=== PATIENT | male | born 1965 | race Caucasian/White ===

== ENCOUNTER → 2018-03-12 14:06 | Outpatient (CLI) | payer OTHER, SELFPAY ==
--- NOTE | 2018-03-14 05:55 | DI.NM.S_ITS ---
DATE OF SERVICE: 03/12/2018 NUCLEAR CARDIAC STRESS STUDY REFERRING PHYSICIAN: Chris Trevino MD INDICATIONS: Mr. Huber is a 52-year-old male with a history of hypertension and chest discomfort, referred to exclude underlying ischemic heart disease. STRESS TEST: This gentleman was able to exercise for 9 minutes and 48 seconds on a Yaw protocol, achieving his expected exercise capacity without chest pain or EKG changes of ischemia. He had a normal heart rate and blood pressure response to exercise. PROCEDURE IN DETAIL: This gentleman received 27.8 mCi of technetium-99 Myoview for the stress portion of the examination. He returned 1 day later for the resting portion of the examination, receiving an additional 27.1 mCi. FINDINGS: RAW DATA: Raw data images demonstrate overall good image quality. There is a moderate amount of up-and-down motion artifact on the stress perfusion images, but that doesn't interfere significantly with the image quality. QUANTITATIVE GATED SPECT IMAGING: Gated images demonstrate normal-sized ventricle with normal left ventricular contractility. Estimated end diastolic volume was 76 cc with an ejection fraction estimated at 80%. QUANTITATIVE PERFUSION SPECT IMAGING: Myocardial perfusion imaging shows a normal distribution of radioisotope throughout the myocardium on stress and rest perfusion images. There are no perfusion abnormalities that would suggest ischemia or scar. IMPRESSION: Normal nuclear cardiac stress study suggesting a low likelihood for the presence of significant underlying obstructive coronary artery disease. Patrick Huber - KAMRAN/thierno/rustam doc#: [id number]/job#: [id number] dd: 03/13/2018 17:46:00 dt: 03/14/2018 05:48:00 DICTATING MD/COPIES TO: Tommy Silva MD COPIES MNE: FRANSICO
== END ==
PROVIDERS: PCP Family Medicine; Visit Provider Family Medicine
DX: R07.89 Other chest pain (principal); I10 Essential (primary) hypertension
CPT/HCPCS: 78452; 93016; 93017; 93018; A9502; J2785

== ENCOUNTER 2018-10-04 22:36 | Emergency (ER) | payer OTHER, SELFPAY ==
--- NOTE | 2018-10-04 22:47 | DI.CT.S_ITS ---
PROCEDURE: CT HEAD/BRAIN WO CON INDICATIONS: multiple falls, highly intoxicated, head injury TECHNIQUE: Noncontrast 4.5 mm thick angled axial sections acquired from the foramen magnum to the vertex, with coronal and sagittal reformats. For radiation dose reduction, the following was used: automated exposure control, adjustment of mA and/or kV according to patient size. COMPARISON: None. FINDINGS: Image quality: Excellent. CSF spaces: Basal cisterns are patent. No extra-axial fluid collections. Ventricles are normal in size and shape. Brain: No midline shift. No intracranial masses or hemorrhage. Lara-white matter interface is normal. Skull and face: Calvarium and visualized facial bones are intact, without suspicious lesions. Mild right posterolateral scalp contusion. Sinuses: Mild right frontal, bilateral ethmoid, and bilateral maxillary sinus mucosal thickening. IMPRESSION: 1. No acute intracranial abnormality. 2. Mild right posterolateral scalp contusion without underlying calvarial fracture. 3. Mild paranasal sinus mucosal thickening, which could be compatible with sinusitis in the appropriate clinical setting. This report is concordant with the overnight preliminary [facility] radiology report of Dr. Sanat Hastings. Dictated by: Ty Gongora M.D. on 10/05/2018 at 23:53 Approved by: Ty Gongora M.D. on 10/06/2018 at 0:01
--- NOTE | 2018-10-04 23:14 | ED_ITS ---
HPI - Head Injury General Chief complaint: Toxicology Problem Stated complaint: Syncope Time Seen by Provider: 10/04/18 22:47 Source: patient, family and EMS Mode of arrival: EMS Limitations: no limitations History of Present Illness HPI Narrative: 53-year-old male, smoker, known to myself and other staff presents obviously and admittedly intoxicated. He tripped and fell, striking the back of his head resulting in a brief loss of consciousness. He denies any other injuries including neck, back or extremity pain. He denies any vomiting. He does not take blood thinners. He denies any other substances Complaint: head injury Onset (ago): hour(s) Mechanism of Injury: fall Place: home Loss of Consciousness: yes Location of injury: occipital Severity: mild Quality: aching Radiation: none Other Injuries: none Context: recent alcohol use Associated symptoms: denies other symptoms Related Data Home Medications Medication Instructions Recorded Confirmed aspirin 81 mg PO QDAY #0 12/29/17 07/17/18 Previous Rx's Medication Instructions Recorded rabeprazole [Aciphex] 20 mg PO QDAY #90 tab 12/31/17 losartan 50 mg tablet 50 mg PO BID #60 tab 05/30/18 clonazepam 0.5 mg tablet 0.5 mg PO TIDP PRN #90 tab 08/08/18 Allergies Allergy/AdvReac Type Severity Reaction Status Date / Time azithromycin Allergy Unknown DIARRHEA Verified 07/17/18 15:16 cefazolin Allergy Unknown Verified 07/17/18 15:16 cephalexin Allergy Unknown RASH Verified 07/17/18 15:16 hydrocodone Allergy Unknown UNKNOWN Verified 07/17/18 15:16 metoprolol Allergy Unknown DIZZY/DYSPN Verified 07/17/18 15:16 EA Penicillins Allergy Unknown DYSPNEA Verified 07/17/18 15:16 Sulfa (Sulfonamide Allergy Unknown HOT-COLD Verified 07/17/18 15:16 Antibiotics) FLASHES narcotics Allergy Unknown states, Uncoded 01/15/18 12:53 all narcotic except for percocet Review of Systems Review of Systems All systems reviewed & are unremarkable except as noted in HPI and below Constitutional Denies chills, Denies fever(s), Reports headache(s), Denies lethargy and Denies weakness Eyes Denies change in vision, Denies eye discharge, Denies irritation and Denies loss of vision ENT Ears, Nose, Mouth, and Throat: Denies change in voice, Reports headache(s), Denies neck pain and Denies sore throat Cardiovascular Denies chest pain, Denies irregular heart rhythm, Denies lightheadedness, Denies palpitations, Denies dyspnea, Denies dyspnea on exertion and Denies orthopnea Respiratory Denies cough, Denies dyspnea, Denies dyspnea on exertion and Denies wheezing Gastrointestinal Gastrointestinal: Denies abdominal pain, Denies change in bowel habits, Denies diarrhea, Denies nausea and Denies vomiting Genitourinary Denies hematuria, Denies flank pain, Denies urinary incontinence and Denies urinary urgency Musculoskeletal Denies neck pain Integumentary/Breasts Denies pruritus, Denies erythema, Denies rash and Denies wounds Neurologic Denies confusion, Reports headache(s), Denies loss of vision and Denies weakness Psychiatric Denies anxiety, Denies confusion, Denies depression, Denies homicidal ideation and Denies suicidal ideation Endocrine Denies palpitations Hematologic/Lymphatic Denies easy bruising Allergic/Immunologic Denies wheezing PFSH Family History Father Cerebrovascular accident (CVA), unspecified mechanism Mother Autoimmune hepatitis Social History Smoking Status: Never smoker alcohol intake: current Exam Narrative Exam Narrative: GENERAL: 53-year-old male, in obvious distress, smells of alcohol. HEAD: Scalp tenderness, occipital. No laceration. No depressed skull fracture EYES: Pupils equal round and reactive. Extraocular motions intact. No scleral icterus. No injection or drainage. ENT: Nose without bleeding, purulent drainage or septal hematoma. Throat without erythema, tonsillar hypertrophy or exudate. Uvula midline. Airway patent. NECK: Trachea midline. No JVD or lymphadenopathy. Supple, nontender, no meningeal signs. CARDIOVASCULAR: Regular rate and rhythm without murmurs, gallops, or rubs. RESPIRATORY: Clear to auscultation. Breath sounds equal bilaterally. No wheezes , rales, or rhonchi. GASTROINTESTINAL: Abdomen soft, non-tender, nondistended. No hepato-splenomegaly , or palpable masses. No guarding. EXTREMITIES: No clubbing, cyanosis, or edema. No joint tenderness, effusion, or edema noted. BACK: Nontender without deformity or crepitance. No flank tenderness. NEURO: AOx3. Slurring of words, not completely cooperative SKIN: No rash or erythema. Initial Vital Signs Initial Vital Signs: Vital Signs Temperature 97.8 F 10/04/18 23:25 Pulse Rate 98 H 10/04/18 23:25 Respiratory Rate 18 10/04/18 23:25 Blood Pressure 158/84 H 10/04/18 23:25 Pulse Oximetry 99 10/04/18 23:25 Course Orders Ordered: ED Orders 10/04/18 22:47 CT head/brain wo con Stat 10/04/18 23:44 Complete Blood Count AUTO DIFF Stat Comprehensive Metabolic Panel Stat Ethanol (ETOH) Stat Hepatic (Liver) Panel Stat Lipase Stat Magnesium Stat Reevaluation(s) Reevaluation #1: patient quite uncooperative initially until friends arrived to help convince him to allow head CT and labs Reevaluation #2: on DC patient walking a straight line and speaking without slurring. He leaves with other responsible sober adult. Vital Signs - 8 hr 10/04/18 23:25 Temperature 97.8 F Pulse Rate 98 H Respiratory Rate 18 Blood Pressure 158/84 H Pulse Oximetry 99 MDM - Head Injury Lab Data Result diagrams: 10/04/18 23:44 10/04/18 23:44 Lab Results 10/04/18 10/04/18 Range/Units 23:44 23:44 WBC 7.8 (4.5-11.0) X10^3/uL RBC 5.04 (4.5-5.9) X10^6/uL Hgb 16.2 (13.5-17.5) g/dL Hct 46.4 (41-53) % MCV 91.9 (80-100) fL MCH 32.1 (26-34) PG MCHC 34.9 (30-36) % RDW 13.1 (11.6-14.8) % Plt Count 214 (150-400) X10^3/uL Neut % (Auto) 61.8 (50-75) % Lymph % (Auto) 29.6 (25-40) % [place] % (Auto) 7.7 (3-14) % Eos % (Auto) 0.5 L (2-4) % Baso % (Auto) 0.4 (0-2) % Neut # (Auto) 4800 (3043-2017) /uL Sodium 143 (137-145) mmol/L Potassium 4.0 (3.4-5.1) mmol/L Chloride 104 (98-107) mmol/L Carbon Dioxide 23 (22-32) mmol/L BUN 11 (9-20) mg/dL Creatinine 1.00 (0.66-1.25) mg/dL Estimated GFR > 60.0 (>60) mL/min BUN/Creatinine Ratio 11.0 (6-22) Glucose 138 H (70-100) mg/dL Calcium 9.0 (8.4-10.2) mg/dL Magnesium 2.3 (1.6-2.3) mg/dL Total Bilirubin 0.4 (0.2-1.3) mg/dL Conjugated Bilirubin 0.0 (0.0-0.3) md/dL Unconjugated Bilirubin 0.1 (0.0-1.1) mg/dL AST 102 H (17-59) IU/L ALT 155 H (21-72) IU/L Alkaline Phosphatase 89 (38-126) U/L Total Protein 8.7 H (6.3-8.2) g/dL Albumin 4.9 (3.5-5.0) g/dL Globulin 3.8 (1.7-4.1) g/dL Albumin/Globulin Ratio 1.3 (1.0-2.8) Lipase 247 (23-300) U/L Ethyl Alcohol 349 mg/dL Discharge Plan Departure Patient Disposition: Home Clinical Impression: Contusion of scalp, Alcohol abuse Discharge Date/Time: 10/05/18 00:15 Interventions: ED Discharge Assessment Last Done: 10/05/18 00:13 Instructions: Alcohol Use Disorder Activity Restrictions/Additional Instructions: *You have been diagnosed with [ alcohol abuse, scalp contusion *What to do: *continue to take medications *Follow up with your primary care provider in 2-3 days, call for an appointment. Let them know you were seen in the Emergency Department and that we ask that you be seen in follow up *Return to ER if you should have any new, worsening or concerning symptoms Prescriptions: No Action aspirin 81 MG tablet,chewable 81 mg PO QDAY Qty: 0 RF: 0 rabeprazole [Aciphex] 20 MG tablet,delayed release (DR/EC) 20 mg PO QDAY Qty: 90 RF: 3 losartan 50 mg tablet 50 mg PO BID Qty: 60 RF: 5 clonazepam 0.5 mg tablet 0.5 mg PO TIDP PRN (Reason: anxiety) Qty: 90 RF: 1 Referrals: Valente Stovall MD [Primary Care Provider] -
[2018-10-04 23:25] VITALS: BP 158/84; PULSE 98; RESP 18; TEMP 36.6; O2SAT 99
--- NOTE | 2018-10-04 23:29 | PC.NURSE ---
Pt appears to be intoxicated, he reports he hadway too much to drink tonight. He states he has a headache and Im fine, let me go home. Pt has difficulty following directions and argues every thing. Pt eventually agreed to go into the CT scanner once friends arrived and talked him into it. Pt denies any needs just want to go home. Friends are at bedside now redirecting pt to stay on the stretcher and wait for ct results.
[2018-10-04 23:59] LABS: Add Manual Diff / Slide Review NO; Basophils Percent Auto 0.4 % (0-2); Eosinophils Percent Auto 0.5 % (2-4); Hematocrit 46.4 % (41-53); Hemoglobin 16.2 g/dL (13.5-17.5); Lymphocytes Percent Auto 29.6 % (25-40); Mean Corpuscular HGB Conc 34.9 % (30-36); Mean Corpuscular Hemoglobin 32.1 PG (26-34); Mean Corpuscular Volume 91.9 fL (80-100); Monocytes Percent Auto 7.7 % (3-14); Neutrophils Absolute Auto 4800 /uL (1500-7000); Neutrophils Percent Auto 61.8 % (50-75); Platelet Count 214 X10^3/uL (150-400); Red Blood Cell Count 5.04 X10^6/uL (4.5-5.9); Red Cell Distribution Width 13.1 % (11.6-14.8); White Blood Cell Count 7.8 X10^3/uL (4.5-11.0)
[2018-10-05 00:17] LABS: Alanine Aminotransferase 155 IU/L (21-72); Albumin 4.9 g/dL (3.5-5.0); Albumin Globulin Ratio 1.3 (1.0-2.8); Alkaline Phosphatase 89 U/L (38-126); Aspartate Aminotransferase 102 IU/L (17-59); Bilirubin Total 0.4 mg/dL (0.2-1.3); Bilirubin Unconjugated 0.1 mg/dL (0.0-1.1); Blood Urea Nitrogen 11 mg/dL (9-20); Carbon Dioxide 23 mmol/L (22-32); Chloride 104 mmol/L (98-107); Estimated Glomerular Filt Rate > 60.0 mL/min (>60); Globulin 3.8 g/dL (1.7-4.1); Glucose 138 mg/dL (70-100); HEMOLYSIS < 15 (0-50); Lipase 247 U/L (23-300); Magnesium 2.3 mg/dL (1.6-2.3); Sodium 143 mmol/L (137-145); Total Protein 8.7 g/dL (6.3-8.2)
[2018-10-05 00:27] LABS: Ethanol (ETOH) 349 mg/dL
--- NOTE | 2018-10-05 00:27 | PC.NURSE ---
Unable to leave pt alone until friends arrived. Pt was not directable and not steady on his feet. Staff had to continually hold pt up when asking him to get back on stretcher. Pt would sit for a few seconds and get right back up telling staff he was leaving. Pt required 1:1 staff to prevent falling and keep pt safe.
== END 2018-10-05 00:15 | disposition home or self-care (01) ==
PROVIDERS: Emergency Provider Emergency Medicine; PCP Student in an Organized Health Care Education/Training Program
DX: S00.03XA Contusion of scalp, initial encounter (principal); F10.10 Alcohol abuse, uncomplicated; W01.0XXA Fall on same level from slipping, tripping and stumbling without subsequent striking against object, initial encounter
CPT/HCPCS: 36415; 70450; 80053; 80076; 80320; 83690; 83735; 85025; 99282; 99285; 99291

== ENCOUNTER → 2018-12-19 16:03 | Outpatient (CLI) | payer OTHER, SELFPAY ==
[2018-12-19 17:13] LABS: Alanine Aminotransferase 138 IU/L (21-72); Albumin 4.7 g/dL (3.5-5.0); Albumin Globulin Ratio 1.6 (1.0-2.8); Alkaline Phosphatase 67 U/L (38-126); Aspartate Aminotransferase 67 IU/L (17-59); Bilirubin Total 0.5 mg/dL (0.2-1.3); Bilirubin Unconjugated 0.3 mg/dL (0.0-1.1); HEMOLYSIS < 15 (0-50); Total Protein 7.7 g/dL (6.3-8.2)
[2018-12-19 17:45] LABS: Hepatitis B Surface Antigen NEGATIVE s/c (NEGATIVE)
[2018-12-23 11:51] LABS: Anti Mitochondrial ABY IGG < 20.1 Units (< 20.1)
[2018-12-23 15:58] LABS: Hepatitis B Core Antibody Nonreactive (Nonreactive)
[2018-12-23 16:26] LABS: Hepatitis A Antibody Total Nonreactive (Nonreactive)
[2018-12-25 15:16] LABS: Cholesterol 193 mg/dL (140-199); HDL Cholesterol 39 mg/dL (40-60); LDL Cholesterol Calculated 78 mg/dL (<100); Triglycerides 380 mg/dL (35-150)
[2018-12-25 16:13] LABS: Hepatitis B Surface Antigen NEGATIVE s/c (NEGATIVE)
[2018-12-26 14:40] LABS: Vitamin D 25 Hydroxy (D3) 24.4 ng/mL (30.0-100.0)
[2018-12-27 14:13] LABS: ANA Pattern Speckled; ANA Screen, IFA Positive (Negative); ANA Titer 1:40 titer (<1:40)
[2018-12-27 19:56] LABS: Hepatitis B Core Antibody Nonreactive (Nonreactive)
== END ==
PROVIDERS: PCP Student in an Organized Health Care Education/Training Program; Visit Provider Student in an Organized Health Care Education/Training Program
DX: R74.8 Abnormal levels of other serum enzymes (principal)
CPT/HCPCS: 36415; 80061; 80076; 82306; 82728; 83516; 86038; 86704; 86708; 87340

== ENCOUNTER → 2018-12-23 07:19 | Outpatient (CLI) | payer OTHER, SELFPAY ==
--- NOTE | 2018-12-23 | DI.US.S_ITS ---
PROCEDURE: US ABDOMEN COMPLETE INDICATIONS: ABNORMAL LFTS TECHNIQUE: Real-time scanning was performed of the abdominal and retroperitoneal organs, with image documentation. COMPARISON: [facility], [place], ABDOMEN LIMITED, 01/05/2015, 8:39. [facility], CT, ABDOMEN/PELVIS WITH CONTRAST, 04/26/2008, 8:20. FINDINGS: Liver: Liver is diffusely increased in echogenicity. No focal hepatic abnormalities identified. Normal hepatic size. Gallbladder: 1.7 cm mobile gallstone present and there is no gallbladder wall thickening. No pericholecystic fluid. Negative sonographic Solis sign. Biliary ducts: Intrahepatic bile ducts are non-dilated. Extrahepatic bile duct caliber measures 8.6 mm. Normal is 6-7 mm or less in diameter, or 10 mm or less post-cholecystectomy. Pancreas: Not well-seen. Spleen: Spleen is normal in size and homogeneous in echotexture. Kidneys: Kidneys are normal in size and echotexture. Right kidney measures 10.8 cm long; left kidney measures 10.4 cm long. No hydronephrosis or nephrolithiasis. No solid masses. Aorta: Visualized aorta is normal in caliber at less than 3 cm. Iliacs: Proximal common iliac arteries are normal in caliber at less than 2.5 cm. IVC: Intrahepatic inferior vena cava is patent. Miscellaneous: No free abdominal fluid. IMPRESSION: 1. Increased hepatic echogenicity likely representing steatosis. 2. Cholelithiasis without acute cholecystitis. 3. Mild extrahepatic biliary ductal dilatation without an obstructing stone visualized. Correlate with LFTs and if indicated further evaluation may be obtained with MRCP. Dictated by: Morgan Thakur [facility] Interpreted: Dilip Tipton MD on 12/23/2018 at 9:05 Approved by: Dilip Tipton M.D. on 12/23/2018 at 11:10
== END ==
PROVIDERS: PCP Student in an Organized Health Care Education/Training Program; Visit Provider Physician Assistant
DX: R79.89 Other specified abnormal findings of blood chemistry (principal); K80.80 Other cholelithiasis without obstruction; K83.8 Other specified diseases of biliary tract
CPT/HCPCS: 76700

== ENCOUNTER → 2019-01-28 08:13 | Outpatient (CLI) | payer OTHER, SELFPAY ==
[2019-01-28 08:41] LABS: Influenza A and B by PCR Rapid Negative (Negative)
== END ==
PROVIDERS: PCP Student in an Organized Health Care Education/Training Program; Visit Provider Physician Assistant
DX: R68.89 Other general symptoms and signs (principal)
CPT/HCPCS: 87400

== ENCOUNTER → 2019-01-28 08:17 | Outpatient (CLI) | payer OTHER, SELFPAY ==
--- NOTE | 2019-01-28 08:19 | DI.RAD.S_ITS ---
PROCEDURE: XR CHEST 2V INDICATIONS: cough TECHNIQUE: 2 views of the chest were acquired. COMPARISON: None. FINDINGS: Surgical changes and devices: None. Lungs and pleura: Lungs are clear. No pleural effusions or pneumothorax. Mediastinum: Mediastinal contours are normal. Heart size is normal. Bones and chest wall: No suspicious bony abnormalities. Soft tissues appear unremarkable. IMPRESSION: No acute cardiopulmonary disease process. Dictated by: Chica Fuentes MD, PhD on 01/28/2019 at 8:45 Approved by: Chica Fuentes MD, PhD on 01/28/2019 at 8:45
== END ==
PROVIDERS: PCP Student in an Organized Health Care Education/Training Program; Visit Provider Physician Assistant
DX: R05 Cough (principal); R68.89 Other general symptoms and signs
CPT/HCPCS: 71046; 87400

== ENCOUNTER → 2019-04-30 17:26 | Outpatient (CLI) | payer OTHER, SELFPAY ==
[2019-04-30 18:31] LABS: HEMOLYSIS 28 (0-50); Iron 87 ug/dL (49-181)
[2019-04-30 18:32] LABS: Alanine Aminotransferase 112 IU/L (21-72); Albumin 4.6 g/dL (3.5-5.0); Albumin Globulin Ratio 1.5 (1.0-2.8); Alkaline Phosphatase 68 U/L (38-126); Aspartate Aminotransferase 63 IU/L (17-59); Bilirubin Total 0.7 mg/dL (0.2-1.3); Bilirubin Unconjugated 0.3 mg/dL (0.0-1.1); HEMOLYSIS 20 (0-50); Total Protein 7.6 g/dL (6.3-8.2)
[2019-04-30 18:41] LABS: Percent Iron Saturation 22 % (20-50); Total Iron Binding Capacity 390 ug/dL (261-462); Transferrin 327 mg/dL (206-381)
[2019-04-30 19:20] LABS: Hep C Virus Ab w/Reflex Quant NEGATIVE s/c (NEGATIVE)
[2019-05-05 14:53] LABS: Hepatitis B Surf AB Imm QUANT < 5 mIU/mL (> 9)
== END ==
PROVIDERS: PCP Student in an Organized Health Care Education/Training Program; Visit Provider Physician Assistant
DX: R94.5 Abnormal results of liver function studies (principal)
CPT/HCPCS: 36415; 80076; 81256; 82728; 83540; 83550; 86317; 86803

== ENCOUNTER 2019-08-19 08:21 | Emergency (ER) | payer OTHER, SELFPAY ==
[2019-08-19 08:29] VITALS: BP 182/115; PULSE 122; RESP 17; TEMP 36.8; O2SAT 96
--- NOTE | 2019-08-19 08:29 | ED.GENADULT ---
HPI - General Adult General Chief complaint: Wound/Laceration Stated complaint: cat scratch Time Seen by Provider: 08/19/19 08:26 Source: patient Mode of arrival: Ambulatory Limitations: no limitations History of Present Illness HPI narrative: 54-year-old male here for evaluation of a cat scratch/swelling and pain to his left hand. Patient states that approximately 3 days ago he was scratched by a friend's domesticated cat. He has been cleaning it out at home with soap and water and peroxide. Over the past couple days he has noticed pain and swelling and redness to the area surrounding the thumb. Has multiple antibiotic allergies however he states he can take azithromycin. Patient states that his last tetanus shot was when he was in his 20s. He states that when he had it his arm became painful and was swollen for about 5 days and then completely resolved. Related Data Previous Rx's Medication Instructions Recorded triamcinolone acetonide 0.1 % 1 % TOP BID #15 gram 11/12/18 topical cream amlodipine 5 mg tablet 5 mg PO DAILY #90 tab 12/16/18 rabeprazole 20 mg tablet,delayed 20 mg PO QDAY #90 tab 01/23/19 release clonazepam 0.5 mg tablet 0.5 mg PO TID #90 tab 05/12/19 azithromycin 250 mg tablet See Rx Instructions PO .COMPLEX #6 07/29/19 tab azithromycin 500 mg PO DAILY 6 Days #6 tab 08/19/19 Allergies Allergy/AdvReac Type Severity Reaction Status Date / Time azithromycin Allergy Unknown DIARRHEA Verified 07/29/19 14:48 cefazolin Allergy Unknown Verified 07/29/19 14:48 cephalexin Allergy Unknown RASH Verified 07/29/19 14:48 hydrocodone Allergy Unknown UNKNOWN Verified 07/29/19 14:48 Penicillins Allergy Unknown DYSPNEA Verified 07/29/19 14:48 Sulfa (Sulfonamide Allergy Unknown HOT-COLD Verified 07/29/19 14:48 Antibiotics) FLASHES narcotics Allergy Unknown states, Uncoded 07/29/19 14:48 all narcotic except for percocet Review of Systems Constitutional Constitutional: Reports fatigue and Reports fever(s) (Subjective) Musculoskeletal Comments: Left thumb pain Integumentary/Breasts Comments: Redness around the left thumb with a cat scratch left thumb Neurologic Neurologic: Denies paresthesias Endocrine Endocrine: Reports fatigue Hematologic/Lymphatic Hematologic/Lymphatic: Denies easy bleeding and Denies easy bruising Patient History Medical History Abnormal transaminases (Chronic) Anxiety (Chronic) GERD (gastroesophageal reflux disease) (Chronic) Hyperlipidemia (Chronic) Hypertension (Chronic) Impotence (Chronic) Surgical History (Updated 11/11/18 @ 20:40 by Caryn Boyd) History of gastric surgery (Resolved ~2003) History of hernia repair (Resolved ~2003) Perianal cyst (Resolved ~1999) Social History Smoking Status: Never smoker alcohol intake: current Exam Initial Vital Signs Initial Vital Signs: Vital Signs Temperature 98.3 F 08/19/19 08:29 Pulse Rate 122 H 08/19/19 08:29 Respiratory Rate 17 08/19/19 08:29 Blood Pressure 182/115 H 08/19/19 08:29 Pulse Oximetry 96 08/19/19 08:29 Const General: cooperative and comfortable Orientation: alert, awake and oriented x3 Cardio Rate: tachycardic Pulses: radial pulses present on the left Skin Other: Patient with a 2 cm scratch on the dorsum of the left thumb between the MCP and IP joint. Has redness surrounding his left thumb up to the wrist both on the dorsum in the palm. No drainage. Extrem Other: Patient can flex and extend and pronate and supinate with only minimal discomfort Psych Appearance: grossly normal and well kempt Course Vital Signs Vital signs: Vital Signs - 8 hr 08/19/19 08:29 Temperature 98.3 F Pulse Rate 122 H Respiratory Rate 17 Blood Pressure 182/115 H Pulse Oximetry 96 Medical Decision Making [facility] Narrative Medical decision making narrative: Patient with a wound to the back of his left thumb. There is no drainage. He has been cleaning it extensively over the past couple days. He has surrounding erythema concerning for a cellulitis. I have low concern for septic joint. Was tachycardic but also was in some discomfort. Has multiple drug allergies however he states that he can take azithromycin. He states he is allergic to penicillins. States the doxycycline causes his kidneys to hurt. He states that he is unsure if he can take clindamycin. He does not think he can take Cipro. He knows that he cannot take sulfa drugs. I feel that since he has not taken any antibiotics at home and his clinical presentation today that a trial of oral outpatient antibiotics is warranted in this case. The redness was outlined with a skin marker. He was given his 1st dose of antibiotics here in the ER. Will send home with a prescription for the rest. He was given return precautions and follow-up instructions. He expressed understanding and agreement with plan. Patient states the last time he had tetanus his arm was painful and at swelled up for about 5 days and then resolved. He has not had a tetanus shot since he was in his 20s. I did discuss this with him. I feel that this is a low risk for tetanus however feel that the benefits outweigh the risks of swelling and pain in his arm. He was given a tetanus shot here in the ER. Discharge Plan Departure Patient Disposition: Home Clinical Impression: Cat scratch of hand Qualifiers: Encounter type: initial encounter Laterality: left Qualified Code(s): S60.512A - Abrasion of left hand, initial encounter Cellulitis Qualifiers: Site of cellulitis: extremity Site of cellulitis of extremity: upper extremity Laterality: left Qualified Code(s): L03.114 - Cellulitis of left upper limb Instructions: DI for Cellulitis -- Adult, Animal Bites Activity Restrictions/Additional Instructions: Keep the hand cleaning. You can use soap and water. You were given your 1st dose of antibiotics here in the emergency department. Your next dose will be tomorrow. Take it as directed. Contact your primary provider for follow-up. Return to the emergency department for new or worsening symptoms. You can take Tylenol and/or ibuprofen for any discomfort Prescriptions: New azithromycin 500 mg tablet 500 mg PO DAILY 6 Days Qty: 6 RF: 0 No Action amlodipine 5 mg tablet 5 mg PO DAILY Qty: 90 RF: 1 rabeprazole [AcipHex] 20 mg tablet,delayed release (DR/EC) 20 mg PO QDAY Qty: 90 RF: 3 clonazepam 0.5 mg tablet 0.5 mg PO TID Qty: 90 RF: 2 triamcinolone acetonide 0.1 % cream 1 % TOP BID Qty: 15 RF: 1 azithromycin 250 mg tablet See Rx Instructions PO .COMPLEX Qty: 6 RF: 0 Referrals: Valente Stovall MD [Primary Care Provider] -
[2019-08-19] MEDS: AZITHROMYCIN 250 MG TABLET 500 MG PO (09:04)
[2019-08-19] MEDS: TET,DIPH,PERTUSS(ACELL),VAC/PF 0.5 ML SYRINGE IM (09:04)
--- NOTE | 2019-08-19 09:13 | PC.NURSE ---
pt has redness and swelling originating with 1cm cat scratch to left thumb and extending to other fingers and up forearm to about 6 cm proximal to wrist, borders of redness marked with surgical pen for reference, no drainage, + pain with movement or palpation
== END 2019-08-19 09:16 | disposition home or self-care (01) ==
PROVIDERS: Emergency Provider Emergency Medicine; PCP Student in an Organized Health Care Education/Training Program
DX: S60.512A Abrasion of left hand, initial encounter (principal); L03.114 Cellulitis of left upper limb; W55.03XA Scratched by cat, initial encounter
CPT/HCPCS: 90471; 99283; 90715

== ENCOUNTER 2019-08-20 07:55 | Inpatient (IN) | payer OTHER, SELFPAY ==
[2019-08-20] VITALS (7 sets, daily range): BP systolic 129–149; BP diastolic 84–107; PULSE 95–115; RESP 16–18; TEMP 36.6–37.9; O2SAT 95–98; BMI 26.6
--- NOTE | 2019-08-20 08:02 | ED.GENADULT ---
HPI - General Adult General Chief complaint: Skin/Abscess/Foreign Body Stated complaint: cellulitis left hand, says it's worse Time Seen by Provider: 08/20/19 08:01 Source: patient Mode of arrival: Ambulatory Limitations: no limitations History of Present Illness HPI narrative: 54-year-old male here for evaluation of worsening cellulitis to his left hand. I did see the patient in the emergency department yesterday after he had been scratched by a domesticated cat in his left thumb. Patient has multiple drug allergies. He was given a dose of azithromycin yesterday. The cellulitis was outlined. He states he did take a dose of the azithromycin today however he reports that the redness has now moved outside of the line from yesterday. No fevers. Azithromycin was chosen yesterday given the patient's stated reactions to multiple medications. He had a small amount of cellulitis yesterday. I was treating more of a cat bite/scratch rather than cellulitis. Related Data Previous Rx's Medication Instructions Recorded triamcinolone acetonide 0.1 % 1 % TOP BID #15 gram 11/12/18 topical cream amlodipine 5 mg tablet 5 mg PO DAILY #90 tab 12/16/18 rabeprazole 20 mg tablet,delayed 20 mg PO QDAY #90 tab 01/23/19 release clonazepam 0.5 mg tablet 0.5 mg PO TID #90 tab 05/12/19 azithromycin 250 mg tablet See Rx Instructions PO .COMPLEX #6 07/29/19 tab azithromycin 500 mg PO DAILY 6 Days #6 tab 08/19/19 Allergies Allergy/AdvReac Type Severity Reaction Status Date / Time azithromycin Allergy Unknown DIARRHEA Verified 08/20/19 08:10 cefazolin Allergy Unknown Verified 08/20/19 08:10 cephalexin Allergy Unknown RASH Verified 08/20/19 08:10 hydrocodone Allergy Unknown UNKNOWN Verified 08/20/19 08:10 Penicillins Allergy Unknown DYSPNEA Verified 08/20/19 08:10 Sulfa (Sulfonamide Allergy Unknown HOT-COLD Verified 08/20/19 08:10 Antibiotics) FLASHES narcotics Allergy Unknown states, Uncoded 08/20/19 08:10 all narcotic except for percocet Review of Systems Constitutional Constitutional: Denies fever(s) ENT Ears, Nose, Mouth, and Throat: Denies disequilibrium Cardiovascular Cardiovascular: Denies chest pain and Denies dyspnea Respiratory Respiratory: Denies dyspnea Gastrointestinal Gastrointestinal: Denies abdominal pain Musculoskeletal Musculoskeletal: Denies myalgias and Denies arthralgias Integumentary/Breasts Comments: Redness and swelling of the left hand extending up his left arm Neurologic Neurologic: Denies disequilibrium Hematologic/Lymphatic Hematologic/Lymphatic: Denies easy bleeding and Denies easy bruising Patient History Medical History Abnormal transaminases (Chronic) Anxiety (Chronic) GERD (gastroesophageal reflux disease) (Chronic) Hyperlipidemia (Chronic) Hypertension (Chronic) Impotence (Chronic) Surgical History History of gastric surgery (Resolved ~2003) History of hernia repair (Resolved ~2003) Perianal cyst (Resolved ~1999) Family History Father Cerebrovascular accident (CVA), unspecified mechanism Mother Autoimmune hepatitis Grandmother No problems noted. Social History household members: none Smoking Status: Never smoker alcohol intake: current alcohol intake frequency: a few times a week Alcohol type: beer Substance Use Type: does not use Exam Initial Vital Signs Initial Vital Signs: Vital Signs Temperature 97.9 F 08/20/19 08:07 Pulse Rate 107 H 08/20/19 08:07 Respiratory Rate 18 08/20/19 08:07 Blood Pressure 149/95 H 08/20/19 08:07 Pulse Oximetry 98 08/20/19 08:07 Const General: cooperative and comfortable Resp Effort & Inspection: normal respiratory effort Cardio Rate: tachycardic Skin Other: 2 cm scratch on the radial aspect of the left thumb. There is no drainage from this area. The redness that surrounds the area is currently there today however he down has streaking up his left arm that does not extend past the elbow. Neuro General: alert, awake and oriented x3 Cognition: normal cognition Speech: speech normal Extrem General: normal to inspection and capillary refill normal Psych Appearance: grossly normal and well kempt Course Orders Ordered: ED Orders 08/20/19 08:00 Basic Metabolic Panel Stat Complete Blood Count AUTO DIFF Stat Lactate (Lactic Acid) Stat Procalcitonin Stat 08/20/19 08:07 XR hand LT min 3V Stat 08/20/19 08:36 Blood Culture Stat Sodium Chloride (Normal Saline 0.9%) 1,000 mls @ 125 mls/hr IV CONT OMARI Last Infusion: 08/20/19 10:37 Dose: 125 mls/hr Documented by: Admin: 08/20/19 08:35 Dose: 125 mls/hr Documented by: MONTY Discontinued Medications Vancomycin HCl (Vancomycin) 1,000 mg in 200 mls @ 200 mls/hr IV NOW ONE Stop: 08/20/19 09:06 Last Infusion: 08/20/19 09:50 Dose: 0 mls/hr Documented by: Admin: 08/20/19 08:35 Dose: 200 mls/hr Documented by: MONTY Clindamycin Phosphate (Cleocin) 600 mg in 50 mls @ 50 mls/hr IV NOW ONE Stop: 08/20/19 10:29 Last Infusion: 08/20/19 10:39 Dose: 50 mls/hr Documented by: Admin: 08/20/19 09:54 Dose: 50 mls/hr Documented by: KOTA Vital Signs Vital signs: Vital Signs - 8 hr 08/20/19 08:07 Temperature 97.9 F Pulse Rate 107 H Respiratory Rate 18 Blood Pressure 149/95 H Pulse Oximetry 98 Medical Decision Making Lab Data Lab results reviewed: Yes I reviewed the patient's lab results. Result diagrams: 08/20/19 08:00 08/20/19 08:00 Labs: Lab Results 08/20/19 08/20/19 08/20/19 Range/Units 08:00 08:00 08:00 WBC 11.6 H (4.5-11.0) X10^3/uL RBC 4.57 (4.5-5.9) X10^6/uL Hgb 14.6 (13.5-17.5) g/dL Hct 41.6 (41-53) % MCV 90.9 (80-100) fL MCH 31.9 (26-34) PG MCHC 35.1 (30-36) % RDW 13.6 (11.6-14.8) % Plt Count 162 (150-400) X10^3/uL Neut % (Auto) 80.1 H (50-75) % Lymph % (Auto) 10.2 L (25-40) % [place] % (Auto) 9.2 (3-14) % Eos % (Auto) 0.2 L (2-4) % Baso % (Auto) 0.3 (0-2) % Neut # (Auto) 9300 H (5131-5923) /uL Lymph # (Auto) 1200 (2824-8494) /uL [place] # (Auto) 1100 H (0-900) /uL Eos # (Auto) 0 (0-450) /uL Baso # (Auto) 0 (0-100) /uL Sodium 136 L (137-145) mmol/L Potassium 3.5 (3.4-5.1) mmol/L Chloride 102 (98-107) mmol/L Carbon Dioxide 24 (22-32) mmol/L BUN 11 (9-20) mg/dL Creatinine 0.90 (0.66-1.25) mg/dL Estimated GFR > 60.0 (>60) mL/min BUN/Creatinine Ratio 12.2 (6-22) Glucose 186 H (70-100) mg/dL Lactate (0.7-2.1) mmol/L Calcium 9.2 (8.4-10.2) mg/dL Procalcitonin 0.16 (<0.5) ng/mL 08/20/19 Range/Units 08:00 WBC (4.5-11.0) X10^3/uL RBC (4.5-5.9) X10^6/uL Hgb (13.5-17.5) g/dL Hct (41-53) % MCV (80-100) fL MCH (26-34) PG MCHC (30-36) % RDW (11.6-14.8) % Plt Count (150-400) X10^3/uL Neut % (Auto) (50-75) % Lymph % (Auto) (25-40) % [place] % (Auto) (3-14) % Eos % (Auto) (2-4) % Baso % (Auto) (0-2) % Neut # (Auto) (2101-7535) /uL Lymph # (Auto) (3116-3322) /uL [place] # (Auto) (0-900) /uL Eos # (Auto) (0-450) /uL Baso # (Auto) (0-100) /uL Sodium (137-145) mmol/L Potassium (3.4-5.1) mmol/L Chloride (98-107) mmol/L Carbon Dioxide (22-32) mmol/L BUN (9-20) mg/dL Creatinine (0.66-1.25) mg/dL Estimated GFR (>60) mL/min BUN/Creatinine Ratio (6-22) Glucose (70-100) mg/dL Lactate 1.3 (0.7-2.1) mmol/L Calcium (8.4-10.2) mg/dL Procalcitonin (<0.5) ng/mL Imaging Data hand x-ray: Radiologist's impression: [address] [address] XRay Report Signed Patient: Patrick Huber [facility]#: [id number] : 1965Acct:[id number] Age/Sex: 54 / MDate of Service: 08/20/19 Loc: ED Accession Number: [id number] Procedure: XR hand LT min 3V Ordering Provider: Edy Lance D.O. PROCEDURE: XR HAND LT MIN 3V INDICATIONS: cellulitis TECHNIQUE: 3 views of the hand(s) acquired. COMPARISON: None. FINDINGS: Bones: Diffuse soft tissue swelling of the left hand without underlying osseous erosion or cortical disruption. No associated soft tissue gas. Healed fracture deformity of the distal left radius. No acute fractures or dislocations. Carpal bones are normally aligned. No suspicious bony lesions. Soft tissues: No suspicious soft tissue calcifications. IMPRESSION: Diffuse soft tissue swelling of the left hand without underlying osseous erosion, fracture, or cortical disruption. No evidence for soft tissue gas. Findings are consistent with reported history of cellulitis. Dictated by: Ken Kim M.D. on 08/20/2019 at 9:00 Approved by: Ken Kim M.D. on 08/20/2019 at 9:02 [facility] Narrative Medical decision making narrative: Patient was started on azithromycin yesterday secondary to his allergies in the fact that this was a cat scratch. He did have a small amount of erythema around the area. He was given a dose antibiotics yesterday and sent home with a prescription for this. He stated that he did take another dose of the antibiotics this morning however has noticed that the redness is now streaking up his arm. It is outside the line that was drawn yesterday. Does have streaking up his arm. Is tachycardic and does have a elevation his white blood cell count. He is not hypotensive. He is not toxic appearing. His tetanus was updated yesterday. IV was started he was given dose of vancomycin. X-ray shows no signs of a foreign body. A do feel that he needs admitted to the hospital for IV antibiotics secondary to outpatient failure of oral antibiotics and his stated allergies. Discussed case with the hospitalist. Will admit for further evaluation treatment. Discussed the admission with the patient expressed understanding and agreement. Discharge Plan Departure Patient Disposition: Admitted as Observation Clinical Impression: Cellulitis Qualifiers: Site of cellulitis: extremity Site of cellulitis of extremity: upper extremity Laterality: left Qualified Code(s): L03.114 - Cellulitis of left upper limb Discharge Date/Time: 08/20/19 10:41 Referrals: Valente Stovall MD [Primary Care Provider] - Admit Date/Time: 08/20/19 09:29 Admit Provider: Reno Harris
--- NOTE | 2019-08-20 08:07 | DI.RAD.S_ITS ---
PROCEDURE: XR HAND LT MIN 3V INDICATIONS: cellulitis TECHNIQUE: 3 views of the hand(s) acquired. COMPARISON: None. FINDINGS: Bones: Diffuse soft tissue swelling of the left hand without underlying osseous erosion or cortical disruption. No associated soft tissue gas. Healed fracture deformity of the distal left radius. No acute fractures or dislocations. Carpal bones are normally aligned. No suspicious bony lesions. Soft tissues: No suspicious soft tissue calcifications. IMPRESSION: Diffuse soft tissue swelling of the left hand without underlying osseous erosion, fracture, or cortical disruption. No evidence for soft tissue gas. Findings are consistent with reported history of cellulitis. Dictated by: Ken Kim M.D. on 08/20/2019 at 9:00 Approved by: Ken Kim M.D. on 08/20/2019 at 9:02
[2019-08-20] MEDS: SODIUM CHLORIDE 0.9% 1,000 ML 125 ML IV (08:35)
[2019-08-20] MEDS: VANCOMYCIN 1,000 MG/200 ML PIGGYBACK 200 MG IV ×3 (08:35→23:52)
[2019-08-20 08:37] LABS: Add Manual Diff / Slide Review NO; Basophils Absolute Auto 0 /uL (0-100); Basophils Percent Auto 0.3 % (0-2); Eosinophils Absolute Auto 0 /uL (0-450); Eosinophils Percent Auto 0.2 % (2-4); Hematocrit 41.6 % (41-53); Hemoglobin 14.6 g/dL (13.5-17.5); Lymphocytes Absolute Auto 1200 /uL (1100-4500); Lymphocytes Percent Auto 10.2 % (25-40); Mean Corpuscular HGB Conc 35.1 % (30-36); Mean Corpuscular Hemoglobin 31.9 PG (26-34); Mean Corpuscular Volume 90.9 fL (80-100); Monocytes Absolute Auto 1100 /uL (0-900); Monocytes Percent Auto 9.2 % (3-14); Neutrophils Absolute Auto 9300 /uL (1500-7000); Neutrophils Percent Auto 80.1 % (50-75); Platelet Count 162 X10^3/uL (150-400); Red Blood Cell Count 4.57 X10^6/uL (4.5-5.9); Red Cell Distribution Width 13.6 % (11.6-14.8); White Blood Cell Count 11.6 X10^3/uL (4.5-11.0)
[2019-08-20 08:47] LABS: BUN Creatinine Ratio 12.2 (6-22); Blood Urea Nitrogen 11 mg/dL (9-20); Calcium 9.2 mg/dL (8.4-10.2); Carbon Dioxide 24 mmol/L (22-32); Chloride 102 mmol/L (98-107); Estimated Glomerular Filt Rate > 60.0 mL/min (>60); Glucose 186 mg/dL (70-100); HEMOLYSIS < 15 (0-50); Lactate (Lactic Acid) 1.3 mmol/L (0.7-2.1); Potassium 3.5 mmol/L (3.4-5.1); Sodium 136 mmol/L (137-145)
[2019-08-20 09:03] LABS: Procalcitonin 0.16 ng/mL (<0.5)
[2019-08-20] MEDS: CLINDAMYCIN 600 MG/50 ML PIGGYBACK 50 MG IV ×3 (09:54→21:35)
--- NOTE | 2019-08-20 11:38 | PC.ADMIT ---
[id number] Admission Note: The patient,Patrick Huber,54 y/o, was given written information regarding hospital policies, unit procedures and contact persons. Patient's smoking status: Never smoker. Vital Signs - 8 hr 08/20/19 08:07 08/20/19 09:56 08/20/19 10:49 Temperature 97.9 F 98.7 F Pulse Rate 107 H 95 H 115 H Respiratory Rate 18 18 18 Blood Pressure 149/95 H 133/92 H Blood Pressure [Right Arm] 148/93 H Pulse Oximetry 98 97 97 PATIENT ALERT AND ORIENTED. GOOD HISTORIAN. LEFT ARM ELEVATED ON PILLOWS. INSTRUCTED TO ELEVATE ABOVE HEART LEVEL. RIGHT HAND/WRIST MARKED IN INK BY ER YESTERDAY. PATIENT CAME BACK IN TODAY BECAUSE OF WORSENING SWELLING UP INTO HIS FOREARM WITH EXTENDING ERYTHEMA TO JUST BELOW HIS ELBOW. INSTRUCTED ON USE OF CALL LIGHT, AND TO CALL PRIOR TO GETTING OOB. PATIENT CONFIRMS UNDERSTANDING.
--- NOTE | 2019-08-20 15:33 | PM.HP.1 ---
History of Present Illness History of Present Illness Date Patient Seen: 08/20/19 Time Patient Seen: 12:30 Chief complaint: cellulitis left hand, says it's worse Narrative: Mr. Huber is a 54-year-old male with past medical history of hypertension, anxiety, and remote peptic ulcer disease on chronic PPI who presented to the ER with pain and swelling of his left upper extremity that started after a cat scratch approximately 4 days ago. He came into the emergency room initially and was given azithromycin given a number of different allergic reactions to antibiotics which the patient reports. He reports progression of the swelling and pain, and reported an inability to move move his hand due to worsening pain. He denied any numbness or tingling of his hand. He denies any recent fevers, chills, chest pain, shortness of breath, abdominal pain, nausea, vomiting, diarrhea, constipation, lower extremity edema. In addition to his already documented this below he also reports he cannot take ciprofloxacin. In the emergency room, patient was tachycardic but normotensive and afebrile. His white blood cell count was 11.6 from 7 from his 1st was in the emergency room. His glucose was elevated at 186, procalcitonin 0.16, and lactate normal at 1.3. He was admitted to Medicine for cellulitis of his left upper extremity following a cat scratch after failing outpatient antibiotic therapy. Patient History Medical History Abnormal transaminases (Chronic) Anxiety (Chronic) GERD (gastroesophageal reflux disease) (Chronic) Hyperlipidemia (Chronic) Hypertension (Chronic) Impotence (Chronic) Surgical History History of gastric surgery (Resolved ~2003) History of hernia repair (Resolved ~2003) Perianal cyst (Resolved ~1999) Family & Social History Family History Father Cerebrovascular accident (CVA), unspecified mechanism Mother Autoimmune hepatitis Grandmother No problems noted. Social History: household members none Prior Living Arrangements Apartment/Condo Safety & Behavioral: Feels Safe in Current Yes Environment Been Physically Hurt or No Threatened By a Person Suicidal Ideation Description None Suicide Plan Description No Plan Tobacco & Substance use: Smoking Status Never smoker alcohol intake current alcohol intake frequency a few times a week Substance Use Type does not use Meds Home Medications and Allergies Home Medications Medication Instructions Recorded Confirmed Type amlodipine 5 mg tablet 5 mg PO DAILY #90 tab 12/16/18 08/20/19 Rx rabeprazole 20 mg tablet,delayed 20 mg PO QDAY #90 tab 01/23/19 08/20/19 Rx release clonazepam 0.5 mg tablet 0.5 mg PO TID #90 tab 05/12/19 08/20/19 Rx azithromycin 250 mg tablet See Rx Instructions PO .COMPLEX #6 07/29/19 08/20/19 Rx tab azithromycin 500 mg PO DAILY 6 Days #6 tab 08/19/19 08/20/19 Rx fluorometholone 1 % OPHTHALMIC (EYE) BID PRN 08/20/19 08/20/19 History triamcinolone acetonide 1 % TOP BID PRN 08/20/19 08/20/19 History Allergies Allergy/AdvReac Type Severity Reaction Status Date / Time azithromycin Allergy Unknown DIARRHEA Verified 08/20/19 08:10 cefazolin Allergy Unknown Verified 08/20/19 08:10 cephalexin Allergy Unknown RASH Verified 08/20/19 08:10 hydrocodone Allergy Unknown UNKNOWN Verified 08/20/19 08:10 Penicillins Allergy Unknown DYSPNEA Verified 08/20/19 08:10 Sulfa (Sulfonamide Allergy Unknown HOT-COLD Verified 08/20/19 08:10 Antibiotics) FLASHES narcotics Allergy Unknown states, Uncoded 08/20/19 08:10 all narcotic except for percocet Review of Systems Review of Systems Narrative: All other systems reviewed with the patient and are negative unless otherwise stated. Exam Vital Signs (past 8 hours): - 08/20/19 08:07 08/20/19 09:56 08/20/19 10:49 Temperature 97.9 F 98.7 F Pulse Rate 107 H 95 H 115 H Respiratory Rate 18 18 18 Blood Pressure 149/95 H 133/92 H Blood Pressure [Right Arm] 148/93 H Pulse Oximetry 98 97 97 Oxygen Delivery Method Room Air Oxygen Flow Rate 0 Narrative Exam Narrative: GENERAL APPEARANCE: Well developed, well nourished, in no acute distress. SKIN: Inspection of the skin reveals erythema of his left hand and left upper extremity. Area was demarcated with marker. It extends from his left thenar eminence to just below his antecubital fossa. There is a small 1 cm laceration which has healed over on his thenar eminence. There does not appear to be any purulence or drainage from this laceration. HEENT: The sclerae were anicteric and conjunctivae were pink and moist. Extraocular movements were intact and pupils were equal, round with normal accommodation. External inspection of the ears and nose showed no scars, lesions, or masses. Lips, teeth, and gums showed normal mucosa. The oral mucosa, hard and soft palate, tongue and posterior pharynx were unremarkable. NECK: Supple and symmetric. There was no thyroid enlargement, and no tenderness, or masses were felt. CHEST: Normal AP diameter and normal contour without any kyphoscoliosis. LUNGS: Auscultation of the lungs revealed no wheezes, rhonchi, or rales. CARDIOVASCULAR: There was a regular rate and rhythm without any murmurs, gallops, rubs. Peripheral pulses were 2+ and symmetric, Including radial pulses. ABDOMEN: Soft and nontender with normal bowel sounds. No ascites was noted. MUSCULOSKELETAL: There was no effusions noted. There is tenderness and warmth in his left upper extremity over the erythematous area as noted above. Muscle strength and tone were normal. EXTREMITIES: No cyanosis, clubbing or edema. NEUROLOGIC: Alert and oriented x 3. Normal affect. Gait was normal. Strength is +5/5 in the Upper Extremities and Lower Extremities Bilaterally. Sensation to touch was normal. Objective Labs Result Diagrams: 08/20/19 08:00 08/20/19 08:00 Labs: Laboratory Results - last 24 hr 08/20/19 08/20/19 08/20/19 08:00 08:00 08:00 WBC 11.6 H RBC 4.57 Hgb 14.6 Hct 41.6 MCV 90.9 MCH 31.9 MCHC 35.1 RDW 13.6 Plt Count 162 Neut % (Auto) 80.1 H Lymph % (Auto) 10.2 L [place] % (Auto) 9.2 Eos % (Auto) 0.2 L Baso % (Auto) 0.3 Neut # (Auto) 9300 H Lymph # (Auto) 1200 [place] # (Auto) 1100 H Eos # (Auto) 0 Baso # (Auto) 0 Sodium 136 L Potassium 3.5 Chloride 102 Carbon Dioxide 24 BUN 11 Creatinine 0.90 Estimated GFR > 60.0 BUN/Creatinine Ratio 12.2 Glucose 186 H Lactate Calcium 9.2 Procalcitonin 0.16 08/20/19 08:00 WBC RBC Hgb Hct MCV MCH MCHC RDW Plt Count Neut % (Auto) Lymph % (Auto) [place] % (Auto) Eos % (Auto) Baso % (Auto) Neut # (Auto) Lymph # (Auto) [place] # (Auto) Eos # (Auto) Baso # (Auto) Sodium Potassium Chloride Carbon Dioxide BUN Creatinine Estimated GFR BUN/Creatinine Ratio Glucose Lactate 1.3 Calcium Procalcitonin Assessment & Plan Assessment & Plan narrative: Mr. Huber is a 54-year-old male with past medical history of hypertension, anxiety, and remote peptic ulcer disease on chronic PPI who presented to the a ER with pain and swelling of his left upper extremity that started after a cat scratch approximately 4 days ago who was admitted to Medicine for left upper extremity cellulitis. 1. Left upper extremity cellulitis, acute, present on admission -possibly secondary to sequela after cat scratch which produced a laceration which appears well healed and without induration or purulence currently. Will treat as a non purulence cellulitis at this time. There is a possibility that this is cat scratch disease as well and patient was given azithro but did not respond to this as an outpatient. Consider rifampin for additional treatments if necessary or consultation with infectious disease if no clinical improvement. His x-ray is reassuring as there are no joint effusions or evident gas, and further no evidence of osteomyelitis. -patient has multiple reported allergies, many of which appear to be minor reactions. -will attempt clindamycin and vancomycin at this time as patient reported an inability to take fluoroquinolones. His symptoms are currently improving and he reports the ability to move his hand which he was not able to on arrival to the ED. Further his erythema has not further worsened. -keep left upper extremity elevated -consider orthopedic consultation and infectious disease consultation if no further improvement, or progressive erythema and that is not responding to antibiotics 2. Hypertension, chronic -continue home amlodipine 5 mg 3. Anxiety, chronic, stable -continue home clonazepam 4. History of peptic ulcer disease, stable -continue PPI while inpatient, patient takes rabeprazole which is non formulary, will give Protonix while inpatient Code: Full Dispo: Patient is admitted to Medicine under inpatient status for left upper extremity cellulitis which was not responsive to initial outpatient therapy and given rapid progression of his erythema and tenderness. This needs to be monitor closely while receiving antibiotics as urgent intervention may be necessary if there is no response. Quality VTE Deep Vein Thrombosis/Pulmonary Embolism Present on Admission: No
[2019-08-20] MEDS: clonazePAM 0.5 MG TABLET PO (15:44)
[2019-08-20] MEDS: SODIUM CHLORIDE 0.9% 250 ML 21 ML IV (15:46)
[2019-08-20] MEDS: IBUPROFEN 400 MG TABLET 800 MG PO (16:13)
[2019-08-20] MEDS: FLUOROMETHOLONE EYE-BOTH (20:18)
[2019-08-20] MEDS: ACETAMINOPHEN 325 MG TABLET 650 MG PO (21:34)
--- NOTE | 2019-08-20 23:15 | PC.NURSE ---
a&OX4. refused his rabeprazole tonight. pt agreed to take tylenol and ibuprophen for pain. pt tolerated both meds. pt reports he has sensitivity to vicodin, pt refused med. pt independent in room. call light in reach. oriented pt to room. educated regarding his diagnosis.
[2019-08-21 00:15] VITALS: BP 151/95; PULSE 73; RESP 18; TEMP 36.4; O2SAT 97
--- NOTE | 2019-08-21 01:57 | PC.NURSE ---
Addendum entered by Aleta Roger R.N. 08/21/19 05:10: Patient upset stating [employer] has been in room twice in past hour to check BP and now arm is worse because of that. Fact: BP checked at 0015 and again at 0427 but patient denies that is true. Upset because BP is high and states he had trouble getting staff to give him his BP medication yesterday as well as his Clonazepam. Upset because his Aciphex is not available for him to take now (is in pharmacy and they are not available at this time) and doesn't know why he can't have the medication in his room. Upset that there are no pain meds other than Ibuprofen to take because he is allergic to the ordered Vicodin. States I've had a black cloud over my head my entire life but I'm not depressed. BP is elevated at 165/100 so rechecked now and is 170/107 so given Amlodopine at this time as well as his Clonazepam. UMA Tristan, informed of patient's concerns and is here to see patient. Addendum entered by Aleta Roger R.N. 08/21/19 01:59: Does have scabbed abrasion at base of left thumb; without drainage Original Note: 0105 Patient is alert and oriented. Breath sounds CTA with RA sat of 97%. HRR. Denies nausea. BT present and abdomen is soft. Voiding per urinal; denies dysuria, frequeny or urgency. Independent with mobility. Erythema left arm remains within markings previously drawn. Hand/forearm with edema; not quite able to make a fist but has good radial pulse and capillary refill. States pain is 5/10 but tolerable and declines offer of pain medication. Fall risk score is low.
[2019-08-21] MEDS: CLINDAMYCIN 600 MG/50 ML PIGGYBACK 50 MG IV ×2 (03:57→11:49)
[2019-08-21] MEDS: SODIUM CHLORIDE 0.9% FLUSH 10 ML IV ×3 (03:58→22:24)
[2019-08-21] MEDS: clonazePAM 0.5 MG TABLET PO ×2 (04:43→14:13)
[2019-08-21] MEDS: IBUPROFEN 400 MG TABLET 800 MG PO ×2 (04:43→17:42)
[2019-08-21] MEDS: AMLODIPINE 5 MG TABLET PO (04:51)
[2019-08-21 04:55] VITALS: BP 165/100; PULSE 73; RESP 18; TEMP 36.3; O2SAT 98
[2019-08-21 06:07] LABS: Add Manual Diff / Slide Review NO; Basophils Absolute Auto 0 /uL (0-100); Basophils Percent Auto 0.3 % (0-2); Eosinophils Absolute Auto 0 /uL (0-450); Eosinophils Percent Auto 0.7 % (2-4); Hemoglobin 13.9 g/dL (13.5-17.5); Lymphocytes Absolute Auto 1000 /uL (1100-4500); Lymphocytes Percent Auto 13.5 % (25-40); Mean Corpuscular HGB Conc 34.8 % (30-36); Mean Corpuscular Hemoglobin 32.2 PG (26-34); Mean Corpuscular Volume 92.7 fL (80-100); Monocytes Absolute Auto 600 /uL (0-900); Monocytes Percent Auto 7.6 % (3-14); Neutrophils Absolute Auto 5900 /uL (1500-7000); Neutrophils Percent Auto 77.9 % (50-75); Platelet Count 134 X10^3/uL (150-400); Red Blood Cell Count 4.32 X10^6/uL (4.5-5.9); Red Cell Distribution Width 13.6 % (11.6-14.8); White Blood Cell Count 7.5 X10^3/uL (4.5-11.0)
[2019-08-21 06:17] LABS: Hemoglobin A1C% w Est Avg Glu 5.4 % (4.0-6.0)
[2019-08-21 06:18] LABS: Blood Urea Nitrogen 12 mg/dL (9-20); Calcium 8.9 mg/dL (8.4-10.2); Carbon Dioxide 25 mmol/L (22-32); Chloride 107 mmol/L (98-107); Estimated Glomerular Filt Rate > 60.0 mL/min (>60); Glucose 162 mg/dL (70-100); HEMOLYSIS < 15 (0-50); Potassium 3.9 mmol/L (3.4-5.1); Sodium 140 mmol/L (137-145)
[2019-08-21 07:50] VITALS: BP 155/109; PULSE 77; RESP 16; TEMP 36.4; O2SAT 98
[2019-08-21] MEDS: RABEPRAZOLE 20 MG 20 EACH PO (08:37)
[2019-08-21] MEDS: OXYCODONE/ACETAMINOPHEN 5/325 TABLET 1 TAB PO ×2 (08:37→22:23)
[2019-08-21 09:29] LABS: Vancomycin Trough 9.5 ug/mL (10-20)
[2019-08-21] MEDS: SODIUM CHLORIDE 0.9% 250 ML 21 ML IV (09:58)
[2019-08-21] MEDS: VANCOMYCIN 1,000 MG/200 ML PIGGYBACK 200 MG IV (09:58)
--- NOTE | 2019-08-21 10:25 | DI.CT.S_ITS ---
PROCEDURE: CT UE LT WO CON INDICATIONS: r/o infection of left hand or wrist, following cat bite TECHNIQUE: Noncontrast 3 mm axial sections acquired of the left forearm, with coronal and sagittal reformats. COMPARISON: [facility], CR, XR HAND LT MIN 3V, 08/20/2019, 8:48. FINDINGS: Image quality: Excellent. Bones: No acute fracture or dislocation. Old right radial metaphyseal fracture is noted. No bony erosion or cortical destruction. Soft tissues: There is soft tissue stranding in the area of the left wrist and forearm consistent with cellulitis. There is no gas. No drainable fluid collections to suggest abscess. IMPRESSION: 1. Soft tissue edema in the left wrist and forearm consistent with cellulitis. No soft tissue gas. No drainable fluid collections. 2. Old left radial metaphyseal fracture. Dictated by: Alexsandra Baez M.D. on 08/21/2019 at 13:25 Approved by: Alexsandra Baez M.D. on 08/21/2019 at 13:33
[2019-08-21 12:35] VITALS: BP 141/95; PULSE 73; RESP 18; TEMP 36.6; O2SAT 98
--- NOTE | 2019-08-21 13:22 | PC.NURSE ---
Addendum entered by Francy Aguilar R.N. 08/21/19 14:25: Reported from Dr. Harvey to have a [employer] sling for pt as recommended by Ortho. Explained to pt, pt did not want an apparatus sling, wanted to keep his left arm elevated on pillows. Pt not has arm elevated on 3 pillows, was previously 2 and one was folded. Arm has been at heart level. Now at just above heart level. Original Note: Day Shift- Pt oriented X4, anxious, reporting he felt he had more pain this morning after during the night, the blood pressure cuff was used on his left arm. Pt let Dr. Harvey known around 1005, when Dr. Harvey in to see pt. Pain 5-6/10 throughout shift. 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 Left arm elevated on pillows while pt in bed and pt is very good with keeping elevated. Encouraged keeping elevated with ambulation as well. LUE edematous at wrist, hand and fingers. Light pink in color not exceeding previously marked lines. Pt has limited movement to wrist due to swelling and pain. Pt able to selling specialist a pen, able to touch fingertips to thumb, weak selling specialist., radial pulse moderate with palpation. Pt had financial/insurance questions this AM, message left with production control planner around 1300. However production control planner was already in pt's room and aware of these questions by pt. Pt to CT scan at 1125 and back at 1140. A[address] CT scan results.
--- NOTE | 2019-08-21 14:36 | CM.DANOTE ---
DCP assessment: EMR Reviewed: Patient is a 54 yr old male who was admitted for Lt arm/ hand Cellulitis. PCP is Dr. Bianchi. CM/RN met with patient at the bed side and explained CM/RN role. Patient was alert and oriented x3 and seemed anxious at the time of CM visit. Patient lives alone but has a brother and his who will be staying with him for a month following his D/C. 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 Patient stated his pain was well controlled and that his hand felt much better today following treatment. Patient was offered a sling for his Lt arm to help keep it elevated and patient denied sling stating he was fine keeping it elevated on pillows. Patient was concerned about what his insurance would cover or not cover, CM gave the patient [employer] phone number as well as offered to have someone form accounts come talk to him. Patient stated he was fine with [employer] information to answer his questions. Insurance: primary: [employer] 2nd: Self pay Plan: D/C plan home with family when medically stable. CM department will follow patient to determine if he has any new D/C planning needs prior to D/C Zeynep Sierra RN.
[2019-08-21 16:00] VITALS: BP 139/76; PULSE 71; RESP 19; TEMP 36.4; O2SAT 98
[2019-08-21] MEDS: AZITHROMYCIN 250 MG TABLET 500 MG PO (17:42)
--- NOTE | 2019-08-21 18:19 | PM.PN.1 ---
Subjective Subjective Date Patient Seen: 08/21/19 Interval history: Patient is a 54-year-old male who was admitted to the hospital for cat scratch disease. He has a history of hypertension anxiety peptic ulcer disease. The patient continues to have swelling Of the left arm, however the redness has improved. His white count has improved. Case was discussed with Orthopedic surgery who recommended CT scanning of the left forearm to rule out pocket of pus or fluid collection. Exam Vital Signs (past 8 hours): - 08/21/19 12:35 08/21/19 16:00 Temperature 98 F 97.5 F L Pulse Rate 73 71 Respiratory Rate 18 19 Blood Pressure 141/95 H 139/76 Pulse Oximetry 98 98 Oxygen Delivery Method Room Air Oxygen Flow Rate 0 Narrative Exam Narrative: Pleasant male in no obvious distress Lungs: Clear to auscultation Cardiac exam: Regular rate and rhythm normal S1-S2 Left forearm: Swelling and edema of the entire forearm up to the upper arm, there are palpable axillary lymph nodes, there is no erythema noted, patient does have some pain on full extension of the hand. Objective Labs Result Diagrams: 08/21/19 06:00 08/21/19 06:00 Labs: Laboratory Results - last 24 hr 08/21/19 08/21/19 08/21/19 06:00 06:00 06:00 WBC 7.5 RBC 4.32 L Hgb 13.9 Hct 40.0 L MCV 92.7 MCH 32.2 MCHC 34.8 RDW 13.6 Plt Count 134 L Neut % (Auto) 77.9 H Lymph % (Auto) 13.5 L [place] % (Auto) 7.6 Eos % (Auto) 0.7 L Baso % (Auto) 0.3 Neut # (Auto) 5900 Lymph # (Auto) 1000 L [place] # (Auto) 600 Eos # (Auto) 0 Baso # (Auto) 0 Sodium 140 Potassium 3.9 Chloride 107 Carbon Dioxide 25 BUN 12 Creatinine 1.00 Estimated GFR > 60.0 BUN/Creatinine Ratio 12.0 Glucose 162 H Hemoglobin A1c Calcium 8.9 Procalcitonin 0.10 Vancomycin Trough 08/21/19 08/21/19 06:00 08:35 WBC RBC Hgb Hct MCV MCH MCHC RDW Plt Count Neut % (Auto) Lymph % (Auto) [place] % (Auto) Eos % (Auto) Baso % (Auto) Neut # (Auto) Lymph # (Auto) [place] # (Auto) Eos # (Auto) Baso # (Auto) Sodium Potassium Chloride Carbon Dioxide BUN Creatinine Estimated GFR BUN/Creatinine Ratio Glucose Hemoglobin A1c 5.4 Calcium Procalcitonin Vancomycin Trough 9.5 L Assessment & Plan Assessment & Plan narrative: Impression 1. 54-year-old male admitted to the hospital following a cat scratch, and subsequent cellulitis. This likely represent Cat Scratch Disease. The patient initially was on azithromycin, he notes that is the only antibiotic he can tolerate. He is receiving clindamycin and vancomycin at this time. The erythema has improved. His white count has improved. He continues to have significant edema. As CSD typically causes significant swelling from lymphadenopathy suspect this is related to his underlying condition. The patient will be switched to azithromycin 500 mg now then 250 mg daily for the next [address] scan confirmed no evidence of deep tissue infection. Orthopedic surgery will consult. Anticipate discharging the patient home this evening. Hypertension, will continue amlodipine Anxiety, chronic continue clonazepam Peptic ulcer disease, chronic continue rebeprazole Quality VTE Deep Vein Thrombosis/Pulmonary Embolism Present on Admission: No
--- NOTE | 2019-08-21 19:09 | PM.CN ---
History of Present Illness Consult details Date Patient Seen: 08/21/19 Time Patient Seen: 19:10 Chief complaint: cellulitis left hand, says it's worse Reason for consult: Left hand, forearm cellulitis Narrative: Patient is a 54-year-old male who scratched by a cat several days ago. He has initially given azithromycin however had worsening of his cellulitis and return to the emergency department. He was admitted today and was started on clindamycin IV with improvement of his symptoms he has also been elevating his extremity. Patient states he has had significant improvement throughout the day. Minor discomfort in the hand wrist and forearm. No numbness or tingling [facility] Medical History Abnormal transaminases (Chronic) Anxiety (Chronic) GERD (gastroesophageal reflux disease) (Chronic) Hyperlipidemia (Chronic) Hypertension (Chronic) Impotence (Chronic) Surgical History History of gastric surgery (Resolved ~2003) History of hernia repair (Resolved ~2003) Perianal cyst (Resolved ~1999) Family History Father Cerebrovascular accident (CVA), unspecified mechanism Mother Autoimmune hepatitis Grandmother No problems noted. Social History household members: family and none Smoking Status: Never smoker alcohol intake: current Meds Home Medications and Allergies Home Medications Medication Instructions Recorded Confirmed Type amlodipine 5 mg tablet 5 mg PO DAILY #90 tab 12/16/18 08/20/19 Rx rabeprazole 20 mg tablet,delayed 20 mg PO QDAY #90 tab 01/23/19 08/20/19 Rx release clonazepam 0.5 mg tablet 0.5 mg PO TID #90 tab 05/12/19 08/20/19 Rx azithromycin 250 mg tablet See Rx Instructions PO .COMPLEX #6 07/29/19 08/20/19 Rx tab azithromycin 500 mg PO DAILY 6 Days #6 tab 08/19/19 08/20/19 Rx fluorometholone 1 % OPHTHALMIC (EYE) BID PRN 08/20/19 08/20/19 History triamcinolone acetonide 1 % TOP BID PRN 08/20/19 08/20/19 History Allergies Allergy/AdvReac Type Severity Reaction Status Date / Time azithromycin Allergy Unknown DIARRHEA Verified 08/20/19 08:10 cefazolin Allergy Unknown Verified 08/20/19 08:10 cephalexin Allergy Unknown RASH Verified 08/20/19 08:10 hydrocodone Allergy Unknown UNKNOWN Verified 08/20/19 08:10 Penicillins Allergy Unknown DYSPNEA Verified 08/20/19 08:10 Sulfa (Sulfonamide Allergy Unknown HOT-COLD Verified 08/20/19 08:10 Antibiotics) FLASHES narcotics Allergy Unknown states, Uncoded 08/20/19 08:10 all narcotic except for percocet Review of Systems Review of Systems ROS Unobtainable: All systems reviewed & are unremarkable except as noted in HPI and below Exam Vital Signs (past 8 hours): - 08/21/19 12:35 08/21/19 16:00 Temperature 98 F 97.5 F L Pulse Rate 73 71 Respiratory Rate 18 19 Blood Pressure 141/95 H 139/76 Pulse Oximetry 98 98 Oxygen Delivery Method Room Air Oxygen Flow Rate 0 Narrative Exam Narrative: AAO x3, pleasant Neurovascular intact in the left upper extremity. He does have cellulitis extending from his mid forearm down to his hand. He is having fluctuance. No draining wounds. No signs of any deep flexor space abscesses. He is able make a full fist. Cellulitis is marked out with a marker and appears to have regressed since being marked out. Objective Imaging CT of left forearm and hand: My impression: No significant fluid collections no deep space abscesses no drainable fluid collections. Swelling associated with cellulitis. Labs Result Diagrams: 08/21/19 06:00 08/21/19 06:00 Labs: Laboratory Results - last 24 hr 08/21/19 08/21/19 08/21/19 06:00 06:00 06:00 WBC 7.5 RBC 4.32 L Hgb 13.9 Hct 40.0 L MCV 92.7 MCH 32.2 MCHC 34.8 RDW 13.6 Plt Count 134 L Neut % (Auto) 77.9 H Lymph % (Auto) 13.5 L [place] % (Auto) 7.6 Eos % (Auto) 0.7 L Baso % (Auto) 0.3 Neut # (Auto) 5900 Lymph # (Auto) 1000 L [place] # (Auto) 600 Eos # (Auto) 0 Baso # (Auto) 0 Sodium 140 Potassium 3.9 Chloride 107 Carbon Dioxide 25 BUN 12 Creatinine 1.00 Estimated GFR > 60.0 BUN/Creatinine Ratio 12.0 Glucose 162 H Hemoglobin A1c Calcium 8.9 Procalcitonin 0.10 Vancomycin Trough 08/21/19 08/21/19 06:00 08:35 WBC RBC Hgb Hct MCV MCH MCHC RDW Plt Count Neut % (Auto) Lymph % (Auto) [place] % (Auto) Eos % (Auto) Baso % (Auto) Neut # (Auto) Lymph # (Auto) [place] # (Auto) Eos # (Auto) Baso # (Auto) Sodium Potassium Chloride Carbon Dioxide BUN Creatinine Estimated GFR BUN/Creatinine Ratio Glucose Hemoglobin A1c 5.4 Calcium Procalcitonin Vancomycin Trough 9.5 L Assessment & Plan Assessment & Plan narrative: Patient is a 54-year-old male with a cat scratch to his left thumb. He had worsening of the cellulitis return to the emergency department he has subsequently been placed on clindamycin IV and he will be transitioned to azithromycin p.o. tomorrow continue to observe patient if the cellulitis improved significantly be sent out on oral azithromycin 8 spoke with the patient at length about the importance of elevating the extremity and taking the antibiotics patient demonstrates understanding. Elevate left hand and forearm above the level of the heart as much as possible. Oral azithromycin Thank you for this consult please contact Orthopedics if any further issues arise.
[2019-08-21 20:21] VITALS: BP 141/95; PULSE 72; RESP 20; TEMP 36.6; O2SAT 97
[2019-08-22 02:00] VITALS: BP 121/78; PULSE 78; RESP 16; TEMP 36.2; O2SAT 98
[2019-08-22] MEDS: IBUPROFEN 400 MG TABLET 800 MG PO (05:17)
[2019-08-22] MEDS: AMLODIPINE 5 MG TABLET PO (05:18)
[2019-08-22 05:20] VITALS: BP 146/95; PULSE 78; RESP 18; TEMP 36.2; O2SAT 97
[2019-08-22 06:22] LABS: Add Manual Diff / Slide Review NO; Basophils Absolute Auto 0 /uL (0-100); Basophils Percent Auto 0.5 % (0-2); Eosinophils Absolute Auto 200 /uL (0-450); Eosinophils Percent Auto 2.6 % (2-4); Hematocrit 43.3 % (41-53); Hemoglobin 15.1 g/dL (13.5-17.5); Lymphocytes Absolute Auto 1500 /uL (1100-4500); Lymphocytes Percent Auto 26.6 % (25-40); Mean Corpuscular HGB Conc 34.9 % (30-36); Mean Corpuscular Hemoglobin 32.4 PG (26-34); Mean Corpuscular Volume 92.8 fL (80-100); Monocytes Absolute Auto 600 /uL (0-900); Monocytes Percent Auto 9.7 % (3-14); Neutrophils Absolute Auto 3500 /uL (1500-7000); Neutrophils Percent Auto 60.6 % (50-75); Platelet Count 182 X10^3/uL (150-400); Red Blood Cell Count 4.67 X10^6/uL (4.5-5.9); Red Cell Distribution Width 13.4 % (11.6-14.8); White Blood Cell Count 5.7 X10^3/uL (4.5-11.0)
[2019-08-22] MEDS: clonazePAM 0.5 MG TABLET PO (06:29)
[2019-08-22 06:34] LABS: Blood Urea Nitrogen 15 mg/dL (9-20); Calcium 9.7 mg/dL (8.4-10.2); Carbon Dioxide 27 mmol/L (22-32); Chloride 107 mmol/L (98-107); Estimated Glomerular Filt Rate > 60.0 mL/min (>60); Glucose 134 mg/dL (70-100); HEMOLYSIS < 15 (0-50); Potassium 4.4 mmol/L (3.4-5.1); Sodium 144 mmol/L (137-145)
[2019-08-22 06:47] LABS: Procalcitonin 0.07 ng/mL (<0.5)
[2019-08-22] MEDS: RABEPRAZOLE 20 MG 20 EACH PO (06:53)
[2019-08-22 07:36] VITALS: BP 143/91; PULSE 80; RESP 18; TEMP 36.2; O2SAT 96
--- NOTE | 2019-08-22 08:44 | P.DS_ITS ---
History of Present Illness History of Present Illness Date Patient Seen: 08/22/19 Chief complaint: cellulitis left hand, says it's worse Narrative: cellulitis left hand, says it's worse Narrative: Mr. Huber is a 54-year-old male with past medical history of hypertension, anxiety, and remote peptic ulcer disease on chronic PPI who presented to the ER with pain and swelling of his left upper extremity that started after a cat scratch approximately 4 days ago. He came into the emerge ncy room initially and was given azithromycin given a number of different allergic reactions to antibiotics which the patient reports. He reports progression of the swelling and pain, and reported an inability to move move his hand due to worsening pain. He denied any numbness or tingling of his hand. He denies any recent fevers, chills, chest pain, shortness of breath, abdominal pain, nausea, vomiting, diarrhea, constipation, lower extremity edema. In addition to his already documented this below he also reports he cannot take ciprofloxacin. In the emergency room, patient was tachycardic but normotensive and afebrile. His white blood cell count was 11.6 from 7 from his 1st was in the emergency room. His glucose was elevated at 186, procalcitonin 0.16, and lactate normal at 1.3. He was admitted to Medicine for cellulitis of his left upper extremity following a cat scratch after failing outpatient antibiotic therapy. Discharge Providers Provider Date of admission: 08/20/19 09:29 Discharge Date: 08/22/19 Primary care physician: Valente Stovall MD Discharge provider: Rosalinda Harvey MD Summary Hospital Course Discharge Diagnosis: 1. Cellulitis 2. Cat scratch disease 3. Hypertension 4. Anxiety 5. Peptic ulcer disease Hospital Course: The patient is a 54-year-old male who was admitted to the hospital following a cat bite to the left hand. The patient had been seen in the emergency department and started on azithromycin. He took 1 dose but noted progressive swelling redness and pain over the left upper extremity. The patient was admitted to the hospital for cellulitis. He was placed on IV clindamycin and vancomycin. He had complete resolution of the erythema over the left forearm. Patient continued to have significant swelling of the upper extremity. With arm elevation he had significant improvement of the swelling. He was switched over to azithromycin which was prescribed for him from the e mergency department. The patient has minimal pain with flexion at the wrist on the left. His erythema has improved. His swelling has improved. He is afebrile. White count is improved. Patient was deemed appropriate for discharge home. The patient will follow up with Dr. Bianchi in 1 week Status at Discharge Cognitive/behavioral status at discharge: oriented Functional status at discharge: independent ambulation Overall status at discharge: patient is back to baseline Time Spent with Patient Time spent: Less than 30 minutes Exam Vital Signs (past 8 hours): - 08/22/19 02:00 08/22/19 05:20 Temperature 97.2 F L 97.2 F L Pulse Rate 78 78 Respiratory Rate 16 18 Blood Pressure 121/78 146/95 H Pulse Oximetry 98 97 Oxygen Delivery Method Room Air Oxygen Flow Rate 0 Narrative Exam Narrative: Pleasant gentleman resting comfortably in no distress Lungs: Clear to auscultation Cardiac exam: Regular rate rhythm normal S1-S2 Abdomen: Soft nontender Extremities: Left upper extremity decreased erythema, decreased edema, minimal pain with full flexion at the wrist. Objective Labs Result Diagrams: 08/22/19 06:10 08/22/19 06:10 Labs: Laboratory Results - last 24 hr 08/21/19 08/22/19 08/22/19 08:35 06:10 06:10 WBC 5.7 RBC 4.67 Hgb 15.1 Hct 43.3 MCV 92.8 MCH 32.4 MCHC 34.9 RDW 13.4 Plt Count 182 Neut % (Auto) 60.6 Lymph % (Auto) 26.6 [place] % (Auto) 9.7 Eos % (Auto) 2.6 Baso % (Auto) 0.5 Neut # (Auto) 3500 Lymph # (Auto) 1500 [place] # (Auto) 600 Eos # (Auto) 200 Baso # (Auto) 0 Sodium Potassium Chloride Carbon Dioxide BUN Creatinine Estimated GFR BUN/Creatinine Ratio Glucose Calcium Procalcitonin 0.07 Vancomycin Trough 9.5 L 08/22/19 06:10 WBC RBC Hgb Hct MCV MCH MCHC RDW Plt Count Neut % (Auto) Lymph % (Auto) [place] % (Auto) Eos % (Auto) Baso % (Auto) Neut # (Auto) Lymph # (Auto) [place] # (Auto) Eos # (Auto) Baso # (Auto) Sodium 144 Potassium 4.4 Chloride 107 Carbon Dioxide 27 BUN 15 Creatinine 1.00 Estimated GFR > 60.0 BUN/Creatinine Ratio 15.0 Glucose 134 H Calcium 9.7 Procalcitonin Vancomycin Trough Discharge Plan Discharge Plan Patient Disposition: Home Discharge orders & Medications Prescriptions: Continued amlodipine 5 mg tablet 5 mg PO DAILY Qty: 90 RF: 1 rabeprazole [AcipHex] 20 mg tablet,delayed release (DR/EC) 20 mg PO QDAY Qty: 90 RF: 3 clonazepam 0.5 mg tablet 0.5 mg PO TID Qty: 90 RF: 2 azithromycin 250 mg tablet See Rx Instructions PO .COMPLEX Qty: 6 RF: 0 azithromycin 500 mg tablet 500 mg PO DAILY 6 Days Qty: 6 RF: 0 triamcinolone acetonide 0.1 % cream 1 % TOP BID PRN (Reason: Rash) RF: 0 fluorometholone 0.1 % Drops,Suspension 1 % OPHTHALMIC (EYE) BID PRN (Reason: Dry Eye(S)) RF: 0 Follow up/Referrals: Valente Stovall MD [Primary Care Provider] - Diet/Activity/Treatments Diet: Diet as Tolerated Activity: Resume usual activity Skin/Wound/Dressing Care Report to your healthcare provider any signs of infection, such as:: chills, fever Visit Report/Discharge Packet Instructions: DI for Cellulitis -- Adult Visit Report Forms: Patient Portal/API, Stroke Signs & Symptoms Discharge Data Primary Care Provider: Valente Stovall Quality VTE Deep Vein Thrombosis/Pulmonary Embolism Present on Admission: No
--- NOTE | 2019-08-22 09:58 | PC.NURSE ---
Day Shift- Discussed with pt using over the counter Ibuprofen and Acetaminophen staggered for pain management. OKAy with Dr. Harvey. Aware to take 250mg of Azithromycin ton with dinner and last dose Saturday with dinner. Aware to keep left arm elevated above heart level. Pt asked for a sling, encouraged pt that he will mostly be resting with arm elevated at home with intermittent ambulation for circulation. Discharge summary packet reviewed with pt, no prescriptions per Dr. Harvey. Questions answered. 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 Pt stated he will walk the 2 blocks home. Pt had been ambulating indep in halls frequently with steady gait, no ambulation issue.
== END 2019-08-22 09:57 | disposition home or self-care (01) | DRG 603 ==
LOC: ED 09:28 → AC 09:40
PROVIDERS: Admitting Provider Internal Medicine; Emergency Provider Emergency Medicine; PCP Student in an Organized Health Care Education/Training Program; Visit Provider Internal Medicine
DX: L03.114 Cellulitis of left upper limb (principal); A28.1 Cat-scratch disease; I10 Essential (primary) hypertension; F41.9 Anxiety disorder, unspecified; R00.0 Tachycardia, unspecified; K21.9 Gastro-esophageal reflux disease without esophagitis; W55.03XA Scratched by cat, initial encounter
CPT/HCPCS: 36415; 73130; 73200; 80048; 80202; 82962; 83036; 83605; 84145; 85025; 87040; 96365; 96367; 99283; 99284

== ENCOUNTER → 2019-09-23 15:59 | Outpatient (CLI) | payer OTHER, SELFPAY ==
[2019-08-20 10:45] VITALS: BMI 26.6
--- NOTE | 2019-09-23 16:05 | DI.US.S_ITS ---
PROCEDURE: US SCROTUM INDICATIONS: SCROTAL MALL TECHNIQUE: Real-time scanning was performed of the scrotum and testicles, with image documentation. Color and pulse Doppler interrogation was performed of both testicles. COMPARISON: None. FINDINGS: Right: Testicle is normal in size at 4.0 x 2.0 x 2.8 cm, and homogenous in echotexture. Epididymis is normal in overall size and morphology. 3 mm epididymal cyst. No hydrocele or varicoceles. Overlying scrotal skin is normal in thickness. No right inguinal hernia identified. Left: Testicle is normal in size at 4.2 x 1.7 x 2.5 cm, and homogeneous in echotexture. Epididymis is normal in overall size and morphology. No hydrocele or varicoceles. Overlying scrotal skin is normal in thickness. Doppler: Color and pulse Doppler demonstrate normal and symmetric arterial flow in both testicles. Abnormal appearing enlarged right groin lymph node which is heterogeneous measuring up to 1.1 cm in maximal AP diameter. IMPRESSION: 1. 3 mm epididymal cyst; otherwise normal appearance of the testicles. 2. Enlarged, heterogeneous appearing right groin lymph node. Although findings may be related to reactive node enlargement, neoplastic lymphadenopathy cannot be excluded and close clinical correlation and management is recommended. If indicated, sonographically directed core biopsy could be performed for pathologic diagnosis. Dictated by: Morgan CIFUENTES Interpreted: Ger Bahena MD on 09/24/2019 at 9:08 Approved by: Ger Bahena M.D. on 09/24/2019 at 10:34
== END ==
PROVIDERS: Family Provider Student in an Organized Health Care Education/Training Program; PCP Student in an Organized Health Care Education/Training Program; Referring Provider Urology; Visit Provider Student in an Organized Health Care Education/Training Program
DX: N50.89 Other specified disorders of the male genital organs (principal); N50.3 Cyst of epididymis; R59.0 Localized enlarged lymph nodes
CPT/HCPCS: 76870

== ENCOUNTER → 2019-10-06 13:05 | Outpatient (CLI) | payer OTHER, SELFPAY ==
[2019-08-20 10:45] VITALS: BMI 26.6
--- NOTE | 2019-10-06 13:07 | DI.US.S_ITS ---
PROCEDURE: US ABDOMEN LIMITED INDICATIONS: LYMPHADENOPATHY TECHNIQUE: Real-time focused scanning was performed of the abdomen, with image documentation. COMPARISON: [facility], US, US SCROTUM, 09/23/2019, 16:45. FINDINGS: Borderline sized right inguinal lymph nodes measure up to 17 x 9 x 11mm short axis, which is considered within normal limits by size criteria. Previously the lymph node measures 19 x 11 x 13 on the last exam. IMPRESSION: Borderline sized right inguinal lymph node may be followed by repeat ultrasound in 2-3 months. Biopsy is canceled. Dictated by: Alexsandra Baez M.D. on 10/06/2019 at 17:37 Approved by: Alexsandra Baez M.D. on 10/06/2019 at 17:42
== END ==
PROVIDERS: Family Provider Student in an Organized Health Care Education/Training Program; PCP Student in an Organized Health Care Education/Training Program; Visit Provider Student in an Organized Health Care Education/Training Program
DX: R59.0 Localized enlarged lymph nodes (principal)
CPT/HCPCS: 76705

== ENCOUNTER 2020-09-27 18:17 | Emergency (ER) | payer OTHER, SELFPAY ==
[2019-08-20 10:45] VITALS: BMI 26.6
[2020-09-27 18:27] VITALS: BP 201/111; PULSE 82; RESP 16; TEMP 36.5; O2SAT 96; BMI 26.6
--- NOTE | 2020-09-27 18:30 | ED.GENADULT ---
HPI - General Adult General Chief complaint: Recheck/Abnormal Lab/Rx Stated complaint: Needs COVID Test, Possible Exposure Time Seen by Provider: 09/27/20 18:20 Source: patient Mode of arrival: Ambulatory Limitations: no limitations History of Present Illness HPI narrative: 55-year-old male smoker with hypertension presents requesting a test for COVID. 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 He denies any symptoms whatsoever. He has no headache, runny nose, sneezing, cough, shortness of breath or fever. He denies any sore throat or change in his ability to smell. He denies any GI symptoms such as nausea, vomiting or diarrhea. He is otherwise well and free of complaint Relieving factors: none Exacerbating factors: none Treatments prior to arrival: none Related Data Home Medications Medication Instructions Recorded Confirmed fluorometholone 1 % OPHTHALMIC (EYE) BID PRN 08/20/19 04/26/20 Previous Rx's Medication Instructions Recorded rabeprazole 20 mg tablet,delayed 20 mg PO QDAY #90 tab 02/19/20 release amlodipine 5 mg tablet 5 mg PO DAILY #90 tab 03/25/20 clonazepam 0.5 mg tablet 0.5 mg PO TID PRN #90 tab 05/24/20 Allergies Allergy/AdvReac Type Severity Reaction Status Date / Time cefazolin Allergy Unknown Verified 09/27/20 18:29 cephalexin Allergy Unknown RASH Verified 09/27/20 18:29 hydrocodone Allergy Unknown UNKNOWN Verified 09/27/20 18:29 Penicillins Allergy Unknown DYSPNEA Verified 09/27/20 18:29 Sulfa (Sulfonamide Allergy Unknown HOT-COLD Verified 09/27/20 18:29 Antibiotics) FLASHES narcotics Allergy Unknown states, Uncoded 09/27/20 18:29 all narcotic except for percocet Review of Systems Constitutional Constitutional: Denies chills, Denies fatigue, Denies fever(s), Denies frequent falls, Denies lethargy and Denies weakness Eyes Eyes: Denies change in vision, Denies eye discharge, Denies irritation and Denies loss of vision ENT Ears, Nose, Mouth, and Throat: Denies change in voice, Denies dizziness, Denies neck pain, Denies sore throat and Denies throat swelling Cardiovascular Cardiovascular: Denies chest pain, Denies irregular heart rhythm, Denies lightheadedness, Denies palpitations, Denies dyspnea, Denies dyspnea on exertion and Denies orthopnea Respiratory Respiratory: Denies cough, Denies dyspnea, Denies dyspnea on exertion and Denies wheezing Gastrointestinal Gastrointestinal: Denies abdominal pain, Denies change in bowel habits, Denies diarrhea, Denies nausea and Denies vomiting Musculoskeletal Musculoskeletal: Denies neck pain and Denies numbness Integumentary/Breasts Skin/Breast: Denies pruritus, Denies erythema, Denies rash and Denies wounds Neurologic Neurologic: Denies behavioral changes, Denies confusion, Denies dizziness, Denies frequent falls, Denies loss of vision, Denies numbness and Denies weakness Psychiatric Psychiatric: Denies anxiety, Denies behavioral changes, Denies confusion, Denies depression, Denies homicidal ideation and Denies suicidal ideation Endocrine Endocrine: Denies fatigue, Denies flushing and Denies palpitations Hematologic/Lymphatic Hematologic/Lymphatic: Denies easy bruising Allergic/Immunologic Allergic/Immunologic: Denies urticaria, Denies throat swelling and Denies wheezing Patient History Medical History Abnormal transaminases Anxiety GERD (gastroesophageal reflux disease) Hyperlipidemia Hypertension Impotence Surgical History History of gastric surgery (~2003) History of hernia repair (~2003) Perianal cyst (~1999) Family History Father Cerebrovascular accident (CVA), unspecified mechanism Mother Autoimmune hepatitis Grandmother No problems noted. Social History household members: family and none Smoking Status: Never smoker alcohol intake: current Smoking Status: Never smoker alcohol intake frequency: 3 or more drinks per day Alcohol type: beer Substance Use Type: does not use Exam Narrative Exam Narrative: GEN: AOx3 and in mild distress EYES: Pupils are equal, round, and reactive to light and accommodation. Extraoccular muscles are intact bilaterally. There is no subconjunctival hemorrhage or exudate. CHEST: Lungs are clear to auscultation bilaterally and free of wheezes, rales, or rhonchi. Heart rate is regular rhythm, there are no murmurs, clicks, rubs, or gallops. There is no chest wall tenderness. ABD: Abdomen is soft and nontender. There is no guarding or rebound. Bowel sounds are normal in all 4 quadrants. There is no mass or organomegaly. EXT: Full painless ROM of all extremities with no loss of sensation or strength. SKIN: Warm, pink, and dry. No erythema or rash Initial Vital Signs Initial Vital Signs: Vital Signs Temperature 97.7 F 09/27/20 18:27 Pulse Rate 82 09/27/20 18:27 Respiratory Rate 16 09/27/20 18:27 Blood Pressure 201/111 H 09/27/20 18:27 Pulse Oximetry 96 09/27/20 18:27 Course Orders Ordered: ED Orders 09/27/20 18:35 COVID19 Stat Vital Signs Vital signs: Vital Signs - 8 hr 09/27/20 18:27 Temperature 97.7 F Pulse Rate 82 Respiratory Rate 16 Blood Pressure 201/111 H Pulse Oximetry 96 Medical Decision Making Lab Data Labs: Lab Results 09/27/20 Range/Units 18:35 COVID-19 PCR Negative (Negative) Discharge Plan Departure Patient Disposition: Home Clinical Impression: Feared complaint without diagnosis Instructions: COVID-19 Viral Test Activity Restrictions/Additional Instructions: You have been exposed to COVID, but have no symptoms. Your test is still pending and I will call with your results. If you are negative, you must quarantine for 14 days. If you are postitive please see below *You have been diagnosed with [ COVID-19] *What to do: * per recommendations from the CDC and the [facility] Department of Health * stay home except to get medical care. Restrict activities outside your home, except for getting medical care. Do not go to work, school, or public areas. Avoid using public transportation, ride sharing, or taxis. * separate yourself from other people in your home. * call ahead before visiting your doctor * Wear a facemask * Cover your coughs and sneezes * Clean your hands often * Avoid sharing household items * Clean all high-touch services every day * Monitor your symptoms and seek prompt medical attention if your illness is worsening, particularly with difficulty in breathing. You may discontinue your isolation when: 1. You have been fever-free for at least 24 hours without the use of fever reducing medication, AND 2. Your symptoms are getting better 3. At least 10 days have passed since symptoms first appeared Individuals with laboratory confirmed COVID-19 who have not had any symptoms may discontinue home isolation when at least 10 days have passed since the date of their first COVID-19 diagnostic test and have had no subsequent illness Prescriptions: No Action rabeprazole [AcipHex] 20 mg tablet,delayed release (DR/EC) 20 mg PO QDAY Qty: 90 RF: 3 amlodipine 5 mg tablet 5 mg PO DAILY Qty: 90 RF: 1 clonazepam 0.5 mg tablet 0.5 mg PO TID PRN (Reason: anxiety) Qty: 90 RF: 5 fluorometholone 0.1 % Drops,Suspension 1 % OPHTHALMIC (EYE) BID PRN (Reason: Dry Eye(S)) RF: 0 Referrals: Valente Stovall MD [Primary Care Provider] -
[2020-09-27 19:03] LABS: COVID19 -Nasal RAPID Negative (Negative)
== END 2020-09-27 18:40 | disposition home or self-care (01) ==
PROVIDERS: Emergency Provider Emergency Medicine; Family Provider Student in an Organized Health Care Education/Training Program; PCP Student in an Organized Health Care Education/Training Program
DX: Z20.828 Contact with and (suspected) exposure to other viral communicable diseases (principal); I10 Essential (primary) hypertension
CPT/HCPCS: 87635; 99281; 99282

== ENCOUNTER 2020-10-24 07:02 | Emergency (ER) | payer OTHER, SELFPAY ==
[2019-08-20 10:45] VITALS: BMI 26.6
[2020-10-24 07:17] VITALS: BP 133/87; PULSE 89; RESP 16; TEMP 36.7; O2SAT 95; BMI 27.4
[2020-10-24 07:35] LABS: COVID19 -Nasal RAPID Negative (Negative)
--- NOTE | 2020-10-24 07:37 | ED_ITS ---
HPI - Fever General Chief Complaint: Fever Stated Complaint: feels hot runny nose coughing dry heaves Time Seen by Provider: 10/24/20 07:13 Source: patient Mode of arrival: Ambulatory Limitations: no limitations History of Present Illness HPI Narrative: This is a 55-year-old male who states last evening he started having a runny nose he states he has had significant nasal congestion. He has felt hot and feverish. And feel achy all over. He has had a moderate headache he has been nauseated and had some dry heaves. He denies any emesis of contents. Patient denies any shortness of breath. He has not had any diarrhea he denies any abdominal pain. No urinary symptoms. No rashes or skin changes. Patient denies any known contacts. 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 He states he did go shopping yesterday and spent the entire day shopping. Patient does have history of hypertension, Hodge's esophagus and severe GERD. He has had what he describes as esophageal wrap, likely a Jennifer fundoplication. Related Data Home Medications Medication Instructions Recorded Confirmed fluorometholone 1 % OPHTHALMIC (EYE) BID PRN 08/20/19 04/26/20 Previous Rx's Medication Instructions Recorded rabeprazole 20 mg tablet,delayed 20 mg PO QDAY #90 tab 02/19/20 release amlodipine 5 mg tablet 5 mg PO DAILY #90 tab 03/25/20 clonazepam 0.5 mg tablet 0.5 mg PO TID PRN #90 tab 05/24/20 ondansetron HCl [Zofran] 4 mg PO Q6H PRN #7 tab 10/24/20 Allergies Allergy/AdvReac Type Severity Reaction Status Date / Time cefazolin Allergy Unknown Verified 10/24/20 07:17 cephalexin Allergy Unknown RASH Verified 10/24/20 07:17 hydrocodone Allergy Unknown UNKNOWN Verified 10/24/20 07:17 Penicillins Allergy Unknown DYSPNEA Verified 10/24/20 07:17 Sulfa (Sulfonamide Allergy Unknown HOT-COLD Verified 10/24/20 07:17 Antibiotics) FLASHES narcotics Allergy Unknown states, Uncoded 09/27/20 18:29 all narcotic except for percocet Review of Systems Review of Systems ROS Unobtainable: All systems reviewed & are unremarkable except as noted in HPI and below Patient History Medical History Abnormal transaminases Anxiety GERD (gastroesophageal reflux disease) Hyperlipidemia Hypertension Impotence Surgical History History of gastric surgery (~2003) History of hernia repair (~2003) Perianal cyst (~1999) Family History Father Cerebrovascular accident (CVA), unspecified mechanism Mother Autoimmune hepatitis Grandmother No problems noted. Social History household members: family and none Smoking Status: Never smoker alcohol intake: current Smoking Status: Never smoker alcohol intake frequency: 3 or more drinks per day Alcohol type: beer Substance Use Type: does not use Exam Narrative Exam Narrative: GEN: well nourished, well appearing male, alert and oriented x 3, patient appears to be in mild distress. Patient is afebrile. HEENT: Atraumatic, pupils are equal round reactive to light, extraocular movements are intact. HEART: Regular rate and rhythm without murmur, clicks, rubs. LUNGS:Lungs clear to auscultation, no wheezes, rales, crackles, chest moves symmetrically ABD:bowel sounds normal, soft, non-tender, no guarding, rebound, rigidity, no masses noted, no hepatosplenomegaly :No CVA tenderness MSCL: Non-tender, no muscle atrophy, muscles strength 5/5 upper and lower extremities, full range of motion, normal gait NEURO:CN 2-12 intact, sensation normal SKIN: No rash, erythema or other skin changes noted. Initial Vital Signs Initial Vital Signs: Vital Signs Temperature 98.1 F 10/24/20 07:17 Pulse Rate 89 10/24/20 07:17 Respiratory Rate 16 10/24/20 07:17 Blood Pressure 133/87 10/24/20 07:17 Pulse Oximetry 95 10/24/20 07:17 Course Orders Ordered: ED Orders 10/24/20 07:13 COVID19 Stat Vital Signs Vital signs: Vital Signs - 8 hr 10/24/20 07:17 Temperature 98.1 F Pulse Rate 89 Respiratory Rate 16 Blood Pressure 133/87 Pulse Oximetry 95 MDM - Fever Lab Data Attestation: I reviewed the patient's lab results. Labs: Lab Results 10/24/20 Range/Units 07:13 SARS-CoV-2 (PCR) Negative (Negative) MDM Narrative Medical decision making narrative: Patient comes in with complaint of symptoms consistent with COVID. He has normal vital signs here in the department. We did discuss that his most recent exposures have been in the very short term had a negative COVID swab does not completely rule out an COVID infection. We also discussed there are other potential causes of his symptoms. Patient plans to be off work at this time. Discharge Plan Departure Patient Disposition: Home Clinical Impression: Acute upper respiratory infection Instructions: DI for Viral Upper Respiratory Infection -- Adult Activity Restrictions/Additional Instructions: Your covid swab today is negative but does not completely rule out a covid infection. You may take tylenol up to a 1000 mg every 8 hours as needed for fever and body aches. You may take Zofran 1 tablet every 6 hours as needed for nausea. If you are interested in filling out a living will, discuss with your physician. You can fill out a POLST form and carry this with you/keep on your refrigerator at home. Also share any wishes about resuscitation with your family or whoever you have selected to make medical decisions for you if you are unable to make year own. *What to do: * per recommendations from the CDC and the [facility] Department of Health * stay home except to get medical care. Restrict activities outside your home, except for getting medical care. Do not go to work, school, or public areas. Avoid using public transportation, ride sharing, or taxis. * separate yourself from other people in your home. * call ahead before visiting your doctor * Wear a face mask * Cover your coughs and sneezes * Clean your hands often * Avoid sharing household items * Clean all high-touch services every day * Monitor your symptoms and seek prompt medical attention if your illness is worsening, particularly with difficulty in breathing. Discussed continuing home isolation * for individuals with symptoms who are confirmed or suspected cases of COVID-19 and are directed to care for themselves at home, discontinue home isolation under the following conditions: 1. At least 72 hours have passed since recovery, defined as resolution of fever without the use of fever reducing medications, and improvement in respiratory symptoms (cough, shortness of breath) AND, 2. At least 7 days have passed since symptoms 1st appeared Individuals with laboratory confirmed COVID-19 who have not had any symptoms may discontinue home isolation when at least 7 days have passed since the date of t heir 1st COVID-19 diagnostic test and have had no subsequent illness Prescriptions: New ondansetron HCl [Zofran] 4 mg tablet 4 mg PO Q6H PRN (Reason: nausea and vomiting) Qty: 7 RF: 0 No Action rabeprazole [AcipHex] 20 mg tablet,delayed release (DR/EC) 20 mg PO QDAY Qty: 90 RF: 3 amlodipine 5 mg tablet 5 mg PO DAILY Qty: 90 RF: 1 clonazepam 0.5 mg tablet 0.5 mg PO TID PRN (Reason: anxiety) Qty: 90 RF: 5 fluorometholone 0.1 % Drops,Suspension 1 % OPHTHALMIC (EYE) BID PRN (Reason: Dry Eye(S)) RF: 0 Referrals: Valente Stovall MD [Primary Care Provider] -
--- NOTE | 2020-10-24 07:38 | PC.NURSE ---
patient reports he went shopping all day yesterday and today woke with a runny nose. would like a covid test.
== END 2020-10-24 08:06 | disposition home or self-care (01) ==
PROVIDERS: Emergency Provider Emergency Medicine; Family Provider Student in an Organized Health Care Education/Training Program; PCP Student in an Organized Health Care Education/Training Program
DX: J06.9 Acute upper respiratory infection, unspecified (principal); R09.81 Nasal congestion; R51.9 Headache, unspecified; R11.0 Nausea; I10 Essential (primary) hypertension; K22.70 Barrett's esophagus without dysplasia; E78.5 Hyperlipidemia, unspecified; Z20.822 Contact with and (suspected) exposure to COVID-19
CPT/HCPCS: 87635; 99281; 99282; C9803

== ENCOUNTER 2022-04-16 07:01 | Emergency (ER) | payer OTHER, SELFPAY ==
[2019-08-20 10:45] VITALS: BMI 26.6
[2022-04-16] VITALS (26 sets, daily range): BP systolic 131–184; BP diastolic 78–141; PULSE 76–105; RESP 18–22; O2SAT 91–96; BMI 26.6
--- NOTE | 2022-04-16 07:08 | PC.NURSE ---
Pt refusing all interventions until seen by provider.
--- NOTE | 2022-04-16 07:33 | ED.CHESTPAIN ---
HPI - Chest Pain General Chief Complaint: Chest Pain Stated Complaint: Chest pain after allergic reaction Time Seen by Provider: 04/16/22 07:25 Source: patient Mode of arrival: Ambulatory History of Present Illness HPI narrative: Patient is a 56-year-old male with history of hiatal hernia, hypertension, anxiety presenting today with chest discomfort. He states he ate some bad food yesterday he feels like there is a knot in the middle of his epigastric region. Due to previous surgery he really is not able to vomit but has been vomiting some. He is not passing gas had a regular bowel movement yesterday. He thinks this is just his hiatal hernia have acting up. Pain does not radiate he is not short of breath. He is also noted to be covered in hives. He states that he is allergic to many oils he has had these hives for the last 2 weeks despite prednisone and Benadryl. He has no difficulty breathing no shortness of breath with exertion Related Data Home Medications Medication Instructions Recorded Confirmed cetirizine 10 mg tablet (All Day 10 mg PO DAILY PRN 09/07/21 09/07/21 Allergy (cetirizine)) Previous Rx's Medication Instructions Recorded amlodipine 10 mg tablet 10 mg PO DAILY #90 tabs 12/26/20 rabeprazole 20 mg tablet,delayed 20 mg PO QDAY #90 tabs 09/07/21 release (AcipHex) fluorometholone 0.1 % eye 1 drp EYE-BOTH BID PRN Dry Eye(S) 12/26/21 drops,suspension #5 mL clonazepam 0.5 mg tablet 0.5 mg PO TID PRN anxiety #90 tabs 02/27/22 doxycycline hyclate 100 mg capsule 100 mg PO BID #20 caps 04/16/22 methylprednisolone 4 mg tablets in 4 mg PO DAILY #21 ea 04/16/22 a dose pack (Medrol (Jenaro)) ondansetron 4 mg disintegrating 4 mg PO Q8H PRN nausea and 04/16/22 tablet vomiting #10 tabs oxycodone-acetaminophen 5 mg-325 1 tab PO Q6H PRN pain #10 tabs 04/16/22 mg tablet (Percocet) Allergies Allergy/AdvReac Type Severity Reaction Status Date / Time cefazolin Allergy Unknown Verified 09/07/21 14:55 cephalexin Allergy Unknown RASH Verified 09/07/21 14:55 hydrocodone Allergy Unknown UNKNOWN Verified 09/07/21 14:55 Penicillins Allergy Unknown DYSPNEA Verified 09/07/21 14:55 Sulfa (Sulfonamide Allergy Unknown HOT-COLD Verified 09/07/21 14:55 Antibiotics) FLASHES narcotics Allergy Unknown states, Uncoded 09/07/21 14:55 all narcotic except for percocet Review of Systems Review of Systems Narrative: GENERAL: Denies chills, fatigue, malaise, fever, sweats, travel HEENT: Denies sinus pain, ear pain, sore throat, difficulty swallowing, neck pain RESPIRATORY: Denies dyspnea, cough, wheezing, hemoptysis, sputum. CARDIOVASCULAR: See HPI GASTROINTESTINAL: Denies nausea, vomiting, abdominal pain, diarrhea, constipation, melena. : Denies dysuria, frequency, incontinence, hematuria, urinary retention, flank pain. MUSCULOSKELETAL: Denies weakness, joint pain, or bony pain SKIN: No rash, no erythema, no pruritus NEUROLOGIC: Denies weakness, dizziness, headache, numbness, change in speech, confusion PSYCHIATRIC: No concerning psychosocial issues. 12 point review of systems is negative except for those stated above and HPI Patient History Medical History Abnormal transaminases Anxiety Cellulitis GERD (gastroesophageal reflux disease) Hyperlipidemia Hypertension Impotence Surgical History History of gastric surgery (~2003) History of hernia repair (~2003) Perianal cyst (~1999) Family History Father Cerebrovascular accident (CVA), unspecified mechanism Mother Autoimmune hepatitis Grandmother No problems noted. Social History household members: family and none Smoking Status: Never smoker alcohol intake: current Smoking Status: Never smoker alcohol intake frequency: 3 or more drinks per day Alcohol type: beer Substance Use Type: does not use Exam Initial Vital Signs Initial Vital Signs: Vital Signs Pulse Rate 88 04/16/22 07:08 Respiratory Rate 20 04/16/22 07:08 Blood Pressure 175/104 H 04/16/22 07:08 Pulse Oximetry 96 04/16/22 07:08 Oxygen Delivery Method 04/16/22 07:08 GENERAL: Alert 56-year-old male and in [no acute] distress. HEENT: Head atraumatic,EOMI, pupils reactive, face symmetric, [moist] mucous membranes CARDIOVASCULAR: Regular rate and rhythm without murmurs, rubs or gallops. RESPIRATORY: Breath sounds equal bilaterally, no wheezes rales or rhonchi. ABDOMEN: Soft, minimally distended nontender. Normoactive bowel sounds all 4 quadrants. No guarding or rebound. EXTREMITIES: Normal range of motion, no clubbing or edema. Neurovascularly intact NEUROLOGICAL: Alert and oriented x4.Normal gait and speech. SKIN: Hives noted on arms no other hives no other rashes Course Orders Ordered: ED Orders 04/16/22 09:56 CT chest abd pel w con Stat 04/16/22 10:09 Trop I [Troponin I] Stat 04/16/22 12:40 Trop I [Troponin I] Stat 04/16/22 12:46 Blood Culture Stat Discontinued Medications Hydromorphone HCl (Hydromorphone 1 Mg Inj) 1 mg IV NOW ONE Stop: 04/16/22 10:01 Last Admin: 04/16/22 10:04 Dose: 1 mg Documented By: TESFAYE Hydromorphone HCl (Hydromorphone 0.5 Mg Inj) 0.5 mg IV NOW ONE Stop: 04/16/22 15:10 Last Admin: 04/16/22 15:13 Dose: 0.5 mg Documented By: LORI Sodium Chloride (Normal Saline 0.9%) 1,000 mls @ 1,000 mls/hr IV BOLUS ONE Stop: 04/16/22 08:39 Last Infusion: 04/16/22 09:17 Dose: 0 mls/hr Documented By: Admin: 04/16/22 08:07 Dose: 1,000 mls/hr Documented By: FELECIA Sodium Chloride (Normal Saline 0.9%) 1,000 mls @ 1,000 mls/hr IV BOLUS ONE Stop: 04/16/22 13:13 Last Infusion: 04/16/22 13:48 Dose: 0 mls/hr Documented By: Admin: 04/16/22 12:40 Dose: 1,000 mls/hr Documented By: FELECIA Ondansetron HCl (Ondansetron 4 Mg/2 Ml Inj) 4 mg IV NOW ONE Stop: 04/16/22 07:41 Last Admin: 04/16/22 08:06 Dose: 4 mg Documented By: FELECIA Pantoprazole Sodium (Pantoprazole 40 Mg Vial) 40 mg IV NOW ONE Stop: 04/16/22 07:41 Last Admin: 04/16/22 08:06 Dose: 40 mg Documented By: FELECIA Vital Signs Vital signs: Vital Signs - 8 hr 04/16/22 09:45 04/16/22 09:45 04/16/22 10:00 Pulse Rate 100 H Respiratory Rate 22 Blood Pressure 161/92 H 159/94 H Pulse Oximetry 95 04/16/22 10:00 04/16/22 10:23 04/16/22 10:23 Pulse Rate 104 H 100 H Respiratory Rate 21 20 Blood Pressure 161/91 H Pulse Oximetry 95 95 04/16/22 10:30 04/16/22 10:30 04/16/22 10:45 Pulse Rate 84 76 Respiratory Rate 20 18 Blood Pressure 146/78 H Pulse Oximetry 94 95 04/16/22 10:45 04/16/22 11:00 04/16/22 11:00 Pulse Rate 77 Respiratory Rate 19 Blood Pressure 144/79 H 144/85 H Pulse Oximetry 95 04/16/22 11:15 04/16/22 11:15 04/16/22 11:30 Pulse Rate 77 Respiratory Rate 19 Blood Pressure 143/85 H 143/88 H Pulse Oximetry 94 04/16/22 11:30 04/16/22 11:45 04/16/22 11:45 Pulse Rate 78 105 H Respiratory Rate 20 20 Blood Pressure 151/91 H Pulse Oximetry 94 94 04/16/22 12:00 04/16/22 12:00 04/16/22 12:15 Pulse Rate 83 Respiratory Rate 22 Blood Pressure 154/90 H 145/83 H Pulse Oximetry 94 04/16/22 12:15 04/16/22 12:30 04/16/22 12:30 Pulse Rate 81 85 Respiratory Rate 21 22 Blood Pressure 148/85 H Pulse Oximetry 94 94 04/16/22 12:45 04/16/22 12:45 04/16/22 13:00 Pulse Rate 97 H Respiratory Rate 22 Blood Pressure 157/108 H 146/80 H Pulse Oximetry 94 04/16/22 13:00 04/16/22 13:15 04/16/22 13:15 Pulse Rate 82 80 Respiratory Rate 22 21 Blood Pressure 150/84 H Pulse Oximetry 94 93 04/16/22 13:30 04/16/22 13:30 04/16/22 13:45 Pulse Rate 103 H 85 Respiratory Rate 22 20 Blood Pressure 150/85 H Pulse Oximetry 93 92 04/16/22 13:45 04/16/22 14:03 04/16/22 14:05 Pulse Rate 98 H Respiratory Rate 20 Blood Pressure 155/82 H 163/87 H Pulse Oximetry 92 04/16/22 14:05 04/16/22 14:30 04/16/22 14:30 Pulse Rate 98 H 101 H Respiratory Rate 20 Blood Pressure 131/94 H Pulse Oximetry 93 93 04/16/22 15:00 04/16/22 15:00 Pulse Rate 92 H Respiratory Rate Blood Pressure 152/83 H Pulse Oximetry 91 MDM - Chest Pain Lab Data Result diagrams: 04/16/22 08:10 04/16/22 08:10 Labs: Lab Results 04/16/22 04/16/22 04/16/22 Range/Units 07:40 08:10 08:10 WBC 18.2 H (4.5-11.0) X10^3/uL RBC 5.01 (4.5-5.9) X10^6/uL Hgb 16.1 (13.5-17.5) g/dL Hct 46.5 (41-53) % MCV 92.7 (80-100) fL MCH 32.2 (26-34) PG MCHC 34.7 (30-36) % RDW 13.9 (11.6-14.8) % Plt Count 191 (150-400) X10^3/uL Neut % (Auto) 90.7 H (50-75) % Lymph % (Auto) 2.9 L (25-40) % [place] % (Auto) 6.2 (3-14) % Eos % (Auto) 0.0 L (2-4) % Baso % (Auto) 0.2 (0-2) % Neut # (Auto) 31179 H (4042-7444) /uL Lymph # (Auto) 500 L (5342-4832) /uL [place] # (Auto) 1100 H (0-900) /uL Eos # (Auto) 0 (0-450) /uL Baso # (Auto) 0 (0-100) /uL Sodium 133 L (137-145) mmol/L Potassium 4.2 (3.4-5.1) mmol/L Chloride 92 L (98-107) mmol/L Carbon Dioxide 24 (22-32) mmol/L BUN 12 (9-20) mg/dL Creatinine 0.74 (0.66-1.25) mg/dL Estimated GFR > 60 (>60) mL/min BUN/Creatinine Ratio 16.2 (6-22) Glucose 254 H (70-100) mg/dL Lactate (0.7-2.1) mmol/L Calcium 9.9 (8.4-10.2) mg/dL Total Bilirubin 1.2 (0.2-1.3) mg/dL AST 103 H (17-59) IU/L ALT 157 H (<50) IU/L Alkaline Phosphatase 137 H (38-126) U/L Total Creatine Kinase 83 (55-170) U/L CK-MB (CK-2) TNP CK-MB (CK-2) Rel Index TNP Troponin I 0.018 (0.01-0.034) ng/mL Total Protein 9.8 H (6.3-8.2) g/dL Albumin 5.6 H (3.5-5.0) g/dL Globulin 4.2 H (1.7-4.1) g/dL Albumin/Globulin Ratio 1.3 (1.0-2.8) Lipase 191 (23-300) U/L Procalcitonin (<0.5) ng/mL SARS-CoV-2 (PCR) Negative (Negative) 04/16/22 04/16/22 04/16/22 Range/Units 08:10 08:10 10:09 WBC (4.5-11.0) X10^3/uL RBC (4.5-5.9) X10^6/uL Hgb (13.5-17.5) g/dL Hct (41-53) % MCV (80-100) fL MCH (26-34) PG MCHC (30-36) % RDW (11.6-14.8) % Plt Count (150-400) X10^3/uL Neut % (Auto) (50-75) % Lymph % (Auto) (25-40) % [place] % (Auto) (3-14) % Eos % (Auto) (2-4) % Baso % (Auto) (0-2) % Neut # (Auto) (1617-0924) /uL Lymph # (Auto) (3605-0596) /uL [place] # (Auto) (0-900) /uL Eos # (Auto) (0-450) /uL Baso # (Auto) (0-100) /uL Sodium (137-145) mmol/L Potassium (3.4-5.1) mmol/L Chloride (98-107) mmol/L Carbon Dioxide (22-32) mmol/L BUN (9-20) mg/dL Creatinine (0.66-1.25) mg/dL Estimated GFR (>60) mL/min BUN/Creatinine Ratio (6-22) Glucose (70-100) mg/dL Lactate 3.5 H (0.7-2.1) mmol/L Calcium (8.4-10.2) mg/dL Total Bilirubin (0.2-1.3) mg/dL AST (17-59) IU/L ALT (<50) IU/L Alkaline Phosphatase (38-126) U/L Total Creatine Kinase (55-170) U/L CK-MB (CK-2) CK-MB (CK-2) Rel Index Troponin I 0.031 (0.01-0.034) ng/mL Total Protein (6.3-8.2) g/dL Albumin (3.5-5.0) g/dL Globulin (1.7-4.1) g/dL Albumin/Globulin Ratio (1.0-2.8) Lipase (23-300) U/L Procalcitonin 0.17 (<0.5) ng/mL SARS-CoV-2 (PCR) (Negative) 04/16/22 04/16/22 Range/Units 12:40 14:28 WBC (4.5-11.0) X10^3/uL RBC (4.5-5.9) X10^6/uL Hgb (13.5-17.5) g/dL Hct (41-53) % MCV (80-100) fL MCH (26-34) PG MCHC (30-36) % RDW (11.6-14.8) % Plt Count (150-400) X10^3/uL Neut % (Auto) (50-75) % Lymph % (Auto) (25-40) % [place] % (Auto) (3-14) % Eos % (Auto) (2-4) % Baso % (Auto) (0-2) % Neut # (Auto) (5801-4111) /uL Lymph # (Auto) (8012-2863) /uL [place] # (Auto) (0-900) /uL Eos # (Auto) (0-450) /uL Baso # (Auto) (0-100) /uL Sodium (137-145) mmol/L Potassium (3.4-5.1) mmol/L Chloride (98-107) mmol/L Carbon Dioxide (22-32) mmol/L BUN (9-20) mg/dL Creatinine (0.66-1.25) mg/dL Estimated GFR (>60) mL/min BUN/Creatinine Ratio (6-22) Glucose (70-100) mg/dL Lactate 2.4 H (0.7-2.1) mmol/L Calcium (8.4-10.2) mg/dL Total Bilirubin (0.2-1.3) mg/dL AST (17-59) IU/L ALT (<50) IU/L Alkaline Phosphatase (38-126) U/L Total Creatine Kinase (55-170) U/L CK-MB (CK-2) CK-MB (CK-2) Rel Index Troponin I < 0.012 (0.01-0.034) ng/mL Total Protein (6.3-8.2) g/dL Albumin (3.5-5.0) g/dL Globulin (1.7-4.1) g/dL Albumin/Globulin Ratio (1.0-2.8) Lipase (23-300) U/L Procalcitonin (<0.5) ng/mL SARS-CoV-2 (PCR) (Negative) Imaging Data Abdominal x-ray: Radiologist's Impression: CRISTI Romero [id number] XRay Report Signed Patient: Partick Huber MR#: [id number] : 1965 Acct:[id number] Age/Sex: 56 / M Date of Service: 04/16/22 Loc: ED Accession Number: [id number] ?? Procedure: XR acute abdomen series Ordering Provider: Geeta Woods D.O. PROCEDURE:? XR ACUTE ABDOMEN SERIES ? INDICATIONS:? chest pain ab pain vomiting ? TECHNIQUE:? One view chest and two views of the abdomen were acquired.? ? COMPARISON:? None. ? FINDINGS:? ? Surgical changes and devices:? None.? ? Chest:? Lungs are clear.? Heart size is normal.? No pleural effusions.? No pneumoperitoneum.? ? Abdomen:? Scattered loops of air-filled small and large bowel are seen in a nonspecific pattern.? There is mild stool within the colon.? No suspicious calcifications.? Visualized solid organ contours appear normal.? ? Bones:? No suspicious bony lesions.? ? IMPRESSION:? Nonspecific nonobstructive bowel gas pattern.? No pneumoperitoneum.? If symptoms persist, consider further evaluation with CT of the abdomen and pelvis. ? ? Dictated by: Car Osborn M.D. on 04/16/2022 at 8:45 ? ? CT scan - abdomen/pelvis: Radiologist's Impression: Signed Patient: Patrick Huber MR#: [id number] : 1965 Acct:[id number] Age/Sex: 56 / M Date of Service: 04/16/22 Loc: ED Accession Number: [id number] ?? Procedure: CT chest abd pel w con Ordering Provider: Geeta Woods D.O. PROCEDURE:? CT CHEST ABD PEL W CON ? INDICATIONS:? epigastric pain, hiatal hernia ? TECHNIQUE:? After the administration of oral and intravenous contrast, axial sections acquired from the supraclavicular neck to the pubic symphysis.? Coronal and sagittal reformats were performed.? For radiation dose reduction, the following was used:? automated exposure control, adjustment of mA and/or kV according to patient size.? ? COMPARISON:[facility], CR, XR CHEST 2V, 01/28/2019, 8:34.? [facility], CT, ABDOMEN/PELVIS WITH CONTRAST, 08/20/2007, 10:10.? [facility], CT, ABDOMEN/PELVIS WITH CONTRAST, 04/26/2008, 8:20.? [facility], CR, XR ACUTE ABDOMEN SERIES, 04/16/2022, 8:09. ? FINDINGS:? Image quality:? Excellent.? ? CHEST: Lower Neck: No enlarged lymph nodes.? Thyroid:? Right thyroid lobe is normal.? Left thyroid lobe is absent. Axillae: No enlarged lymph nodes. Chest Wall:? Unremarkable.? ? Lungs and Airways:? Bilateral subpleural scars and atelectasis in right middle lobe, lingula, and both lower lobes.? Superimposed pneumonia may be present bilaterally. Pleura: No pneumothorax or pleural effusions.? ? Heart: Heart size is normal.? No pericardial effusion. Thoracic Vessels: The aorta and pulmonary arteries demonstrate normal size.? Mediastinum and Lu: No enlarged lymph nodes.? Esophagus: No wall thickening.? There is a small paraesophageal hiatal hernia. ? ? ABDOMEN: Liver:? Mild hepatomegaly and hepatic steatosis.? ? Gallbladder:? Unremarkable.? ? Biliary ducts:? Unremarkable.? ? Pancreas:? Unremarkable.? ? Spleen:? Unremarkable.? ? Adrenal Glands:? Unremarkable.? ? Kidneys and Ureters:? Unremarkable.? ? ? Stomach and Bowel:? Stomach, small bowel loops, and colon are unremarkable.? Peritoneum:? No abnormal intraperitoneal fluid.? No free air.? ? Ventral Wall: ? There is a tiny fat containing umbilical hernia.? Abdominal Nodes:? No retroperitoneal or mesenteric adenopathy by size criteria.? Vessels:? Aorta and inferior vena cava are normal in size.? ? PELVIS: Pelvic Organs:? Enlarged prostate.? ? Bladder:? Mildly distended.? Bladder wall thickness is normal.? ? Pelvic Nodes: No enlarged lymph nodes.? Miscellaneous:? A small fat containing inguinal hernia is seen. ? ? ? Bones:? Unremarkable.? ? ? IMPRESSION:? ? 1.? Bilateral subpleural scars and atelectasis in right middle lobe, lingula, and both lower lobes.? Superimposed pneumonia may be present.? Recommend clinical correlation. ? 2.? Small paraesophageal hiatal hernia. ? 3.? Mild hepatomegaly and hepatic steatosis. ? ? The result was discussed with Dr. Benjamin. ? Dictated by: Alexsandra Baez M.D. on 04/16/2022 at 10:57 ?? ECG Data Interpretation: EKG 1. Normal sinus rhythm rate 92 MI interval 138 QRS [address] changes no T-wave inversions EKG 2. Sinus rhythm rate 95 no changes from prior MDM Narrative Medical decision making narrative: Patient is here for epigastric pain is been ongoing consistently since with evening. He is given Dilaudid and Protonix he has a known hiatal hernia. CT confirms a very small paraesophageal, he CT shows questionable pneumonia. However patient does not have a fever or cough. He does have leukocytosis of 18, lactic acid is off elevated at 3.5 which does improve with fluid. Procalcitonin is negative He has been taking prednisone intermittently for a rash. His rash has been there for a couple of weeks prednisone does not seem to be helping. He certainly has no sign of anaphylaxis but it does look like urticaria on both arms. Patient initially reported no cough but states that his cough started may be today. He is afebrile. He overall appears well he continues to plane of epigastric pain. CT is essentially negative but does show small hiatal hernia. Pain is better with dilaudid. He has normal EKGs 3- troponins this is unlikely cardiac. Especially because it is consistent and reproducible. She for atypical pneumonia based on CT leukocytosis and elevated lactate. I encouraged patient to return to the ED if he should have any new or worsening symptoms. I do not think hernia is strangulated, there is no evidence of that on CT. Patient had a CT chest abdomen pelvis. Discharge Plan Departure Patient Disposition: Home Clinical Impression: Atypical pneumonia, Hernia, hiatal, Atypical chest pain, Urticaria Instructions: Hiatal Hernia Activity Restrictions/Additional Instructions: *You have been diagnosed with hiatal hernia *What to do: At this time her pain is likely from hiatal hernia. You do not need antibiotics at this time even though your x-ray suggest that you pneumonia. *Continue to take medications as directed Medrol Dosepak take as directed Ethel 1 tablet every 6 hours if needed for pain Zofran 4 mg every 8 hours if needed for nausea or vomiting Doxycycline 100 mg twice had day for 7 days *Follow up with your primary care provider in 2-3 days or call [phone] *Return to ER if you should have increasing pain persistent vomiting, worsening rash or any new, worsening or concerning symptoms Prescriptions: New ondansetron 4 mg tablet,disintegrating 4 mg PO Q8H PRN (Reason: nausea and vomiting) Qty: 10 0RF methylprednisolone [Medrol (Jenaro)] 4 mg tablets,dose pack 4 mg PO DAILY Qty: 21 0RF Rx Instructions: take as directed oxycodone-acetaminophen [Percocet] 5-325 mg tablet 1 tab PO Q6H PRN (Reason: pain) Qty: 10 0RF doxycycline hyclate 100 mg capsule 100 mg PO BID Qty: 20 0RF No Action fluorometholone 0.1 % drops,suspension 1 drp EYE-BOTH BID PRN (Reason: Dry Eye(S)) Qty: 5 11RF clonazepam 0.5 mg tablet 0.5 mg PO TID PRN (Reason: anxiety) Qty: 90 4RF cetirizine [All Day Allergy (cetirizine)] 10 mg tablet 10 mg PO DAILY PRN rabeprazole [AcipHex] 20 mg tablet,delayed release (DR/EC) 20 mg PO QDAY Qty: 90 3RF amlodipine 10 mg tablet 10 mg PO DAILY Qty: 90 3RF Referrals: Valente Stovall MD [Primary Care Provider] - Visit Report Forms: Patient Portal/API
--- NOTE | 2022-04-16 07:40 | DI.RAD.S_ITS ---
PROCEDURE: XR ACUTE ABDOMEN SERIES INDICATIONS: chest pain ab pain vomiting TECHNIQUE: One view chest and two views of the abdomen were acquired. COMPARISON: None. FINDINGS: Surgical changes and devices: None. Chest: Lungs are clear. Heart size is normal. No pleural effusions. No pneumoperitoneum. Abdomen: Scattered loops of air-filled small and large bowel are seen in a nonspecific pattern. There is mild stool within the colon. No suspicious calcifications. Visualized solid organ contours appear normal. Bones: No suspicious bony lesions. IMPRESSION: Nonspecific nonobstructive bowel gas pattern. No pneumoperitoneum. If symptoms persist, consider further evaluation with CT of the abdomen and pelvis. Dictated by: Car Osborn M.D. on 04/16/2022 at 8:45 Approved by: Car Osborn M.D. on 04/16/2022 at 8:48
[2022-04-16 07:56] LABS: COVID19 -Nasal RAPID Negative (Negative)
[2022-04-16] MEDS: ONDANSETRON 4 MG/2 ML INJ IV (08:06)
[2022-04-16] MEDS: PANTOPRAZOLE 40 MG VIAL IV (08:06)
[2022-04-16] MEDS: SODIUM CHLORIDE 0.9% 1,000 ML 1000 ML IV ×2 (08:07→12:40)
[2022-04-16 08:17] LABS: Add Manual Diff / Slide Review NO; Basophils Absolute Auto 0 /uL (0-100); Basophils Percent Auto 0.2 % (0-2); Eosinophils Absolute Auto 0 /uL (0-450); Hematocrit 46.5 % (41-53); Hemoglobin 16.1 g/dL (13.5-17.5); Lymphocytes Absolute Auto 500 /uL (1100-4500); Lymphocytes Percent Auto 2.9 % (25-40); Mean Corpuscular HGB Conc 34.7 % (30-36); Mean Corpuscular Hemoglobin 32.2 PG (26-34); Mean Corpuscular Volume 92.7 fL (80-100); Monocytes Absolute Auto 1100 /uL (0-900); Monocytes Percent Auto 6.2 % (3-14); Neutrophils Absolute Auto 16500 /uL (1500-7000); Neutrophils Percent Auto 90.7 % (50-75); Platelet Count 191 X10^3/uL (150-400); Red Blood Cell Count 5.01 X10^6/uL (4.5-5.9); Red Cell Distribution Width 13.9 % (11.6-14.8); White Blood Cell Count 18.2 X10^3/uL (4.5-11.0)
[2022-04-16 08:29] LABS: Albumin 5.6 g/dL (3.5-5.0); Albumin Globulin Ratio 1.3 (1.0-2.8); Alkaline Phosphatase 137 U/L (38-126); Aspartate Aminotransferase 103 IU/L (17-59); BUN Creatinine Ratio 16.2 (6-22); Bilirubin Total 1.2 mg/dL (0.2-1.3); Blood Urea Nitrogen 12 mg/dL (9-20); Calcium 9.9 mg/dL (8.4-10.2); Carbon Dioxide 24 mmol/L (22-32); Chloride 92 mmol/L (98-107); Creatine Kinase 83 U/L (55-170); Estimated Glomerular Filt Rate > 60 mL/min (>60); Globulin 4.2 g/dL (1.7-4.1); Glucose 254 mg/dL (70-100); HEMOLYSIS 32 (0-50); Lipase 191 U/L (23-300); Potassium 4.2 mmol/L (3.4-5.1); Sodium 133 mmol/L (137-145); Total Protein 9.8 g/dL (6.3-8.2)
[2022-04-16 08:34] LABS: Alanine Aminotransferase 157 IU/L (<50)
[2022-04-16 08:41] LABS: Troponin I 0.018 ng/mL (0.01-0.034)
--- NOTE | 2022-04-16 09:56 | DI.CT.S_ITS ---
PROCEDURE: CT CHEST ABD PEL W CON INDICATIONS: epigastric pain, hiatal hernia TECHNIQUE: After the administration of oral and intravenous contrast, axial sections acquired from the supraclavicular neck to the pubic symphysis. Coronal and sagittal reformats were performed. For radiation dose reduction, the following was used: automated exposure control, adjustment of mA and/or kV according to patient size. COMPARISON:[facility], CR, XR CHEST 2V, 01/28/2019, 8:34. [facility], CT, ABDOMEN/PELVIS WITH CONTRAST, 08/20/2007, 10:10. [facility], CT, ABDOMEN/PELVIS WITH CONTRAST, 04/26/2008, 8:20. [facility], CR, XR ACUTE ABDOMEN SERIES, 04/16/2022, 8:09. FINDINGS: Image quality: Excellent. CHEST: Lower Neck: No enlarged lymph nodes. Thyroid: Right thyroid lobe is normal. Left thyroid lobe is absent. Axillae: No enlarged lymph nodes. Chest Wall: Unremarkable. Lungs and Airways: Bilateral subpleural scars and atelectasis in right middle lobe, lingula, and both lower lobes. Superimposed pneumonia may be present bilaterally. Pleura: No pneumothorax or pleural effusions. Heart: Heart size is normal. No pericardial effusion. Thoracic Vessels: The aorta and pulmonary arteries demonstrate normal size. Mediastinum and Lu: No enlarged lymph nodes. Esophagus: No wall thickening. There is a small paraesophageal hiatal hernia. ABDOMEN: Liver: Mild hepatomegaly and hepatic steatosis. Gallbladder: Unremarkable. Biliary ducts: Unremarkable. Pancreas: Unremarkable. Spleen: Unremarkable. Adrenal Glands: Unremarkable. Kidneys and Ureters: Unremarkable. Stomach and Bowel: Stomach, small bowel loops, and colon are unremarkable. Peritoneum: No abnormal intraperitoneal fluid. No free air. Ventral Wall: There is a tiny fat containing umbilical hernia. Abdominal Nodes: No retroperitoneal or mesenteric adenopathy by size criteria. Vessels: Aorta and inferior vena cava are normal in size. PELVIS: Pelvic Organs: Enlarged prostate. Bladder: Mildly distended. Bladder wall thickness is normal. Pelvic Nodes: No enlarged lymph nodes. Miscellaneous: A small fat containing inguinal hernia is seen. Bones: Unremarkable. IMPRESSION: 1. Bilateral subpleural scars and atelectasis in right middle lobe, lingula, and both lower lobes. Superimposed pneumonia may be present. Recommend clinical correlation. 2. Small paraesophageal hiatal hernia. 3. Mild hepatomegaly and hepatic steatosis. The result was discussed with Dr. Benjamin. Dictated by: Alexsandra Baez M.D. on 04/16/2022 at 10:57 Approved by: Alexsandra Baez M.D. on 04/16/2022 at 11:07
[2022-04-16] MEDS: HYDROMORPHONE 1 MG INJ IV (10:04)
[2022-04-16 10:38] LABS: Troponin I 0.031 ng/mL (0.01-0.034)
[2022-04-16 11:57] LABS: Lactate (Lactic Acid) 3.5 mmol/L (0.7-2.1)
[2022-04-16 12:15] LABS: Procalcitonin 0.17 ng/mL (<0.5)
[2022-04-16 13:28] LABS: Troponin I < 0.012 ng/mL (0.01-0.034)
[2022-04-16 13:48] LABS: Reflexed Lactate in 2 Hours Y
[2022-04-16 14:44] LABS: Lactate 2HR (Lactic Acid Rflx) 2.4 mmol/L (0.7-2.1)
[2022-04-16] MEDS: HYDROMORPHONE 0.5 MG INJ IV (15:13)
== END 2022-04-16 15:26 | disposition home or self-care (01) ==
PROVIDERS: Emergency Provider Emergency Medicine; Family Provider Student in an Organized Health Care Education/Training Program; PCP Student in an Organized Health Care Education/Training Program
DX: J18.9 Pneumonia, unspecified organism (principal); R07.89 Other chest pain; K44.9 Diaphragmatic hernia without obstruction or gangrene; L50.9 Urticaria, unspecified; Z20.822 Contact with and (suspected) exposure to COVID-19
CPT/HCPCS: 36415; 71260; 74022; 74177; 80053; 82550; 83605; 83690; 84145; 84484; 85025; 87040; 87635; 93005; 93010; 96361; 96374; 96375; 96376; 99284; C9803; C9113; J1170; J2405

== ENCOUNTER → 2022-09-11 08:11 | Outpatient (CLI) | payer OTHER, SELFPAY ==
[2019-08-20 10:45] VITALS: BMI 26.6
[2022-09-11 09:24] LABS: Influenza A - CEPHEID Flu A NEGATIVE (NEGATIVE); Influenza B - CEPHEID Flu B NEGATIVE (NEGATIVE); Respiratory Syncytial Virus Negative (Negative)
[2022-09-11 09:25] LABS: COVID-19 CEPHEID 4-PLEX PCR Negative (Negative)
== END ==
PROVIDERS: Family Provider Student in an Organized Health Care Education/Training Program; PCP Student in an Organized Health Care Education/Training Program; Visit Provider Physician Assistant Medical
DX: R05.1 Acute cough (principal)
CPT/HCPCS: 0241U

== ENCOUNTER 2023-03-15 05:51 | Emergency (ER) | payer OTHER, SELFPAY ==
[2019-08-20 10:45] VITALS: BMI 26.6
[2023-03-15] VITALS (13 sets, daily range): BP systolic 121–198; BP diastolic 75–105; PULSE 70–99; RESP 12–20; TEMP 36.1; O2SAT 95–97; BMI 26.6
--- NOTE | 2023-03-15 06:24 | DI.CT.S_ITS ---
PROCEDURE: CT HEAD/BRAIN WO CON INDICATIONS: lightheadedness, etoh abuse TECHNIQUE: Noncontrast 4.5 mm thick angled axial sections acquired from the foramen magnum to the vertex, with coronal and sagittal reformats. For radiation dose reduction, the following was used: automated exposure control, adjustment of mA and/or kV according to patient size. COMPARISON: [facility], CT, CT HEAD/BRAIN WO CON, 10/04/2018, 22:44. FINDINGS: Image quality: Excellent. CSF spaces: Basal cisterns are patent. No extra-axial fluid collections. Ventricles are prominent but symmetric in size and shape. Brain: No midline shift. No intracranial masses or hemorrhage. Lara-white matter interface is normal. Skull and face: Calvarium and visualized facial bones are intact, without suspicious lesions. Sinuses: Visualized sinuses and mastoids are clear. IMPRESSION: 1. No acute intracranial abnormalities. No significant discrepancy with the security shift manager radiology preliminary report. Dictated by: Alexsandra Baez M.D. on 03/15/2023 at 7:43 Approved by: Alexsandra Baez M.D. on 03/15/2023 at 7:44
--- NOTE | 2023-03-15 06:25 | DI.RAD.S_ITS ---
PROCEDURE: XR CHEST 1V INDICATIONS: lightheadedness TECHNIQUE: One view of the chest was acquired. COMPARISON: [facility], CR, XR CHEST 2V, 01/28/2019, 8:34. FINDINGS: Surgical changes and devices: None. Lungs and pleura: Lungs are clear. No pleural effusions or pneumothorax. Mediastinum: Mediastinal contours appear normal. Heart size is normal. Bones and chest wall: No suspicious bony lesions. Overlying soft tissues appear unremarkable. IMPRESSION: No acute cardiopulmonary disease. No significant discrepancy with the slot shift manager radiology preliminary report. Dictated by: Alexsandra Baez M.D. on 03/15/2023 at 8:39 Approved by: Alexsandra Baez M.D. on 03/15/2023 at 8:39
--- NOTE | 2023-03-15 06:26 | ED.DIZZY ---
HPI - Dizziness <Tiffanie Zhou, - Last Filed: 03/21/23 07:35> General Chief Complaint: Dizziness Stated Complaint: dizzy Time Seen by Provider: 03/15/23 06:11 Source: patient, RN notes reviewed and old records reviewed Mode of arrival: Wheelchair Limitations: no limitations History of Present Illness HPI Narrative: This is a 57-year-old male with history of hypertension, anxiety, GERD, hiatal hernia and Jennifer fundoplication with history of alcohol use since age 11. Patient presents with complaint of feeling lightheaded when he standing up like he is going to pass out. He describes it as dizziness but states no spinning of the room. He states it is more lightheadedness. He has not had any syncopal episodes. He states he is felt hot and cold he has been shaking, he felt a little bit better after he drank a bunch of water he is had intermittent nausea and vomiting. He denies abdominal back or flank pain. He denies chest pain or pressure but it is felt like his heart is beating hard. Patient denies shortness of breath. No diarrhea. No dysuria urgency or frequency. Patient denies any trauma. No headaches. Denies any falls. Notes he had some pain in the back of his neck earlier but resolved. Patient states he takes medication for hypertension anxiety and has prescription bottles for amlodipine and clonazepam both have tablets present. He states he had a gastro wrap describes taking a muscle from his abdomen and wrapping around his stomach, by his description sounds like a Jennifer fundoplication. Denies other surgeries. States he has been allergies to pain medications and that they cause rashes make him turn red. Denies tobacco, states he has drank intermittently since the age of 11 for the past 2 weeks he has been drinking half of a 5th of a bottle nightly. He states last drink was this SaturdayMarch 13. He drank a beer on to try to settle symptoms down but threw it up. Patient denies any illicit, recreational or IV drugs. Primary care was Dr. Stovall who recently left the area. Related Data Previous Rx's Medication Instructions Recorded rabeprazole 20 mg tablet,delayed 20 mg PO QDAY #90 tabs 10/04/22 release (AcipHex) amlodipine 10 mg tablet 10 mg PO DAILY #90 tabs 11/15/22 prednisone 5 mg tablet 5 mg PO DAILY PRN Chemical 11/15/22 reaction #20 tabs tadalafil 20 mg tablet 20 mg PO DAILY PRN sexual activity 11/15/22 #30 tabs clonazepam 0.5 mg tablet 0.5 mg PO TID PRN anxiety #90 tabs 12/11/22 fluorometholone 0.1 % eye 1 drp EYE-BOTH BID PRN Dry Eye(S) 02/06/23 drops,suspension #5 mL chlordiazepoxide HCl 25 mg capsule See Rx Instructions .Route 03/15/23 .COMPLEX PRN alcohol withdrawal #32 caps ondansetron 4 mg disintegrating 4 mg PO TID-QID PRN nausea and 03/15/23 tablet vomiting #10 tabs Allergies Allergy/AdvReac Type Severity Reaction Status Date / Time cefazolin Allergy Unknown Verified 11/15/22 08:31 cephalexin Allergy Unknown RASH Verified 11/15/22 08:31 hydrocodone Allergy Unknown UNKNOWN Verified 11/15/22 08:31 Penicillins Allergy Unknown DYSPNEA Verified 11/15/22 08:31 Sulfa (Sulfonamide Allergy Unknown HOT-COLD Verified 11/15/22 08:31 Antibiotics) FLASHES narcotics Allergy Unknown states, Uncoded 11/15/22 08:31 all narcotic except for percocet Review of Systems <Tiffanie Zhou DO - Last Filed: 03/21/23 07:35> Review of Systems ROS Unobtainable: All systems reviewed & are unremarkable except as noted in HPI and below Patient History <Tiffanie Zhou DO - Last Filed: 03/21/23 07:35> Medical History Allergic angioedema Anxiety Asymptomatic bunion Chronic alcoholism Eczema Erectile dysfunction (10/06/15) Essential hypertension (10/06/15) Gastroesophageal reflux disease without esophagitis (10/06/15) Mixed hyperlipidemia (10/06/15) Surgical History History of gastric surgery (~2003) History of hernia repair (~2003) Perianal cyst (~1999) Family History Father Cerebrovascular accident (CVA), unspecified mechanism Mother Autoimmune hepatitis Grandmother No problems noted. Social History household members: family and none Smoking Status: Never smoker alcohol intake: current Smoking Status: Never smoker alcohol intake frequency: 3 or more drinks per day Alcohol type: beer and hard liquor Substance Use Type: does not use Exam <Tiffanie Zhou DO - Last Filed: 03/21/23 07:35> Narrative Exam Narrative: GEN: Male, alert and oriented x 3, patient appears to be in [id number] distress. HEENT: Atraumatic, pupils are equal round reactive to light, extraocular movements are intact, nares are clear, TMs are clear with no fluid, there is no conjunctival pallor. Throat is clear without any exudates, erythema, tonsillar enlargement or uvular deviation HEART: Regular rate and rhythm without murmur, clicks, rubs. pulses are equal in upper and lower extremities LUNGS:Lungs clear to auscultation, no wheezes, rales, crackles, chest moves symmetrically, no tachypnea accessory muscle uses. ABD:bowel sounds normal, soft, non-tender, no guarding, rebound, rigidity, no masses noted, no hepatosplenomegaly :No CVA tenderness, MSCL: Non-tender, no muscle atrophy, muscles strength 5/5 upper and lower extremities, full range of motion, NEURO:CN 2-12 intact, sensation normal, patient has generalized tremor. SKIN: No rash, erythema or other skin changes Initial Vital Signs Initial Vital Signs: Vital Signs Temperature 96.9 F L 03/15/23 05:58 Pulse Rate 98 H 03/15/23 05:58 Respiratory Rate 20 03/15/23 05:58 Blood Pressure 194/102 H 03/15/23 05:58 Pulse Oximetry 96 03/15/23 05:58 Oxygen Delivery Method Room Air 03/15/23 05:58 <Karan Bone DO - Last Filed: 03/16/23 07:44> Initial Vital Signs Initial Vital Signs: Vital Signs Temperature 96.9 F L 03/15/23 05:58 Pulse Rate 98 H 03/15/23 05:58 Respiratory Rate 20 03/15/23 05:58 Blood Pressure 194/102 H 03/15/23 05:58 Pulse Oximetry 96 03/15/23 05:58 Oxygen Delivery Method Room Air 03/15/23 05:58 Course <Tiffanie Zhou, - Last Filed: 03/21/23 07:35> Orders Ordered: Discontinued Medications Sodium Chloride (Normal Saline 0.9%) 1,000 mls @ 1,000 mls/hr IV BOLUS ONE Stop: 03/15/23 07:23 Last Infusion: 03/15/23 07:51 Dose: 0 mls/hr Documented By: Admin: 03/15/23 06:38 Dose: 1,000 mls/hr Documented By: GC Thiamine HCl 200 mg/ Sodium (Chloride) 102 mls @ 408 mls/hr IV NOW ONE Stop: 03/15/23 07:13 Last Infusion: 03/15/23 07:51 Dose: 0 mls/hr Documented By: Admin: 03/15/23 07:32 Dose: 408 mls/hr Documented By: TESFAYE Magnesium Sulfate (Magnesium Sulfate) 2 gm in 50 mls @ 25 mls/hr IV NOW ONE Stop: 03/15/23 09:11 Last Infusion: 03/15/23 09:58 Dose: 0 mls/hr Documented By: YULISSA Co-signed By: AMU Admin: 03/15/23 07:57 Dose: 25 mls/hr Documented By: AMAnnabel Co-signed By: NAIF Ondansetron HCl (Ondansetron 4 Mg/2 Ml Inj) 4 mg IV Q6HR PRN PRN Reason: Nausea And Vomiting Phenobarbital (Phenobarbital 65 Mg/Ml Vial) 260 mg IV NOW ONE Stop: 03/15/23 06:26 Last Admin: 03/15/23 06:38 Dose: 260 mg Documented By: JAREN Phenobarbital (Phenobarbital 65 Mg/Ml Vial) 130 mg IV NOW ONE Stop: 03/15/23 07:28 Last Admin: 03/15/23 07:31 Dose: 130 mg Documented By: TESFAYE Vital Signs Vital signs: Vital Signs - 8 hr 03/15/23 05:58 03/15/23 06:09 03/15/23 06:10 Temperature 96.9 F L Pulse Rate 98 H 77 Respiratory Rate 20 18 Blood Pressure 194/102 H 198/105 H Pulse Oximetry 96 97 Oxygen Delivery Method Room Air 03/15/23 06:10 Temperature Pulse Rate 74 Respiratory Rate 17 Blood Pressure Pulse Oximetry 97 Oxygen Delivery Method <Karan Bone, - Last Filed: 03/16/23 07:44> Orders Ordered: Discontinued Medications Sodium Chloride (Normal Saline 0.9%) 1,000 mls @ 1,000 mls/hr IV BOLUS ONE Stop: 03/15/23 07:23 Last Infusion: 03/15/23 07:51 Dose: 0 mls/hr Documented By: Admin: 03/15/23 06:38 Dose: 1,000 mls/hr Documented By: GC Thiamine HCl 200 mg/ Sodium (Chloride) 102 mls @ 408 mls/hr IV NOW ONE Stop: 03/15/23 07:13 Last Infusion: 03/15/23 07:51 Dose: 0 mls/hr Documented By: Admin: 03/15/23 07:32 Dose: 408 mls/hr Documented By: AMAnnabel Magnesium Sulfate (Magnesium Sulfate) 2 gm in 50 mls @ 25 mls/hr IV NOW ONE Stop: 03/15/23 09:11 Last Infusion: 03/15/23 09:58 Dose: 0 mls/hr Documented By: YULISSA Co-signed By: AMU Admin: 03/15/23 07:57 Dose: 25 mls/hr Documented By: AMU Co-signed By: NAIF Ondansetron HCl (Ondansetron 4 Mg/2 Ml Inj) 4 mg IV Q6HR PRN PRN Reason: Nausea And Vomiting Phenobarbital (Phenobarbital 65 Mg/Ml Vial) 260 mg IV NOW ONE Stop: 03/15/23 06:26 Last Admin: 03/15/23 06:38 Dose: 260 mg Documented By: JAREN Phenobarbital (Phenobarbital 65 Mg/Ml Vial) 130 mg IV NOW ONE Stop: 03/15/23 07:28 Last Admin: 03/15/23 07:31 Dose: 130 mg Documented By: AMU Vital Signs Vital signs: Vital Signs - 8 hr 03/15/23 05:58 03/15/23 06:09 03/15/23 06:10 Temperature 96.9 F L Pulse Rate 98 H 77 Respiratory Rate 20 18 Blood Pressure 194/102 H 198/105 H Pulse Oximetry 96 97 Oxygen Delivery Method Room Air 03/15/23 06:10 Temperature Pulse Rate 74 Respiratory Rate 17 Blood Pressure Pulse Oximetry 97 Oxygen Delivery Method MDM - Dizziness <Tiffanie C Mank, DO - Last Filed: 03/21/23 07:35> Lab Data 03/15/23 06:15 03/15/23 06:15 Labs: Lab Results 03/15/23 03/15/23 03/15/23 Range/Units 06:15 06:15 06:15 WBC 6.1 (4.5-11.0) X10^3/uL RBC 5.02 (4.5-5.9) X10^6/uL Hgb 15.9 (13.5-17.5) g/dL Hct 45.7 (41-53) % MCV 91.1 (80-100) fL MCH 31.8 (26-34) PG MCHC 34.9 (30-36) % RDW 14.7 (11.6-14.8) % Plt Count 208 (150-400) X10^3/uL Neut % (Auto) 78.3 H (50-75) % Lymph % (Auto) 9.5 L (25-40) % [place] % (Auto) 11.8 (3-14) % Eos % (Auto) 0.0 L (2-4) % Baso % (Auto) 0.4 (0-2) % Neut # (Auto) 4700 (4238-1686) /uL Lymph # (Auto) 600 L (5576-4520) /uL [place] # (Auto) 700 (0-900) /uL Eos # (Auto) 0 (0-450) /uL Baso # (Auto) 0 (0-100) /uL PT 12.6 (10.1-12.7) SECONDS INR 1.1 (0.9-1.3) APTT 25 L (26-36) SECONDS Sodium 132 L (137-145) mmol/L Potassium 3.7 (3.4-5.1) mmol/L Chloride 90 L (98-107) mmol/L Carbon Dioxide 27 (22-32) mmol/L BUN 6 L (9-20) mg/dL Creatinine 0.69 (0.66-1.25) mg/dL Estimated GFR > 60 (>60) mL/min BUN/Creatinine Ratio 8.7 (6-22) Glucose 191 H (70-100) mg/dL Calcium 10.1 (8.4-10.2) mg/dL Magnesium 1.4 L (1.6-2.3) mg/dL Total Bilirubin 1.2 (0.2-1.3) mg/dL AST 106 H (17-59) IU/L ALT 147 H (<50) IU/L Alkaline Phosphatase 142 H (38-126) U/L Total Creatine Kinase 146 (55-170) U/L CK-MB (CK-2) TNP CK-MB (CK-2) Rel Index TNP Troponin I 0.028 (0.01-0.034) ng/mL Total Protein 9.0 H (6.3-8.2) g/dL Albumin 5.2 H (3.5-5.0) g/dL Globulin 3.8 (1.7-4.1) g/dL Albumin/Globulin Ratio 1.4 (1.0-2.8) Lipase 135 (23-300) U/L U Opiates 300ng/mL cut (Negative) Ur Oxycodone Screen (Negative) Urine Methadone Screen (Negative) Ur Barbiturates Screen (Negative) U Tricyclic Antidepress (Negative) Ur Phencyclidine Scrn (Negative) Ur Amphetamines Screen (Negative) U Methamphetamines Scrn (Negative) Ur MDMA Scrn (Ecstasy) (Negative) U Benzodiazepines Scrn (Negative) Urine Cocaine Screen (Negative) U Marijuana (THC) Screen (Negative) Ethyl Alcohol < 10 ( - 10) mg/dL 03/15/23 Range/Units 09:49 WBC (4.5-11.0) X10^3/uL RBC (4.5-5.9) X10^6/uL Hgb (13.5-17.5) g/dL Hct (41-53) % MCV (80-100) fL MCH (26-34) PG MCHC (30-36) % RDW (11.6-14.8) % Plt Count (150-400) X10^3/uL Neut % (Auto) (50-75) % Lymph % (Auto) (25-40) % [place] % (Auto) (3-14) % Eos % (Auto) (2-4) % Baso % (Auto) (0-2) % Neut # (Auto) (1551-3221) /uL Lymph # (Auto) (1282-5823) /uL [place] # (Auto) (0-900) /uL Eos # (Auto) (0-450) /uL Baso # (Auto) (0-100) /uL PT (10.1-12.7) SECONDS INR (0.9-1.3) APTT (26-36) SECONDS Sodium (137-145) mmol/L Potassium (3.4-5.1) mmol/L Chloride (98-107) mmol/L Carbon Dioxide (22-32) mmol/L BUN (9-20) mg/dL Creatinine (0.66-1.25) mg/dL Estimated GFR (>60) mL/min BUN/Creatinine Ratio (6-22) Glucose (70-100) mg/dL Calcium (8.4-10.2) mg/dL Magnesium (1.6-2.3) mg/dL Total Bilirubin (0.2-1.3) mg/dL AST (17-59) IU/L ALT (<50) IU/L Alkaline Phosphatase (38-126) U/L Total Creatine Kinase (55-170) U/L CK-MB (CK-2) CK-MB (CK-2) Rel Index Troponin I (0.01-0.034) ng/mL Total Protein (6.3-8.2) g/dL Albumin (3.5-5.0) g/dL Globulin (1.7-4.1) g/dL Albumin/Globulin Ratio (1.0-2.8) Lipase (23-300) U/L U Opiates 300ng/mL cut Negative (Negative) Ur Oxycodone Screen Negative (Negative) Urine Methadone Screen Negative (Negative) Ur Barbiturates Screen Positive H (Negative) U Tricyclic Antidepress Negative (Negative) Ur Phencyclidine Scrn Negative (Negative) Ur Amphetamines Screen Negative (Negative) U Methamphetamines Scrn Negative (Negative) Ur MDMA Scrn (Ecstasy) Negative (Negative) U Benzodiazepines Scrn Negative (Negative) Urine Cocaine Screen Negative (Negative) U Marijuana (THC) Screen Positive H (Negative) Ethyl Alcohol ( - 10) mg/dL ECG Data Attestation: I personally reviewed and interpreted this ECG as follows: Interpretation: Sinus rhythm rate of 74 OH 136 QRS 84 and QTC of 472. No acute ST elevation. Nonspecific change. No priors for comparison. MDM Narrative Medical decision making narrative: This is a 57-year-old male who endorses quite a bit of alcohol use which he stopped 2 days ago, describes symptoms that sound consistent with withdrawal although notes that he is felt very lightheaded upon standing. He is quite hypertensive none particularly tachycardic but is tremulous. Suspect alcohol withdrawal is a component. Patient denies trauma falls or head injuries. No chest pain or pressure. Plan for head CT, chest x-ray, EKG shows sinus rhythm lab work and patient was given fluids as well as dose of phenobarbital. Patient signed out to Dr. Bone while awaiting workup and response to medications. <Karan Bone, DO - Last Filed: 03/16/23 07:44> Lab Data Labs: Lab Results 03/15/23 03/15/23 03/15/23 Range/Units 06:15 06:15 06:15 WBC 6.1 (4.5-11.0) X10^3/uL RBC 5.02 (4.5-5.9) X10^6/uL Hgb 15.9 (13.5-17.5) g/dL Hct 45.7 (41-53) % MCV 91.1 (80-100) fL MCH 31.8 (26-34) PG MCHC 34.9 (30-36) % RDW 14.7 (11.6-14.8) % Plt Count 208 (150-400) X10^3/uL Neut % (Auto) 78.3 H (50-75) % Lymph % (Auto) 9.5 L (25-40) % [place] % (Auto) 11.8 (3-14) % Eos % (Auto) 0.0 L (2-4) % Baso % (Auto) 0.4 (0-2) % Neut # (Auto) 4700 (7981-4855) /uL Lymph # (Auto) 600 L (5886-6232) /uL [place] # (Auto) 700 (0-900) /uL Eos # (Auto) 0 (0-450) /uL Baso # (Auto) 0 (0-100) /uL PT 12.6 (10.1-12.7) SECONDS INR 1.1 (0.9-1.3) APTT 25 L (26-36) SECONDS Sodium 132 L (137-145) mmol/L Potassium 3.7 (3.4-5.1) mmol/L Chloride 90 L (98-107) mmol/L Carbon Dioxide 27 (22-32) mmol/L BUN 6 L (9-20) mg/dL Creatinine 0.69 (0.66-1.25) mg/dL Estimated GFR > 60 (>60) mL/min BUN/Creatinine Ratio 8.7 (6-22) Glucose 191 H (70-100) mg/dL Calcium 10.1 (8.4-10.2) mg/dL Magnesium 1.4 L (1.6-2.3) mg/dL Total Bilirubin 1.2 (0.2-1.3) mg/dL AST 106 H (17-59) IU/L ALT 147 H (<50) IU/L Alkaline Phosphatase 142 H (38-126) U/L Total Creatine Kinase 146 (55-170) U/L CK-MB (CK-2) TNP CK-MB (CK-2) Rel Index TNP Troponin I 0.028 (0.01-0.034) ng/mL Total Protein 9.0 H (6.3-8.2) g/dL Albumin 5.2 H (3.5-5.0) g/dL Globulin 3.8 (1.7-4.1) g/dL Albumin/Globulin Ratio 1.4 (1.0-2.8) Lipase 135 (23-300) U/L U Opiates 300ng/mL cut (Negative) Ur Oxycodone Screen (Negative) Urine Methadone Screen (Negative) Ur Barbiturates Screen (Negative) U Tricyclic Antidepress (Negative) Ur Phencyclidine Scrn (Negative) Ur Amphetamines Screen (Negative) U Methamphetamines Scrn (Negative) Ur MDMA Scrn (Ecstasy) (Negative) U Benzodiazepines Scrn (Negative) Urine Cocaine Screen (Negative) U Marijuana (THC) Screen (Negative) Ethyl Alcohol < 10 ( - 10) mg/dL 03/15/23 Range/Units 09:49 WBC (4.5-11.0) X10^3/uL RBC (4.5-5.9) X10^6/uL Hgb (13.5-17.5) g/dL Hct (41-53) % MCV (80-100) fL MCH (26-34) PG MCHC (30-36) % RDW (11.6-14.8) % Plt Count (150-400) X10^3/uL Neut % (Auto) (50-75) % Lymph % (Auto) (25-40) % [place] % (Auto) (3-14) % Eos % (Auto) (2-4) % Baso % (Auto) (0-2) % Neut # (Auto) (3492-2289) /uL Lymph # (Auto) (9538-8290) /uL [place] # (Auto) (0-900) /uL Eos # (Auto) (0-450) /uL Baso # (Auto) (0-100) /uL PT (10.1-12.7) SECONDS INR (0.9-1.3) APTT (26-36) SECONDS Sodium (137-145) mmol/L Potassium (3.4-5.1) mmol/L Chloride (98-107) mmol/L Carbon Dioxide (22-32) mmol/L BUN (9-20) mg/dL Creatinine (0.66-1.25) mg/dL Estimated GFR (>60) mL/min BUN/Creatinine Ratio (6-22) Glucose (70-100) mg/dL Calcium (8.4-10.2) mg/dL Magnesium (1.6-2.3) mg/dL Total Bilirubin (0.2-1.3) mg/dL AST (17-59) IU/L ALT (<50) IU/L Alkaline Phosphatase (38-126) U/L Total Creatine Kinase (55-170) U/L CK-MB (CK-2) CK-MB (CK-2) Rel Index Troponin I (0.01-0.034) ng/mL Total Protein (6.3-8.2) g/dL Albumin (3.5-5.0) g/dL Globulin (1.7-4.1) g/dL Albumin/Globulin Ratio (1.0-2.8) Lipase (23-300) U/L U Opiates 300ng/mL cut Negative (Negative) Ur Oxycodone Screen Negative (Negative) Urine Methadone Screen Negative (Negative) Ur Barbiturates Screen Positive H (Negative) U Tricyclic Antidepress Negative (Negative) Ur Phencyclidine Scrn Negative (Negative) Ur Amphetamines Screen Negative (Negative) U Methamphetamines Scrn Negative (Negative) Ur MDMA Scrn (Ecstasy) Negative (Negative) U Benzodiazepines Scrn Negative (Negative) Urine Cocaine Screen Negative (Negative) U Marijuana (THC) Screen Positive H (Negative) Ethyl Alcohol ( - 10) mg/dL MDM Narrative Medical decision making narrative: This is a 57-year-old male who endorses quite a bit of alcohol use which he stopped 2 days ago, describes symptoms that sound consistent with withdrawal although notes that he is felt very lightheaded upon standing. He is quite hypertensive none particularly tachycardic but is tremulous. Suspect alcohol withdrawal is a component. Patient denies trauma falls or head injuries. No chest pain or pressure. Plan for head CT, chest x-ray, EKG shows sinus rhythm lab work and patient was given fluids as well as dose of phenobarbital. Patient signed out to Dr. Bone while awaiting workup and response to medications. [0700] (Lizandro) Patient received in sign out from [Abelardo]. I have reviewed the clinical course and performed an independent history and physical exam. [57] year old patient presents with minor alcohol withdrawal symptoms and dizziness Multiple etiologies for patient's symptoms considered including, but not limited to: [Alcohol withdrawal versus intracranial hemorrhage versus electrolyte abnormality versus dehydration versus other Prior Charts reviewed in our EMR Primary Historian: patient Labs reviewed and interpreted by myself: No leukocytosis, left shift or signs of anemia, primary electrolytes largely within normal limits, LFTs slightly elevated, expected given alcohol history, Imaging reviewed: Head CT without acute findings, chest x-ray demonstrates no acute cardiopulmonary disease SCORES: CIWA 5 Treatments: Patient with significant improvement in symptoms after saline, multiple rounds of phenobarb, thiamine and magnesium. Patient's symptoms improved over duration of stay with above-stated therapies. He has mild alcohol withdrawal symptoms and significant improvement with typical therapies. Upon completion his CIWA is very low, he is ambulatory, able to speak clearly without slurring words and walk a straight line. He is no longer dizzy upon standing. Imaging is reassuring. There is no indication for hospitalization, Librium taper sent to his pharmacy of choice Findings and discharge diagnosis discussed with patient/family followed by verbalization of understanding Return precautions discussed with patient/family whom verbalize understanding of diagnosis and plan Discharge Plan Departure Patient Disposition: Home Clinical Impression: Alcohol withdrawal Instructions: Alcohol Withdrawal Activity Restrictions/Additional Instructions: *You have been diagnosed with [minor alcohol withdrawal with low CIWA score] *What to do: *Please continue to take your regular medications as directed. [x ] New medication prescriptions sent to your pharmacy: [[facility] ] [ ] New medication written as a paper prescription [ ] No new medications given *Please follow up with your primary care provider in 2-3 days, call for an appointment. Let them know you were seen in the Emergency Department and that we ask that you be seen in follow up. We will electronically transmit a record of today's note if your PCP is in our system *Return to Emergency Department if you should have any new, worsening or concerning symptoms, such as [fever greater than 101 F, shaking chills, worsening pain, persistent vomiting or other bothersome symptoms] Prescriptions: New chlordiazepoxide HCl 25 mg capsule See Rx Instructions .ROUTE .COMPLEX PRN (Reason: alcohol withdrawal) Qty: 32 0RF Rx Instructions: Day 1: 50mg POq4 Day 2: 50mg POq6 Day 3: 50mg POq8 Day 4: 50mg POq12 Day 5: 50mg POqhs #32 ondansetron 4 mg tablet,disintegrating 4 mg PO TID-QID PRN (Reason: nausea and vomiting) Qty: 10 0RF No Action rabeprazole [AcipHex] 20 mg tablet,delayed release (DR/EC) 20 mg PO QDAY Qty: 90 3RF clonazepam 0.5 mg tablet 0.5 mg PO TID PRN (Reason: anxiety) Qty: 90 4RF fluorometholone 0.1 % drops,suspension 1 drp EYE-BOTH BID PRN (Reason: Dry Eye(S)) Qty: 5 11RF prednisone 5 mg tablet 5 mg PO DAILY PRN (Reason: Chemical reaction) Qty: 20 5RF amlodipine 10 mg tablet 10 mg PO DAILY Qty: 90 3RF tadalafil 20 mg tablet 20 mg PO DAILY PRN (Reason: sexual activity) Qty: 30 11RF Rx Instructions: administer approximately 30min before sexual activity; do not use more than 1 dose per 24hrs Referrals: Valente Stovall MD [Primary Care Provider] - Stand Alone Forms: Patient Portal/API
[2023-03-15 06:33] LABS: Add Manual Diff / Slide Review NO; Basophils Absolute Auto 0 /uL (0-100); Basophils Percent Auto 0.4 % (0-2); Eosinophils Absolute Auto 0 /uL (0-450); Hematocrit 45.7 % (41-53); Hemoglobin 15.9 g/dL (13.5-17.5); INR 1.1 (0.9-1.3); Lymphocytes Absolute Auto 600 /uL (1100-4500); Lymphocytes Percent Auto 9.5 % (25-40); Mean Corpuscular HGB Conc 34.9 % (30-36); Mean Corpuscular Hemoglobin 31.8 PG (26-34); Mean Corpuscular Volume 91.1 fL (80-100); Monocytes Absolute Auto 700 /uL (0-900); Monocytes Percent Auto 11.8 % (3-14); Neutrophils Absolute Auto 4700 /uL (1500-7000); Neutrophils Percent Auto 78.3 % (50-75); Platelet Count 208 X10^3/uL (150-400); Prothrombin Time 12.6 SECONDS (10.1-12.7); Red Blood Cell Count 5.02 X10^6/uL (4.5-5.9); Red Cell Distribution Width 14.7 % (11.6-14.8); White Blood Cell Count 6.1 X10^3/uL (4.5-11.0)
[2023-03-15 06:36] LABS: PTT Partial Thromboplastin Tim 25 SECONDS (26-36)
[2023-03-15 06:37] LABS: Alanine Aminotransferase 147 IU/L (<50); Albumin 5.2 g/dL (3.5-5.0); Albumin Globulin Ratio 1.4 (1.0-2.8); Alkaline Phosphatase 142 U/L (38-126); Aspartate Aminotransferase 106 IU/L (17-59); BUN Creatinine Ratio 8.7 (6-22); Bilirubin Total 1.2 mg/dL (0.2-1.3); Blood Urea Nitrogen 6 mg/dL (9-20); Calcium 10.1 mg/dL (8.4-10.2); Carbon Dioxide 27 mmol/L (22-32); Chloride 90 mmol/L (98-107); Creatine Kinase 146 U/L (55-170); Estimated Glomerular Filt Rate > 60 mL/min (>60); Ethanol (ETOH) < 10 mg/dL; Globulin 3.8 g/dL (1.7-4.1); Glucose 191 mg/dL (70-100); HEMOLYSIS < 15 (0-50); Lipase 135 U/L (23-300); Magnesium 1.4 mg/dL (1.6-2.3); Potassium 3.7 mmol/L (3.4-5.1); Sodium 132 mmol/L (137-145)
[2023-03-15] MEDS: PHENobarbital 65 MG/ML VIAL 260 MG IV (06:38)
[2023-03-15] MEDS: SODIUM CHLORIDE 0.9% 1,000 ML 1000 ML IV (06:38)
[2023-03-15 06:49] LABS: Troponin I 0.028 ng/mL (0.01-0.034)
[2023-03-15] MEDS: PHENobarbital 65 MG/ML VIAL 130 MG IV (07:31)
[2023-03-15] MEDS: THIAMINE 200 MG in SODIUM CHLORIDE 0.9% 100 ML 408 MG IV (07:32)
[2023-03-15] MEDS: MAGNESIUM SULFATE 2 GM/50 ML PIGGYBACK IV (07:57)
[2023-03-15 09:58] LABS: Ur Creatinine Normal (Normal); Ur Specific Gravity Normal (Normal); Urine pH Normal (Normal)
[2023-03-15 09:59] LABS: UR Morphine/Opiate cutoff 300 Negative (Negative); Urine Amphetamines Negative (Negative); Urine Barbiturates Positive (Negative); Urine Benzodiazepines Negative (Negative); Urine Cocaine Negative (Negative); Urine MDMA Negative (Negative); Urine Methadone Negative (Negative); Urine Methamphetamines Negative (Negative); Urine Oxycodone Negative (Negative); Urine Phencyclidine Negative (Negative); Urine Tetrahydrocannabinol Positive (Negative); Urine Tricyclic Antidepressant Negative (Negative)
== END 2023-03-15 10:23 | disposition home or self-care (01) ==
PROVIDERS: Emergency Medicine; Emergency Provider Emergency Medicine; Family Provider Student in an Organized Health Care Education/Training Program; PCP Student in an Organized Health Care Education/Training Program
DX: F10.239 Alcohol dependence with withdrawal, unspecified (principal); R11.2 Nausea with vomiting, unspecified; I10 Essential (primary) hypertension; R07.9 Chest pain, unspecified
CPT/HCPCS: 36415; 70450; 71045; 80053; 80305; 80320; 82550; 83690; 83735; 84484; 85025; 85610; 85730; 93005; 93010; 96361; 96374; 96376; 99284; J2560; J3475

== ENCOUNTER 2023-06-27 13:41 | Emergency (ER) | payer OTHER, SELFPAY ==
[2019-08-20 10:45] VITALS: BMI 26.6
[2023-06-27 13:48] VITALS: BP 156/74; PULSE 125; RESP 22; TEMP 37.3; O2SAT 97; BMI 26.6
[2023-06-27 14:13] LABS: Appearance Urine UA CLEAR; Bilirubin Urine UA NEGATIVE (NEGATIVE); Color Urine UA YELLOW; Glucose Urine UA NEGATIVE (Negative); Ketones Urine UA TRACE (NEGATIVE); Leukocyte Esterase Urine UA NEGATIVE (NEGATIVE); Nitrite Urine UA NEGATIVE (Negative); Occult Blood Urine UA NEGATIVE (Negative); Protein Urine UA 1+ (Negative); Specific Gravity Urine UA >=1.030 (1.000-1.035)
[2023-06-27 14:24] LABS: RBC Urine None Seen (0-5/HPF)
[2023-06-27] MEDS: ONDANSETRON 4 MG/2 ML INJ IV (14:24)
[2023-06-27 14:25] LABS: Bacteria Urine None Seen; Culture Indicated Urine Cult Not Indicated; Hyaline Casts Urine 1-5/LPF; Squamous Epithelial Cell Urine 0-1 /HPF (0-5/HPF); WBC Urine 0-1/HPF (0-5/HPF)
--- NOTE | 2023-06-27 15:26 | ED.ALCOHOL ---
HPI - Alcohol <Lucas Verdin MD - Last Filed: 07/12/23 09:02> General Chief Complaint: Toxicology Problem Stated Complaint: V/D/cant eat/dehydration T-0 Time Seen by Provider: 06/27/23 14:20 Source: patient Mode of arrival: Ambulatory History of Present Illness HPI narrative: Patient here with nausea and vomiting and tremors. Patient admits heavy vodka alcohol consumption regularly leak. Has had withdrawals in the past. Recently seen here for the same. He does not want detox or rehabilitation or inpatient. CIWA score of 15. Denies any drug use. No hallucination seizures falls or injuries. He was discharged home in March for withdrawals with Librium and he states it made it worse. 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 Patient states he gets very stress with his work, his worker's are not doing what he has instructed them to do and it makes him stress and causes him to drink. Related Data Previous Rx's Medication Instructions Recorded rabeprazole 20 mg tablet,delayed 20 mg PO QDAY #90 tabs 10/04/22 release (AcipHex) amlodipine 10 mg tablet 10 mg PO DAILY #90 tabs 11/15/22 tadalafil 20 mg tablet 20 mg PO DAILY PRN sexual activity 11/15/22 #30 tabs fluorometholone 0.1 % eye 1 drp EYE-BOTH BID PRN Dry Eye(S) 02/06/23 drops,suspension #5 mL clonazepam 0.5 mg tablet 0.5 mg PO TID PRN anxiety #90 tabs 07/03/23 prednisone 5 mg tablet 5 mg PO DAILY PRN Chemical 07/03/23 reaction #20 tabs Allergies Allergy/AdvReac Type Severity Reaction Status Date / Time cefazolin Allergy Unknown Verified 07/03/23 10:30 cephalexin Allergy Unknown RASH Verified 07/03/23 10:30 hydrocodone Allergy Unknown UNKNOWN Verified 07/03/23 10:30 Penicillins Allergy Unknown DYSPNEA Verified 07/03/23 10:30 Sulfa (Sulfonamide Allergy Unknown HOT-COLD Verified 07/03/23 10:30 Antibiotics) FLASHES narcotics Allergy Unknown states, Uncoded 07/03/23 10:30 all narcotic except for percocet Review of Systems <Lucas Verdin MD - Last Filed: 07/12/23 09:02> Review of Systems Narrative: GENERAL: negative chills, fatigue, malaise, fever, sweats. HEENT: negative sinus pain, ear pain, sore throat RESPIRATORY: negative dyspnea, cough CARDIOVASCULAR: negative chest pain, palpitations GASTROINTESTINAL: Positive nausea, vomiting, negative abdominal pain : negative dysuria, frequency, hematuria MUSCULOSKELETAL: negative muscle or bony pain SKIN: negative rash, skin lesions NEUROLOGIC: negative weakness, numbness, positive tremor ROS Unobtainable: All systems reviewed & are unremarkable except as noted in HPI and below Patient History <Lucas Verdin MD - Last Filed: 07/12/23 09:02> Medical History Allergic angioedema Anxiety Asymptomatic bunion Chronic alcoholism Eczema Erectile dysfunction (10/06/15) Essential hypertension (10/06/15) Gastroesophageal reflux disease without esophagitis (10/06/15) Mixed hyperlipidemia (10/06/15) Surgical History History of gastric surgery (~2003) History of hernia repair (~2003) Perianal cyst (~1999) Family History Father Cerebrovascular accident (CVA), unspecified mechanism Mother Autoimmune hepatitis Grandmother No problems noted. Social History household members: family and none Smoking Status: Never smoker alcohol intake: current Smoking Status: Never smoker alcohol intake frequency: 3 or more drinks per day Alcohol type: hard liquor Substance Use Type: does not use Exam <Lucas Verdin MD - Last Filed: 07/12/23 09:02> Narrative Exam Narrative: GENERAL: in no distress, not toxic not dyspneic HEAD: Normocephalic. EYES: Pupils equal round ENT: Mucous membranes moist. NECK: Trachea midline. CARDIOVASCULAR: Regular rate and rhythm RESPIRATORY: Clear to auscultation. Breath sounds equal bilaterally. No wheezes, rales, or rhonchi. GASTROINTESTINAL: Abdomen soft, non-tender EXTREMITIES: No gross deformities. BACK: No flank tenderness. NEURO: AOx4. Tremors noted with hands bilaterally. Clear speech no facial droop light touch intact bilateral face and hands. 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 SKIN: Warm and dry PSYCH: Not anxious, is cooperative, no pressured speech. Not combative. Initial Vital Signs Initial Vital Signs: Vital Signs Temperature 99.1 F 06/27/23 13:48 Pulse Rate 125 H 06/27/23 13:48 Respiratory Rate 22 06/27/23 13:48 Blood Pressure 156/74 H 06/27/23 13:48 Pulse Oximetry 97 06/27/23 13:48 Oxygen Delivery Method Room Air 06/27/23 13:48 <Geeta Woods DO - Last Filed: 06/28/23 03:11> Initial Vital Signs Initial Vital Signs: Vital Signs Temperature 99.1 F 06/27/23 13:48 Pulse Rate 125 H 06/27/23 13:48 Respiratory Rate 22 06/27/23 13:48 Blood Pressure 156/74 H 06/27/23 13:48 Pulse Oximetry 97 06/27/23 13:48 Oxygen Delivery Method Room Air 06/27/23 13:48 Course <Lucas Verdin MD - Last Filed: 07/12/23 09:02> Orders Ordered: Discontinued Medications Folic Acid (Folic Acid 1 Mg Tablet) 1 mg PO DAILY OMARI Folic Acid (Folic Acid 1 Mg Tablet) 1 mg PO NOW ONE Stop: 06/27/23 17:09 Last Admin: 06/27/23 17:13 Dose: 1 mg Documented By: CHARAN Sodium Chloride (Normal Saline 0.9%) 1,000 mls @ 1,000 mls/hr IV BOLUS ONE Stop: 06/27/23 16:06 Last Infusion: 06/27/23 16:51 Dose: Infused Documented By: Admin: 06/27/23 15:34 Dose: 1,000 mls/hr Documented By: CHARAN Lorazepam (Lorazepam 2 Mg/Ml Inj) 0 mg IV CIWAPRN PRN; Protocol PRN Reason: Alcohol Withdrawal Last Admin: 06/27/23 16:30 Dose: 2 mg Documented By: Admin: 06/27/23 15:33 Dose: 2 mg Documented By: CHARAN Multivitamins (Multivitamin 1 Tablet) 1 tab PO DAILY OMARI Multivitamins (Multivitamin 1 Tablet) 1 tab PO NOW ONE Stop: 06/27/23 17:09 Last Admin: 06/27/23 17:14 Dose: 1 tab Documented By: CHARAN Ondansetron HCl (Ondansetron 4 Mg Odt) 4 mg SL NOW PRN PRN Reason: Nausea And Vomiting Ondansetron HCl (Ondansetron 4 Mg/2 Ml Inj) 4 mg IV NOW PRN PRN Reason: Nausea And Vomiting Last Admin: 06/27/23 14:24 Dose: 4 mg Documented By: CHARAN Ondansetron HCl (Ondansetron 4 Mg/2 Ml Inj) 4 mg IV Q6HR PRN PRN Reason: Nausea And Vomiting Phenobarbital (Phenobarbital 65 Mg/Ml Vial) 260 mg IV NOW ONE Stop: 06/27/23 19:03 Last Admin: 06/27/23 19:13 Dose: 260 mg Documented By: HENRRY Thiamine HCl (Thiamine 100 Mg Tablet) 100 mg PO DAILY OMARI Stop: 07/01/23 09:01 Thiamine HCl (Thiamine 100 Mg Tablet) 100 mg PO NOW ONE Stop: 06/27/23 17:09 Last Admin: 06/27/23 17:14 Dose: 100 mg Documented By: CHARAN Vital Signs Vital signs: Vital Signs - 8 hr 06/27/23 19:19 Pulse Rate 100 H Respiratory Rate 15 Blood Pressure 151/84 H Pulse Oximetry 97 Oxygen Delivery Method Room Air <Geeta Woods DO - Last Filed: 06/28/23 03:11> Orders Ordered: Discontinued Medications Folic Acid (Folic Acid 1 Mg Tablet) 1 mg PO DAILY [facility] Folic Acid (Folic Acid 1 Mg Tablet) 1 mg PO NOW ONE Stop: 06/27/23 17:09 Last Admin: 06/27/23 17:13 Dose: 1 mg Documented By: CHARAN Sodium Chloride (Normal Saline 0.9%) 1,000 mls @ 1,000 mls/hr IV BOLUS ONE Stop: 06/27/23 16:06 Last Infusion: 06/27/23 16:51 Dose: Infused Documented By: Admin: 06/27/23 15:34 Dose: 1,000 mls/hr Documented By: CHARAN Lorazepam (Lorazepam 2 Mg/Ml Inj) 0 mg IV CIWAPRN PRN; Protocol PRN Reason: Alcohol Withdrawal Last Admin: 06/27/23 16:30 Dose: 2 mg Documented By: Admin: 06/27/23 15:33 Dose: 2 mg Documented By: CHARAN Multivitamins (Multivitamin 1 Tablet) 1 tab PO DAILY [facility] Multivitamins (Multivitamin 1 Tablet) 1 tab PO NOW ONE Stop: 06/27/23 17:09 Last Admin: 06/27/23 17:14 Dose: 1 tab Documented By: CHARAN Ondansetron HCl (Ondansetron 4 Mg Odt) 4 mg SL NOW PRN PRN Reason: Nausea And Vomiting Ondansetron HCl (Ondansetron 4 Mg/2 Ml Inj) 4 mg IV NOW PRN PRN Reason: Nausea And Vomiting Last Admin: 06/27/23 14:24 Dose: 4 mg Documented By: CHARAN Ondansetron HCl (Ondansetron 4 Mg/2 Ml Inj) 4 mg IV Q6HR PRN PRN Reason: Nausea And Vomiting Phenobarbital (Phenobarbital 65 Mg/Ml Vial) 260 mg IV NOW ONE Stop: 06/27/23 19:03 Last Admin: 06/27/23 19:13 Dose: 260 mg Documented By: HENRRY Thiamine HCl (Thiamine 100 Mg Tablet) 100 mg PO DAILY [facility] Stop: 07/01/23 09:01 Thiamine HCl (Thiamine 100 Mg Tablet) 100 mg PO NOW ONE Stop: 06/27/23 17:09 Last Admin: 06/27/23 17:14 Dose: 100 mg Documented By: CHARAN Vital Signs Vital signs: Vital Signs - 8 hr 06/27/23 19:19 Pulse Rate 100 H Respiratory Rate 15 Blood Pressure 151/84 H Pulse Oximetry 97 Oxygen Delivery Method Room Air MDM - Alcohol <Lucas Verdin MD - Last Filed: 07/12/23 09:02> Lab Data 06/27/23 14:38 06/27/23 14:38 Labs: Lab Results 06/27/23 06/27/23 06/27/23 Range/Units 14:02 14:38 15:30 WBC 6.3 (4.5-11.0) X10^3/uL RBC 4.60 (4.5-5.9) X10^6/uL Hgb 14.9 (13.5-17.5) g/dL Hct 42.7 (41-53) % MCV 92.9 (80-100) fL MCH 32.4 (26-34) PG MCHC 34.8 (30-36) % RDW 13.4 (11.6-14.8) % Plt Count 204 (150-400) X10^3/uL Neut % (Auto) 65.8 (50-75) % Lymph % (Auto) 17.1 L (25-40) % Lucas % (Auto) 16.6 H (3-14) % Eos % (Auto) 0.1 L (2-4) % Baso % (Auto) 0.4 (0-2) % Neut # (Auto) 4100 (2364-4298) /uL Lymph # (Auto) 1100 (0667-4638) /uL Lucas # (Auto) 1000 H (0-900) /uL Eos # (Auto) 0 (0-450) /uL Baso # (Auto) 0 (0-100) /uL Sodium 138 (137-145) mmol/L Potassium 4.1 (3.4-5.1) mmol/L Chloride 99 (98-107) mmol/L Carbon Dioxide 22 (22-32) mmol/L BUN 13 (9-20) mg/dL Creatinine 1.03 (0.66-1.25) mg/dL Estimated GFR > 60 (>60) mL/min BUN/Creatinine Ratio 12.6 (6-22) Glucose 174 H (70-100) mg/dL Calcium 9.6 (8.4-10.2) mg/dL Magnesium 1.9 (1.6-2.3) mg/dL Total Bilirubin 0.6 (0.2-1.3) mg/dL AST 130 H (17-59) IU/L ALT 72 H (<50) IU/L Alkaline Phosphatase 125 (38-126) U/L Total Protein 8.4 H (6.3-8.2) g/dL Albumin 4.8 (3.5-5.0) g/dL Globulin 3.6 (1.7-4.1) g/dL Albumin/Globulin Ratio 1.3 (1.0-2.8) Urine Color Yellow Urine Appearance Clear Urine pH 6.0 (4.5-8.0) Ur Specific [place] >=1.030 H (1.000-1.035) Urine Protein 1+ H (Negative) Urine Glucose (UA) Negative (Negative) g/dL Urine Ketones Trace H (NEGATIVE) Urine Occult Blood Negative (Negative) Urine Nitrate Negative (Negative) Urine Bilirubin Negative (NEGATIVE) Urine Urobilinogen 1.0 (0.2) E.U./dL Ur Leukocyte Esterase Negative (NEGATIVE) Urine RBC None seen (0-5/HPF) Urine WBC 0-1/hpf (0-5/HPF) Ur Squamous Epith Cells 0-1 /hpf (0-5/HPF) Urine Bacteria None seen (None) Hyaline Casts 1-5/lpf (None) Ur Culture Indicated? Cult not indicated Ethyl Alcohol < 10 ( - 10) mg/dL Urine Dip Bedside Urine Glucose Negative Bedside Urine Bilirubin + 1 Bedside Urine Ketone +/- 5 Urine Specific [place] 1.025 Bedside Urine Occult Blood - Negative Bedside Urine pH 6.0 Bedside Urine Protein + 30 Bedside Urine Urobilinogen - Negative Bedside Urine Nitrite - Negative Bedside Urine Leukocytes +/- 15 Esterase [facility] Narrative Medical decision making narrative: Patient here with nausea and vomiting and tremors. Patient admits heavy vodka alcohol consumption regularly leak. Has had withdrawals in the past. Recently seen here for the same. He does not want detox or rehabilitation or inpatient. CIWA score of 15. Denies any drug use. No hallucination seizures falls or injuries. He was discharged home in March for withdrawals with Librium and he states it made it worse. 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 Patient states he gets very stress with his work, his worker's are not doing what he has instructed them to do and it makes him stress and causes him to drink. After history and exam CBC CMP alcohol level CIWA score Zofran normal saline, CIWA protocol [facility] CC: Nausea vomiting alcohol withdrawal Complicating co-morbidities: Alcohol abuse Data collected from: Patient Medical records reviewed: Records here March 2023 Differential considered: Includes but not limited to alcohol withdrawal Exam documented above, pertinent findings include: Tremors Lab Test results independently reviewed as above. Pertinent findings: Hemoglobin 14.9 hematocrit 42.7 sodium 138 potassium 4.1 AST 130 ALT 72 alcohol less than 10 Consultations: Treatments: Re-evaluations: 5:00 p.m.. Reviewed with patient and encouraged him admission for withdrawals. At this time he does not want be admitted. He would like to wait until 8:00 p.m. to see how he feels. He does state that Librium made him feel worse last time Discussion: Diagnosis: Alcohol withdrawal 6:00 p.m.. Velvet: Sign out to Dr Woods, patient needs reassessment 8:00 p.m. and decision whether he wants to be admitted for alcohol withdrawal. CIWA score 6 right now. <Geeta Peggy, DO - Last Filed: 06/28/23 03:11> Lab Data Labs: Lab Results 06/27/23 06/27/23 06/27/23 Range/Units 14:02 14:38 15:30 WBC 6.3 (4.5-11.0) X10^3/uL RBC 4.60 (4.5-5.9) X10^6/uL Hgb 14.9 (13.5-17.5) g/dL Hct 42.7 (41-53) % MCV 92.9 (80-100) fL MCH 32.4 (26-34) PG MCHC 34.8 (30-36) % RDW 13.4 (11.6-14.8) % Plt Count 204 (150-400) X10^3/uL Neut % (Auto) 65.8 (50-75) % Lymph % (Auto) 17.1 L (25-40) % Lucas % (Auto) 16.6 H (3-14) % Eos % (Auto) 0.1 L (2-4) % Baso % (Auto) 0.4 (0-2) % Neut # (Auto) 4100 (9663-9718) /uL Lymph # (Auto) 1100 (1749-8380) /uL Lucas # (Auto) 1000 H (0-900) /uL Eos # (Auto) 0 (0-450) /uL Baso # (Auto) 0 (0-100) /uL Sodium 138 (137-145) mmol/L Potassium 4.1 (3.4-5.1) mmol/L Chloride 99 (98-107) mmol/L Carbon Dioxide 22 (22-32) mmol/L BUN 13 (9-20) mg/dL Creatinine 1.03 (0.66-1.25) mg/dL Estimated GFR > 60 (>60) mL/min BUN/Creatinine Ratio 12.6 (6-22) Glucose 174 H (70-100) mg/dL Calcium 9.6 (8.4-10.2) mg/dL Magnesium 1.9 (1.6-2.3) mg/dL Total Bilirubin 0.6 (0.2-1.3) mg/dL AST 130 H (17-59) IU/L ALT 72 H (<50) IU/L Alkaline Phosphatase 125 (38-126) U/L Total Protein 8.4 H (6.3-8.2) g/dL Albumin 4.8 (3.5-5.0) g/dL Globulin 3.6 (1.7-4.1) g/dL Albumin/Globulin Ratio 1.3 (1.0-2.8) Urine Color Yellow Urine Appearance Clear Urine pH 6.0 (4.5-8.0) Ur Specific [place] >=1.030 H (1.000-1.035) Urine Protein 1+ H (Negative) Urine Glucose (UA) Negative (Negative) g/dL Urine Ketones Trace H (NEGATIVE) Urine Occult Blood Negative (Negative) Urine Nitrate Negative (Negative) Urine Bilirubin Negative (NEGATIVE) Urine Urobilinogen 1.0 (0.2) E.U./dL Ur Leukocyte Esterase Negative (NEGATIVE) Urine RBC None seen (0-5/HPF) Urine WBC 0-1/hpf (0-5/HPF) Ur Squamous Epith Cells 0-1 /hpf (0-5/HPF) Urine Bacteria None seen (None) Hyaline Casts 1-5/lpf (None) Ur Culture Indicated? Cult not indicated Ethyl Alcohol < 10 ( - 10) mg/dL Urine Dip Bedside Urine Glucose Negative Bedside Urine Bilirubin + 1 Bedside Urine Ketone +/- 5 Urine Specific [place] 1.025 Bedside Urine Occult Blood - Negative Bedside Urine pH 6.0 Bedside Urine Protein + 30 Bedside Urine Urobilinogen - Negative Bedside Urine Nitrite - Negative Bedside Urine Leukocytes +/- 15 Esterase [facility] Narrative Medical decision making narrative: Patient here with nausea and vomiting and tremors. Patient admits heavy vodka alcohol consumption regularly leak. Has had withdrawals in the past. Recently seen here for the same. He does not want detox or rehabilitation or inpatient. CIWA score of 15. Denies any drug use. No hallucination seizures falls or injuries. He was discharged home in March for withdrawals with Librium and he states it made it worse. 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 Patient states he gets very stress with his work, his worker's are not doing what he has instructed them to do and it makes him stress and causes him to drink. After history and exam CBC CMP alcohol level CIWA score Zofran normal saline, CIWA protocol [facility] CC: Nausea vomiting alcohol withdrawal Complicating co-morbidities: Alcohol abuse Data collected from: Patient Medical records reviewed: Records here March 2023 Differential considered: Includes but not limited to alcohol withdrawal Exam documented above, pertinent findings include: Tremors Lab Test results independently reviewed as above. Pertinent findings: Hemoglobin 14.9 hematocrit 42.7 sodium 138 potassium 4.1 AST 130 ALT 72 alcohol less than 10 Consultations: Treatments: Re-evaluations: 5:00 p.m.. Reviewed with patient and encouraged him admission for withdrawals. At this time he does not want be admitted. He would like to wait until 8:00 p.m. to see how he feels. He does state that Librium made him feel worse last time Discussion: Diagnosis: Alcohol withdrawal 6:00 p.m.. Velvet: Sign out to Dr Woods, patient needs reassessment 8:00 p.m. and decision whether he wants to be admitted for alcohol withdrawal. CIWA score 6 right now. Patient signed out to me by Dr. Verdin. I have seen and evaluated patient myself. His heart rate has improved he is not shaking. He reports that he has stopped drinking for periods of time in his life including up to a month head time. He denies any history of alcohol withdrawal seizures. He was previously given Librium for alcohol withdrawal which he did not like. He was given Ativan here. Will give him a dose of phenobarbital. We will give him a couple doses of Ativan. I strongly encouraged him to go to detox he is adamant about not being admitted to the hospital going home. storage brine worker has met with. He is tolerating fluids. Discharge Plan Departure Patient Disposition: Home Clinical Impression: Alcohol withdrawal Instructions: Delirium Tremens, Alcohol Withdrawal Activity Restrictions/Additional Instructions: *You have been diagnosed with alcohol withdrawal *What to do: At this time I strongly encourage you to go to a detox center for your alcohol withdrawal. *Continue to take medications as directed Ativan 1 mg 3 times a day for 1 day, 1 mg twice a day for 1 day and 1 mg once daily (do not take clonazepam while taking this) *Follow up with your primary care provider in 2-3 days or call [phone] *Return to ER if you should have increasing shaking seizures, chest pain passing out [or] any new, worsening or concerning symptoms CONTROLLED SUBSTANCE DISCHARGE (Narcotoic/benzodiazepine/Flexeril/Phenergan) 1. You have been prescribed narcotic medications, it does have acetaminophen/Tylenol/paracetamol in it, DO NOT TAKE MORE THAN 4,00mg in 24 hours of Tylenol. TRAMADOL DOES NOT CONTAIN TYLENOL 2. Please understand that we cannot provide further refills of narcotics, benzodiazepines or controlled substances through the ED and her pain management will need to be through your provider. 3. While on these medications you cannot drive or operate heavy machinery. 4. You cannot sign legal documents or perform any duties such as this. 5. As long as you're taking opiate pain medications he should also be taking a stool softener such as Colace, Dulcolax, MiraLAX or prune juice, to help avoid constipation. Prescriptions: No Action rabeprazole [AcipHex] 20 mg tablet,delayed release (DR/EC) 20 mg PO QDAY Qty: 90 3RF fluorometholone 0.1 % drops,suspension 1 drp EYE-BOTH BID PRN (Reason: Dry Eye(S)) Qty: 5 11RF amlodipine 10 mg tablet 10 mg PO DAILY Qty: 90 3RF tadalafil 20 mg tablet 20 mg PO DAILY PRN (Reason: sexual activity) Qty: 30 11RF Rx Instructions: administer approximately 30min before sexual activity; do not use more than 1 dose per 24hrs clonazepam 0.5 mg tablet 0.5 mg PO TID PRN (Reason: anxiety) Qty: 90 0RF prednisone 5 mg tablet 5 mg PO DAILY PRN (Reason: Chemical reaction) Qty: 20 5RF Referrals: Valente Stovall MD [Primary Care Provider] - Stand Alone Forms: Patient Portal/API
[2023-06-27] MEDS: LORazepam 2 MG/ML INJ IV ×2 (15:33→16:30)
[2023-06-27] MEDS: SODIUM CHLORIDE 0.9% 1,000 ML 1000 ML IV (15:34)
[2023-06-27 15:56] LABS: Alanine Aminotransferase 72 IU/L (<50); Albumin 4.8 g/dL (3.5-5.0); Albumin Globulin Ratio 1.3 (1.0-2.8); Alkaline Phosphatase 125 U/L (38-126); Aspartate Aminotransferase 130 IU/L (17-59); BUN Creatinine Ratio 12.6 (6-22); Bilirubin Total 0.6 mg/dL (0.2-1.3); Blood Urea Nitrogen 13 mg/dL (9-20); Calcium 9.6 mg/dL (8.4-10.2); Carbon Dioxide 22 mmol/L (22-32); Chloride 99 mmol/L (98-107); Estimated Glomerular Filt Rate > 60 mL/min (>60); Globulin 3.6 g/dL (1.7-4.1); Glucose 174 mg/dL (70-100); HEMOLYSIS 23 (0-50); Magnesium 1.9 mg/dL (1.6-2.3); Potassium 4.1 mmol/L (3.4-5.1); Sodium 138 mmol/L (137-145); Total Protein 8.4 g/dL (6.3-8.2)
[2023-06-27 16:02] LABS: Add Manual Diff / Slide Review NO; Basophils Absolute Auto 0 /uL (0-100); Basophils Percent Auto 0.4 % (0-2); Eosinophils Absolute Auto 0 /uL (0-450); Eosinophils Percent Auto 0.1 % (2-4); Hematocrit 42.7 % (41-53); Hemoglobin 14.9 g/dL (13.5-17.5); Lymphocytes Absolute Auto 1100 /uL (1100-4500); Lymphocytes Percent Auto 17.1 % (25-40); Mean Corpuscular HGB Conc 34.8 % (30-36); Mean Corpuscular Hemoglobin 32.4 PG (26-34); Mean Corpuscular Volume 92.9 fL (80-100); Monocytes Absolute Auto 1000 /uL (0-900); Monocytes Percent Auto 16.6 % (3-14); Neutrophils Absolute Auto 4100 /uL (1500-7000); Neutrophils Percent Auto 65.8 % (50-75); Platelet Count 204 X10^3/uL (150-400); Red Cell Distribution Width 13.4 % (11.6-14.8); White Blood Cell Count 6.3 X10^3/uL (4.5-11.0)
[2023-06-27 16:39] LABS: Ethanol (ETOH) < 10 mg/dL
[2023-06-27] MEDS: FOLIC ACID 1 MG TABLET PO (17:13)
[2023-06-27] MEDS: THIAMINE 100 MG TABLET PO (17:14)
[2023-06-27] MEDS: MULTIVITAMIN 1 TABLET 1 TAB PO (17:14)
[2023-06-27] MEDS: PHENobarbital 65 MG/ML VIAL 260 MG IV (19:13)
[2023-06-27 19:19] VITALS: BP 151/84; PULSE 100; RESP 15; O2SAT 97
--- NOTE | 2023-06-27 19:36 | CM.SWNOTE ---
ED ATHLETIC COORDINATOR Assessment ATHLETIC COORDINATOR - Ad Clerk Assessment ATHLETIC COORDINATOR/Ad Clerk Assessment Substance Abuse Screening Include Onset, Duration, Intensity Presenting Problem Patient presents to ED due to concern for ETOH withdrawals. Patient endorses he drank too much vodka. Patient endorses interest in outpatient resources. Patient endorses he drank a 1/5 of vodka and five beers with a friend and his last drink was last night. Patient endorses hx of binge drinking and stopping for a week or so at a time. Precipitating Event(s) Patient endorses he has a stressful job and his employees have been unreliable . Patient endorses he has been having a lot of sickness and allergies since covid and is very sensitive to certain fragrances and soaps. Patient Strengths Patient has family supports. Current Behavioral Health Provider(s) None reported Include Facility, Provider, Ph. # Family Hx of Behavioral Abuse None reported Rehab Facilities? ((Date(s), Location(s) No hx reported ) History of Withdrawal? Seizures? Patient endorses hx of nausea, shaking, throwing up and dizziness. Patient denies hx of seizures. 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 Legal Concerns Legal Matters - Outstanding Issues None reported Mental Status Orientation (Person/Place/Time) A/Ox4 Stated Mood stressed Affect (Congruent with Mood?) euthymic, anxious, full range, congruent with mood. Thought Content - Specify/Describe None reported Obsessions, Delusions, Hallucinations Thought Processes (Cdxjsaa-Kacfvdni-Jjcj coherent, circumstantial Vdldbgay-Nellymqh-Dkshyumoqo- Rhxitvhmnlducl-Swaqrxk-Cudicvoxlrcc- Thought Blocking) Speech (Dlmtbu-Gmsg-Lnzugtd-Rapid-Soft- rapid, normal Loud-Pressured) Motor (Hnsxrh-Pjugnvegs-Mfvs-Other) normal Insight (Lgov-Ntox-Reim/Limited) fair Judgement (Jvei-Sgct-Kpfe/Limited) fair Impulse Control (Adequate-Impaired) adequate Memory (Oyrukjdzz-Ybxhzp-Mcotgt, intact, not formally assessed Impaired-Intact) Concentration (Intact-Impaired) intact Attention (Intact-Impaired) intact Behavior (Appropriate-Inappropriate) appropriate Intervention Intervention ATHLETIC COORDINATOR enters room to meet with patient. Patient endorses in great detail his history of drinking, stress from work and his health issues since Covid -19. Patient endorses he is going to see a web communications specialist doctor soon , patient endorses interest in outpatient [facility] resources. ATHLETIC COORDINATOR provides resources. Patient denies preference for admission or detox at this time. ED provider enters room and endorses the risk of withdrawals but plans to prescribe patient a few tablets of ativan upon d/c. Plan RA Plan Patient to d/c to home with family upon medical clearance, patient to f/u with resources provided. Analilia Mackay, EXTENSION WORKER
== END 2023-06-27 19:38 | disposition home or self-care (01) ==
PROVIDERS: Emergency Medicine; Emergency Provider Emergency Medicine; Family Provider Student in an Organized Health Care Education/Training Program; PCP Student in an Organized Health Care Education/Training Program
DX: F10.239 Alcohol dependence with withdrawal, unspecified (principal); Y90.0 Blood alcohol level of less than 20 mg/100 ml
CPT/HCPCS: 36415; 80053; 80320; 81001; 81003; 83735; 85025; 96374; 96375; 99284; J2060; J2405; J2560

== ENCOUNTER 2023-07-14 01:01 | Inpatient (IN) | payer OTHER, SELFPAY ==
[2019-08-20 10:45] VITALS: BMI 26.6
[2023-07-14] VITALS (31 sets, daily range): BP systolic 113–196; BP diastolic 62–121; PULSE 57–143; RESP 11–35; TEMP 35.9–36.4; O2SAT 92–99; BMI 25.8
--- NOTE | 2023-07-14 | PATH_ITS ---
[facility] Accession Number: [id number] No. of containers..01 Tissue . 01 Material submitted: . gallbladder - GALLBLADDER . 01 Diagnosis: Gallbladder, Cholecystectomy: Mild chronic calculous cholecystitis with focal mucosal erosions and associated reactive/regenerative changes. Negative for dysplasia and malignancy. MRV 07/17/2023 1532 Local . 01 Electronically signed: . Mary Quinonez MD, Pathologist NPI- [id number] . 01 Gross description: . The specimen is received in formalin labeled with the patient's name, , and gallbladder, consists of a disrupted gallbladder measuring 5.0 x 2.5 x 2.5 cm. The presumed cystic duct margin is inked blue; however, due to the disruption, margin identification is approximate. The lumen contains a single dark roughened calculous measuring 1.7 cm in greatest dimension presumably not obstructing the cystic duct. The mucosa is esteban to brown and velvety with no yellow discoloration, polyps, or lesions identified. The robison average 0.1 cm thick. Prepress Technician sections to include the cystic duct margin and full thickness sections are submitted in cassette A1. ([id number]) /MRV 07/16/2023 1308 Local . 01 Pathologist provided ICD-10: K80.10 . 01 CPT . 247750 Performed at: [facility] [address] [place] [address], [place], [place] [id number] MD Dilip Garvin MD Phone: [phone]
--- NOTE | 2023-07-14 02:24 | ED_ITS ---
HPI - Abdominal Pain <Geeta Woods DO - Last Filed: 07/15/23 03:15> General Chief Complaint: Abdominal Pain Stated Complaint: hernia flare up Time Seen by Provider: 07/14/23 02:24 Source: patient Mode of arrival: Ambulatory History of Present Illness HPI narrative: Patient 57-year-old male presenting with variety of symptoms. He is complaining allergic reaction or difficulty breathing. He is very sensitive to chemicals. He says that he went through a car wash 2 days ago in the wax has had some issues causing some difficulty breathing. He reports that he was exposed to chemical when his space heater started to heat up. He is complaining of some epigastric pain no significant quadrant nausea or vomiting. He says did not to get anything done he is afraid caused no reports that he is can not pain. He is unclear if he is having chest pain or palpitations. He is certain difficulty breathing. It has been quite fast. Related Data Previous Rx's Medication Instructions Recorded rabeprazole 20 mg tablet,delayed 20 mg PO QDAY #90 tabs 10/04/22 release (AcipHex) amlodipine 10 mg tablet 10 mg PO DAILY #90 tabs 11/15/22 tadalafil 20 mg tablet 20 mg PO DAILY PRN sexual activity 11/15/22 #30 tabs fluorometholone 0.1 % eye 1 drp EYE-BOTH BID PRN Dry Eye(S) 02/06/23 drops,suspension #5 mL clonazepam 0.5 mg tablet 0.5 mg PO TID PRN anxiety #90 tabs 07/03/23 prednisone 5 mg tablet 5 mg PO DAILY PRN Chemical 07/03/23 reaction #20 tabs Allergies Allergy/AdvReac Type Severity Reaction Status Date / Time cefazolin Allergy Unknown Verified 07/03/23 10:30 cephalexin Allergy Unknown RASH Verified 07/03/23 10:30 hydrocodone Allergy Unknown UNKNOWN Verified 07/03/23 10:30 Penicillins Allergy Unknown DYSPNEA Verified 07/03/23 10:30 Sulfa (Sulfonamide Allergy Unknown HOT-COLD Verified 07/03/23 10:30 Antibiotics) FLASHES narcotics Allergy Unknown states, Uncoded 07/03/23 10:30 all narcotic except for percocet Review of Systems <DO Bridger Weaver Last Filed: 07/15/23 03:15> Review of Systems ROS Unobtainable: All systems reviewed & are unremarkable except as noted in HPI and below Patient History <Geeta Woods DO - Last Filed: 07/15/23 03:15> Medical History Allergic angioedema Anxiety Asymptomatic bunion Chronic alcoholism Eczema Erectile dysfunction (10/06/15) Essential hypertension (10/06/15) Gastroesophageal reflux disease without esophagitis (10/06/15) Mixed hyperlipidemia (10/06/15) Surgical History History of gastric surgery (~2003) History of hernia repair (~2003) Perianal cyst (~1999) Family History Father Cerebrovascular accident (CVA), unspecified mechanism Mother Autoimmune hepatitis Grandmother No problems noted. Social History household members: family and none Smoking Status: Never smoker alcohol intake: current Smoking Status: Never smoker alcohol intake frequency: 3 or more drinks per day Alcohol type: hard liquor Substance Use Type: does not use Exam <Geeta Woods DO - Last Filed: 07/15/23 03:15> Initial Vital Signs Initial Vital Signs: Vital Signs Temperature 96.7 F L 07/14/23 01:12 Pulse Rate 71 07/14/23 01:12 Respiratory Rate 20 07/14/23 01:12 Blood Pressure 178/108 H 07/14/23 01:12 Pulse Oximetry 98 07/14/23 01:12 Oxygen Delivery Method Room Air 07/14/23 01:12 GENERAL: Alert 57-year-old male and in no acute distress. HEENT: Head atraumatic,EOMI, pupils reactive, face symmetric, moist mucous membranes CARDIOVASCULAR: Regular rate and rhythm without murmurs, rubs or gallops. RESPIRATORY: Breath sounds equal bilaterally, no wheezes rales or rhonchi. ABDOMEN: Soft mild epigastric pain no significant right upper quadrant pain without Solis's sign no guarding no rebound no distention no lower abdominal. N : No CVA tenderness EXTREMITIES: Normal range of motion, no clubbing or edema. Neurovascularly intact NEUROLOGICAL: Alert and oriented x4.Normal gait and speech. SKIN: Warm, dry, no laceration, no petechiae, no rashes or lesions. <Amanda Stark MD - Last Filed: 07/14/23 10:05> Initial Vital Signs Initial Vital Signs: Vital Signs Temperature 96.7 F L 07/14/23 01:12 Pulse Rate 71 07/14/23 01:12 Respiratory Rate 20 07/14/23 01:12 Blood Pressure 178/108 H 07/14/23 01:12 Pulse Oximetry 98 07/14/23 01:12 Oxygen Delivery Method Room Air 07/14/23 01:12 Course <Geeta Woods DO - Last Filed: 07/15/23 03:15> Orders Ordered: Discontinued Medications Acetaminophen (Acetaminophen 325 Mg Tablet) 650 mg PO Q6H PRN PRN Reason: Fever/Mild Pain (1-3) Albuterol (Albuterol 2.5 Mg/3 Ml Neb (Adult)) 2.5 mg INH NOW PRN PRN Reason: Coughing, Wheezing, Dyspnea Aspirin (Aspirin 81 Mg Chew Tab) 324 mg PO NOW ONE Stop: 07/14/23 02:31 Last Admin: 07/14/23 02:49 Dose: Not Given Documented By: ELISABETH Bupivacaine HCl 30 ml/ (Epinephrine HCl 0.15 mg) 0 ml INJ NOW ONE Stop: 07/14/23 10:39 Last Admin: 07/14/23 10:38 Dose: 0.15 ml Documented By: Folic Acid (Folic Acid 1 Mg Tablet) 1 mg PO DAILY [facility] Last Admin: 07/14/23 15:42 Dose: Not Given Documented By: JOSE Hydromorphone HCl (Hydromorphone 0.5 Mg Inj) 0.5 mg IV Q15MIN PRN PRN Reason: Pain, Stop: 07/14/23 09:37 Hydromorphone HCl (Hydromorphone 1 Mg Inj) 1 mg IV NOW ONE Stop: 07/14/23 08:00 Last Admin: 07/14/23 08:14 Dose: 1 mg Documented By: FELECIA Hydromorphone HCl (Hydromorphone 0.5 Mg Inj) 0.5 mg IV Q3H PRN PRN Reason: Pain, Severe (7-10) Last Admin: 07/14/23 18:33 Dose: 0.5 mg Documented By: Admin: 07/14/23 16:05 Dose: 0.5 mg Documented By: JOSE Hydromorphone HCl (Hydromorphone 1 Mg Inj) 0 mg IV Q5MIN PRN PRN Reason: Mod-severe pain Last Admin: 07/14/23 15:18 Dose: 0.5 mg Documented By: DAYRON Hydromorphone HCl (Hydromorphone 1 Mg Inj) 0 mg IV Q5MIN PRN PRN Reason: Pain, Mild (1-3) Hydroxyzine HCl (Hydroxyzine 50 Mg/Ml Inj) 25 mg IM NOW PRN PRN Reason: Pain, Mild (1-3) Lactated Ringer's (Lactated Ringers) 1,000 mls @ 42 mls/hr IV CONT [facility] Last Admin: 07/14/23 09:30 Dose: 42 mls/hr Documented By: DAYRON Clindamycin Phosphate (Cleocin) 900 mg in 50 mls @ 50 mls/hr IV NOW ONE Stop: 07/14/23 10:19 Last Infusion: 07/14/23 10:06 Dose: Infused Documented By: Admin: 07/14/23 09:56 Dose: 50 mls/hr Documented By: ALEJA Acetaminophen (Ofirmev) 1,000 mg in 100 mls @ 400 mls/hr IV NOW ONE Stop: 07/14/23 10:35 Last Admin: 07/14/23 09:56 Dose: 400 mls/hr Documented By: ALEJA Lactated Ringer's (Lactated Ringers) 1,000 mls @ 42 mls/hr IV CONT [facility] Last Infusion: 07/14/23 15:42 Dose: 42 mls/hr Documented By: Admin: 07/14/23 14:27 Dose: 42 mls/hr Documented By: Infusion: 07/14/23 14:27 Dose: Infused Documented By: Admin: 07/14/23 11:34 Dose: 42 mls/hr Documented By: ALEJA Albumin Human (Albuminar) 25 gm in 100 mls @ 60 mls/hr IV NOW ONE Stop: 07/14/23 15:02 Last Admin: 07/14/23 15:58 Dose: Not Given Documented By: JOSE Clindamycin Phosphate (Cleocin) 900 mg in 50 mls @ 50 mls/hr IV NOW ONE Stop: 07/14/23 15:29 Last Admin: 07/14/23 15:58 Dose: Not Given Documented By: JOSE Levofloxacin (Levaquin) 750 mg in 150 mls @ 100 mls/hr IV Q24H [facility] Last Admin: 07/14/23 15:59 Dose: Not Given Documented By: JOSE Levofloxacin (Levaquin) 750 mg in 150 mls @ 100 mls/hr IV Q24H [facility] Iopamidol (Iopamidol 30 Ml Vial) 30 ml INJ NOW ONE Stop: 07/14/23 11:30 Last Admin: 07/14/23 12:43 Dose: 30 ml Documented By: ANA MARÍA Admin: 07/14/23 11:29 Dose: 30 ml Documented By: Ketorolac Tromethamine (Ketorolac 30 Mg/Ml Vial) 15 mg IV NOW ONE Stop: 07/14/23 04:50 Last Admin: 07/14/23 05:30 Dose: 15 mg Documented By: ELISABETH Lorazepam (Lorazepam 2 Mg/Ml Inj) 1 mg IV NOW ONE Stop: 07/14/23 03:09 Last Admin: 07/14/23 03:31 Dose: 1 mg Documented By: ELISABETH Lorazepam (Lorazepam 2 Mg/Ml Inj) 0 mg IV CIWAPRN PRN; Protocol PRN Reason: Alcohol Withdrawal Lorazepam (Lorazepam 1 Mg Tablet) 0 mg PO CIWAPRN PRN; Protocol PRN Reason: Alcohol Withdrawal Lorazepam (Lorazepam 2 Mg/Ml Inj) 0.5 mg IV NOW PRN PRN Reason: Anxiety Metoclopramide HCl (Metoclopramide 10 Mg/2 Ml Inj) 10 mg IV Q6HR PRN PRN Reason: Nausea And Vomiting Metoclopramide HCl (Metoclopramide 10 Mg/2 Ml Inj) 10 mg IV NOW PRN PRN Reason: Nausea And Vomiting Multivitamins (Multivitamin 1 Tablet) 1 tab PO DAILY [facility] Last Admin: 07/14/23 15:42 Dose: Not Given Documented By: JOSE Naloxone HCl (Naloxone 0.4 Mg/Ml Vial) 0.2 mg IV Q2MIN PRN PRN Reason: Opiate Reversal Ondansetron HCl (Ondansetron 4 Mg/2 Ml Inj) 4 mg IV Q4HR PRN PRN Reason: Nausea And Vomiting Last Admin: 07/14/23 15:18 Dose: 4 mg Documented By: DAYRON Oxycodone HCl (Oxycodone Ir 5 Mg Tablet) 5 mg PO Q4HR PRN PRN Reason: Pain, Moderate (4-6) Last Admin: 07/14/23 17:45 Dose: 5 mg Documented By: JOSE Oxycodone HCl (Oxycodone Ir 5 Mg Tablet) 5 mg PO PACUNOW PRN PRN Reason: Mild or moderate pain Thiamine HCl (Thiamine 100 Mg Tablet) 100 mg PO DAILY [facility] Stop: 07/17/23 09:01 Last Admin: 07/14/23 15:43 Dose: Not Given Documented By: JOSE Vital Signs Vital signs: Vital Signs - 8 hr 07/14/23 02:30 07/14/23 02:30 07/14/23 02:34 Pulse Rate 74 81 Respiratory Rate Blood Pressure 196/99 H Pulse Oximetry 96 97 Oxygen Delivery Method Oxygen Flow Rate 07/14/23 02:34 07/14/23 04:44 07/14/23 05:48 Pulse Rate 95 H 89 Respiratory Rate 14 Blood Pressure 171/101 H Pulse Oximetry 97 Oxygen Delivery Method Nasal Cannula Oxygen Flow Rate 2 07/14/23 05:49 07/14/23 05:49 07/14/23 06:00 Pulse Rate 86 69 Respiratory Rate 19 13 Blood Pressure 187/97 H Pulse Oximetry 97 95 Oxygen Delivery Method Oxygen Flow Rate 07/14/23 06:00 07/14/23 06:30 07/14/23 06:30 Pulse Rate 93 H Respiratory Rate 22 Blood Pressure 164/83 H 147/79 H Pulse Oximetry 96 Oxygen Delivery Method Oxygen Flow Rate 07/14/23 07:00 07/14/23 07:00 07/14/23 07:30 Pulse Rate 68 65 Respiratory Rate 21 20 Blood Pressure 164/84 H Pulse Oximetry 96 95 Oxygen Delivery Method Oxygen Flow Rate 07/14/23 07:30 07/14/23 08:00 07/14/23 08:30 Pulse Rate 82 94 H Respiratory Rate 19 24 Blood Pressure 160/79 H Pulse Oximetry 96 Oxygen Delivery Method Oxygen Flow Rate 07/14/23 08:54 07/14/23 08:54 07/14/23 09:00 Pulse Rate 71 66 Respiratory Rate 30 H Blood Pressure 144/86 H Pulse Oximetry 96 97 Oxygen Delivery Method Room Air Room Air Oxygen Flow Rate <Amanda Stark MD - Last Filed: 07/14/23 10:05> Orders Ordered: Discontinued Medications Acetaminophen (Acetaminophen 325 Mg Tablet) 650 mg PO Q6H PRN PRN Reason: Fever/Mild Pain (1-3) Albuterol (Albuterol 2.5 Mg/3 Ml Neb (Adult)) 2.5 mg INH NOW PRN PRN Reason: Coughing, Wheezing, Dyspnea Aspirin (Aspirin 81 Mg Chew Tab) 324 mg PO NOW ONE Stop: 07/14/23 02:31 Last Admin: 07/14/23 02:49 Dose: Not Given Documented By: ELISABETH Bupivacaine HCl 30 ml/ (Epinephrine HCl 0.15 mg) 0 ml INJ NOW ONE Stop: 07/14/23 10:39 Last Admin: 07/14/23 10:38 Dose: 0.15 ml Documented By: Folic Acid (Folic Acid 1 Mg Tablet) 1 mg PO DAILY [facility] Last Admin: 07/14/23 15:42 Dose: Not Given Documented By: JOSE Hydromorphone HCl (Hydromorphone 0.5 Mg Inj) 0.5 mg IV Q15MIN PRN PRN Reason: Pain, Stop: 07/14/23 09:37 Hydromorphone HCl (Hydromorphone 1 Mg Inj) 1 mg IV NOW ONE Stop: 07/14/23 08:00 Last Admin: 07/14/23 08:14 Dose: 1 mg Documented By: FELECIA Hydromorphone HCl (Hydromorphone 0.5 Mg Inj) 0.5 mg IV Q3H PRN PRN Reason: Pain, Severe (7-10) Last Admin: 07/14/23 18:33 Dose: 0.5 mg Documented By: Admin: 07/14/23 16:05 Dose: 0.5 mg Documented By: JOSE Hydromorphone HCl (Hydromorphone 1 Mg Inj) 0 mg IV Q5MIN PRN PRN Reason: Mod-severe pain Last Admin: 07/14/23 15:18 Dose: 0.5 mg Documented By: DAYRON Hydromorphone HCl (Hydromorphone 1 Mg Inj) 0 mg IV Q5MIN PRN PRN Reason: Pain, Mild (1-3) Hydroxyzine HCl (Hydroxyzine 50 Mg/Ml Inj) 25 mg IM NOW PRN PRN Reason: Pain, Mild (1-3) Lactated Ringer's (Lactated Ringers) 1,000 mls @ 42 mls/hr IV CONT [facility] Last Admin: 07/14/23 09:30 Dose: 42 mls/hr Documented By: DAYRON Clindamycin Phosphate (Cleocin) 900 mg in 50 mls @ 50 mls/hr IV NOW ONE Stop: 07/14/23 10:19 Last Infusion: 07/14/23 10:06 Dose: Infused Documented By: Admin: 07/14/23 09:56 Dose: 50 mls/hr Documented By: ALEJA Acetaminophen (Ofirmev) 1,000 mg in 100 mls @ 400 mls/hr IV NOW ONE Stop: 07/14/23 10:35 Last Admin: 07/14/23 09:56 Dose: 400 mls/hr Documented By: ALEJA Lactated Ringer's (Lactated Ringers) 1,000 mls @ 42 mls/hr IV CONT [facility] Last Infusion: 07/14/23 15:42 Dose: 42 mls/hr Documented By: Admin: 07/14/23 14:27 Dose: 42 mls/hr Documented By: Infusion: 07/14/23 14:27 Dose: Infused Documented By: Admin: 07/14/23 11:34 Dose: 42 mls/hr Documented By: ALEJA Albumin Human (Albuminar) 25 gm in 100 mls @ 60 mls/hr IV NOW ONE Stop: 07/14/23 15:02 Last Admin: 07/14/23 15:58 Dose: Not Given Documented By: JOSE Clindamycin Phosphate (Cleocin) 900 mg in 50 mls @ 50 mls/hr IV NOW ONE Stop: 07/14/23 15:29 Last Admin: 07/14/23 15:58 Dose: Not Given Documented By: JOSE Levofloxacin (Levaquin) 750 mg in 150 mls @ 100 mls/hr IV Q24H [facility] Last Admin: 07/14/23 15:59 Dose: Not Given Documented By: JOSE Levofloxacin (Levaquin) 750 mg in 150 mls @ 100 mls/hr IV Q24H [facility] Iopamidol (Iopamidol 30 Ml Vial) 30 ml INJ NOW ONE Stop: 07/14/23 11:30 Last Admin: 07/14/23 12:43 Dose: 30 ml Documented By: ANA MARÍA Admin: 07/14/23 11:29 Dose: 30 ml Documented By: Ketorolac Tromethamine (Ketorolac 30 Mg/Ml Vial) 15 mg IV NOW ONE Stop: 07/14/23 04:50 Last Admin: 07/14/23 05:30 Dose: 15 mg Documented By: ELISABETH Lorazepam (Lorazepam 2 Mg/Ml Inj) 1 mg IV NOW ONE Stop: 07/14/23 03:09 Last Admin: 07/14/23 03:31 Dose: 1 mg Documented By: ELISABETH Lorazepam (Lorazepam 2 Mg/Ml Inj) 0 mg IV CIWAPRN PRN; Protocol PRN Reason: Alcohol Withdrawal Lorazepam (Lorazepam 1 Mg Tablet) 0 mg PO CIWAPRN PRN; Protocol PRN Reason: Alcohol Withdrawal Lorazepam (Lorazepam 2 Mg/Ml Inj) 0.5 mg IV NOW PRN PRN Reason: Anxiety Metoclopramide HCl (Metoclopramide 10 Mg/2 Ml Inj) 10 mg IV Q6HR PRN PRN Reason: Nausea And Vomiting Metoclopramide HCl (Metoclopramide 10 Mg/2 Ml Inj) 10 mg IV NOW PRN PRN Reason: Nausea And Vomiting Multivitamins (Multivitamin 1 Tablet) 1 tab PO DAILY [facility] Last Admin: 07/14/23 15:42 Dose: Not Given Documented By: JOSE Naloxone HCl (Naloxone 0.4 Mg/Ml Vial) 0.2 mg IV Q2MIN PRN PRN Reason: Opiate Reversal Ondansetron HCl (Ondansetron 4 Mg/2 Ml Inj) 4 mg IV Q4HR PRN PRN Reason: Nausea And Vomiting Last Admin: 07/14/23 15:18 Dose: 4 mg Documented By: DAYRON Oxycodone HCl (Oxycodone Ir 5 Mg Tablet) 5 mg PO Q4HR PRN PRN Reason: Pain, Moderate (4-6) Last Admin: 07/14/23 17:45 Dose: 5 mg Documented By: JOSE Oxycodone HCl (Oxycodone Ir 5 Mg Tablet) 5 mg PO PACUNOW PRN PRN Reason: Mild or moderate pain Thiamine HCl (Thiamine 100 Mg Tablet) 100 mg PO DAILY [facility] Stop: 07/17/23 09:01 Last Admin: 07/14/23 15:43 Dose: Not Given Documented By: JOSE Vital Signs Vital signs: Vital Signs - 8 hr 07/14/23 02:30 10/08/23 02:30 07/14/23 02:34 Pulse Rate 74 81 Respiratory Rate Blood Pressure 196/99 H Pulse Oximetry 96 97 Oxygen Delivery Method Oxygen Flow Rate 07/14/23 02:34 07/14/23 04:44 07/14/23 05:48 Pulse Rate 95 H 89 Respiratory Rate 14 Blood Pressure 171/101 H Pulse Oximetry 97 Oxygen Delivery Method Nasal Cannula Oxygen Flow Rate 2 07/14/23 05:49 07/14/23 05:49 07/14/23 06:00 Pulse Rate 86 69 Respiratory Rate 19 13 Blood Pressure 187/97 H Pulse Oximetry 97 95 Oxygen Delivery Method Oxygen Flow Rate 07/14/23 06:00 07/14/23 06:30 07/14/23 06:30 Pulse Rate 93 H Respiratory Rate 22 Blood Pressure 164/83 H 147/79 H Pulse Oximetry 96 Oxygen Delivery Method Oxygen Flow Rate 07/14/23 07:00 07/14/23 07:00 07/14/23 07:30 Pulse Rate 68 65 Respiratory Rate 21 20 Blood Pressure 164/84 H Pulse Oximetry 96 95 Oxygen Delivery Method Oxygen Flow Rate 07/14/23 07:30 07/14/23 08:00 07/14/23 08:30 Pulse Rate 82 94 H Respiratory Rate 19 24 Blood Pressure 160/79 H Pulse Oximetry 96 Oxygen Delivery Method Oxygen Flow Rate 07/14/23 08:54 07/14/23 08:54 07/14/23 09:00 Pulse Rate 71 66 Respiratory Rate 30 H Blood Pressure 144/86 H Pulse Oximetry 96 97 Oxygen Delivery Method Room Air Room Air Oxygen Flow Rate MDM - Abdominal Pain <Geeta Woods, DO - Last Filed: 07/15/23 03:15> Lab Data 07/14/23 14:10 07/14/23 14:20 Labs: Lab Results 07/14/23 Range/Units 03:00 WBC 8.4 (4.5-11.0) X10^3/uL RBC 4.49 L (4.5-5.9) X10^6/uL Hgb 14.6 (13.5-17.5) g/dL Hct 41.7 (41-53) % MCV 92.8 (80-100) fL MCH 32.4 (26-34) PG MCHC 34.9 (30-36) % RDW 13.8 (11.6-14.8) % Plt Count 204 (150-400) X10^3/uL Neut % (Auto) 87.6 H (50-75) % Lymph % (Auto) 7.3 L (25-40) % [place] % (Auto) 4.7 (3-14) % Eos % (Auto) 0.1 L (2-4) % Baso % (Auto) 0.3 (0-2) % Neut # (Auto) 7400 H (3578-4124) /uL Lymph # (Auto) 600 L (4995-8783) /uL [place] # (Auto) 400 (0-900) /uL Eos # (Auto) 0 (0-450) /uL Baso # (Auto) 0 (0-100) /uL PT 13.3 H (10.1-12.7) SECONDS INR 1.2 (0.9-1.3) APTT 31 (26-36) SECONDS Sodium 134 L (137-145) mmol/L Potassium 3.7 (3.4-5.1) mmol/L Chloride 96 L (98-107) mmol/L Carbon Dioxide 24 (22-32) mmol/L BUN 12 (9-20) mg/dL Creatinine 0.76 (0.66-1.25) mg/dL Estimated GFR > 60 (>60) mL/min BUN/Creatinine Ratio 15.8 (6-22) Glucose 173 H (70-100) mg/dL Calcium 10.0 (8.4-10.2) mg/dL Magnesium 1.9 (1.6-2.3) mg/dL Total Bilirubin 0.6 (0.2-1.3) mg/dL AST 53 (17-59) IU/L ALT 76 H (<50) IU/L Alkaline Phosphatase 109 (38-126) U/L Total Creatine Kinase 89 (55-170) U/L Troponin I 0.024 (0.01-0.034) ng/mL Total Protein 9.1 H (6.3-8.2) g/dL Albumin 5.0 (3.5-5.0) g/dL Globulin 4.1 (1.7-4.1) g/dL Albumin/Globulin Ratio 1.2 (1.0-2.8) Lipase 165 (23-300) U/L Ethyl Alcohol < 10 ( - 10) mg/dL Point of care testing: Urine Dip Bedside Urine Glucose 500 mg/dl Bedside Urine Bilirubin - Negative Bedside Urine Ketone ++ 40 Urine Specific [place] 1.010 Bedside Urine Occult Blood - Negative Bedside Urine pH 7.5 Bedside Urine Protein + 30 Bedside Urine Urobilinogen - Negative Bedside Urine Nitrite - Negative Bedside Urine Leukocytes - Negative Esterase Imaging Data CT scan - abdomen/pelvis: Radiologist's Impression: Preliminary report: Possible gallbladder neck stone and cholecystitis. Right upper quadrant ultrasound is recommended. MDM Narrative Medical decision making narrative: Patient 57-year-old male very difficult to get a proper history from he initially is resistant to evaluation but ultimately agrees because he is having some epigastric pain. He is given Toradol and Ativan which seems to help. Blood work does not show any leukocytosis. Bilirubin and liver enzymes are within normal limits and an normal lipase. CT shows possible gallbladder neck stone and cholecystitis. Ultrasound is ordered and pending Patient signed out to Dr. Carrillo <Amanda Stark MD - Last Filed: 07/14/23 10:05> Lab Data Labs: Lab Results 07/14/23 Range/Units 03:00 WBC 8.4 (4.5-11.0) X10^3/uL RBC 4.49 L (4.5-5.9) X10^6/uL Hgb 14.6 (13.5-17.5) g/dL Hct 41.7 (41-53) % MCV 92.8 (80-100) fL MCH 32.4 (26-34) PG MCHC 34.9 (30-36) % RDW 13.8 (11.6-14.8) % Plt Count 204 (150-400) X10^3/uL Neut % (Auto) 87.6 H (50-75) % Lymph % (Auto) 7.3 L (25-40) % [place] % (Auto) 4.7 (3-14) % Eos % (Auto) 0.1 L (2-4) % Baso % (Auto) 0.3 (0-2) % Neut # (Auto) 7400 H (1640-1934) /uL Lymph # (Auto) 600 L (2001-8277) /uL [place] # (Auto) 400 (0-900) /uL Eos # (Auto) 0 (0-450) /uL Baso # (Auto) 0 (0-100) /uL PT 13.3 H (10.1-12.7) SECONDS INR 1.2 (0.9-1.3) APTT 31 (26-36) SECONDS Sodium 134 L (137-145) mmol/L Potassium 3.7 (3.4-5.1) mmol/L Chloride 96 L (98-107) mmol/L Carbon Dioxide 24 (22-32) mmol/L BUN 12 (9-20) mg/dL Creatinine 0.76 (0.66-1.25) mg/dL Estimated GFR > 60 (>60) mL/min BUN/Creatinine Ratio 15.8 (6-22) Glucose 173 H (70-100) mg/dL Calcium 10.0 (8.4-10.2) mg/dL Magnesium 1.9 (1.6-2.3) mg/dL Total Bilirubin 0.6 (0.2-1.3) mg/dL AST 53 (17-59) IU/L ALT 76 H (<50) IU/L Alkaline Phosphatase 109 (38-126) U/L Total Creatine Kinase 89 (55-170) U/L Troponin I 0.024 (0.01-0.034) ng/mL Total Protein 9.1 H (6.3-8.2) g/dL Albumin 5.0 (3.5-5.0) g/dL Globulin 4.1 (1.7-4.1) g/dL Albumin/Globulin Ratio 1.2 (1.0-2.8) Lipase 165 (23-300) U/L Ethyl Alcohol < 10 ( - 10) mg/dL Point of care testing: Urine Dip Bedside Urine Glucose 500 mg/dl Bedside Urine Bilirubin - Negative Bedside Urine Ketone ++ 40 Urine Specific [place] 1.010 Bedside Urine Occult Blood - Negative Bedside Urine pH 7.5 Bedside Urine Protein + 30 Bedside Urine Urobilinogen - Negative Bedside Urine Nitrite - Negative Bedside Urine Leukocytes - Negative Esterase MDM Narrative Medical decision making narrative: Patient 57-year-old male very difficult to get a proper history from he initially is resistant to evaluation but ultimately agrees because he is having some epigastric pain. He is given Toradol and Ativan which seems to help. Blood work does not show any leukocytosis. Bilirubin and liver enzymes are within normal limits and an normal lipase. CT shows possible gallbladder neck stone and cholecystitis. Ultrasound is ordered and pending Patient signed out to Dr. Stark Patient is independently examined, chart is reviewed CC: Acute epigastric pain Complicating co-morbidities: Hypertension, reflux, alcohol use disorder Data collected from: patient, Medical records reviewed: Hospital admission and discharge from March of 2023 Differential considered: Alcoholic gastritis, alcohol withdrawal, pancreatitis, cholelithiasis, cholecystitis, acute coronary Exam documented above, pertinent findings include: Moderate epigastric tenderness, pain is somewhat better controlled after initial Toradol and lorazepam Lab Test results independently reviewed as above. Pertinent findings: CBC is unremarkable, no leukocytosis however he does have a slight left shift at 87.6 Chemistries show minor chronic stable elevation of AST ALT is unremarkable bili is normal remainder of chemistries note mildly elevated glucose Independently reviewed EKG sinus rhythm at a rate of 64. Normal intervals, normal axis, no acute ischemic changes Imaging studies independently reviewed: CT scan of the abdomen shows possible gallbladder neck stone and cholecystitis no other significant findings Ultrasound shows gallbladder neck stone, non mobile. No bile duct obstruction or wall thickening of the gallbladder Consultations:8am care is reviewed with Dr. Benedict, surgery. We will anticipate surgical intervention later today he does request hospital admit in light of concerns for alcohol withdrawal symptoms being an issue in his recovery. Treatments: Aspirin, Ativan, Toradol. Parenteral narcotics are initiated once diagnosis is confirmed Re-evaluations: On re-evaluation he is having increased abdominal pain the Toradol has been ineffective. He is not showing signs or symptoms of acute alcohol withdrawal at this time Discussion: 57-year-old gentleman with acute cholecystitis with lodged almost 2 cm gallbladder stone in the neck of the gallbladder. Does not appear to have upper GI bleeding, dilated ducts beyond or complicating pancreatitis. We will be admitted to the hospitalist service with surgical consultation and anticipation of cholecystectomy. We will need to remain NPO Discharge Plan Departure Patient Disposition: Admitted As Inpatient Clinical Impression: Acute cholecystitis due to biliary calculus, Alcohol use disorder Admit Date/Time: 07/14/23 09:28 Admit Provider: Phillip Benedict
--- NOTE | 2023-07-14 02:31 | DI.RAD.S_ITS ---
PROCEDURE: XR CHEST 1V INDICATIONS: Chest pain. TECHNIQUE: One view of the chest was acquired. COMPARISON: [facility], CR, XR CHEST 1V, 03/15/2023, 6:37. FINDINGS: Surgical changes and devices: None. Lungs and pleura: An incomplete inspiratory result is noted, causing a crowded appearance to the lung markings. No focal infiltrates are seen. No pneumothorax or significant pleural effusions are seen. Mediastinum: Mediastinal contours appear normal. Heart size is normal. Bones and chest wall: No suspicious bony lesions. Overlying soft tissues appear unremarkable. IMPRESSION: Limited portable chest examination, without a significant cardiopulmonary abnormality identified. Note: No significant discrepancy from the preliminary report. Dictated by: Roberto Thompson M.D. on 07/14/2023 at 8:49 Approved by: Roberto Thompson M.D. on 07/14/2023 at 8:50
[2023-07-14 03:14] LABS: Add Manual Diff / Slide Review NO; Basophils Absolute Auto 0 /uL (0-100); Basophils Percent Auto 0.3 % (0-2); Eosinophils Absolute Auto 0 /uL (0-450); Eosinophils Percent Auto 0.1 % (2-4); Hematocrit 41.7 % (41-53); Hemoglobin 14.6 g/dL (13.5-17.5); Lymphocytes Absolute Auto 600 /uL (1100-4500); Lymphocytes Percent Auto 7.3 % (25-40); Mean Corpuscular HGB Conc 34.9 % (30-36); Mean Corpuscular Hemoglobin 32.4 PG (26-34); Mean Corpuscular Volume 92.8 fL (80-100); Monocytes Absolute Auto 400 /uL (0-900); Monocytes Percent Auto 4.7 % (3-14); Neutrophils Absolute Auto 7400 /uL (1500-7000); Neutrophils Percent Auto 87.6 % (50-75); Platelet Count 204 X10^3/uL (150-400); Red Blood Cell Count 4.49 X10^6/uL (4.5-5.9); Red Cell Distribution Width 13.8 % (11.6-14.8); White Blood Cell Count 8.4 X10^3/uL (4.5-11.0)
[2023-07-14 03:18] LABS: INR 1.2 (0.9-1.3); Prothrombin Time 13.3 SECONDS (10.1-12.7)
[2023-07-14 03:21] LABS: PTT Partial Thromboplastin Tim 31 SECONDS (26-36)
[2023-07-14 03:22] LABS: Alanine Aminotransferase 76 IU/L (<50); Albumin Globulin Ratio 1.2 (1.0-2.8); Alkaline Phosphatase 109 U/L (38-126); Aspartate Aminotransferase 53 IU/L (17-59); BUN Creatinine Ratio 15.8 (6-22); Bilirubin Total 0.6 mg/dL (0.2-1.3); Blood Urea Nitrogen 12 mg/dL (9-20); Carbon Dioxide 24 mmol/L (22-32); Chloride 96 mmol/L (98-107); Creatine Kinase 89 U/L (55-170); Estimated Glomerular Filt Rate > 60 mL/min (>60); Globulin 4.1 g/dL (1.7-4.1); Glucose 173 mg/dL (70-100); HEMOLYSIS 48 (0-50); Lipase 165 U/L (23-300); Magnesium 1.9 mg/dL (1.6-2.3); Potassium 3.7 mmol/L (3.4-5.1); Sodium 134 mmol/L (137-145); Total Protein 9.1 g/dL (6.3-8.2)
[2023-07-14] MEDS: LORazepam 2 MG/ML INJ 1 MG IV (03:31)
[2023-07-14 03:33] LABS: Troponin I 0.024 ng/mL (0.01-0.034)
[2023-07-14 03:36] LABS: Ethanol (ETOH) < 10 mg/dL
--- NOTE | 2023-07-14 04:49 | DI.CT.S_ITS ---
PROCEDURE: CT ABDOMEN PELVIS W CON INDICATIONS: Epigastric pain x 12 hours. TECHNIQUE: After the administration of oral and IV contrast, axial sections were acquired from the lung bases to the pubic symphysis. Coronal and sagittal reformats were performed. For radiation dose reduction, the following was used: automated exposure control, adjustment of mA and/or kV according to patient size. COMPARISON: [facility], CT, CT CHEST ABD PEL W CON, 04/16/2022, 10:17. [facility], US, US ABDOMEN LIMITED, 07/14/2023, 6:29. [facility], CR, XR CHEST 1V, 07/14/2023, 2:34. FINDINGS: Image quality: Excellent. Lung bases: A small hiatal hernia is incidentally noted. Heart: No significant findings. ABDOMEN: Liver: Mild diffuse fatty infiltration of the liver can be seen. The liver is normal in size and demonstrates no suspicious lesions. Gallbladder: Mild gallbladder wall thickening is seen. There is a potential stone seen near the neck of the gallbladder. Biliary ducts: Unremarkable. Pancreas: Unremarkable. Spleen: Unremarkable. Adrenal Glands: Unremarkable. Kidneys and Ureters: Unremarkable. Stomach and Bowel: Stomach, small bowel loops, and colon are unremarkable. Peritoneum: No abnormal intraperitoneal fluid. No free air. Ventral Wall: No hernia. Abdominal Nodes: No retroperitoneal or mesenteric adenopathy by size criteria. Vessels: Aorta and inferior vena cava are normal in size. PELVIS: Pelvic Organs: Unremarkable. Bladder: Unremarkable. Pelvic Nodes: No enlarged lymph nodes. Miscellaneous: No inguinal hernias are seen. Bones: Focal L5-S1 degenerative change is seen. Milder degenerative changes are seen elsewhere. IMPRESSION: Mild gallbladder wall thickening, with a potential stone seen near the neck of the gallbladder. Additional findings: Small hiatal hernia Mild fatty liver infiltration Focal L5-S1 degenerative change Note: No significant discrepancy from the preliminary report. Dictated by: Roberto Thompson M.D. on 07/14/2023 at 8:51 Approved by: Roberto Thompson M.D. on 07/14/2023 at 8:54
[2023-07-14] MEDS: KETOROLAC 30 MG/ML VIAL 15 MG IV (05:30)
--- NOTE | 2023-07-14 06:03 | DI.US.S_ITS ---
PROCEDURE: US ABDOMEN LIMITED INDICATIONS: RUQ TECHNIQUE: Real-time focused scanning was performed of the abdomen, with image documentation. COMPARISON: [facility], CT, CT ABDOMEN PELVIS W CON, 07/14/2023, 4:57. [facility], CR, XR CHEST 1V, 07/14/2023, 2:34. [facility], US, US ABDOMEN LIMITED, 10/06/2019, 13:29. FINDINGS: The liver demonstrates normal size. The liver demonstrates generalized moderately increased echogenicity. This decreases ultrasound sensitivity for detection of hepatic masses. There is a 1.9 cm gallstone seen within the gallbladder neck. The gallbladder wall is not thickened, measuring 3 mm or less. No specific pericholecystic fluid is seen. The sonographic Solis sign is negative. There is no biliary dilatation, the common bile duct measures 3-4 mm. The pancreas is not seen, secondary to overlying bowel gas. IMPRESSION: Gallstone seen within the gallbladder neck, without additional sonographic signs of cholecystitis. No biliary dilatation. The liver demonstrates increased echogenicity. This finding is nonspecific, yet it is most commonly attributed to fatty infiltration. Note: No significant discrepancy from the preliminary report. Dictated by: Roberto Thompson M.D. on 07/14/2023 at 9:09 Approved by: Roberto Thompson M.D. on 07/14/2023 at 9:10
[2023-07-14] MEDS: HYDROMORPHONE 1 MG INJ IV ×2 (08:14→15:18)
--- NOTE | 2023-07-14 09:02 | PC.NURSE ---
Patient was given pain medications ( see MAR). Pt states he has feels like he has a hole being blown in my stomach. He complains of burning abdominal/chest pain and SOB. Pt currently denies nausea.
--- NOTE | 2023-07-14 09:16 | SUR.OPER ---
Supine on padded OR bed, head on pillow, arms secured on padded arm boards at <90 degrees abduction, legs uncrossed, safety belt at thigh, tape over blanket over lower legs.
--- NOTE | 2023-07-14 09:16 | PM.HP.1 ---
History of Present Illness History of Present Illness Chief complaint: hernia flare up Narrative: Patrick is a 57-year-old man who presented to the emergency department because of a variety of symptoms including epigastric pain worsening over past 2 days. He has been in the ER in the past for similar symptoms and it has always been attributed to his known hiatal hernia. Today a CT scan showed that he had a large gallstone and this was confirmed by ultrasound. He does consume alcohol regularly. His LFTs are normal today. Many years ago he had a laparoscopic anti-reflux procedure involving some sort of gastric wrap. [facility] Medical History Allergic angioedema Anxiety Asymptomatic bunion Chronic alcoholism Eczema Erectile dysfunction (10/06/15) Essential hypertension (10/06/15) Gastroesophageal reflux disease without esophagitis (10/06/15) Mixed hyperlipidemia (10/06/15) Surgical History History of gastric surgery (~2003) History of hernia repair (~2003) Perianal cyst (~1999) Family History Father Cerebrovascular accident (CVA), unspecified mechanism Mother Autoimmune hepatitis Grandmother No problems noted. Social History household members: family and none Smoking Status: Never smoker alcohol intake: current Meds Home Medications and Allergies Home Medications Medication Instructions Recorded Confirmed Type rabeprazole 20 mg tablet,delayed 20 mg PO QDAY #90 tabs 10/04/22 07/03/23 Rx release (AcipHex) amlodipine 10 mg tablet 10 mg PO DAILY #90 tabs 11/15/22 07/03/23 Rx tadalafil 20 mg tablet 20 mg PO DAILY PRN sexual activity 11/15/22 07/03/23 Rx #30 tabs fluorometholone 0.1 % eye 1 drp EYE-BOTH BID PRN Dry Eye(S) 02/06/23 07/03/23 Rx drops,suspension #5 mL clonazepam 0.5 mg tablet 0.5 mg PO TID PRN anxiety #90 tabs 07/03/23 07/03/23 Rx prednisone 5 mg tablet 5 mg PO DAILY PRN Chemical 07/03/23 07/03/23 Rx reaction #20 tabs Allergies Allergy/AdvReac Type Severity Reaction Status Date / Time cefazolin Allergy Unknown Verified 07/03/23 10:30 cephalexin Allergy Unknown RASH Verified 07/03/23 10:30 hydrocodone Allergy Unknown UNKNOWN Verified 07/03/23 10:30 Penicillins Allergy Unknown DYSPNEA Verified 07/03/23 10:30 Sulfa (Sulfonamide Allergy Unknown HOT-COLD Verified 07/03/23 10:30 Antibiotics) FLASHES narcotics Allergy Unknown states, Uncoded 07/03/23 10:30 all narcotic except for percocet Exam Vital Signs (past 8 hours): - 07/14/23 01:30 07/14/23 01:30 07/14/23 01:37 Pulse Rate 100 H 84 Respiratory Rate Blood Pressure 171/121 H Pulse Oximetry 98 97 Oxygen Delivery Method Oxygen Flow Rate 07/14/23 01:37 07/14/23 02:00 07/14/23 02:00 Pulse Rate 57 L Respiratory Rate Blood Pressure 183/92 H 186/85 H Pulse Oximetry 97 Oxygen Delivery Method Oxygen Flow Rate 07/14/23 02:30 07/14/23 02:30 07/14/23 02:34 Pulse Rate 74 81 Respiratory Rate Blood Pressure 196/99 H Pulse Oximetry 96 97 Oxygen Delivery Method Oxygen Flow Rate 07/14/23 02:34 07/14/23 04:44 07/14/23 05:48 Pulse Rate 95 H 89 Respiratory Rate 14 Blood Pressure 171/101 H Pulse Oximetry 97 Oxygen Delivery Method Nasal Cannula Oxygen Flow Rate 2 07/14/23 05:49 07/14/23 05:49 07/14/23 06:00 Pulse Rate 86 69 Respiratory Rate 19 13 Blood Pressure 187/97 H Pulse Oximetry 97 95 Oxygen Delivery Method Oxygen Flow Rate 07/14/23 06:00 07/14/23 06:30 07/14/23 06:30 Pulse Rate 93 H Respiratory Rate 22 Blood Pressure 164/83 H 147/79 H Pulse Oximetry 96 Oxygen Delivery Method Oxygen Flow Rate 07/14/23 07:00 07/14/23 07:00 07/14/23 07:30 Pulse Rate 68 65 Respiratory Rate 21 20 Blood Pressure 164/84 H Pulse Oximetry 96 95 Oxygen Delivery Method Oxygen Flow Rate 07/14/23 07:30 07/14/23 08:00 07/14/23 08:30 Pulse Rate 82 94 H Respiratory Rate 19 24 Blood Pressure 160/79 H Pulse Oximetry 96 Oxygen Delivery Method Oxygen Flow Rate 07/14/23 08:54 07/14/23 08:54 07/14/23 09:00 Pulse Rate 71 66 Respiratory Rate 30 H Blood Pressure 144/86 H Pulse Oximetry 96 97 Oxygen Delivery Method Room Air Room Air Oxygen Flow Rate Oxygen Delivery Method Room Air Oxygen Flow Rate 2 Narrative Exam Narrative: Abdomen soft, tender to palpation No Solis's sign Objective Labs 07/14/23 03:00 07/14/23 03:00 Labs: Laboratory Results - last 24 hr 07/14/23 03:00 WBC 8.4 RBC 4.49 L Hgb 14.6 Hct 41.7 MCV 92.8 MCH 32.4 MCHC 34.9 RDW 13.8 Plt Count 204 Neut % (Auto) 87.6 H Lymph % (Auto) 7.3 L [place] % (Auto) 4.7 Eos % (Auto) 0.1 L Baso % (Auto) 0.3 Neut # (Auto) 7400 H Lymph # (Auto) 600 L [place] # (Auto) 400 Eos # (Auto) 0 Baso # (Auto) 0 PT 13.3 H INR 1.2 APTT 31 Sodium 134 L Potassium 3.7 Chloride 96 L Carbon Dioxide 24 BUN 12 Creatinine 0.76 Estimated GFR > 60 BUN/Creatinine Ratio 15.8 Glucose 173 H Calcium 10.0 Magnesium 1.9 Total Bilirubin 0.6 AST 53 ALT 76 H Alkaline Phosphatase 109 Total Creatine Kinase 89 Troponin I 0.024 Total Protein 9.1 H Albumin 5.0 Globulin 4.1 Albumin/Globulin Ratio 1.2 Lipase 165 Ethyl Alcohol < 10 Assessment & Plan Assessment and plan (1) Acute cholecystitis due to biliary calculus: Status: Acute Plan Patrick is a 57-year-old man with acute cholecystitis versus biliary colic. We reviewed the risks laparoscopic cholecystectomy and he would like to proceed. Will involve Internal Medicine during his hospitalization since he has a history of alcohol abuse and he could potentially go into withdrawals if he ends up staying in the hospital for more than 24 hours. If his surgery is routine and his gallbladder is minimally inflamed he could potentially be discharged later today however.
[2023-07-14] MEDS: LACTATED RINGERS 1,000 ML 42 ML IV ×3 (09:30→14:27)
--- NOTE | 2023-07-14 09:42 | PM.HP.1 ---
History of Present Illness History of Present Illness Date Patient Seen: 07/14/23 Time Patient Seen: 18:06 Chief complaint: hernia flare up Narrative: Patrick Huber is a 57-year-old male with past medical history of alcohol abuse with withdrawals, anxiety, hyperlipidemia, and ED who presents with acute impacted gallstone. Patient taken to the OR for gallbladder removal where unfortunately the gallbladder was found to be severely adhered to the liver. During attempts to remove the gallbladder the intrahepatic bile duct was cut and began leaking bile. A bile drain was placed and patient was moved to the ICU in stable condition. Komal frank accepted for transfer inpatient will be transferred tonight. Patient currently admits to mild abdominal pain but no chest pain, shortness of breath, dizziness, or nausea vomiting. [facility] Medical History Allergic angioedema Anxiety Asymptomatic bunion Chronic alcoholism Eczema Erectile dysfunction (10/06/15) Essential hypertension (10/06/15) Gastroesophageal reflux disease without esophagitis (10/06/15) Mixed hyperlipidemia (10/06/15) Surgical History History of gastric surgery (~2003) History of hernia repair (~2003) Perianal cyst (~1999) Family History Father Cerebrovascular accident (CVA), unspecified mechanism Mother Autoimmune hepatitis Grandmother No problems noted. Social History household members: family and none Smoking Status: Never smoker alcohol intake: current Meds Home Medications and Allergies Home Medications Medication Instructions Recorded Confirmed Type rabeprazole 20 mg tablet,delayed 20 mg PO QDAY #90 tabs 10/04/22 07/03/23 Rx release (AcipHex) amlodipine 10 mg tablet 10 mg PO DAILY #90 tabs 11/15/22 07/03/23 Rx tadalafil 20 mg tablet 20 mg PO DAILY PRN sexual activity 11/15/22 07/03/23 Rx #30 tabs fluorometholone 0.1 % eye 1 drp EYE-BOTH BID PRN Dry Eye(S) 02/06/23 07/03/23 Rx drops,suspension #5 mL clonazepam 0.5 mg tablet 0.5 mg PO TID PRN anxiety #90 tabs 07/03/23 07/03/23 Rx prednisone 5 mg tablet 5 mg PO DAILY PRN Chemical 07/03/23 07/03/23 Rx reaction #20 tabs Allergies Allergy/AdvReac Type Severity Reaction Status Date / Time cefazolin Allergy Unknown Verified 07/03/23 10:30 cephalexin Allergy Unknown RASH Verified 07/03/23 10:30 hydrocodone Allergy Unknown UNKNOWN Verified 07/03/23 10:30 Penicillins Allergy Unknown DYSPNEA Verified 07/03/23 10:30 Sulfa (Sulfonamide Allergy Unknown HOT-COLD Verified 07/03/23 10:30 Antibiotics) FLASHES narcotics Allergy Unknown states, Uncoded 07/03/23 10:30 all narcotic except for percocet Review of Systems Review of Systems Narrative: All other systems reviewed with the patient and are negative unless otherwise stated. Exam Vital Signs (past 8 hours): - 07/14/23 02:00 07/14/23 02:00 07/14/23 02:30 Temperature Pulse Rate 57 L 74 Respiratory Rate Blood Pressure 186/85 H Pulse Oximetry 97 96 Oxygen Delivery Method Oxygen Flow Rate 07/14/23 02:30 07/14/23 02:34 07/14/23 02:34 Temperature Pulse Rate 81 Respiratory Rate Blood Pressure 196/99 H 171/101 H Pulse Oximetry 97 Oxygen Delivery Method Oxygen Flow Rate 07/14/23 04:44 07/14/23 05:48 07/14/23 05:49 Temperature Pulse Rate 95 H 89 86 Respiratory Rate 14 19 Blood Pressure Pulse Oximetry 97 97 Oxygen Delivery Method Nasal Cannula Oxygen Flow Rate 2 07/14/23 05:49 07/14/23 06:00 07/14/23 06:00 Temperature Pulse Rate 69 Respiratory Rate 13 Blood Pressure 187/97 H 164/83 H Pulse Oximetry 95 Oxygen Delivery Method Oxygen Flow Rate 07/14/23 06:30 07/14/23 06:30 07/14/23 07:00 Temperature Pulse Rate 93 H 68 Respiratory Rate 22 21 Blood Pressure 147/79 H Pulse Oximetry 96 96 Oxygen Delivery Method Oxygen Flow Rate 07/14/23 07:00 07/14/23 07:30 07/14/23 07:30 Temperature Pulse Rate 65 Respiratory Rate 20 Blood Pressure 164/84 H 160/79 H Pulse Oximetry 95 Oxygen Delivery Method Oxygen Flow Rate 07/14/23 08:00 07/14/23 08:30 07/14/23 08:54 Temperature Pulse Rate 82 94 H 71 Respiratory Rate 19 24 Blood Pressure Pulse Oximetry 96 96 Oxygen Delivery Method Room Air Oxygen Flow Rate 07/14/23 08:54 07/14/23 09:00 07/14/23 09:31 Temperature 97.6 F Pulse Rate 66 62 Respiratory Rate 30 H 16 Blood Pressure 144/86 H 130/76 Pulse Oximetry 97 96 Oxygen Delivery Method Room Air Room Air Oxygen Flow Rate Oxygen Delivery Method Room Air Oxygen Flow Rate 2 Narrative Exam Narrative: GEN: Anxious HEENT: moist mucous membranes, PERRL NECK: trachea midline, no JVD CV: regular rate and rhythm, no murmurs PULM: clear bilaterally ABD: soft, mildly tender with drain present, nondistended, no organomegaly EXT: warm and well perfused with no edema NEURO: awake, alert, oriented, no focal deficits Objective Labs 07/14/23 14:10 07/14/23 14:20 Labs: Laboratory Results - last 24 hr 07/14/23 03:00 WBC 8.4 RBC 4.49 L Hgb 14.6 Hct 41.7 MCV 92.8 MCH 32.4 MCHC 34.9 RDW 13.8 Plt Count 204 Neut % (Auto) 87.6 H Lymph % (Auto) 7.3 L [place] % (Auto) 4.7 Eos % (Auto) 0.1 L Baso % (Auto) 0.3 Neut # (Auto) 7400 H Lymph # (Auto) 600 L [place] # (Auto) 400 Eos # (Auto) 0 Baso # (Auto) 0 PT 13.3 H INR 1.2 APTT 31 Sodium 134 L Potassium 3.7 Chloride 96 L Carbon Dioxide 24 BUN 12 Creatinine 0.76 Estimated GFR > 60 BUN/Creatinine Ratio 15.8 Glucose 173 H Calcium 10.0 Magnesium 1.9 Total Bilirubin 0.6 AST 53 ALT 76 H Alkaline Phosphatase 109 Total Creatine Kinase 89 Troponin I 0.024 Total Protein 9.1 H Albumin 5.0 Globulin 4.1 Albumin/Globulin Ratio 1.2 Lipase 165 Ethyl Alcohol < 10 Assessment & Plan Assessment & Plan narrative: # acute impacted gallstone, without evidence of cholecystitis -abdominal ultrasound shows impacted gallstone -general surgery consulted to perform cholecystectomy -no signs of infection so will not treat with antibiotics -underwent gallbladder removal, complicated by intrahepatic bile duct puncture and bile leak s/p bile drain in place -accepted to for transfer # alcohol abuse with history of withdrawals -CIWA -multivitamin, thiamine and folate Code status is full code. DVT prophylaxis with SCDs. Proxy is brother Jaret. I have reviewed home meds and used all available resources to reconcile the home meds. Case discussed with ED physician/APC and patient will be admitted to the hospitalist service for further workup and management. Patient admitted to ICU and will be transferred to [facility].
[2023-07-14] MEDS: CLINDAMYCIN 900 MG/50 ML PIGGYBACK 50 MG IV (09:56)
[2023-07-14] MEDS: ACETAMINOPHEN IV 1,000 MG/100 ML VIAL 400 MG IV (09:56)
[2023-07-14] MEDS: BUPIVACAINE 0.5% (PF) 30 ML, EPINEPHrine 0.15 MG INJ (10:38)
[2023-07-14] MEDS: iopamidoL 30 ML VIAL INJ ×2 (11:29→12:43)
--- NOTE | 2023-07-14 12:57 | DI.RAD.S_ITS ---
PROCEDURE: XR CHOLANGIOGRAM OPERATIVE INDICATIONS: SURGERY COMPARISON: [facility], US, US ABDOMEN LIMITED, 07/14/2023, 6:29. [facility], CT, CT ABDOMEN PELVIS W CON, 07/14/2023, 4:57. FINDINGS: Biliary ducts: The surgeon injected contrast into the biliary ducts after cannulation of the cystic duct stump. Visualized intra- and extrahepatic bile ducts are normal in caliber, without strictures. No intraluminal filling defects to suggest retained ductal stones or sludge. No evidence for iatrogenic ductal injury. However, the distal most common bile duct is not seen on this study. Duodenum: Contrast flows promptly through the sphincter of Oddi into the duodenum, which appears normal in caliber. IMPRESSION: Limited intraoperative study, without a significant abnormality identified. Dictated by: Roberto Thompson M.D. on 07/14/2023 at 12:12 Approved by: Robreto Thompson M.D. on 07/14/2023 at 12:13
[2023-07-14 14:30] LABS: Hemoglobin 13.1 g/dL (13.5-17.5); Mean Corpuscular HGB Conc 33.5 % (30-36); Mean Corpuscular Hemoglobin 31.9 PG (26-34); Mean Corpuscular Volume 95.1 fL (80-100); Platelet Count 246 X10^3/uL (150-400); White Blood Cell Count 16.3 X10^3/uL (4.5-11.0)
[2023-07-14] MEDS: ONDANSETRON 4 MG/2 ML INJ IV (15:18)
--- NOTE | 2023-07-14 15:28 | SUR.PHASEI ---
CIWA scale zero; resting quietly with eyes closed. VSS.
--- NOTE | 2023-07-14 16:01 | PC.NURSE ---
Patient arrived from PACU at 1555. Admission worklist items not completed due to patient going straight to the OR from the ED. Admission questions completed as best as possible given patient's condition
[2023-07-14] MEDS: HYDROMORPHONE 0.5 MG INJ IV ×2 (16:05→18:33)
[2023-07-14 16:12] LABS: Alanine Aminotransferase 94 IU/L (<50); Albumin 4.9 g/dL (3.5-5.0); Albumin Globulin Ratio 1.5 (1.0-2.8); Alkaline Phosphatase 82 U/L (38-126); Aspartate Aminotransferase 99 IU/L (17-59); BUN Creatinine Ratio 10.8 (6-22); Bilirubin Total 0.8 mg/dL (0.2-1.3); Blood Urea Nitrogen 13 mg/dL (9-20); Calcium 9.3 mg/dL (8.4-10.2); Carbon Dioxide 21 mmol/L (22-32); Chloride 99 mmol/L (98-107); Estimated Glomerular Filt Rate > 60 mL/min (>60); Globulin 3.2 g/dL (1.7-4.1); Glucose 193 mg/dL (70-100); HEMOLYSIS 38 (0-50); Potassium 3.9 mmol/L (3.4-5.1); Sodium 135 mmol/L (137-145); Total Protein 8.1 g/dL (6.3-8.2)
--- NOTE | 2023-07-14 16:20 | P.OP_ITS ---
Operative Date/Time/Diagnoses Date of procedure: 07/14/23 Time of procedure: 13:20 Pre-op diagnosis: Cholelithiasis Post-op diagnosis: same Procedure & Clinicians Procedure: Laparoscopic cholecystectomy with intraoperative cholangiogram Same procedure as scheduled: Yes Surgeon: Phillip Benedict Supervisor [employer]: Luanne Castañeda Anesthesia Type: General Operative Notes Procedure in detail: The patient was given preoperative antibiotic. The patient was brought to the operating room, placed on the table in the supine position. General endotracheal anesthesia was induced. The abdomen was prepped and draped. A time-out was performed. We made a 1 cm infraumbilical incision. We dissected down to the base of the umbilical stalk using cautery. We grasped the umbilical stalk with a Destinee clamp to elevate the abdominal wall. We scored the fascia in the midline with cautery. We pierced the peritoneum with a Peon clamp. The Freedom port was placed and the abdomen was insufflated to 15 mmHg. A 5 mm 30 degree laparoscopic was inserted. There was no evidence of any injury from the entry. Next, we placed 5 mm ports in the subxiphoid position and right upper quadrant at the midclavicular line and anterior axillary line. The patient was then positioned in reverse Trendelenburg and the table was tilted to the left. The omentum was adherent over the dome of the gallbladder and was bluntly dissected free. It became immediately evident that gallbladder was quite fibrotic and contracted and very intrahepatic. The liver itself appeared to have some nodularity consistent with early cirrhosis. The tissue planes around the gallbladder were essentially obliterated from the chronic fibrosis. A small rent was made in the anterior wall of the midportion of the gallbladder and this was used as a portal for a cholangiocatheter using a 6 Danish ureteral catheter through an Walker clamp. This cholangiogram appeared show a rather long cystic duct. It was felt that the cystic duct could not be safely dissected out given the degree of fibrosis and obliteration of tissue planes. A Kittner was used to aid with blunt dissection to pull the gallbladder away from the hepatic plate. There was a structure visible within the hepatic plate that was suspected to be the hepatic duct. Scissors were used to cut across the infundibulum. Another cholangiogram was performed by placing the catheter into the stump of the infundibulum and that appeared to show no changes in the remainder of the biliary tree. We then proceeded to dissect the gallbladder off the hepatic plate. At one point a rather large artery was injured resulting in arterial bleeding. This was felt to be the right hepatic artery and a decision was made to place a hemoclip across proximal end of the artery which stopped the bleeding. The liver did not seem to become ischemic after the hemoclip was placed. We then continued to dissect the gallbladder off liver but it remained very adherent to the liver and the tissue planes remained obscured. Then at some point near the completion of the dissection off the liver bed a small amount of yellowish green bile was noted draining from what appeared to be a side hole in a ductal structure. This prompted call to Dr. Castañeda to come in to assist as well as to [facility] frank for guidance. The cholangiocatheter was able to be inserted into this defect and another cholangiogram was performed which showed that the hepatic duct and common duct appeared intact and uninjured. It was felt that this cholangiogram represented a side hole in the right hepatic duct. At this point I was able to discuss the case and review the cholangiograms with Dr. Cunningham at [facility] who agreed that the patient would benefit from an ERCP and accepted the patient in transfer. Dr. Castañeda drain me at this point and we proceeded to take the remainder of the gallbladder off the liver bed. A small amount of oozing from the edge of the liver bed was cauterized with good effect. Two 15 Danish round Eliel drains were placed placed through the right port sites. The lateral drain was placed alongside the right lobe of the liver and the more medial drain was placed in the gallbladder fossa. We irrigated the right upper quadrant and all the aspirate returned clear. We then removed the subxiphoid ports under direct vision we removed the Freeodm port. We then injected some local into the fascia and closed the fascia with 2 interrupted 0 Vicryl sutures. The skin incisions were closed with 4 Monocryl and Steri-Strips were applied. Band-Aids were applied over the Steri-Strips. Drain sponges were applied around both drain sites. EBL: 100 mL Specimen: Gallbladder and contents Post-operative Condition: stable Disposition: PACU
[2023-07-14] MEDS: OXYCODONE IR 5 MG TABLET PO (17:45)
--- NOTE | 2023-07-14 18:11 | P.DS_ITS ---
History of Present Illness History of Present Illness Chief complaint: hernia flare up Narrative: Patrick Huber is a 57-year-old male with past medical history of alcohol abuse with withdrawals, anxiety, hyperlipidemia, and ED who presents with acute impacted gallstone. Patient taken to the OR for gallbladder removal where unfortunately the gallbladder was found to be severely adhered to the liver. During attempts to remove the gallbladder the intrahepatic bile duct was cut and began leaking bile. A bile drain was placed and patient was moved to the ICU in stable condition. [facility] accepted for transfer [facility] Patient currently admits to mild abdominal pain but no chest pain, shortness of breath, dizziness, or nausea vomiting. Discharge Providers Provider Date of admission: 07/14/23 09:28 Discharge Date: 07/14/23 Primary care physician: Valente Stovall MD Consults: 07/14/23 09:39 Consult to General Surgery Routine Comment: Consulting Provider: Phillip Benedict Reason for consultation: impacted gallstone 07/14/23 16:06 Consult to Big Data Lead Routine Comment: Discharge provider: Dhiraj Orr DO Summary Hospital Course Discharge Diagnosis: # acute impacted gallstone, without evidence of cholecystitis -abdominal ultrasound shows impacted gallstone -general surgery consulted to perform cholecystectomy -no signs of infection so will not treat with antibiotics -underwent gallbladder removal, complicated by intrahepatic bile duct puncture and bile leak s/p bile drain in place -accepted to for transfer -given dose of IV levaquin due to leukocytosis of 16 up from 8 after surgery, patient had multiple allergies to PCN, cephalosporins, and sulfa drugs -given percocet and dilaudid, allergic to all other narcotics # alcohol abuse with history of withdrawals -[facility] -multivitamin, thiamine and folate Hospital Course: Admitted for gallbladder removal. Had complication during cholecystectomy with intrahepatic bile duct puncture and leak. Drain placed and given IV levaquin. Accepted for transfer to . Exam Vital Signs (past 8 hours): - 07/14/23 14:57 07/14/23 15:02 07/14/23 15:06 Temperature 97.4 F L Pulse Rate 90 64 60 Respiratory Rate 15 12 11 L Blood Pressure 113/65 119/73 114/63 Pulse Oximetry 94 94 95 Oxygen Delivery Method Room Air Room Air Room Air 07/14/23 15:21 07/14/23 15:26 07/14/23 15:56 Temperature Pulse Rate 75 59 L 89 Respiratory Rate 15 16 21 Blood Pressure 141/85 H 123/62 Pulse Oximetry 96 95 Oxygen Delivery Method Room Air Room Air 07/14/23 15:59 07/14/23 15:59 07/14/23 16:00 Temperature Pulse Rate 83 Respiratory Rate 17 Blood Pressure 136/76 128/72 Pulse Oximetry 92 Oxygen Delivery Method 07/14/23 16:00 07/14/23 16:30 07/14/23 17:00 Temperature Pulse Rate 69 77 75 Respiratory Rate 17 13 15 Blood Pressure Pulse Oximetry 92 94 95 Oxygen Delivery Method 07/14/23 17:30 Temperature Pulse Rate 143 H Respiratory Rate 35 H Blood Pressure Pulse Oximetry 95 Oxygen Delivery Method Oxygen Delivery Method Room Air Oxygen Flow Rate 2 Narrative Exam Narrative: GEN: Anxious HEENT: moist mucous membranes, PERRL NECK: trachea midline, no JVD CV: regular rate and rhythm, no murmurs PULM: clear bilaterally ABD: soft, mildly tender with drain present, nondistended, no organomegaly EXT: warm and well perfused with no edema NEURO: awake, alert, oriented, no focal deficits Objective Labs 07/14/23 14:10 07/14/23 14:20 Labs: Laboratory Results - last 24 hr 07/14/23 07/14/23 07/14/23 03:00 14:10 14:20 WBC 8.4 16.3 H D RBC 4.49 L 4.10 L Hgb 14.6 13.1 L Hct 41.7 39.0 L MCV 92.8 95.1 MCH 32.4 31.9 MCHC 34.9 33.5 RDW 13.8 14.0 Plt Count 204 246 Neut % (Auto) 87.6 H Lymph % (Auto) 7.3 L [place] % (Auto) 4.7 Eos % (Auto) 0.1 L Baso % (Auto) 0.3 Neut # (Auto) 7400 H Lymph # (Auto) 600 L [place] # (Auto) 400 Eos # (Auto) 0 Baso # (Auto) 0 PT 13.3 H INR 1.2 APTT 31 Sodium 134 L 135 L Potassium 3.7 3.9 Chloride 96 L 99 Carbon Dioxide 24 21 L BUN 12 13 Creatinine 0.76 1.20 Estimated GFR > 60 > 60 BUN/Creatinine Ratio 15.8 10.8 Glucose 173 H 193 H Calcium 10.0 9.3 Magnesium 1.9 Total Bilirubin 0.6 0.8 AST 53 99 H ALT 76 H 94 H Alkaline Phosphatase 109 82 Total Creatine Kinase 89 Troponin I 0.024 Total Protein 9.1 H 8.1 Albumin 5.0 4.9 Globulin 4.1 3.2 Albumin/Globulin Ratio 1.2 1.5 Lipase 165 Ethyl Alcohol < 10 Blood Type O Positive Antibody Screen Negative PFSH Medical History Allergic angioedema Anxiety Asymptomatic bunion Chronic alcoholism Eczema Erectile dysfunction (10/06/15) Essential hypertension (10/06/15) Gastroesophageal reflux disease without esophagitis (10/06/15) Mixed hyperlipidemia (10/06/15) Surgical History History of gastric surgery (~2003) History of hernia repair (~2003) Perianal cyst (~1999) Family History Father Cerebrovascular accident (CVA), unspecified mechanism Mother Autoimmune hepatitis Grandmother No problems noted. Social History household members: family and none Smoking Status: Never smoker alcohol intake: current Discharge Plan Discharge Plan Patient Disposition: [facility] Discharge Data Primary Care Provider: Valente Stovall
== END 2023-07-14 18:54 | disposition short-term general hospital (02) | DRG 418 ==
LOC: ED 08:37 → AC 10:36 → ICU 15:21 → AC 07-15 07:59
PROVIDERS: Emergency Medicine; Student in an Organized Health Care Education/Training Program; Admitting Provider Surgery; Emergency Provider Emergency Medicine; Family Provider Student in an Organized Health Care Education/Training Program; PCP Student in an Organized Health Care Education/Training Program; Referring Provider Emergency Medicine; Visit Provider Surgery
PROC: 0FT44ZZ Resection of Gallbladder, Percutaneous Endoscopic Approach (ICD-10-PCS; CPT 47562; principal; 2023-07-14 10:00)
DX: K80.20 Calculus of gallbladder without cholecystitis without obstruction (principal); K91.71 Accidental puncture and laceration of a digestive system organ or structure during a digestive system procedure; K82.8 Other specified diseases of gallbladder; F10.10 Alcohol abuse, uncomplicated; Y90.0 Blood alcohol level of less than 20 mg/100 ml
CPT/HCPCS: 36415; 47563; 71045; 74177; 74300; 76705; 80053; 80320; 81003; 82550; 83690; 83735; 84484; 85025; 85027; 85610; 85730; 86850; 86900; 86901; 93005; 96374; 96375; 99222; 99284; 99285; G0378; J0131; J0171; J0330; J1100; J1170; J1885; J2060; J2405; J2704; J3490; Q9967

== ENCOUNTER → 2023-08-27 14:36 | Outpatient (CLI) | payer OTHER, SELFPAY ==
[2023-07-14 16:01] VITALS: BMI 25.8
[2023-08-27 15:29] LABS: Add Manual Diff / Slide Review NO; Basophils Absolute Auto 0 /uL (0-100); Basophils Percent Auto 0.9 % (0-2); Eosinophils Absolute Auto 100 /uL (0-450); Eosinophils Percent Auto 2.2 % (2-4); Hematocrit 36.8 % (41-53); Hemoglobin 12.5 g/dL (13.5-17.5); Lymphocytes Absolute Auto 1700 /uL (1100-4500); Lymphocytes Percent Auto 32.4 % (25-40); Mean Corpuscular HGB Conc 34.1 % (30-36); Mean Corpuscular Hemoglobin 29.9 PG (26-34); Mean Corpuscular Volume 87.8 fL (80-100); Monocytes Absolute Auto 700 /uL (0-900); Neutrophils Absolute Auto 2600 /uL (1500-7000); Neutrophils Percent Auto 51.5 % (50-75); Platelet Count 177 X10^3/uL (150-400); Red Cell Distribution Width 13.9 % (11.6-14.8); White Blood Cell Count 5.1 X10^3/uL (4.5-11.0)
[2023-08-27 15:48] LABS: INR 1.1 (0.9-1.3); Prothrombin Time 13.1 SECONDS (9.4-12.5)
[2023-08-27 16:05] LABS: Alanine Aminotransferase 42 IU/L (<50); Albumin 4.4 g/dL (3.5-5.0); Albumin Globulin Ratio 1.4 (1.0-2.8); Alkaline Phosphatase 94 U/L (38-126); Aspartate Aminotransferase 42 IU/L (17-59); BUN Creatinine Ratio 19.1 (6-22); Bilirubin Total 0.5 mg/dL (0.2-1.3); Blood Urea Nitrogen 18 mg/dL (9-20); Calcium 9.6 mg/dL (8.4-10.2); Carbon Dioxide 23 mmol/L (22-32); Chloride 104 mmol/L (98-107); Estimated Glomerular Filt Rate > 60 mL/min (>60); Globulin 3.2 g/dL (1.7-4.1); Glucose 128 mg/dL (70-100); HEMOLYSIS 18 (0-50); Sodium 138 mmol/L (137-145); Total Protein 7.6 g/dL (6.3-8.2)
== END ==
PROVIDERS: Family Provider Student in an Organized Health Care Education/Training Program; PCP Family Medicine; Referring Provider Internal Medicine Gastroenterology; Visit Provider Internal Medicine Gastroenterology
DX: K44.9 Diaphragmatic hernia without obstruction or gangrene (principal); R94.5 Abnormal results of liver function studies; K21.9 Gastro-esophageal reflux disease without esophagitis
CPT/HCPCS: 36415; 80053; 85025; 85610

== ENCOUNTER → 2023-09-09 06:56 | Outpatient (CLI) | payer OTHER, SELFPAY ==
[2023-07-14 16:01] VITALS: BMI 25.8
[2023-09-09 08:42] LABS: Alanine Aminotransferase 41 IU/L (<50); Albumin 4.4 g/dL (3.5-5.0); Albumin Globulin Ratio 1.3 (1.0-2.8); Alkaline Phosphatase 103 U/L (38-126); Aspartate Aminotransferase 44 IU/L (17-59); Bilirubin Total 0.5 mg/dL (0.2-1.3); Bilirubin Unconjugated 0.3 mg/dL (0.0-1.1); Globulin 3.3 g/dL (1.7-4.1); HEMOLYSIS < 15 (0-50); Total Protein 7.7 g/dL (6.3-8.2)
== END ==
PROVIDERS: Family Provider Student in an Organized Health Care Education/Training Program; PCP Family Medicine; Referring Provider Internal Medicine; Visit Provider Internal Medicine
DX: R94.5 Abnormal results of liver function studies (principal)
CPT/HCPCS: 36415; 80076

== ENCOUNTER → 2023-09-26 07:56 | Outpatient (CLI) | payer OTHER, SELFPAY ==
[2023-07-14 16:01] VITALS: BMI 25.8
--- NOTE | 2023-09-26 08:00 | DI.US.S_ITS ---
PROCEDURE: US ABDOMEN LIMITED INDICATIONS: bilat inguinal pain, L inguinal mass eval for hernias TECHNIQUE: Real-time focused scanning was performed of the inguinal region, with image documentation. COMPARISON: [facility], CT, CT ABDOMEN PELVIS W CON, 07/14/2023, 4:57. [facility], US, US ABDOMEN LIMITED, 07/14/2023, 6:29. FINDINGS: The bilateral inguinal regions were interrogated with a high megahertz linear transducer with without Valsalva. No right inguinal hernia identified. On the left, there is a 7.2 mm abdominal wall defect through which a nonobstructed bowel loop herniates. IMPRESSION: Small left inguinal hernia containing nonobstructed bowel. Dictated by: Harlan Rojas M.D. on 10/01/2023 at 13:58 Approved by: Harlan Rojas M.D. on 10/01/2023 at 14:01
== END ==
PROVIDERS: Family Provider Student in an Organized Health Care Education/Training Program; PCP Family Medicine; Referring Provider Student in an Organized Health Care Education/Training Program; Visit Provider Student in an Organized Health Care Education/Training Program
DX: K40.90 Unilateral inguinal hernia, without obstruction or gangrene, not specified as recurrent (principal); R10.31 Right lower quadrant pain; R10.32 Left lower quadrant pain
CPT/HCPCS: 76705

== ENCOUNTER → 2024-01-06 19:09 | Outpatient (ROUT) | payer OTHER, SELFPAY ==
[2023-07-14 16:01] VITALS: BMI 25.8
[2024-01-06 20:07] LABS: Creatinine Urine Random 125.7 mg/dL
[2024-01-06 20:12] LABS: Microalbumin Urine Random 3.4 mg/dL (0-1.6)
== END ==
PROVIDERS: Family Provider Student in an Organized Health Care Education/Training Program; PCP Family Medicine; Visit Provider Family Medicine
DX: E11.9 Type 2 diabetes mellitus without complications (principal); E78.2 Mixed hyperlipidemia
CPT/HCPCS: 82043; 82570

== ENCOUNTER 2024-01-17 18:55 | Emergency (ER) | payer OTHER, SELFPAY ==
[2023-07-14 16:01] VITALS: BMI 25.8
[2024-01-17] VITALS (15 sets, daily range): BP systolic 167–199; BP diastolic 89–107; PULSE 99–122; RESP 16–23; TEMP 36.8; O2SAT 95–97; BMI 25.7
--- NOTE | 2024-01-17 19:31 | ED_ITS ---
HPI - General Adult General Chief complaint: Hypertension Stated complaint: HBP, dizziness Time Seen by Provider: 01/17/24 19:11 Source: patient Mode of arrival: Ambulatory History of Present Illness HPI narrative: 58-year-old male with history of hypertension, diabetes, alcohol use disorder presents stating ?I drank too much last night and I am dehydrated today. He states that he has felt lightheaded and dizzy all day long. This evening he took his blood pressure and it was ?heart attack levels?. Denies chest pain, shortness of breath, other complaints. Reports that he has been drinking ?a lot? of vodka for the last 4 days. Previously 72 days sober. Patient states that when he is not drinking alcohol his blood pressure is very well controlled with daily amlodipine. Related Data Previous Rx's Medication Instructions Recorded tadalafil 20 mg tablet 20 mg PO DAILY PRN sexual activity 11/15/22 #30 tabs prednisone 5 mg tablet 5 mg PO DAILY PRN Chemical 07/03/23 reaction #20 tabs rabeprazole 20 mg tablet,delayed 20 mg PO QDAY #90 tabs 08/02/23 release (AcipHex) azelastine 137 mcg (0.1 %) nasal 137 mcg (0.137 mL) intranasal Q12H 10/28/23 spray aerosol PRN allergy symptoms #30 mL fluorometholone 0.1 % eye 1 drp EYE-BOTH BID PRN Dry Eye(S) 10/28/23 drops,suspension #5 mL amlodipine 10 mg tablet 10 mg PO DAILY #90 tabs 12/17/23 clonazepam 0.5 mg tablet 0.5 mg PO BID PRN anxiety #60 tabs 01/07/24 Allergies Allergy/AdvReac Type Severity Reaction Status Date / Time cefazolin Allergy Unknown Verified 01/06/24 13:03 cephalexin Allergy Unknown RASH Verified 01/06/24 13:03 hydrocodone Allergy Unknown UNKNOWN Verified 01/06/24 13:03 Penicillins Allergy Unknown DYSPNEA Verified 01/06/24 13:03 Sulfa (Sulfonamide Allergy Unknown HOT-COLD Verified 01/06/24 13:03 Antibiotics) FLASHES hydromorphone AdvReac Severe Palpitation Verified 01/06/24 13:03 s narcotics Allergy Unknown states, Uncoded 01/06/24 13:03 all narcotic except for percocet Review of Systems Review of Systems Narrative: Negative except as noted above Patient History Medical History Type 2 diabetes mellitus without complication, with no history of insulin use IFG (impaired fasting glucose) Allergic angioedema Asymptomatic bunion Eczema Chronic alcoholism Anxiety Mixed hyperlipidemia (10/06/15) Gastroesophageal reflux disease without esophagitis (10/06/15) Essential hypertension (10/06/15) Erectile dysfunction (10/06/15) Surgical History History of hernia repair (~2003) Perianal cyst (~1999) History of gastric surgery (~2003) Family History Father Cerebrovascular accident (CVA), unspecified mechanism Mother Autoimmune hepatitis Grandmother No problems noted. Social History household members: family and none Smoking Status: Never smoker alcohol intake: current Smoking Status: Never smoker alcohol intake frequency: 3 or more drinks per day Alcohol type: hard liquor Substance Use Type: does not use Exam Initial Vital Signs Initial Vital Signs: Vital Signs Temperature 98.3 F 01/17/24 19:06 Pulse Rate 119 H 01/17/24 19:06 Respiratory Rate 20 01/17/24 19:06 Blood Pressure 167/97 H 01/17/24 19:06 Pulse Oximetry 95 01/17/24 19:06 Oxygen Delivery Method Room Air 01/17/24 19:06 Const: Awake, alert, appears older than stated age, chronically unwell Cardiac: Tachycardia, regular rhythm RESP: unlabored, clear bilaterally, no wheezing GI: Soft, nontender, nondistended, no rebound, no guarding MSK: Atraumatic, full range of motion, pulses equal Skin: Warm, Dry, intact, no rashes Neuro: AO x3, CN II-XII grossly intact, moves all extremities Course Orders Ordered: Discontinued Medications Hydralazine HCl (Hydralazine 20 Mg/Ml Vial) 10 mg IV NOW ONE Stop: 01/17/24 21:28 Last Admin: 01/17/24 21:38 Dose: 10 mg Documented By: CHARAN Sodium Chloride (Normal Saline 0.9%) 1,000 mls @ 1,000 mls/hr IV BOLUS ONE Stop: 01/17/24 20:29 Last Infusion: 01/17/24 21:14 Dose: Infused Documented By: Admin: 01/17/24 19:54 Dose: 1,000 mls/hr Documented By: Lorazepam (Lorazepam 2 Mg/Ml Inj) 2 mg IV NOW ONE Stop: 01/17/24 22:34 Last Admin: 01/17/24 22:42 Dose: 2 mg Documented By: CHARAN Metoprolol Succinate (Metoprolol Er 50 Mg Tablet) 50 mg PO NOW ONE Stop: 01/17/24 22:50 Last Admin: 01/17/24 23:03 Dose: 50 mg Documented By: CHARAN Ondansetron HCl (Ondansetron 4 Mg/2 Ml Inj) 4 mg IV NOW ONE Stop: 01/17/24 19:31 Last Admin: 01/17/24 19:54 Dose: 4 mg Documented By: Vital Signs Vital signs: Vital Signs - 8 hr 01/17/24 22:30 01/17/24 23:00 01/17/24 23:03 Pulse Rate 122 H 99 H 100 H Respiratory Rate 18 Pulse Oximetry 96 Medical Decision Making Differential Diagnosis Differential Diagnosis: Dehydration, anxiety, alcohol withdrawal Lab Data 01/17/24 19:48 01/17/24 19:48 Labs: Lab Results 01/17/24 01/17/24 Range/Units 19:48 21:47 WBC 7.2 (4.5-11.0) X10^3/uL RBC 4.43 L (4.5-5.9) X10^6/uL Hgb 13.2 L (13.5-17.5) g/dL Hct 39.1 L (41-53) % MCV 88.3 (80-100) fL MCH 29.9 (26-34) PG MCHC 33.8 (30-36) % RDW 15.2 H (11.6-14.8) % Plt Count 115 L (150-400) X10^3/uL Neut % (Auto) 71.4 (50-75) % Lymph % (Auto) 18.0 L (25-40) % [place] % (Auto) 10.0 (3-14) % Eos % (Auto) 0.2 L (2-4) % Baso % (Auto) 0.4 (0-2) % Neut # (Auto) 5100 (3590-2350) /uL Lymph # (Auto) 1300 (1582-1838) /uL [place] # (Auto) 700 (0-900) /uL Eos # (Auto) 0 (0-450) /uL Baso # (Auto) 0 (0-100) /uL Sodium 133 L (137-145) mmol/L Potassium 3.5 (3.4-5.1) mmol/L Chloride 98 (98-107) mmol/L Carbon Dioxide 22 (22-32) mmol/L BUN 8 L (9-20) mg/dL Creatinine 0.68 (0.66-1.25) mg/dL Estimated GFR > 60 (>60) mL/min BUN/Creatinine Ratio 11.8 (6-22) Glucose 189 H (70-100) mg/dL Calcium 9.4 (8.4-10.2) mg/dL Magnesium 1.5 L (1.6-2.3) mg/dL Total Bilirubin 0.6 (0.2-1.3) mg/dL AST 86 H (17-59) IU/L ALT 47 (<50) IU/L Alkaline Phosphatase 116 (38-126) U/L Total Creatine Kinase 248 H (55-170) U/L Troponin I 0.050 H 0.056 H (0.01-0.034) ng/mL Total Protein 8.3 H (6.3-8.2) g/dL Albumin 4.7 (3.5-5.0) g/dL Globulin 3.6 (1.7-4.1) g/dL Albumin/Globulin Ratio 1.3 (1.0-2.8) ECG Data Interpretation: Sinus tachycardia at rate of 106 beats per minute. Normal axis, normal intervals, no ST T wave changes, no STEMI MDM Narrative Medical decision making narrative: Patient presenting for dehydration and elevated blood pressure readings after several day binge on alcohol. Patient is tachycardic and hypertensive, he denies history of withdrawals, also states that he was very anxious in the hospital setting because he is allergic to ?everything? and tends to break out in healthcare environment. Laboratory work reviewed, WBC count 7.2, hemoglobin 13.2, platelets 115, sodium 133, potassium 3.5, creatinine 0.68, glucose 189, magnesium 1.5, AST ALT ratio 2:1. Patient's initial troponin 0.050. EKG is sinus tachycardia without any concerning ischemic findings, in addition patient was denying any chest pain or cardiac symptoms. We will repeat troponin. IV fluids running. Patient's heart rate climbed to 120 beats per minute despite IV fluids, but he does state that he was very anxious. CIWA score low, patient has prescribed clonazepam with longstanding history of anxiety. Patient was given IV Ativan with improvement in heart rate to 95-105bpm Second troponin very slightly higher than 1st troponin. Again patient denying chest pain or shortness of breath. Discussed case with on-call Cardiology Dr. Casarez, who stated that with normal EKG and no chest pain patient would not need to be admitted, however he would need to stop drinking alcohol and get better control of his blood pressure. Patient reassessed, he was encouraged to continue cessation of all alcohol products. Offered to change patient's blood pressure medications, he states that his blood pressure is normally very well controlled on amlodipine when he was not drinking and this will encourage him to stop drinking. He states that his brother comes into town to help keep him sober, as he does not like going to AA or other meetings. Discharge Plan Departure Patient Disposition: Home Clinical Impression: Hypertensive urgency, Dehydration, Alcohol use disorder Instructions: DI for High Blood Pressure Activity Restrictions/Additional Instructions: It was extremely important that you stop drinking alcohol and follow up with your primary care physician. Take your blood pressure daily. If you have chest pain or shortness of breath then returned to the emergency department for repeat evaluation. Prescriptions: No Action amlodipine 10 mg tablet 10 mg PO DAILY Qty: 90 3RF clonazepam 0.5 mg tablet 0.5 mg PO BID PRN (Reason: anxiety) Qty: 60 2RF Rx Instructions: Fill on11/17/23 tadalafil 20 mg tablet 20 mg PO DAILY PRN (Reason: sexual activity) Qty: 30 11RF Rx Instructions: administer approximately 30min before sexual activity; do not use more than 1 dose per 24hrs azelastine 137 mcg (0.1 %) aerosol,spray 137 mcg intranasal Q12H PRN (Reason: allergy symptoms) Qty: 30 11RF Rx Instructions: administer into each nostril fluorometholone 0.1 % drops,suspension 1 drp EYE-BOTH BID PRN (Reason: Dry Eye(S)) Qty: 5 0RF Rx Instructions: refills thru [facility] prednisone 5 mg tablet 5 mg PO DAILY PRN (Reason: Chemical reaction) Qty: 20 5RF rabeprazole [AcipHex] 20 mg tablet,delayed release (DR/EC) 20 mg PO QDAY Qty: 90 3RF Referrals: Brock Joseph DO [Primary Care Provider] - Stand Alone Forms: Patient Portal/API
[2024-01-17] MEDS: SODIUM CHLORIDE 0.9% 1,000 ML 1000 ML IV (19:54)
[2024-01-17] MEDS: ONDANSETRON 4 MG/2 ML INJ IV (19:54)
[2024-01-17 20:02] LABS: Add Manual Diff / Slide Review NO; Basophils Absolute Auto 0 /uL (0-100); Basophils Percent Auto 0.4 % (0-2); Eosinophils Absolute Auto 0 /uL (0-450); Eosinophils Percent Auto 0.2 % (2-4); Hematocrit 39.1 % (41-53); Hemoglobin 13.2 g/dL (13.5-17.5); Lymphocytes Absolute Auto 1300 /uL (1100-4500); Mean Corpuscular HGB Conc 33.8 % (30-36); Mean Corpuscular Hemoglobin 29.9 PG (26-34); Mean Corpuscular Volume 88.3 fL (80-100); Monocytes Absolute Auto 700 /uL (0-900); Neutrophils Absolute Auto 5100 /uL (1500-7000); Neutrophils Percent Auto 71.4 % (50-75); Platelet Count 115 X10^3/uL (150-400); Red Blood Cell Count 4.43 X10^6/uL (4.5-5.9); Red Cell Distribution Width 15.2 % (11.6-14.8); White Blood Cell Count 7.2 X10^3/uL (4.5-11.0)
[2024-01-17 20:16] LABS: Alanine Aminotransferase 47 IU/L (<50); Albumin 4.7 g/dL (3.5-5.0); Albumin Globulin Ratio 1.3 (1.0-2.8); Alkaline Phosphatase 116 U/L (38-126); Aspartate Aminotransferase 86 IU/L (17-59); BUN Creatinine Ratio 11.8 (6-22); Bilirubin Total 0.6 mg/dL (0.2-1.3); Blood Urea Nitrogen 8 mg/dL (9-20); Calcium 9.4 mg/dL (8.4-10.2); Carbon Dioxide 22 mmol/L (22-32); Chloride 98 mmol/L (98-107); Creatine Kinase 248 U/L (55-170); Estimated Glomerular Filt Rate > 60 mL/min (>60); Globulin 3.6 g/dL (1.7-4.1); Glucose 189 mg/dL (70-100); HEMOLYSIS < 15 (0-50); Magnesium 1.5 mg/dL (1.6-2.3); Potassium 3.5 mmol/L (3.4-5.1); Sodium 133 mmol/L (137-145); Total Protein 8.3 g/dL (6.3-8.2)
[2024-01-17] MEDS: HYDRALAZINE 20 MG/ML VIAL 10 MG IV (21:38)
[2024-01-17 22:30] LABS: Troponin I 0.056 ng/mL (0.01-0.034)
[2024-01-17] MEDS: LORazepam 2 MG/ML INJ IV (22:42)
[2024-01-17] MEDS: METOPROLOL ER 50 MG TABLET PO (23:03)
== END 2024-01-17 23:10 | disposition home or self-care (01) ==
PROVIDERS: Emergency Provider Emergency Medicine; Family Provider Student in an Organized Health Care Education/Training Program; PCP Family Medicine
DX: I16.0 Hypertensive urgency (principal); E86.0 Dehydration; F10.90 Alcohol use, unspecified, uncomplicated; R42 Dizziness and giddiness; R00.0 Tachycardia, unspecified
CPT/HCPCS: 36415; 80053; 82550; 83735; 84484; 85025; 93005; 93010; 96361; 96374; 96375; 99284; J0360; J2060; J2405

== ENCOUNTER 2024-02-04 16:52 | Emergency (ER) | payer OTHER, SELFPAY ==
[2023-07-14 16:01] VITALS: BMI 25.8
[2024-02-04] VITALS (17 sets, daily range): BP systolic 155–195; BP diastolic 89–150; PULSE 96–123; RESP 16–24; TEMP 36.9; O2SAT 94–97; BMI 25.0
--- NOTE | 2024-02-04 18:07 | DI.RAD.S_ITS ---
PROCEDURE: XR CHEST 1V INDICATIONS: SOB TECHNIQUE: One view of the chest was acquired. COMPARISON: [facility], CR, XR CHEST 1V, 07/14/2023, 2:34. FINDINGS: Surgical changes and devices: None. Lungs and pleura: Lungs are clear. No pleural effusions or pneumothorax. Mediastinum: Mediastinal contours appear normal. Heart size is normal. Bones and chest wall: No suspicious bony lesions. Overlying soft tissues appear unremarkable. IMPRESSION: No acute cardiopulmonary abnormality is seen. Dictated by: Nicole Mcconnell M.D. on 02/04/2024 at 20:08 Approved by: Nicole Mcconnell M.D. on 02/04/2024 at 20:09
--- NOTE | 2024-02-04 19:31 | PC.NURSE ---
Pt report given to Estefani DIAMOND
[2024-02-04 20:07] LABS: Add Manual Diff / Slide Review NO; Basophils Absolute Auto 0 /uL (0-100); Basophils Percent Auto 0.5 % (0-2); Eosinophils Absolute Auto 0 /uL (0-450); Eosinophils Percent Auto 0.4 % (2-4); Hematocrit 36.2 % (41-53); Hemoglobin 12.6 g/dL (13.5-17.5); Lymphocytes Absolute Auto 1200 /uL (1100-4500); Lymphocytes Percent Auto 18.9 % (25-40); Mean Corpuscular HGB Conc 34.9 % (30-36); Mean Corpuscular Hemoglobin 30.2 PG (26-34); Mean Corpuscular Volume 86.7 fL (80-100); Monocytes Absolute Auto 1000 /uL (0-900); Neutrophils Absolute Auto 4200 /uL (1500-7000); Neutrophils Percent Auto 64.2 % (50-75); Platelet Count 196 X10^3/uL (150-400); Red Blood Cell Count 4.17 X10^6/uL (4.5-5.9); Red Cell Distribution Width 14.6 % (11.6-14.8); White Blood Cell Count 6.5 X10^3/uL (4.5-11.0)
[2024-02-04 20:24] LABS: Alanine Aminotransferase 57 IU/L (<50); Albumin 4.9 g/dL (3.5-5.0); Albumin Globulin Ratio 1.5 (1.0-2.8); Alkaline Phosphatase 110 U/L (38-126); Aspartate Aminotransferase 73 IU/L (17-59); BUN Creatinine Ratio 14.7 (6-22); Bilirubin Total 0.7 mg/dL (0.2-1.3); Blood Urea Nitrogen 10 mg/dL (9-20); Calcium 8.9 mg/dL (8.4-10.2); Carbon Dioxide 24 mmol/L (22-32); Chloride 94 mmol/L (98-107); Creatine Kinase 200 U/L (55-170); Estimated Glomerular Filt Rate > 60 mL/min (>60); Ethanol (ETOH) < 10 mg/dL; Globulin 3.3 g/dL (1.7-4.1); Glucose 130 mg/dL (70-100); HEMOLYSIS 21 (0-50); Lipase 140 U/L (23-300); Potassium 3.5 mmol/L (3.4-5.1); Sodium 128 mmol/L (137-145); Total Protein 8.2 g/dL (6.3-8.2)
[2024-02-04 20:35] LABS: Troponin I 0.051 ng/mL (0.01-0.034)
--- NOTE | 2024-02-04 20:47 | ED_ITS ---
HPI - General Adult General Chief complaint: Toxicology Problem Stated complaint: HBP, racing heart, chest pain Time Seen by Provider: 02/04/24 18:06 Source: patient Mode of arrival: Ambulatory History of Present Illness HPI narrative: Patient is a 58-year-old male. Is here for evaluation of high blood pressure and heart beating fast and lightheadedness. He has a significant alcohol use history. He states that for the past several days he has been drinking quite a bit of vodka. He states he did go almost 1 day without drinking and then today started to have the symptoms. He did drink earlier today. He denies headache or vision changes. He states he gets lightheaded when he stands up. Is somewhat shaky. He thinks that he potentially has ?alcohol poisoning?. He denies any vomiting. No recent travel. Related Data Previous Rx's Medication Instructions Recorded tadalafil 20 mg tablet 20 mg PO DAILY PRN sexual activity 11/15/22 #30 tabs prednisone 5 mg tablet 5 mg PO DAILY PRN Chemical 07/03/23 reaction #20 tabs rabeprazole 20 mg tablet,delayed 20 mg PO QDAY #90 tabs 08/02/23 release (AcipHex) azelastine 137 mcg (0.1 %) nasal 137 mcg (0.137 mL) intranasal Q12H 10/28/23 spray aerosol PRN allergy symptoms #30 mL fluorometholone 0.1 % eye 1 drp EYE-BOTH BID PRN Dry Eye(S) 10/28/23 drops,suspension #5 mL amlodipine 10 mg tablet 10 mg PO DAILY #90 tabs 12/17/23 clonazepam 0.5 mg tablet 0.5 mg PO BID PRN anxiety #60 tabs 01/07/24 meclizine 25 mg tablet 25 mg PO BID PRN dizziness #20 tabs 02/04/24 Allergies Allergy/AdvReac Type Severity Reaction Status Date / Time cefazolin Allergy Unknown Verified 01/06/24 13:03 cephalexin Allergy Unknown RASH Verified 01/06/24 13:03 hydrocodone Allergy Unknown UNKNOWN Verified 01/06/24 13:03 Penicillins Allergy Unknown DYSPNEA Verified 01/06/24 13:03 Sulfa (Sulfonamide Allergy Unknown HOT-COLD Verified 01/06/24 13:03 Antibiotics) FLASHES hydromorphone AdvReac Severe Palpitation Verified 01/06/24 13:03 s narcotics Allergy Unknown states, Uncoded 01/06/24 13:03 all narcotic except for percocet Review of Systems Review of Systems ROS Unobtainable: All systems reviewed & are unremarkable except as noted in HPI and below Patient History Medical History Type 2 diabetes mellitus without complication, with no history of insulin use IFG (impaired fasting glucose) Allergic angioedema Asymptomatic bunion Eczema Chronic alcoholism Anxiety Mixed hyperlipidemia (10/06/15) Gastroesophageal reflux disease without esophagitis (10/06/15) Essential hypertension (10/06/15) Erectile dysfunction (10/06/15) Surgical History History of hernia repair (~2003) Perianal cyst (~1999) History of gastric surgery (~2003) Family History Father Cerebrovascular accident (CVA), unspecified mechanism Mother Autoimmune hepatitis Grandmother No problems noted. Social History household members: family and none Smoking Status: Never smoker alcohol intake: current Smoking Status: Never smoker alcohol intake frequency: 3 or more drinks per day Alcohol type: hard liquor Substance Use Type: does not use Exam Initial Vital Signs Initial Vital Signs: Vital Signs Temperature 98.5 F 02/04/24 17:07 Pulse Rate 116 H 02/04/24 17:07 Respiratory Rate 16 02/04/24 17:07 Blood Pressure 163/94 H 02/04/24 17:07 Pulse Oximetry 97 02/04/24 17:07 Oxygen Delivery Method Room Air 02/04/24 17:07 Const General: cooperative and No ill appearing HENMT Head: normal to inspection and normocephalic Resp Effort & Inspection: normal respiratory effort Auscultation: clear to auscultation bilaterally Cardio Rate: tachycardic Rhythm: regular rhythm GI Inspection: normal to inspection and non-distended Skin General: no rashes or lesions noted Neuro General: patient alert and moves all extremities Psych Affect: anxious affect Course Orders Ordered: ED Orders 02/04/24 18:07 XR chest 1V Stat EKG-12 Lead Stat 02/04/24 19:50 Complete Blood Count AUTO DIFF Stat Comprehensive Metabolic Panel Stat Ethanol (ETOH) Stat Lipase Stat Troponin & CK Cardiac Panel Stat Discontinued Medications Sodium Chloride (Normal Saline 0.9%) 1,000 mls @ 1,000 mls/hr IV BOLUS ONE Stop: 02/04/24 21:47 Last Infusion: 02/04/24 22:03 Dose: Infused Documented By: Admin: 02/04/24 21:22 Dose: 1,000 mls/hr Documented By: CHARAN Thiamine HCl 100 mg/ Sodium (Chloride) 101 mls @ 404 mls/hr IV NOW ONE Stop: 02/04/24 20:49 Last Infusion: 02/04/24 21:43 Dose: Infused Documented By: Admin: 02/04/24 21:18 Dose: 404 mls/hr Documented By: CHARAN Lorazepam (Lorazepam 2 Mg/Ml Inj) 1 mg IV NOW ONE Stop: 02/04/24 20:49 Last Admin: 02/04/24 21:19 Dose: 1 mg Documented By: CHARAN Meclizine HCl (Meclizine Hcl 12.5 Mg Tablet) 25 mg PO NOW ONE Stop: 02/04/24 23:38 Last Admin: 02/04/24 23:52 Dose: 25 mg Documented By: HENRRY Ondansetron HCl (Ondansetron 4 Mg/2 Ml Inj) 4 mg IV NOW ONE Stop: 02/04/24 20:49 Last Admin: 02/04/24 21:18 Dose: 4 mg Documented By: CHARAN Vital Signs Vital signs: Vital Signs - 8 hr 02/04/24 19:09 02/04/24 19:10 02/04/24 19:10 Pulse Rate 116 H 112 H Respiratory Rate Blood Pressure 172/101 H Pulse Oximetry 97 97 Oxygen Delivery Method Room Air Room Air 02/04/24 19:19 02/04/24 19:19 02/04/24 19:30 Pulse Rate 117 H 110 H Respiratory Rate 20 Blood Pressure 177/95 H Pulse Oximetry 97 97 Oxygen Delivery Method Room Air 02/04/24 19:30 02/04/24 20:00 02/04/24 20:00 Pulse Rate 109 H Respiratory Rate 19 Blood Pressure 176/92 H 177/92 H Pulse Oximetry 96 Oxygen Delivery Method Room Air 02/04/24 20:30 02/04/24 21:00 02/04/24 21:24 Pulse Rate 112 H 109 H Respiratory Rate 21 23 Blood Pressure 190/89 H Pulse Oximetry 96 95 Oxygen Delivery Method Room Air Room Air 02/04/24 21:24 02/04/24 21:30 02/04/24 21:30 Pulse Rate 98 H 102 H Respiratory Rate 21 20 Blood Pressure 190/95 H Pulse Oximetry 94 95 Oxygen Delivery Method Room Air 02/04/24 21:37 02/04/24 21:37 02/04/24 22:00 Pulse Rate 112 H 106 H Respiratory Rate 24 20 Blood Pressure 195/96 H Pulse Oximetry 96 97 Oxygen Delivery Method Room Air Room Air 02/04/24 22:01 02/04/24 22:01 02/04/24 22:30 Pulse Rate 123 H Respiratory Rate 19 Blood Pressure 174/150 H 181/121 H Pulse Oximetry Oxygen Delivery Method 02/04/24 22:30 02/04/24 23:00 02/04/24 23:00 Pulse Rate 115 H 96 H Respiratory Rate 22 17 Blood Pressure 164/91 H Pulse Oximetry 96 Oxygen Delivery Method Room Air 02/04/24 23:19 02/04/24 23:19 02/04/24 23:30 Pulse Rate 112 H Respiratory Rate 20 Blood Pressure 180/95 H 155/96 H Pulse Oximetry 96 Oxygen Delivery Method Room Air 02/04/24 23:30 02/05/24 00:00 Pulse Rate 117 H 103 H Respiratory Rate 22 21 Blood Pressure Pulse Oximetry 97 97 Oxygen Delivery Method Room Air Room Air Medical Decision Making Lab Data Lab results reviewed: Yes I reviewed the patient's lab results. 02/04/24 19:50 02/04/24 19:50 Labs: Lab Results 02/04/24 Range/Units 19:50 WBC 6.5 (4.5-11.0) X10^3/uL RBC 4.17 L (4.5-5.9) X10^6/uL Hgb 12.6 L (13.5-17.5) g/dL Hct 36.2 L (41-53) % MCV 86.7 (80-100) fL MCH 30.2 (26-34) PG MCHC 34.9 (30-36) % RDW 14.6 (11.6-14.8) % Plt Count 196 (150-400) X10^3/uL Neut % (Auto) 64.2 (50-75) % Lymph % (Auto) 18.9 L (25-40) % [place] % (Auto) 16.0 H (3-14) % Eos % (Auto) 0.4 L (2-4) % Baso % (Auto) 0.5 (0-2) % Neut # (Auto) 4200 (0629-1169) /uL Lymph # (Auto) 1200 (5499-0260) /uL [place] # (Auto) 1000 H (0-900) /uL Eos # (Auto) 0 (0-450) /uL Baso # (Auto) 0 (0-100) /uL Sodium 128 L (137-145) mmol/L Potassium 3.5 (3.4-5.1) mmol/L Chloride 94 L (98-107) mmol/L Carbon Dioxide 24 (22-32) mmol/L BUN 10 (9-20) mg/dL Creatinine 0.68 (0.66-1.25) mg/dL Estimated GFR > 60 (>60) mL/min BUN/Creatinine Ratio 14.7 (6-22) Glucose 130 H (70-100) mg/dL Calcium 8.9 (8.4-10.2) mg/dL Total Bilirubin 0.7 (0.2-1.3) mg/dL AST 73 H (17-59) IU/L ALT 57 H (<50) IU/L Alkaline Phosphatase 110 (38-126) U/L Total Creatine Kinase 200 H (55-170) U/L Troponin I 0.051 H (0.01-0.034) ng/mL Total Protein 8.2 (6.3-8.2) g/dL Albumin 4.9 (3.5-5.0) g/dL Globulin 3.3 (1.7-4.1) g/dL Albumin/Globulin Ratio 1.5 (1.0-2.8) Lipase 140 (23-300) U/L Ethyl Alcohol < 10 ( - 10) mg/dL Imaging Data Chest x-ray: Radiologist's Impression: PROCEDURE: XR CHEST 1V INDICATIONS: SOB TECHNIQUE: One view of the chest was acquired. COMPARISON: [facility], CR, XR CHEST 1V, 07/14/2023, 2:34. FINDINGS: Surgical changes and devices: None. Lungs and pleura: Lungs are clear. No pleural effusions or pneumothorax. Mediastinum: Mediastinal contours appear normal. Heart size is normal. Bones and chest wall: No suspicious bony lesions. Overlying soft tissues appear unremarkable. IMPRESSION: No acute cardiopulmonary abnormality is seen. ECG Data Attestation: I personally reviewed and interpreted this ECG as follows: Interpretation: Sinus tachycardia Ventricular rate of 111 Normal axis LVH Normal QRS No ST T wave changes in MDM Narrative Medical decision making narrative: His presenting symptoms today are most consistent with alcohol withdrawal. Low suspicion for ACS. There was no indication of any infectious process. He reports some improvement after Ativan. Was tolerating oral intake. Was able to stand and walk in the emergency department with a steady gait. Patient declined the offer for rehab/treatment. There was no indication for admission to the hospital today. He states he does have a sponsor that he can call. Will discharge home with meclizine to try to help with some of the dizziness but I suspect that this is related to his alcohol use. He was given return precautions. Discharge Plan Departure Patient Disposition: Home Clinical Impression: Dizziness, Alcohol withdrawal Instructions: DI for Dizziness-Nonvertigo Activity Restrictions/Additional Instructions: Continue to take all of your medications as directed. I do recommend that you consider cutting back on the amount of alcohol that you are drinking as I have a very high suspicion that your presenting symptoms today are related to alcohol withdrawal. Return to the emergency department for new or worsening symptoms Prescriptions: New meclizine 25 mg tablet 25 mg PO BID PRN (Reason: dizziness) Qty: 20 0RF No Action amlodipine 10 mg tablet 10 mg PO DAILY Qty: 90 3RF clonazepam 0.5 mg tablet 0.5 mg PO BID PRN (Reason: anxiety) Qty: 60 2RF Rx Instructions: Fill on11/17/23 tadalafil 20 mg tablet 20 mg PO DAILY PRN (Reason: sexual activity) Qty: 30 11RF Rx Instructions: administer approximately 30min before sexual activity; do not use more than 1 dose per 24hrs azelastine 137 mcg (0.1 %) aerosol,spray 137 mcg intranasal Q12H PRN (Reason: allergy symptoms) Qty: 30 11RF Rx Instructions: administer into each nostril fluorometholone 0.1 % drops,suspension 1 drp EYE-BOTH BID PRN (Reason: Dry Eye(S)) Qty: 5 0RF Rx Instructions: refills thru [facility] prednisone 5 mg tablet 5 mg PO DAILY PRN (Reason: Chemical reaction) Qty: 20 5RF rabeprazole [AcipHex] 20 mg tablet,delayed release (DR/EC) 20 mg PO QDAY Qty: 90 3RF Referrals: Brock Joseph DO [Primary Care Provider] - Stand Alone Forms: Patient Portal/API
[2024-02-04] MEDS: ONDANSETRON 4 MG/2 ML INJ IV (21:18)
[2024-02-04] MEDS: THIAMINE 100 MG in SODIUM CHLORIDE 0.9% 100 ML 404 MG IV (21:18)
[2024-02-04] MEDS: LORazepam 2 MG/ML INJ 1 MG IV (21:19)
[2024-02-04] MEDS: SODIUM CHLORIDE 0.9% 1,000 ML 1000 ML IV (21:22)
--- NOTE | 2024-02-04 23:20 | PC.NURSE ---
Per Dr. Lance- do an ambulation trial. Patient ambulated with a steady gait. Asymptomatic.
[2024-02-04] MEDS: MECLIZINE HCL 12.5 MG TABLET 25 MG PO (23:52)
[2024-02-05] VITALS: PULSE 103; RESP 21; O2SAT 97
== END 2024-02-05 00:19 | disposition home or self-care (01) ==
PROVIDERS: Emergency Provider Emergency Medicine; Family Provider Student in an Organized Health Care Education/Training Program; PCP Family Medicine
DX: R42 Dizziness and giddiness (principal); F10.239 Alcohol dependence with withdrawal, unspecified; R00.0 Tachycardia, unspecified
CPT/HCPCS: 36415; 71045; 80053; 80320; 82550; 83690; 84484; 85025; 93005; 96361; 96374; 96375; 99284; J2060; J2405

== ENCOUNTER 2024-02-05 14:07 | Emergency (ER) | payer OTHER, SELFPAY ==
[2023-07-14 16:01] VITALS: BMI 25.8
[2024-02-05 14:10] VITALS: BP 134/84; PULSE 95; RESP 18; TEMP 37; O2SAT 97; BMI 25.7
[2024-02-05] MEDS: ONDANSETRON 4 MG/2 ML INJ IV (14:35)
[2024-02-05] MEDS: SODIUM CHLORIDE 0.9% 1,000 ML 1000 ML IV ×2 (14:36→19:10)
[2024-02-05 15:50] LABS: Add Manual Diff / Slide Review NO; Basophils Absolute Auto 0 /uL (0-100); Basophils Percent Auto 0.3 % (0-2); Eosinophils Absolute Auto 0 /uL (0-450); Eosinophils Percent Auto 0.1 % (2-4); Hematocrit 40.8 % (41-53); Lymphocytes Absolute Auto 1900 /uL (1100-4500); Lymphocytes Percent Auto 19.4 % (25-40); Mean Corpuscular HGB Conc 34.2 % (30-36); Mean Corpuscular Hemoglobin 29.7 PG (26-34); Mean Corpuscular Volume 86.6 fL (80-100); Monocytes Absolute Auto 800 /uL (0-900); Monocytes Percent Auto 8.4 % (3-14); Neutrophils Absolute Auto 6900 /uL (1500-7000); Neutrophils Percent Auto 71.8 % (50-75); Platelet Count 309 X10^3/uL (150-400); Red Blood Cell Count 4.71 X10^6/uL (4.5-5.9); Red Cell Distribution Width 14.5 % (11.6-14.8); White Blood Cell Count 9.6 X10^3/uL (4.5-11.0)
[2024-02-05 15:53] VITALS: BP 182/88; PULSE 92; RESP 14; O2SAT 99
[2024-02-05 15:53] LABS: Appearance Urine UA CLEAR; Bilirubin Urine UA NEGATIVE (NEGATIVE); Color Urine UA YELLOW; Glucose Urine UA 2+ g/dL (Negative); Ketones Urine UA TRACE (NEGATIVE); Leukocyte Esterase Urine UA NEGATIVE (NEGATIVE); Nitrite Urine UA NEGATIVE (Negative); Occult Blood Urine UA NEGATIVE (Negative); Protein Urine UA 2+ (Negative); Urobilinogen Urine UA 0.2 E.U./dL (0.2)
[2024-02-05 15:56] LABS: UR Morphine/Opiate cutoff 300 Negative (Negative); Ur Creatinine Normal (Normal); Ur Specific Gravity Normal (Normal); Urine Amphetamines Negative (Negative); Urine Barbiturates Negative (Negative); Urine Benzodiazepines Positive (Negative); Urine Cocaine Negative (Negative); Urine MDMA Negative (Negative); Urine Methadone Negative (Negative); Urine Methamphetamines Negative (Negative); Urine Oxycodone Negative (Negative); Urine Phencyclidine Negative (Negative); Urine Tetrahydrocannabinol Negative (Negative); Urine Tricyclic Antidepressant Negative (Negative); Urine pH Normal (Normal)
[2024-02-05] MEDS: LORazepam 2 MG/ML INJ 0.5 MG IV (15:56)
[2024-02-05 15:57] LABS: Ethanol (ETOH) < 10 mg/dL
[2024-02-05 15:58] LABS: Alanine Aminotransferase 53 IU/L (<50); Albumin 5.2 g/dL (3.5-5.0); Albumin Globulin Ratio 1.5 (1.0-2.8); Alkaline Phosphatase 158 U/L (38-126); Aspartate Aminotransferase 65 IU/L (17-59); Blood Urea Nitrogen 4 mg/dL (9-20); Calcium 9.4 mg/dL (8.4-10.2); Carbon Dioxide 21 mmol/L (22-32); Chloride 87 mmol/L (98-107); Estimated Glomerular Filt Rate > 60 mL/min (>60); Globulin 3.5 g/dL (1.7-4.1); Glucose 200 mg/dL (70-100); HEMOLYSIS < 15 (0-50); Lipase 115 U/L (23-300); Potassium 3.5 mmol/L (3.4-5.1); Sodium 123 mmol/L (137-145); Total Protein 8.7 g/dL (6.3-8.2)
[2024-02-05 16:00] VITALS: PULSE 81; O2SAT 98
[2024-02-05 16:00] LABS: Bacteria Urine Occasional (0-1); Culture Indicated Urine Cult Not Indicated; Hyaline Casts Urine 0-1/LPF; Mucus Urine 1+ (Negative); RBC Urine 0-1/HPF (0-5/HPF); Squamous Epithelial Cell Urine 0-1 /HPF (0-5/HPF); Urine Volume 10mL (spun); WBC Urine 0-1/HPF (0-5/HPF)
[2024-02-05 16:15] VITALS: PULSE 91; O2SAT 97
[2024-02-05 16:28] LABS: Creatine Kinase 302 U/L (55-170)
[2024-02-05 16:30] VITALS: BP 154/91; PULSE 91; O2SAT 97
--- NOTE | 2024-02-05 18:02 | ED.DIZZY ---
HPI - Dizziness General Chief Complaint: Dizziness Stated Complaint: dizzy, feels like passing out Time Seen by Provider: 02/05/24 17:46 Source: patient Mode of arrival: Wheelchair History of Present Illness HPI Narrative: 58-year-old male with history of hypertension, alcohol use disorder presents for lightheadedness and near-syncope. Also reports nausea and vomiting. Patient is seen in the ER last night for similar symptoms. At that time workup was significant for mild hyponatremia with sodium 128 (baseline for patient 130-135). He was discharged home with prescription for meclizine. Patient returned this afternoon feeling worse. Last drink of alcohol yesterday. Related Data Previous Rx's Medication Instructions Recorded tadalafil 20 mg tablet 20 mg PO DAILY PRN sexual activity 11/15/22 #30 tabs prednisone 5 mg tablet 5 mg PO DAILY PRN Chemical 07/03/23 reaction #20 tabs rabeprazole 20 mg tablet,delayed 20 mg PO QDAY #90 tabs 08/02/23 release (AcipHex) azelastine 137 mcg (0.1 %) nasal 137 mcg (0.137 mL) intranasal Q12H 10/28/23 spray aerosol PRN allergy symptoms #30 mL fluorometholone 0.1 % eye 1 drp EYE-BOTH BID PRN Dry Eye(S) 10/28/23 drops,suspension #5 mL amlodipine 10 mg tablet 10 mg PO DAILY #90 tabs 12/17/23 clonazepam 0.5 mg tablet 0.5 mg PO BID PRN anxiety #60 tabs 01/07/24 meclizine 25 mg tablet 25 mg PO BID PRN dizziness #20 tabs 02/04/24 Allergies Allergy/AdvReac Type Severity Reaction Status Date / Time cefazolin Allergy Unknown Verified 01/06/24 13:03 cephalexin Allergy Unknown RASH Verified 01/06/24 13:03 hydrocodone Allergy Unknown UNKNOWN Verified 01/06/24 13:03 Penicillins Allergy Unknown DYSPNEA Verified 01/06/24 13:03 Sulfa (Sulfonamide Allergy Unknown HOT-COLD Verified 01/06/24 13:03 Antibiotics) FLASHES hydromorphone AdvReac Severe Palpitation Verified 01/06/24 13:03 s narcotics Allergy Unknown states, Uncoded 01/06/24 13:03 all narcotic except for percocet Review of Systems Review of Systems Narrative: See HPI Patient History Medical History Type 2 diabetes mellitus without complication, with no history of insulin use IFG (impaired fasting glucose) Allergic angioedema Asymptomatic bunion Eczema Chronic alcoholism Anxiety Mixed hyperlipidemia (10/06/15) Gastroesophageal reflux disease without esophagitis (10/06/15) Essential hypertension (10/06/15) Erectile dysfunction (10/06/15) Surgical History History of hernia repair (~2003) Perianal cyst (~1999) History of gastric surgery (~2003) Family History Father Cerebrovascular accident (CVA), unspecified mechanism Mother Autoimmune hepatitis Grandmother No problems noted. Social History household members: family and none Smoking Status: Never smoker alcohol intake: current Smoking Status: Never smoker alcohol intake frequency: 3 or more drinks per day Alcohol type: hard liquor Substance Use Type: does not use Exam Initial Vital Signs Initial Vital Signs: Vital Signs Temperature 98.6 F 02/05/24 14:10 Pulse Rate 95 H 02/05/24 14:10 Respiratory Rate 18 02/05/24 14:10 Blood Pressure 134/84 02/05/24 14:10 Pulse Oximetry 97 02/05/24 14:10 Oxygen Delivery Method Room Air 02/05/24 14:10 Const: Awake, alert, appears chronically unwell Cardiac: regular rate, regular rhythm RESP: unlabored, clear bilaterally, no wheezing Skin: Warm, Dry, intact, no rashes Neuro: AO x3, CN II-XII grossly intact, moves all extremities Course Orders Ordered: ED Orders 02/05/24 20:15 BMP [Basic Metabolic Panel] Stat Discontinued Medications Sodium Chloride (Normal Saline 0.9%) 1,000 mls @ 1,000 mls/hr IV BOLUS ONE Stop: 02/05/24 15:30 Last Infusion: 02/05/24 15:58 Dose: Infused Documented By: Admin: 02/05/24 14:36 Dose: 1,000 mls/hr Documented By: DESTINI Sodium Chloride (Normal Saline 0.9%) 1,000 mls @ 1,000 mls/hr IV BOLUS ONE Stop: 02/05/24 19:32 Last Infusion: 02/05/24 20:21 Dose: Infused Documented By: Admin: 02/05/24 19:10 Dose: 1,000 mls/hr Documented By: FELECIA Lorazepam (Lorazepam 2 Mg/Ml Inj) 0.5 mg IV NOW ONE Stop: 02/05/24 15:42 Last Admin: 02/05/24 15:56 Dose: 0.5 mg Documented By: LALO Meclizine HCl (Meclizine Hcl 12.5 Mg Tablet) 25 mg PO NOW ONE Stop: 02/05/24 15:07 Last Admin: 02/05/24 16:19 Dose: Not Given Documented By: JESÚS Ondansetron HCl (Ondansetron 4 Mg/2 Ml Inj) 4 mg IV NOW ONE Stop: 02/05/24 14:32 Last Admin: 02/05/24 14:35 Dose: 4 mg Documented By: DESTINI Phenobarbital (Phenobarbital 65 Mg/Ml Vial) 260 mg IV NOW ONE Stop: 02/05/24 18:34 Last Admin: 02/05/24 19:10 Dose: 260 mg Documented By: FELECIA Vital Signs Vital signs: Vital Signs - 8 hr 02/05/24 21:03 Pulse Rate 91 H Respiratory Rate 17 Blood Pressure 150/88 H Pulse Oximetry 97 Oxygen Delivery Method Room Air MDM - Dizziness Differential Diagnosis Differential diagnosis: Likely adverse reaction to drug, benign paroxysmal positional vertigo and orthostatic hypotension Lab Data 02/05/24 14:25 02/05/24 20:15 Labs: Lab Results 02/05/24 02/05/24 02/05/24 Range/Units 14:25 15:06 15:06 WBC 9.6 (4.5-11.0) X10^3/uL RBC 4.71 (4.5-5.9) X10^6/uL Hgb 14.0 (13.5-17.5) g/dL Hct 40.8 L (41-53) % MCV 86.6 (80-100) fL MCH 29.7 (26-34) PG MCHC 34.2 (30-36) % RDW 14.5 (11.6-14.8) % Plt Count 309 (150-400) X10^3/uL Neut % (Auto) 71.8 (50-75) % Lymph % (Auto) 19.4 L (25-40) % [place] % (Auto) 8.4 (3-14) % Eos % (Auto) 0.1 L (2-4) % Baso % (Auto) 0.3 (0-2) % Neut # (Auto) 6900 (2193-0767) /uL Lymph # (Auto) 1900 (2121-3869) /uL [place] # (Auto) 800 (0-900) /uL Eos # (Auto) 0 (0-450) /uL Baso # (Auto) 0 (0-100) /uL Sodium 123 L (137-145) mmol/L Potassium 3.5 (3.4-5.1) mmol/L Chloride 87 L (98-107) mmol/L Carbon Dioxide 21 L (22-32) mmol/L BUN 4 L (9-20) mg/dL Creatinine 0.67 (0.66-1.25) mg/dL Estimated GFR > 60 (>60) mL/min BUN/Creatinine Ratio 6.0 (6-22) Glucose 200 H (70-100) mg/dL Calcium 9.4 (8.4-10.2) mg/dL Total Bilirubin 1.0 (0.2-1.3) mg/dL AST 65 H (17-59) IU/L ALT 53 H (<50) IU/L Alkaline Phosphatase 158 H (38-126) U/L Total Creatine Kinase 302 H (55-170) U/L Troponin I 0.040 H (0.01-0.034) ng/mL Total Protein 8.7 H (6.3-8.2) g/dL Albumin 5.2 H (3.5-5.0) g/dL Globulin 3.5 (1.7-4.1) g/dL Albumin/Globulin Ratio 1.5 (1.0-2.8) Lipase 115 (23-300) U/L Urine Color Yellow Urine Appearance Clear Urine pH 7.0 Normal (4.5-8.0) Ur Specific [place] 1.020 (1.000-1.035) Urine Protein 2+ H (Negative) Urine Glucose (UA) 2+ H (Negative) g/dL Urine Ketones Trace H (NEGATIVE) Urine Occult Blood Negative (Negative) Urine Nitrate Negative (Negative) Urine Bilirubin Negative (NEGATIVE) Urine Urobilinogen 0.2 (0.2) E.U./dL Ur Leukocyte Esterase Negative (NEGATIVE) Urine RBC 0-1/hpf (0-5/HPF) Urine WBC 0-1/hpf (0-5/HPF) Ur Squamous Epith Cells 0-1 /hpf (0-5/HPF) Urine Bacteria Occasional (0-1) (None) Hyaline Casts 0-1/lpf (None) Urine Mucus 1+ H (Negative) Ur Culture Indicated? Cult not indicated Vol Urine Centrifuged 10ml (spun) U Opiates 300ng/mL cut Negative (Negative) Ur Oxycodone Screen Negative (Negative) Urine Methadone Screen Negative (Negative) Ur Barbiturates Screen Negative (Negative) U Tricyclic Antidepress Negative (Negative) Ur Phencyclidine Scrn Negative (Negative) Ur Amphetamines Screen Negative (Negative) U Methamphetamines Scrn Negative (Negative) Ur MDMA Scrn (Ecstasy) Negative (Negative) U Benzodiazepines Scrn Positive H (Negative) Urine Cocaine Screen Negative (Negative) U Marijuana (THC) Screen Negative (Negative) Urine Specific [place] Normal (Normal) Ethyl Alcohol < 10 ( - 10) mg/dL Ur Creatinine Normal (Normal) 02/05/24 Range/Units 20:15 WBC (4.5-11.0) X10^3/uL RBC (4.5-5.9) X10^6/uL Hgb (13.5-17.5) g/dL Hct (41-53) % MCV (80-100) fL MCH (26-34) PG MCHC (30-36) % RDW (11.6-14.8) % Plt Count (150-400) X10^3/uL Neut % (Auto) (50-75) % Lymph % (Auto) (25-40) % [place] % (Auto) (3-14) % Eos % (Auto) (2-4) % Baso % (Auto) (0-2) % Neut # (Auto) (8224-5599) /uL Lymph # (Auto) (4271-0973) /uL [place] # (Auto) (0-900) /uL Eos # (Auto) (0-450) /uL Baso # (Auto) (0-100) /uL Sodium 126 L (137-145) mmol/L Potassium 3.8 (3.4-5.1) mmol/L Chloride 94 L (98-107) mmol/L Carbon Dioxide 21 L (22-32) mmol/L BUN 4 L (9-20) mg/dL Creatinine 0.59 L (0.66-1.25) mg/dL Estimated GFR > 60 (>60) mL/min BUN/Creatinine Ratio 6.8 (6-22) Glucose 202 H (70-100) mg/dL Calcium 8.8 (8.4-10.2) mg/dL Total Bilirubin (0.2-1.3) mg/dL AST (17-59) IU/L ALT (<50) IU/L Alkaline Phosphatase (38-126) U/L Total Creatine Kinase (55-170) U/L Troponin I (0.01-0.034) ng/mL Total Protein (6.3-8.2) g/dL Albumin (3.5-5.0) g/dL Globulin (1.7-4.1) g/dL Albumin/Globulin Ratio (1.0-2.8) Lipase (23-300) U/L Urine Color Urine Appearance Urine pH (4.5-8.0) Ur Specific [place] (1.000-1.035) Urine Protein (Negative) Urine Glucose (UA) (Negative) g/dL Urine Ketones (NEGATIVE) Urine Occult Blood (Negative) Urine Nitrate (Negative) Urine Bilirubin (NEGATIVE) Urine Urobilinogen (0.2) E.U./dL Ur Leukocyte Esterase (NEGATIVE) Urine RBC (0-5/HPF) Urine WBC (0-5/HPF) Ur Squamous Epith Cells (0-5/HPF) Urine Bacteria (None) Hyaline Casts (None) Urine Mucus (Negative) Ur Culture Indicated? Vol Urine Centrifuged U Opiates 300ng/mL cut (Negative) Ur Oxycodone Screen (Negative) Urine Methadone Screen (Negative) Ur Barbiturates Screen (Negative) U Tricyclic Antidepress (Negative) Ur Phencyclidine Scrn (Negative) Ur Amphetamines Screen (Negative) U Methamphetamines Scrn (Negative) Ur MDMA Scrn (Ecstasy) (Negative) U Benzodiazepines Scrn (Negative) Urine Cocaine Screen (Negative) U Marijuana (THC) Screen (Negative) Urine Specific [place] (Normal) Ethyl Alcohol ( - 10) mg/dL Ur Creatinine (Normal) MDM Narrative Medical decision making narrative: Patient presenting for lightheadedness, nausea, and passing out sensation. No actual loss of consciousness. Last drink last night. Laboratory work ordered in triage is significant for decrease in sodium even compared to yesterday with sodium 123 compared to 128 last night. Patient has been given an Ativan from triage upon my evaluation. Hyponatremia likely secondary to alcohol use. Laboratory work discussed with the patient, offered possible admission for hyponatremia that is now symptomatic. Patient reports extreme reluctance to be admitted to the hospital because he states he is highly allergic to the cleaning products used in the hospital and they cause him respiratory difficulties and significant itching. We will give IV fluids and p.o. challenge as well as phenobarbital for anxiety. After 1 L of IV fluids patient's sodium corrected to 126. He tolerated p.o. fluids and solids and reported feeling significantly improved. Patient stated that he would like to go home and does not want to stay in the hospital. I offered patient a Librium taper for alcohol cravings, however patient stated that he did not need this medication and he was resolved to quit on his own. He states that he has a sponsor in [employer] that he will contact to help him stop drinking. Discharge Plan Departure Patient Disposition: Home Clinical Impression: Hyponatremia, Alcohol withdrawal Instructions: DI for Dizziness-Nonvertigo Activity Restrictions/Additional Instructions: Your laboratory work showed that you have a lower sodium level than you normally have, however this was improved with medical fluids. Stopping drinking we will help to increase her sodium as well as eating salty foods. Please continue to abstain from alcohol products as this will make her symptoms worse. Prescriptions: No Action amlodipine 10 mg tablet 10 mg PO DAILY Qty: 90 3RF clonazepam 0.5 mg tablet 0.5 mg PO BID PRN (Reason: anxiety) Qty: 60 2RF Rx Instructions: Fill on11/17/23 tadalafil 20 mg tablet 20 mg PO DAILY PRN (Reason: sexual activity) Qty: 30 11RF Rx Instructions: administer approximately 30min before sexual activity; do not use more than 1 dose per 24hrs azelastine 137 mcg (0.1 %) aerosol,spray 137 mcg intranasal Q12H PRN (Reason: allergy symptoms) Qty: 30 11RF Rx Instructions: administer into each nostril fluorometholone 0.1 % drops,suspension 1 drp EYE-BOTH BID PRN (Reason: Dry Eye(S)) Qty: 5 0RF Rx Instructions: refills thru [facility] prednisone 5 mg tablet 5 mg PO DAILY PRN (Reason: Chemical reaction) Qty: 20 5RF rabeprazole [AcipHex] 20 mg tablet,delayed release (DR/EC) 20 mg PO QDAY Qty: 90 3RF meclizine 25 mg tablet 25 mg PO BID PRN (Reason: dizziness) Qty: 20 0RF Referrals: Brock Joseph DO [Primary Care Provider] - Stand Alone Forms: Patient Portal/API
[2024-02-05] MEDS: PHENobarbital 65 MG/ML VIAL 260 MG IV (19:10)
[2024-02-05 20:38] LABS: BUN Creatinine Ratio 6.8 (6-22); Blood Urea Nitrogen 4 mg/dL (9-20); Calcium 8.8 mg/dL (8.4-10.2); Carbon Dioxide 21 mmol/L (22-32); Chloride 94 mmol/L (98-107); Estimated Glomerular Filt Rate > 60 mL/min (>60); Glucose 202 mg/dL (70-100); HEMOLYSIS < 15 (0-50); Potassium 3.8 mmol/L (3.4-5.1); Sodium 126 mmol/L (137-145)
[2024-02-05 21:03] VITALS: BP 150/88; PULSE 91; RESP 17; O2SAT 97
== END 2024-02-05 21:42 | disposition home or self-care (01) ==
PROVIDERS: Emergency Medicine; Emergency Provider Emergency Medicine; Family Provider Student in an Organized Health Care Education/Training Program; PCP Family Medicine
DX: E87.1 Hypo-osmolality and hyponatremia (principal); F10.239 Alcohol dependence with withdrawal, unspecified; R11.2 Nausea with vomiting, unspecified
CPT/HCPCS: 36415; 80048; 80053; 80305; 80320; 81001; 82550; 83690; 84484; 85025; 93005; 96361; 96374; 96375; 99284; J2060; J2405; J2560

== ENCOUNTER → 2024-06-13 08:03 | Outpatient (CLI) | payer OTHER, SELFPAY ==
[2023-07-14 16:01] VITALS: BMI 25.8
[2024-06-13 10:27] LABS: Alanine Aminotransferase 76 IU/L (<50); Albumin 4.8 g/dL (3.5-5.0); Albumin Globulin Ratio 1.4 (1.0-2.8); Alkaline Phosphatase 94 U/L (38-126); Aspartate Aminotransferase 62 IU/L (17-59); BUN Creatinine Ratio 16.4 (6-22); Bilirubin Total 0.6 mg/dL (0.2-1.3); Blood Urea Nitrogen 21 mg/dL (9-20); Calcium 9.8 mg/dL (8.4-10.2); Carbon Dioxide 24 mmol/L (22-32); Chloride 107 mmol/L (98-107); Cholesterol 177 mg/dL (140-199); Estimated Glomerular Filt Rate > 60 mL/min (>60); Globulin 3.4 g/dL (1.7-4.1); Glucose 130 mg/dL (70-100); HDL Cholesterol 55 mg/dL (40-60); HEMOLYSIS 35 (0-50); LDL Cholesterol Calculated 81 mg/dL (<100); Potassium 4.8 mmol/L (3.4-5.1); Sodium 141 mmol/L (137-145); Total Protein 8.2 g/dL (6.3-8.2); Triglycerides 206 mg/dL (35-150)
[2024-06-13 10:57] LABS: Prostate Specific Antigen Scrn 2.86 ng/mL (0.1-4.0)
== END ==
LOC: LAB 08:04
PROVIDERS: Family Provider Student in an Organized Health Care Education/Training Program; PCP Family Medicine; Referring Provider Family Medicine; Visit Provider Family Medicine
DX: Z11.4 Encounter for screening for human immunodeficiency virus [HIV] (principal); Z12.5 Encounter for screening for malignant neoplasm of prostate; E78.2 Mixed hyperlipidemia; E11.29 Type 2 diabetes mellitus with other diabetic kidney complication; R80.9 Proteinuria, unspecified
CPT/HCPCS: 36415; 80053; 80061; 83036; G0103

== ENCOUNTER 2024-08-11 06:52 | Observation (INO) | payer OTHER, SELFPAY ==
[2023-07-14 16:01] VITALS: BMI 25.8
[2024-08-11] VITALS (17 sets, daily range): BP systolic 117–181; BP diastolic 77–104; PULSE 71–105; RESP 12–24; TEMP 36.5–37.2; O2SAT 93–98; BMI 26.1
--- NOTE | 2024-08-11 07:05 | ED_ITS ---
HPI - Alcohol General Chief Complaint: Dizziness Stated Complaint: feels like he is having a stroke Time Seen by Provider: 08/11/24 07:04 Source: patient, RN notes reviewed and old records reviewed Mode of arrival: Wheelchair Limitations: no limitations History of Present Illness HPI narrative: 59-year-old male history of hypertension, alcohol use disorder who presents for complaint of withdrawal symptoms. Patient states he feels lightheaded, feels like he was going to pass out, notes a little bit of chest discomfort, no shortness of breath, reports nausea and vomiting denies any diarrhea. Denies any abdominal back or flank pain. States he is felt shaky and crampy. Denies any history of seizures. Patient states he has not had hallucinations in the past. States last drink was 2 days ago and has had worsening symptoms since. Did take his amlodipine and clonazepam. Patient states multiple medication allergies. Denies tobacco, drinks vodka daily states a large amount indicates about a bottle. Denies any recreational drugs. Related Data Previous Rx's Medication Instructions Recorded prednisone 5 mg tablet 5 mg PO DAILY PRN Chemical 07/03/23 reaction #20 tabs rabeprazole 20 mg tablet,delayed 20 mg PO QDAY #90 tabs 08/02/23 release (AcipHex) azelastine 137 mcg (0.1 %) nasal 137 mcg (0.137 mL) intranasal Q12H 10/28/23 spray PRN allergy symptoms #30 mL fluorometholone 0.1 % eye 1 drp EYE-BOTH BID PRN Dry Eye(S) 10/28/23 drops,suspension #5 mL meclizine 25 mg tablet 25 mg PO BID PRN dizziness #20 tabs 02/04/24 tadalafil 20 mg tablet 20 mg PO DAILY PRN sexual activity 02/24/24 #30 tabs amlodipine 10 mg tablet 10 mg PO DAILY #90 tabs 04/13/24 clonazepam 0.5 mg tablet 0.5 mg PO BID PRN anxiety #60 tabs 05/14/24 Allergies Allergy/AdvReac Type Severity Reaction Status Date / Time cefazolin Allergy Unknown Verified 01/06/24 13:03 cephalexin Allergy Unknown RASH Verified 01/06/24 13:03 hydrocodone Allergy Unknown UNKNOWN Verified 01/06/24 13:03 Penicillins Allergy Unknown DYSPNEA Verified 01/06/24 13:03 Sulfa (Sulfonamide Allergy Unknown HOT-COLD Verified 01/06/24 13:03 Antibiotics) FLASHES hydromorphone AdvReac Severe Palpitation Verified 01/06/24 13:03 s narcotics Allergy Unknown states, Uncoded 01/06/24 13:03 all narcotic except for percocet Review of Systems Review of Systems ROS Unobtainable: All systems reviewed & are unremarkable except as noted in HPI and below Patient History Medical History Type 2 diabetes mellitus without complication, with no history of insulin use IFG (impaired fasting glucose) Allergic angioedema Asymptomatic bunion Eczema Chronic alcoholism Anxiety Mixed hyperlipidemia (10/06/15) Gastroesophageal reflux disease without esophagitis (10/06/15) Essential hypertension (10/06/15) Erectile dysfunction (10/06/15) Surgical History History of hernia repair (~2003) Perianal cyst (~1999) History of gastric surgery (~2003) Family History Father Cerebrovascular accident (CVA), unspecified mechanism Mother Autoimmune hepatitis Grandmother No problems noted. Social History household members: family and none Smoking Status: Never smoker alcohol intake: current Smoking Status: Never smoker alcohol intake frequency: 3 or more drinks per day Alcohol type: hard liquor Substance Use Type: does not use Exam Narrative Exam Narrative: GENERAL: Alert and oriented x three, male in mild distress. HEENT: Head normocephalic, atraumatic, EOMI, pupils reactive, face symmetric, moist mucous membranes NECK: Supple, full range of motion CARDIOVASCULAR: Regular rate and rhythm without murmurs, rubs or gallops. No JVD. No edema bilateral lower extremities. RESPIRATORY: Breath sounds equal bilaterally, no wheezes rales or rhonchi. No tachypnea. ABDOMEN: Soft, nontender. Normoactive bowel sounds all 4 quadrants. No guarding or rebound, rigidity, no mass, patient is sipping aime angelia in the room. : No CVA tenderness EXTREMITIES: Normal range of motion, no clubbing or edema. Neurovascularly intact NEUROLOGICAL: Cranial nerves II through XII grossly intact. Moving all extremities, no tremor. SKIN: Warm, dry, no petechiae, no rashes or lesions. Initial Vital Signs Initial Vital Signs: Vital Signs Temperature 97.7 F 08/11/24 06:59 Pulse Rate 104 H 08/11/24 06:59 Respiratory Rate 24 08/11/24 06:59 Blood Pressure 175/77 H 08/11/24 06:59 Pulse Oximetry 94 08/11/24 06:59 Oxygen Delivery Method Room Air 08/11/24 06:59 Course Orders Ordered: ED Orders 08/11/24 07:13 Consult to [facility] - [employer] Operator Stat XR chest 1V Stat EKG-12 Lead Stat 08/11/24 07:25 Complete Blood Count AUTO DIFF Stat Comprehensive Metabolic Panel Stat Ethanol (ETOH) Stat TSH w/ Reflex to FT4 Stat Troponin & CK Cardiac Panel Stat 08/11/24 09:00 Creatinine Urine Random Stat Sodium Urine Random Stat Urine Drug Screen, Rapid Stat Urine Microscopic Stat 08/11/24 09:32 Lipase Stat Trop I [Troponin I] Stat 08/11/24 09:47 US abdomen limited Stat Discontinued Medications Ibuprofen (Ibuprofen 400 Mg Tablet) 800 mg PO NOW ONE Stop: 08/11/24 10:22 Phenobarbital (Phenobarbital 65 Mg/Ml Vial) 260 mg IV NOW ONE Stop: 08/11/24 07:14 Last Admin: 08/11/24 07:32 Dose: 260 mg Documented By: BELIA Phenobarbital (Phenobarbital 65 Mg/Ml Vial) 130 mg IV NOW ONE Stop: 08/11/24 10:23 Vital Signs Vital signs: Vital Signs - 8 hr 08/11/24 06:59 08/11/24 07:30 08/11/24 08:00 Temperature 97.7 F Pulse Rate 104 H 85 71 Respiratory Rate 24 21 12 Blood Pressure 175/77 H 181/93 H 162/89 H Pulse Oximetry 94 93 96 Oxygen Delivery Method Room Air Room Air 08/11/24 08:30 08/11/24 09:00 Temperature Pulse Rate 74 80 Respiratory Rate 14 Blood Pressure 157/86 H 175/94 H Pulse Oximetry 96 95 Oxygen Delivery Method Room Air Room Air MDM - Alcohol Lab Data 08/11/24 07:25 08/11/24 07:25 Labs: Lab Results 08/11/24 08/11/24 08/11/24 Range/Units 07:25 09:00 09:32 WBC 9.6 (4.5-11.0) X10^3/uL RBC 4.94 (4.5-5.9) X10^6/uL Hgb 15.3 (13.5-17.5) g/dL Hct 43.8 (41-53) % MCV 88.7 (80-100) fL MCH 31.0 (26-34) PG MCHC 35.0 (30-36) % RDW 14.3 (11.6-14.8) % Plt Count 212 (150-400) X10^3/uL Neut % (Auto) 86.1 H (50-75) % Lymph % (Auto) 6.5 L (25-40) % [place] % (Auto) 7.2 (3-14) % Eos % (Auto) 0.0 L (2-4) % Baso % (Auto) 0.2 (0-2) % Neut # (Auto) 8200 H (8500-7834) /uL Lymph # (Auto) 600 L (2051-3009) /uL [place] # (Auto) 700 (0-900) /uL Eos # (Auto) 0 (0-450) /uL Baso # (Auto) 0 (0-100) /uL Sodium 122 L (137-145) mmol/L Potassium 3.7 (3.4-5.1) mmol/L Chloride 84 L (98-107) mmol/L Carbon Dioxide 21 L (22-32) mmol/L BUN 6 L (9-20) mg/dL Creatinine 0.66 (0.66-1.25) mg/dL Estimated GFR > 60 (>60) mL/min BUN/Creatinine Ratio 9.1 (6-22) Glucose 217 H (70-100) mg/dL Calcium 9.4 (8.4-10.2) mg/dL Total Bilirubin 1.7 H (0.2-1.3) mg/dL AST 53 (17-59) IU/L ALT 71 H (<50) IU/L Alkaline Phosphatase 128 H (38-126) U/L Total Creatine Kinase 410 H (55-170) U/L Troponin I 0.028 0.024 (0.01-0.034) ng/mL Total Protein 8.9 H (6.3-8.2) g/dL Albumin 5.2 H (3.5-5.0) g/dL Globulin 3.7 (1.7-4.1) g/dL Albumin/Globulin Ratio 1.4 (1.0-2.8) Lipase 160 (23-300) U/L TSH 0.60 (0.47-4.68) uIU/mL Urine RBC 1-5/hpf (0-5/HPF) Urine WBC 0-1/hpf (0-5/HPF) Ur Squamous Epith Cells 0-1 /hpf (0-5/HPF) Urine Bacteria Occasional (0-1) (None) Ur Culture Indicated? Cult not indicated Vol Urine Centrifuged 10ml (spun) Ur Random Sodium 83 (30-90) mmol/L Urine Creatinine 78.26 mg/dL U Opiates 300ng/mL cut Negative (Negative) Ur Oxycodone Screen Negative (Negative) Urine Methadone Screen Negative (Negative) Ur Barbiturates Screen Negative (Negative) U Tricyclic Antidepress Negative (Negative) Ur Phencyclidine Scrn Negative (Negative) Ur Amphetamines Screen Negative (Negative) U Methamphetamines Scrn Negative (Negative) Ur MDMA Scrn (Ecstasy) Negative (Negative) U Benzodiazepines Scrn Negative (Negative) Urine Cocaine Screen Negative (Negative) U Marijuana (THC) Screen Negative (Negative) Urine pH Normal (Normal) Urine Specific [place] Normal (Normal) Ethyl Alcohol < 10 ( - 10) mg/dL Ur Creatinine Normal (Normal) Urine Dip Bedside Urine Glucose 1000 mg/dl Bedside Urine Bilirubin - Negative Bedside Urine Ketone ++ 40 Urine Specific [place] 1.015 Bedside Urine Occult Blood ++ Bedside Urine pH 7.0 Bedside Urine Protein ++ 100 Bedside Urine Urobilinogen - Negative Bedside Urine Nitrite - Negative Bedside Urine Leukocytes - Negative Esterase Imaging Data Chest x-ray: Radiologist's Impressoin: [address] [address] XRay Report Signed Patient: Patrick Huber MR#: [id number] : 1965 Acct:[id number] Age/Sex: 59 / M Date of Service: 08/11/24 Loc: ED Accession Number: [id number] Procedure: XR chest 1V Ordering Provider: Tiffanie Zhou D.O. PROCEDURE: XR CHEST 1V INDICATIONS: etoh withdrawl chest pain TECHNIQUE: One view of the chest was acquired. COMPARISON: [facility], CR, XR CHEST 1V, 02/04/2024, 18:58. FINDINGS: Surgical changes and devices: None. Lungs and pleura: Lungs are clear. No pleural effusions or pneumothorax. Mediastinum: Mediastinal contours appear normal. Heart size is normal. Bones and chest wall: No suspicious bony lesions. Overlying soft tissues appear unremarkable. IMPRESSION: No acute cardiopulmonary pathology. Dictated by: Ger Bahena M.D. on 08/11/2024 at 8:14 Approved by: Ger Bahena M.D. on 08/11/2024 at 8:15 ECG Data Attestation: I personally reviewed and interpreted this ECG as follows: Prior ECG tracings: available for review Interpretation: Sinus rhythm rate of 92 SC 146 QRS 86 QRS of 492, no acute ST elevation or depression. Patient has prior from 02/05/2024 which appears similar. Repeat EKG shows sinus rhythm left axis deviation, rate of 98 SC 140 QRS 84 QTC of 485, no acute ST elevation depression noted. [facility] Narrative Medical decision making narrative: 59-year-old male who presents with complaint of alcohol withdrawal states that he has felt dizzy, had a little bit chest discomfort nausea vomiting, he states his chief complaint that feels like he has having a stroke but does not have any acute neurologic changes described. Labs white count of 9.6 hemoglobin of 15.3 platelets of 212. Sodium is 122 was 141 in June, potassium 3.7 chloride 84 CO2 is 21 with a BUN of 6 and a creatinine of 0.66 glucose is 217. Total bilirubin is 1.7, AST is 53 with ALT is 71 alk-phos is 128 total CK is 410 with a troponin 0.028, TSH is 0.6 repeat troponin is 0.024. Lipase is normal at 160. EKG shows sinus rhythm Chest x-ray shows no acute change Abdominal ultrasound Patient received phenobarb 260 mg Patient states he has been vomiting but is drinking aime angelia in the room. Patient's CIWA 8 up from initial, patient became a little bit more tachycardic. Given additional dose of phenobarbital and ibuprofen as he was little bit of complaint of headache. Patient presents with complaint of alcohol withdrawal but also found to be hyponatremic maybe related to chronic alcohol use but significant drop from June when he was 141. Patient is having symptoms currently. Spoke with Dr. Harris, hospitalist asked for lipase added on which was negative and abdominal ultrasound. Asked no fluids to be given will likely need to fluid restrict based on urine sodium and urine creatinine. Updated on findings. Can go ahead and flipped inpatient while awaiting ultrasound. Critical Care Time Critical Care Time Critical Care Time: Yes Total Critical Care Time: 25 Attestation: The high probability of a clinically significant, sudden or life threatening deterioration of the neurologic system(s) required my full and direct attention, intervention and personal management. The aggregate critical care time was [--] minutes. This time is in addition to time spent performing reported procedures but includes the following: [x] Data Review and interpretation [x] Patient assessment and monitoring of vital signs [x] Documentation [x] Medication orders and management Discharge Plan Departure Patient Disposition: Admitted As Inpatient Clinical Impression: Hyponatremia, Alcohol withdrawal Admit Date/Time: 08/11/24 10:34 Admit Provider: Reno Harris
--- NOTE | 2024-08-11 07:09 | PC.NURSE ---
Pt states he has been feeling sick the past couple days. Pt states he has been taking clonazepam 0.5mg daily w/ last dose 4 hours ago for anxiety. Pt reports his last drink was 3 days ago. Pt denies abd pain. Pt denies diarrhea or cough but does state he is n/v. Pt reports hand cramps and feeling super dehydrated.
--- NOTE | 2024-08-11 07:13 | DI.RAD.S_ITS ---
PROCEDURE: XR CHEST 1V INDICATIONS: etoh withdrawl chest pain TECHNIQUE: One view of the chest was acquired. COMPARISON: [facility], CR, XR CHEST 1V, 02/04/2024, 18:58. FINDINGS: Surgical changes and devices: None. Lungs and pleura: Lungs are clear. No pleural effusions or pneumothorax. Mediastinum: Mediastinal contours appear normal. Heart size is normal. Bones and chest wall: No suspicious bony lesions. Overlying soft tissues appear unremarkable. IMPRESSION: No acute cardiopulmonary pathology. Dictated by: Ger Bahena M.D. on 08/11/2024 at 8:14 Approved by: Ger Bahena M.D. on 08/11/2024 at 8:15
--- NOTE | 2024-08-11 07:21 | EKG_ITS ---
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
[2024-08-11] MEDS: PHENobarbital 65 MG/ML VIAL 260 MG IV (07:32)
[2024-08-11 07:37] LABS: Add Manual Diff / Slide Review NO; Basophils Absolute Auto 0 /uL (0-100); Basophils Percent Auto 0.2 % (0-2); Eosinophils Absolute Auto 0 /uL (0-450); Hematocrit 43.8 % (41-53); Hemoglobin 15.3 g/dL (13.5-17.5); Lymphocytes Absolute Auto 600 /uL (1100-4500); Lymphocytes Percent Auto 6.5 % (25-40); Mean Corpuscular Volume 88.7 fL (80-100); Monocytes Absolute Auto 700 /uL (0-900); Monocytes Percent Auto 7.2 % (3-14); Neutrophils Absolute Auto 8200 /uL (1500-7000); Neutrophils Percent Auto 86.1 % (50-75); Platelet Count 212 X10^3/uL (150-400); Red Blood Cell Count 4.94 X10^6/uL (4.5-5.9); Red Cell Distribution Width 14.3 % (11.6-14.8); White Blood Cell Count 9.6 X10^3/uL (4.5-11.0)
[2024-08-11 07:46] LABS: Alanine Aminotransferase 71 IU/L (<50); Albumin 5.2 g/dL (3.5-5.0); Albumin Globulin Ratio 1.4 (1.0-2.8); Alkaline Phosphatase 128 U/L (38-126); Aspartate Aminotransferase 53 IU/L (17-59); BUN Creatinine Ratio 9.1 (6-22); Bilirubin Total 1.7 mg/dL (0.2-1.3); Blood Urea Nitrogen 6 mg/dL (9-20); Calcium 9.4 mg/dL (8.4-10.2); Carbon Dioxide 21 mmol/L (22-32); Chloride 84 mmol/L (98-107); Creatine Kinase 410 U/L (55-170); Estimated Glomerular Filt Rate > 60 mL/min (>60); Ethanol (ETOH) < 10 mg/dL; Globulin 3.7 g/dL (1.7-4.1); Glucose 217 mg/dL (70-100); HEMOLYSIS < 15 (0-50); Potassium 3.7 mmol/L (3.4-5.1); Sodium 122 mmol/L (137-145); Total Protein 8.9 g/dL (6.3-8.2)
[2024-08-11 07:57] LABS: Troponin I 0.028 ng/mL (0.01-0.034)
[2024-08-11 09:24] LABS: Ur Creatinine Normal (Normal); Ur Specific Gravity Normal (Normal); Urine Amphetamines Negative (Negative); Urine Barbiturates Negative (Negative); Urine Benzodiazepines Negative (Negative); Urine Cocaine Negative (Negative); Urine MDMA Negative (Negative); Urine Methadone Negative (Negative); Urine Methamphetamines Negative (Negative); Urine Opiates Negative (Negative); Urine Oxycodone Negative (Negative); Urine Phencyclidine Negative (Negative); Urine THC Negative (Negative); Urine Tricyclic Antidepressant Negative (Negative); Urine pH Normal (Normal)
[2024-08-11 09:27] LABS: Bacteria Urine Occasional (0-1); Culture Indicated Urine Cult Not Indicated; RBC Urine 1-5/HPF (0-5/HPF); Squamous Epithelial Cell Urine 0-1 /HPF (0-5/HPF); Urine Volume 10mL (spun); WBC Urine 0-1/HPF (0-5/HPF)
[2024-08-11 09:42] LABS: Creatinine Urine Random 78.26 mg/dL; Sodium Urine Random 83 mmol/L (30-90)
--- NOTE | 2024-08-11 09:47 | DI.US.S_ITS ---
PROCEDURE: US ABDOMEN LIMITED INDICATIONS: elevated lfts, hx etoh abuse TECHNIQUE: Real-time focused scanning was performed of the abdomen, with image documentation. COMPARISON: [facility], CT, CT ABDOMEN PELVIS WITHOUT CONTRAST, 07/23/2024, 9:48. [facility], US, US ABDOMEN LIMITED, 09/26/2023, 8:21. FINDINGS: The liver demonstrates mildly enlarged size. The liver demonstrates generalized moderately increased echogenicity. This decreases ultrasound sensitivity for detection of hepatic masses. The main portal vein demonstrates normal size and demonstrates normal appearing, hepatopetal flow. Status post cholecystectomy, without biliary dilatation. The common bile duct measures 5 mm. The pancreas is not well seen, secondary to overlying bowel gas. IMPRESSION: Enlarged, hyperechoic liver, which may related to cirrhosis or fatty infiltration. No focally suspicious liver lesion is seen by ultrasound. Dictated by: Roberto Thompson M.D. on 08/11/2024 at 10:00 Approved by: Roberto Thompson M.D. on 08/11/2024 at 10:02
[2024-08-11 10:00] LABS: Lipase 160 U/L (23-300)
[2024-08-11 10:01] LABS: Troponin I 0.024 ng/mL (0.01-0.034)
--- NOTE | 2024-08-11 10:05 | EKG_ITS ---
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
[2024-08-11] MEDS: PHENobarbital 65 MG/ML VIAL 130 MG IV (10:36)
[2024-08-11] MEDS: IBUPROFEN 400 MG TABLET 800 MG PO (10:38)
--- NOTE | 2024-08-11 11:18 | PC.NURSE ---
pt c/o persistent dizziness. hand cramps, cramp behind his head. Pt states he is not seeing double. pt c/o headache as well. 02/13.
--- NOTE | 2024-08-11 13:36 | PM.HP.1 ---
History of Present Illness History of Present Illness Date Patient Seen: 08/11/24 Time Patient Seen: 13:37 Chief complaint: feels like he is having a stroke Narrative: This is a 59 year old male with PMH of DM, HTN, GERD, Anxiety, EtOH use who presents with severe cramping, imbalance, headaches for the last two days. Patient reports symptoms started after he stopped drinking. He reports binge drinking on and off, occasionally gets mild tremors but never symptoms like this when he has stopped drinking before. He denies recent fever, chills, medication changes. He denies illicit substance use or smoking. No recent NSAID use. He did start trying to drink a large amount of water when he began to feel dizzy, but was unable to really keep anything down. He denies melena, or BRBPR, emesis was nonbloody. He denies chest pain or shortness of breath, he has no abdominal pain either or lower extremity edema. He feels improved after phenobarb in the ER. In the ER, he was mildly hypertensive but the remainder of his vital signs were unremarkable. CBC was unremarkable, chemistries did show a sodium of 122, T bili was up at 1.7 with mild elevations in AST and ALT though not consistent with alcoholic injury. Troponins x2 were within normal limits. TSH was unremarkable at 0.60. Urinalysis was not indicative of infection and urine drug screen was negative. Alcohol level was less than 10. He was admitted for further management of hyponatremia and alcohol withdrawal. [facility] Medical History Type 2 diabetes mellitus without complication, with no history of insulin use IFG (impaired fasting glucose) Allergic angioedema Asymptomatic bunion Eczema Chronic alcoholism Anxiety Mixed hyperlipidemia (10/06/15) Gastroesophageal reflux disease without esophagitis (10/06/15) Essential hypertension (10/06/15) Erectile dysfunction (10/06/15) Surgical History History of hernia repair (~2003) Perianal cyst (~1999) History of gastric surgery (~2003) Family History Father Cerebrovascular accident (CVA), unspecified mechanism Mother Autoimmune hepatitis Grandmother No problems noted. Social History household members: family and none Smoking Status: Never smoker alcohol intake: current Meds Home Medications and Allergies Home Medications Medication Instructions Recorded Confirmed Type prednisone 5 mg tablet 5 mg PO DAILY PRN Chemical 07/03/23 08/11/24 Rx reaction #20 tabs rabeprazole 20 mg tablet,delayed 20 mg PO QDAY #90 tabs 08/02/23 08/11/24 Rx release (AcipHex) azelastine 137 mcg (0.1 %) nasal 137 mcg (0.137 mL) intranasal Q12H 10/28/23 08/11/24 Rx spray PRN allergy symptoms #30 mL fluorometholone 0.1 % eye 1 drp EYE-BOTH BID PRN Dry Eye(S) 10/28/23 08/11/24 Rx drops,suspension #5 mL meclizine 25 mg tablet 25 mg PO BID PRN dizziness #20 tabs 02/04/24 08/11/24 Rx tadalafil 20 mg tablet 20 mg PO DAILY PRN sexual activity 02/24/24 08/11/24 Rx #30 tabs amlodipine 10 mg tablet 10 mg PO DAILY #90 tabs 04/13/24 08/11/24 Rx clonazepam 0.5 mg tablet 0.5 mg PO BID PRN anxiety #60 tabs 05/14/24 08/11/24 Rx Allergies Allergy/AdvReac Type Severity Reaction Status Date / Time cefazolin Allergy Unknown Verified 01/06/24 13:03 cephalexin Allergy Unknown RASH Verified 01/06/24 13:03 hydrocodone Allergy Unknown UNKNOWN Verified 01/06/24 13:03 Penicillins Allergy Unknown DYSPNEA Verified 01/06/24 13:03 Sulfa (Sulfonamide Allergy Unknown HOT-COLD Verified 01/06/24 13:03 Antibiotics) FLASHES hydromorphone AdvReac Severe Palpitation Verified 01/06/24 13:03 s narcotics Allergy Unknown states, Uncoded 01/06/24 13:03 all narcotic except for percocet Review of Systems Review of Systems Narrative: All other systems reviewed with the patient and are negative unless otherwise stated. Exam Vital Signs (past 8 hours): - 08/11/24 06:59 08/11/24 07:30 08/11/24 08:00 Temperature 97.7 F Pulse Rate 104 H 85 71 Respiratory Rate 24 21 12 Blood Pressure 175/77 H 181/93 H 162/89 H Pulse Oximetry 94 93 96 Oxygen Delivery Method Room Air Room Air Oxygen Flow Rate 08/11/24 08:30 08/11/24 09:00 08/11/24 09:08 Temperature Pulse Rate 74 80 88 Respiratory Rate 14 15 Blood Pressure 157/86 H 175/94 H Pulse Oximetry 96 95 95 Oxygen Delivery Method Room Air Room Air Oxygen Flow Rate 08/11/24 09:30 08/11/24 09:30 08/11/24 10:00 Temperature Pulse Rate 100 H 98 H Respiratory Rate 22 15 Blood Pressure 170/104 H Pulse Oximetry 96 95 Oxygen Delivery Method Oxygen Flow Rate 08/11/24 10:00 08/11/24 10:30 08/11/24 10:31 Temperature Pulse Rate 102 H 105 H Respiratory Rate 20 Blood Pressure 180/90 H Pulse Oximetry 93 93 Oxygen Delivery Method Oxygen Flow Rate 08/11/24 10:31 08/11/24 11:00 08/11/24 11:00 Temperature Pulse Rate 85 Respiratory Rate 15 Blood Pressure 167/92 H 173/95 H Pulse Oximetry 94 Oxygen Delivery Method Oxygen Flow Rate 08/11/24 11:53 08/11/24 11:56 Temperature 98.3 F Pulse Rate 92 H Respiratory Rate 18 Blood Pressure 158/83 H Pulse Oximetry 98 98 Oxygen Delivery Method Room Air Oxygen Flow Rate 0 0 Oxygen Delivery Method Room Air Oxygen Flow Rate 0 Narrative Exam Narrative: General:? Patient is well developed and well nourished, in no distress at this time. HEENT:? Normocephalic, atraumatic, extraocular muscles intact, oral pharynx is clear and mucous membranes are moist. Neck: supple and symmetric, trachea is midline, no cervical adenopathy. Negative for JVD Chest:? Normal AP diameter and contour without kyphoscoliosis, no tachypnea, equal chest rise bilaterally. Lungs:? CTA b/l no wheezing rhonchi or rales. Cardio:?RRR no m/r/g. Abdomen: S NT ND. Musculoskeletal:? Muscle strength and tone are equal within normal limits, no deformity. Extremities: No edema or joint effusions. No cyanosis or clubbing. Skin:? Pale,? Warm to touch,dry and intact without rashes, ulcerations or petechiae.? Neuro:? Alert and orientated x3,? sensation to touch intact in all extremities, no gross deficits noted of cranial nerves. No nystagmus on eye exam. EOMI. Psych:? Patient has a well-kept appearance, appropriate affect, mental status attitude thought context and judgment are appropriate for age. Objective ECG Impression: Normal sinus rhythm, with LVH and prior septal infarct. Stable on repeat examination, no changes consistent with acute ischemia. Labs 08/11/24 07:25 08/11/24 13:44 Labs: Laboratory Results - last 24 hr 08/11/24 08/11/24 08/11/24 07:25 09:00 09:32 WBC 9.6 RBC 4.94 Hgb 15.3 Hct 43.8 MCV 88.7 MCH 31.0 MCHC 35.0 RDW 14.3 Plt Count 212 Neut % (Auto) 86.1 H Lymph % (Auto) 6.5 L [place] % (Auto) 7.2 Eos % (Auto) 0.0 L Baso % (Auto) 0.2 Neut # (Auto) 8200 H Lymph # (Auto) 600 L [place] # (Auto) 700 Eos # (Auto) 0 Baso # (Auto) 0 Sodium 122 L Potassium 3.7 Chloride 84 L Carbon Dioxide 21 L BUN 6 L Creatinine 0.66 Estimated GFR > 60 BUN/Creatinine Ratio 9.1 Glucose 217 H Calcium 9.4 Total Bilirubin 1.7 H AST 53 ALT 71 H Alkaline Phosphatase 128 H Total Creatine Kinase 410 H Troponin I 0.028 0.024 Total Protein 8.9 H Albumin 5.2 H Globulin 3.7 Albumin/Globulin Ratio 1.4 Lipase 160 TSH 0.60 Urine RBC 1-5/hpf Urine WBC 0-1/hpf Ur Squamous Epith Cells 0-1 /hpf Urine Bacteria Occasional (0-1) Ur Culture Indicated? Cult not indicated Vol Urine Centrifuged 10ml (spun) Ur Random Sodium 83 Urine Creatinine 78.26 U Opiates 300ng/mL cut Negative Ur Oxycodone Screen Negative Urine Methadone Screen Negative Ur Barbiturates Screen Negative U Tricyclic Antidepress Negative Ur Phencyclidine Scrn Negative Ur Amphetamines Screen Negative U Methamphetamines Scrn Negative Ur MDMA Scrn (Ecstasy) Negative U Benzodiazepines Scrn Negative Urine Cocaine Screen Negative U Marijuana (THC) Screen Negative Urine pH Normal Urine Specific [place] Normal Ethyl Alcohol < 10 Ur Creatinine Normal Assessment & Plan Assessment & Plan narrative: 1. Hyponatremia, acute, present on admission - likely symptomatic, urine sodium is high which is not consistent with hypovolemia, though history is concerning for this. - repeat Na is 119 from 122, trial 1L NS bolus and repeat in 3 hours. If not improving will give 3%. - hold NSAIDs 2. Alcohol withdrawal, present on admission, alcoholic hepatitis - likely mild symptoms, continue ativan per [facility] protocol. - more likely symptoms are related to hyponatremia, but will see with time - folate,thiamine, and MVI ordered. - possible mild alcoholic hepatitis with Tbili 1.7, but not typical 2:1 AST:ALT ratio. Continue to monitor with CMP 3. Hypertension - continue amlodipine. 4. Type 2 diabetes - no longer taking oral medications - monitor for now with BMP, consider FS ACHS with sliding scale if becomes more elevated. 5. Anxiety - continue home benzos in addition to ativan for anxiety 6. GERD - replace home PPI with pantoprazole 20 mg daily. Code: Full, surrogate is patient's brother DVT: Lovenox daily I have utilized all available immediate resources to obtain, update, or review the patient's current medications. Dispo: patient admitted under inpatient status. Anticipate discharge home, but may need therapy after correction of hyponatremia. Additional history obtained via discussions with the ER provider. These discussions contributed to the creation of the above assessment and plan. I have reviewed patient's presenting documentation, labs, and imaging personally. Time-Based Coding :: [TOTAL MINUTES] spent with patient and on the chart (including review of chart, obtaining history, exam, reviewing outside data, placing orders, documenting exam and treatment plan, and counseling patient) on [DATE].
[2024-08-11 14:00] LABS: BUN Creatinine Ratio 7.8 (6-22); Blood Urea Nitrogen 8 mg/dL (9-20); Calcium 8.8 mg/dL (8.4-10.2); Carbon Dioxide 21 mmol/L (22-32); Chloride 84 mmol/L (98-107); Estimated Glomerular Filt Rate > 60 mL/min (>60); Glucose 219 mg/dL (70-100); HEMOLYSIS < 15 (0-50); Potassium 4.1 mmol/L (3.4-5.1)
[2024-08-11 14:13] LABS: Sodium 119 mmol/L (137-145)
[2024-08-11] MEDS: SODIUM CHLORIDE 0.9% 1,000 ML 1000 ML IV (15:26)
[2024-08-11] MEDS: CALCIUM CARBONATE 500 MG TAB 1000 MG PO (16:20)
[2024-08-11 21:10] LABS: Blood Urea Nitrogen 15 mg/dL (9-20); Calcium 9.1 mg/dL (8.4-10.2); Carbon Dioxide 24 mmol/L (22-32); Chloride 91 mmol/L (98-107); Estimated Glomerular Filt Rate > 60 mL/min (>60); Glucose 149 mg/dL (70-100); HEMOLYSIS 17 (0-50); Potassium 3.9 mmol/L (3.4-5.1); Sodium 123 mmol/L (137-145)
[2024-08-11] MEDS: diphenhydrAMINE 25 MG TABLET PO (21:48)
[2024-08-12] VITALS: BP 118/70; PULSE 79; TEMP 36.8; O2SAT 97
[2024-08-12] MEDS: SODIUM CHLORIDE 0.9% 500 ML IV (01:02)
[2024-08-12 03:00] VITALS: O2SAT 97
[2024-08-12 04:00] VITALS: BP 132/95; PULSE 84; RESP 16; TEMP 36.6; O2SAT 98
[2024-08-12 06:06] LABS: Add Manual Diff / Slide Review NO; Basophils Absolute Auto 0 /uL (0-100); Basophils Percent Auto 0.4 % (0-2); Eosinophils Absolute Auto 0 /uL (0-450); Eosinophils Percent Auto 0.5 % (2-4); Hematocrit 42.5 % (41-53); Hemoglobin 14.5 g/dL (13.5-17.5); Lymphocytes Absolute Auto 1000 /uL (1100-4500); Lymphocytes Percent Auto 16.3 % (25-40); Mean Corpuscular HGB Conc 34.2 % (30-36); Mean Corpuscular Hemoglobin 30.7 PG (26-34); Mean Corpuscular Volume 89.7 fL (80-100); Monocytes Absolute Auto 600 /uL (0-900); Monocytes Percent Auto 10.3 % (3-14); Neutrophils Absolute Auto 4600 /uL (1500-7000); Neutrophils Percent Auto 72.5 % (50-75); Platelet Count 158 X10^3/uL (150-400); Red Blood Cell Count 4.73 X10^6/uL (4.5-5.9); Red Cell Distribution Width 14.6 % (11.6-14.8); White Blood Cell Count 6.3 X10^3/uL (4.5-11.0)
[2024-08-12] MEDS: PANTOPRAZOLE DR 20 MG TABLET PO (06:20)
[2024-08-12] MEDS: clonazePAM 0.5 MG TABLET PO (06:20)
[2024-08-12 06:29] LABS: Alanine Aminotransferase 56 IU/L (<50); Albumin 4.4 g/dL (3.5-5.0); Albumin Globulin Ratio 1.4 (1.0-2.8); Alkaline Phosphatase 96 U/L (38-126); Aspartate Aminotransferase 64 IU/L (17-59); BUN Creatinine Ratio 15.5 (6-22); Bilirubin Total 1.1 mg/dL (0.2-1.3); Blood Urea Nitrogen 15 mg/dL (9-20); Calcium 9.2 mg/dL (8.4-10.2); Carbon Dioxide 24 mmol/L (22-32); Chloride 98 mmol/L (98-107); Estimated Glomerular Filt Rate > 60 mL/min (>60); Globulin 3.1 g/dL (1.7-4.1); Glucose 163 mg/dL (70-100); HEMOLYSIS 24 (0-50); Potassium 3.6 mmol/L (3.4-5.1); Sodium 130 mmol/L (137-145); Total Protein 7.5 g/dL (6.3-8.2)
[2024-08-12 07:32] VITALS: O2SAT 98
[2024-08-12 08:00] VITALS: BP 142/88; PULSE 80; RESP 17; TEMP 36.5; O2SAT 97
[2024-08-12] MEDS: ENOXAPARIN 40 MG/0.4 ML SYRINGE SUBCUT (08:14)
[2024-08-12] MEDS: MULTIVITAMIN 1 TABLET 1 TAB PO (08:14)
[2024-08-12] MEDS: FOLIC ACID 1 MG TABLET PO (08:14)
[2024-08-12] MEDS: AMLODIPINE 5 MG TABLET 10 MG PO (08:14)
[2024-08-12] MEDS: THIAMINE 100 MG TABLET PO (08:14)
[2024-08-12] MEDS: MECLIZINE HCL 12.5 MG TABLET 25 MG PO (10:13)
--- NOTE | 2024-08-12 10:49 | CM.DANOTE ---
Initial DCP Assessment Visit Note Reviewed EMR and team rounds for pt's medical status and updates. Met with pt at bedside to introduce self and role, pt was found to be alert/oriented, able to discuss his concerns, and plan for d/c home-likely later today. Pt lives independently at baseline in his own apartment with his brother. He is employed full-time, denies any needs for SELVIN at this time. He will plan to walk home later today once he's medically cleared for d/c, he only lives about 2 [place]2 [address] from the hospital, and is no longer symptomatic. Payor: [facility] PCP: Dr. Joseph Pt is a 59 year-old M who presented to the ED yesterday with c/o alcohol withdrawal and feeling like I'm having a stroke. Symptoms included dizziness, chest discomfort, severe abdominal pain/cramping, chest discomfort, and N/V. Pt states that he hasn't drank in 2-days, and did not feel unwell until yesterday morning. Pt was given phenobarbital, which alleviated most of his discomfort. Today he is feeling much improved, states is ready to d/c home, denies any CM assistance/resources at this time. Will continue to monitor for any further evolving needs until he does d/c. 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 No History Provided By Patient,Medical Record Has Patient been admitted in last 30 No days? Prior Living Arrangements House Household Members family,none Type of transporation used prior to Drives own vehicle admit Independent with ADL's Yes Is patient alert and oriented? Yes Comment N/A Caregiver for Another No Comment N/A Comment N/A Comment No identified needs at this time. Barriers to Discharge No Discharge Plan Home Transportation Arrangement He will walk home, he only lives 2 [place]/2 blocks away. Referrals Initiated None needed Whiteboard Updated in Patient Room with Yes name and ext. # of Oil Extractor Review Status In Process Please Provide Date Initial DC 08/12/24 Assessment Was Performed
[2024-08-12 11:00] VITALS: O2SAT 98
[2024-08-12 11:15] LABS: BUN Creatinine Ratio 17.2 (6-22); Blood Urea Nitrogen 16 mg/dL (9-20); Calcium 9.2 mg/dL (8.4-10.2); Carbon Dioxide 24 mmol/L (22-32); Chloride 99 mmol/L (98-107); Estimated Glomerular Filt Rate > 60 mL/min (>60); Glucose 124 mg/dL (70-100); HEMOLYSIS 29 (0-50); Potassium 4.3 mmol/L (3.4-5.1); Sodium 132 mmol/L (137-145)
--- NOTE | 2024-08-12 11:56 | PM.DS.1 ---
History of Present Illness History of Present Illness Date Patient Seen: 08/12/24 Time Patient Seen: 11:56 Chief complaint: feels like he is having a stroke Narrative: This is a 59 year old male with PMH of DM, HTN, GERD, Anxiety, EtOH use who presents with severe cramping, imbalance, headaches for the last two days. Patient reports symptoms started after he stopped drinking. He reports binge drinking on and off, occasionally gets mild tremors but never symptoms like this when he has stopped drinking before. He denies recent fever, chills, medication changes. He denies illicit substance use or smoking. No recent NSAID use. He did start trying to drink a large amount of water when he began to feel dizzy, but was unable to really keep anything down. He denies melena, or BRBPR, emesis was nonbloody. He denies chest pain or shortness of breath, he has no abdominal pain either or lower extremity edema. He feels improved after phenobarb in the ER. In the ER, he was mildly hypertensive but the remainder of his vital signs were unremarkable. CBC was unremarkable, chemistries did show a sodium of 122, T bili was up at 1.7 with mild elevations in AST and ALT though not consistent with alcoholic injury. Troponins x2 were within normal limits. TSH was unremarkable at 0.60. Urinalysis was not indicative of infection and urine drug screen was negative. Alcohol level was less than 10. He was admitted for further management of hyponatremia and alcohol withdrawal. Discharge Providers Provider Date of admission: 08/11/24 10:34 Discharge Date: 08/12/24 Primary care physician: Brock Joseph DO Consults: 08/11/24 07:13 Consult to [facility] [place] - Cloth Neutralizer Stat Comment: Cloth Neutralizer Consult needed for:: Substance abuse Discharge provider: Reno Harris DO Summary Hospital Course Discharge Diagnosis: 1. Hyponatremia, acute, present on admission 2. Alcohol withdrawal, present on admission, alcoholic hepatitis 3. Hypertension 4. Type 2 diabetes 5. Anxiety 6. GERD Hospital Course: This is a 59-year-old male with a past medical history of hypertension, type 2 diabetes, anxiety, GERD, and chronic alcohol use who presented with gait instability likely due to his admission diagnosis which was severe hyponatremia. Initially his urine sodium was elevated, and a fluid restriction treatment plan was initiated, though his history was consistent with a hypovolemic etiology. His initial sodium went from 122 to 119, so he was subsequently given a 1L of fluids with improvement in his sodium and his reported dizziness. His sodium after a couple of fluid boluses increased to 130. A repeat was checked a few hours later and it was improving slowly to 132 without additional interventions at that time. Though this was relatively a fast correction, he possibly had an acute correction and he did rise <12 in 24 hours. With regards to possible alcohol withdrawal, he had a CIWA of 8 in the emergency room, but was not given further doses of Ativan after the course of admission but was given some phenobarbital in the emergency room for possible withdrawal. After his sodium returned at 132, the patient was discharged home as he was ambulating the halls without assistance. No medication changes were recommended at the time of discharge, and the patient was counseled on alcohol use. Time Spent with Patient Time spent: Greater than 30 minutes Exam Vital Signs (past 8 hours): - 08/12/24 04:00 08/12/24 07:32 08/12/24 08:00 Temperature 97.9 F 97.7 F Pulse Rate 84 80 Respiratory Rate 16 17 Blood Pressure 132/95 H 142/88 H Pulse Oximetry 98 98 97 Oxygen Delivery Method Room Air Oxygen Flow Rate 0 0 08/12/24 11:00 Temperature Pulse Rate Respiratory Rate Blood Pressure Pulse Oximetry 98 Oxygen Delivery Method Room Air Oxygen Flow Rate 0 Oxygen Delivery Method Room Air Oxygen Flow Rate 0 Narrative Exam Narrative: General:? Patient is well developed and well nourished, in no distress at this time. HEENT:? Normocephalic, atraumatic, extraocular muscles intact, oral pharynx is clear and mucous membranes are moist. Neck: supple and symmetric, trachea is midline, no cervical adenopathy. Negative for JVD Chest:? Normal AP diameter and contour without kyphoscoliosis, no tachypnea, equal chest rise bilaterally. Lungs:? CTA b/l no wheezing rhonchi or rales. Cardio:?RRR no m/r/g. Abdomen: S NT ND. Musculoskeletal:? Muscle strength and tone are equal within normal limits, no deformity. Extremities: No edema or joint effusions. No cyanosis or clubbing. Skin:? Pale,? Warm to touch,dry and intact without rashes, ulcerations or petechiae.? Neuro:? Alert and orientated x3,? sensation to touch intact in all extremities, no gross deficits noted of cranial nerves. No nystagmus on eye exam. EOMI. Psych:? Patient has a well-kept appearance, appropriate affect, mental status attitude thought context and judgment are appropriate for age. Objective Labs 08/12/24 05:38 08/12/24 10:53 Labs: Laboratory Results - last 24 hr 08/11/24 08/11/24 08/11/24 13:44 20:51 20:51 WBC RBC Hgb Hct MCV MCH MCHC RDW Plt Count Neut % (Auto) Lymph % (Auto) [place] % (Auto) Eos % (Auto) Baso % (Auto) Neut # (Auto) Lymph # (Auto) [place] # (Auto) Eos # (Auto) Baso # (Auto) Sodium 119 L* Cancelled 123 L Potassium 4.1 Cancelled Chloride 84 L Carbon Dioxide 21 L BUN 8 L Creatinine 1.03 Estimated GFR > 60 BUN/Creatinine Ratio 7.8 Glucose 219 H Calcium 8.8 Magnesium Total Bilirubin AST ALT Alkaline Phosphatase Total Protein Albumin Globulin Albumin/Globulin Ratio 08/11/24 08/11/24 08/11/24 20:51 20:51 20:51 WBC RBC Hgb Hct MCV MCH MCHC RDW Plt Count Neut % (Auto) Lymph % (Auto) [place] % (Auto) Eos % (Auto) Baso % (Auto) Neut # (Auto) Lymph # (Auto) [place] # (Auto) Eos # (Auto) Baso # (Auto) Sodium Potassium 3.9 Chloride Cancelled 91 L Carbon Dioxide Cancelled 24 BUN Cancelled Creatinine Estimated GFR BUN/Creatinine Ratio Glucose Calcium Magnesium Total Bilirubin AST ALT Alkaline Phosphatase Total Protein Albumin Globulin Albumin/Globulin Ratio 08/11/24 08/11/24 08/11/24 20:51 20:51 20:51 WBC RBC Hgb Hct MCV MCH MCHC RDW Plt Count Neut % (Auto) Lymph % (Auto) [place] % (Auto) Eos % (Auto) Baso % (Auto) Neut # (Auto) Lymph # (Auto) [place] # (Auto) Eos # (Auto) Baso # (Auto) Sodium Potassium Chloride Carbon Dioxide BUN 15 Creatinine Cancelled 0.94 Estimated GFR Cancelled > 60 BUN/Creatinine Ratio Cancelled Glucose Calcium Magnesium Total Bilirubin AST ALT Alkaline Phosphatase Total Protein Albumin Globulin Albumin/Globulin Ratio 08/11/24 08/11/24 08/11/24 20:51 20:51 20:51 WBC RBC Hgb Hct MCV MCH MCHC RDW Plt Count Neut % (Auto) Lymph % (Auto) [place] % (Auto) Eos % (Auto) Baso % (Auto) Neut # (Auto) Lymph # (Auto) [place] # (Auto) Eos # (Auto) Baso # (Auto) Sodium Potassium Chloride Carbon Dioxide BUN Creatinine Estimated GFR BUN/Creatinine Ratio 16.0 Glucose Cancelled 149 H Calcium Cancelled 9.1 Magnesium Total Bilirubin AST ALT Alkaline Phosphatase Total Protein Albumin Globulin Albumin/Globulin Ratio 08/12/24 08/12/24 05:38 10:53 WBC 6.3 RBC 4.73 Hgb 14.5 Hct 42.5 MCV 89.7 MCH 30.7 MCHC 34.2 RDW 14.6 Plt Count 158 Neut % (Auto) 72.5 Lymph % (Auto) 16.3 L [place] % (Auto) 10.3 Eos % (Auto) 0.5 L Baso % (Auto) 0.4 Neut # (Auto) 4600 Lymph # (Auto) 1000 L [place] # (Auto) 600 Eos # (Auto) 0 Baso # (Auto) 0 Sodium 130 L 132 L Potassium 3.6 4.3 Chloride 98 99 Carbon Dioxide 24 24 BUN 15 16 Creatinine 0.97 0.93 Estimated GFR > 60 > 60 BUN/Creatinine Ratio 15.5 17.2 Glucose 163 H 124 H Calcium 9.2 9.2 Magnesium 2.0 Total Bilirubin 1.1 AST 64 H ALT 56 H Alkaline Phosphatase 96 Total Protein 7.5 Albumin 4.4 Globulin 3.1 Albumin/Globulin Ratio 1.4 [facility] Medical History Type 2 diabetes mellitus without complication, with no history of insulin use IFG (impaired fasting glucose) Allergic angioedema Asymptomatic bunion Eczema Chronic alcoholism Anxiety Mixed hyperlipidemia (10/06/15) Gastroesophageal reflux disease without esophagitis (10/06/15) Essential hypertension (10/06/15) Erectile dysfunction (10/06/15) Surgical History History of hernia repair (~2003) Perianal cyst (~1999) History of gastric surgery (~2003) Family History Father Cerebrovascular accident (CVA), unspecified mechanism Mother Autoimmune hepatitis Grandmother No problems noted. Social History household members: family and none Smoking Status: Never smoker alcohol intake: current Discharge Plan Discharge Plan Patient Disposition: Home Provider Discharge Comment: You were admitted to the hospital with low sodium level. Improved with IV fluids. No medication changes are recommended. Please follow up with primary care provider in the next couple weeks to follow up if any ongoing symptoms. Discharge orders & Medications Prescriptions: Continued tadalafil 20 mg tablet 20 mg PO DAILY PRN (Reason: sexual activity) Qty: 30 0RF amlodipine 10 mg tablet 10 mg PO DAILY Qty: 90 3RF azelastine 137 mcg (0.1 %) aerosol,spray 137 mcg intranasal Q12H PRN (Reason: allergy symptoms) Qty: 30 11RF Rx Instructions: administer into each nostril fluorometholone 0.1 % drops,suspension 1 drp EYE-BOTH BID PRN (Reason: Dry Eye(S)) Qty: 5 0RF Rx Instructions: refills thru [facility] clonazepam 0.5 mg tablet 0.5 mg PO BID PRN (Reason: anxiety) Qty: 60 2RF prednisone 5 mg tablet 5 mg PO DAILY PRN (Reason: Chemical reaction) Qty: 20 5RF rabeprazole [AcipHex] 20 mg tablet,delayed release (DR/EC) 20 mg PO QDAY Qty: 90 3RF meclizine 25 mg tablet 25 mg PO BID PRN (Reason: dizziness) Qty: 20 0RF Follow up/Referrals: Brock Joseph DO [Primary Care Provider] - Diet/Activity/Treatments Diet: Diet as Tolerated and Regular Diet comment: No restrictions Activity: As tolerated, no restrictions. Visit Report/Discharge Packet Instructions: DI for Hyponatremia Stand Alone Forms: Patient Portal/API, Stroke Signs & Symptoms Discharge Data Primary Care Provider: Brock Joseph Attending Provider: Reno Harris Admluann Date/Time: 08/11/24 10:34
== END 2024-08-12 12:36 | disposition home or self-care (01) ==
LOC: ED 07:19 → AC 10:35
PROVIDERS: Admitting Provider Internal Medicine; Emergency Provider Emergency Medicine; Family Provider Student in an Organized Health Care Education/Training Program; PCP Family Medicine; Referring Provider Emergency Medicine; Visit Provider Internal Medicine
DX: R42 Dizziness and giddiness (principal); E87.1 Hypo-osmolality and hyponatremia; F10.239 Alcohol dependence with withdrawal, unspecified; E11.9 Type 2 diabetes mellitus without complications; F41.9 Anxiety disorder, unspecified; K21.9 Gastro-esophageal reflux disease without esophagitis; I10 Essential (primary) hypertension
CPT/HCPCS: 36415; 71045; 76705; 80048; 80053; 80305; 80320; 81003; 81015; 82550; 82570; 83690; 83735; 84300; 84443; 84484; 85025; 93005; 93010; 96361; 96372; 96374; 96376; 99284; 99285; G0378; J1650; J2560

== ENCOUNTER → 2024-09-24 06:55 | Outpatient (CLI) | payer OTHER, SELFPAY ==
[2024-08-11 11:18] VITALS: BMI 26.1
[2024-09-24 08:00] LABS: Creatinine Urine Random 287.09 mg/dL
[2024-09-24 08:04] LABS: Microalbumin Urine Random 7.7 mg/dL (0-1.6)
[2024-09-24 08:36] LABS: Alanine Aminotransferase 71 IU/L (<50); Albumin 4.9 g/dL (3.5-5.0); Albumin Globulin Ratio 1.5 (1.0-2.8); Alkaline Phosphatase 108 U/L (38-126); Aspartate Aminotransferase 52 IU/L (17-59); BUN Creatinine Ratio 14.9 (6-22); Bilirubin Total 0.6 mg/dL (0.2-1.3); Blood Urea Nitrogen 17 mg/dL (9-20); Calcium 9.9 mg/dL (8.4-10.2); Carbon Dioxide 23 mmol/L (22-32); Chloride 105 mmol/L (98-107); Estimated Glomerular Filt Rate > 60 mL/min (>60); Globulin 3.2 g/dL (1.7-4.1); Glucose 121 mg/dL (70-100); HEMOLYSIS < 15 (0-50); Potassium 4.4 mmol/L (3.4-5.1); Sodium 139 mmol/L (137-145); Total Protein 8.1 g/dL (6.3-8.2)
[2024-09-24 15:50] LABS: HIV 1 & 2 Ab/Ag 4th Gen Combo NEGATIVE (NEGATIVE)
== END ==
PROVIDERS: PCP Family Medicine; Referring Provider Family Medicine; Visit Provider Family Medicine
DX: Z11.4 Encounter for screening for human immunodeficiency virus [HIV] (principal); E11.29 Type 2 diabetes mellitus with other diabetic kidney complication; R80.9 Proteinuria, unspecified; F10.939 Alcohol use, unspecified with withdrawal, unspecified; K74.60 Unspecified cirrhosis of liver; R73.01 Impaired fasting glucose
CPT/HCPCS: 36415; 80053; 82043; 82570; 83036; 87389

== ENCOUNTER 2024-11-24 06:25 | Emergency (ER) | payer OTHER, SELFPAY ==
[2024-08-11 11:18] VITALS: BMI 26.1
[2024-11-24 06:33] VITALS: BP 121/69; PULSE 75; RESP 20; TEMP 36.4; O2SAT 96; BMI 27.4
--- NOTE | 2024-11-24 07:11 | ED_ITS ---
HPI - Back Pain/Injury General Chief Complaint: Back Pain/Injury Stated Complaint: threw back out Time Seen by Provider: 11/24/24 06:35 Source: patient History of Present Illness HPI Narrative: And is a 59-year-old male history of alcohol abuse but has not had a drink in 2 weeks presenting today with back pain. 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 He immediately felt some low back pain worse on the left than the right. He has no radiation down the legs. No change in bowel or bladder habits. He took 2 ibuprofen yesterday without much relief. He has been trying to move but it still hurts quite a bit. Related Data Previous Rx's Medication Instructions Recorded fluorometholone 0.1 % eye 1 drp EYE-BOTH BID PRN Dry Eye(S) 10/28/23 drops,suspension #5 mL meclizine 25 mg tablet 25 mg PO BID PRN dizziness #20 tabs 02/04/24 amlodipine 10 mg tablet 10 mg PO DAILY #90 tabs 04/13/24 rabeprazole 20 mg tablet,delayed 20 mg PO QDAY #90 tabs 10/15/24 release (AcipHex) clonazepam 0.5 mg tablet 0.5 mg PO BID PRN anxiety #60 tabs 10/16/24 Cialis 20 mg tablet (tadalafil) 20 mg PO DAILY PRN sexual activity 11/12/24 #30 tabs desonide 0.05 % topical cream 1 applic topical BID PRN skin 11/12/24 irritation #15 grams loratadine 10 mg tablet (Claritin) 10 mg PO DAILY PRN allergic 11/12/24 symptoms #90 tabs cyclobenzaprine 5 mg tablet 5 mg PO TID PRN muscle spasm #14 11/24/24 tabs Allergies Allergy/AdvReac Type Severity Reaction Status Date / Time Penicillins Allergy Intermediate Verified 11/12/24 10:10 cefazolin Allergy Unknown Verified 11/12/24 10:10 cephalexin Allergy Unknown RASH Verified 11/12/24 10:10 hydrocodone Allergy Unknown UNKNOWN Verified 11/12/24 10:10 Sulfa (Sulfonamide Allergy Unknown HOT-COLD Verified 11/12/24 10:10 Antibiotics) FLASHES hydromorphone AdvReac Severe Palpitation Verified 11/12/24 10:10 s narcotics Allergy Unknown states, Uncoded 11/12/24 10:10 all narcotic except for percocet Patient History Medical History Liver cirrhosis Type 2 diabetes mellitus without complication, with no history of insulin use IFG (impaired fasting glucose) Allergic angioedema Asymptomatic bunion Eczema Chronic alcoholism Anxiety Mixed hyperlipidemia (10/06/15) Gastroesophageal reflux disease without esophagitis (10/06/15) Essential hypertension (10/06/15) Erectile dysfunction (10/06/15) Surgical History History of hernia repair (~2003) Perianal cyst (~1999) History of gastric surgery (~2003) Family History Father Cerebrovascular accident (CVA), unspecified mechanism Mother Autoimmune hepatitis Grandmother No problems noted. Social History household members: family and none Smoking Status: Never smoker alcohol intake: current Smoking Status: Never smoker alcohol intake frequency: 3 or more drinks per day Alcohol type: hard liquor Exam Initial Vital Signs Initial Vital Signs: Vital Signs Temperature 97.5 F L 11/24/24 06:33 Pulse Rate 75 11/24/24 06:33 Respiratory Rate 20 11/24/24 06:33 Blood Pressure 121/69 11/24/24 06:33 Pulse Oximetry 96 11/24/24 06:33 Oxygen Delivery Method Room Air 11/24/24 06:33 GENERAL: Well-appearing, well-nourished and in no acute distress. CARDIOVASCULAR: peripheral pulses in tact, cap refill <2 sec RESPIRATORY: No respiratory distress, speaks in full sentences without dif ficulty BACK: No real vertebral tenderness more paraspinal and lower lumbar tenderness on the left greater than right. Sensation in lower extremities intact EXTREMITIES: Normal range of motion, no clubbing or edema. Neurovascularly intact NEUROLOGICAL: Cranial nerves II through XII grossly intact. Normal gait and speech. SKIN: Warm, dry, no petechiae, no rashes or lesions. Course Orders Ordered: Discontinued Medications Ketorolac Tromethamine (Ketorolac 30 Mg/Ml Vial) 30 mg IM NOW ONE Stop: 11/24/24 07:29 Last Admin: 02/18/25 07:35 Dose: 30 mg Documented By: JOSÉ Vital Signs Vital signs: Vital Signs - 8 hr 11/24/24 06:33 11/24/24 07:43 Temperature 97.5 F L 98.3 F Pulse Rate 75 70 Respiratory Rate 20 20 Blood Pressure 121/69 115/70 Pulse Oximetry 96 100 Oxygen Delivery Method Room Air Room Air MDM - Back Pain/Injury MDM Narrative Medical decision making narrative: Patient 59-year-old male history of alcohol abuse but has reported significant decrease alcohol use over last couple of months and no alcohol use in the last 2 weeks. No evidence or signs or symptoms of cauda equina. Seems musculoskeletal. Given a shot of Toradol here in the ED. reports that Flexeril has previously worked for him in the past. Discharge Plan Departure Patient Disposition: Home Clinical Impression: Back strain Instructions: DI for Back Strain or Sprain Activity Restrictions/Additional Instructions: *You have been diagnosed with back pain *What to do: At this time increase activity as tolerated recommend heating pad no strenuous or heavy lifting but light walking encouraged *Continue to take medications as directed Motrin 600 mg every 6 hours for [id number] pain Flexeril 5-10 mg every 8 hours if needed for severe spasm---do not drive or drink alcohol while taking this medication *Follow up with your primary care provider in 2-3 days or call [phone] *Return to ER if you should have increasing pain weakness loss of urine or stool or any new, worsening or concerning symptoms Prescriptions: New cyclobenzaprine 5 mg tablet 5 mg PO TID PRN (Reason: muscle spasm) Qty: 14 0RF No Action amlodipine 10 mg tablet 10 mg PO DAILY Qty: 90 3RF rabeprazole [AcipHex] 20 mg tablet,delayed release (DR/EC) 20 mg PO QDAY Qty: 90 3RF clonazepam 0.5 mg tablet 0.5 mg PO BID PRN (Reason: anxiety) Qty: 60 2RF fluorometholone 0.1 % drops,suspension 1 drp EYE-BOTH BID PRN (Reason: Dry Eye(S)) Qty: 5 0RF Rx Instructions: refills thru [facility] desonide 0.05 % cream 1 applic topical BID PRN (Reason: skin irritation) Qty: 15 11RF Rx Instructions: use for 7-14 days, then stop for 7 days. can repeat as needed. loratadine [Claritin] 10 mg tablet 10 mg PO DAILY PRN (Reason: allergic symptoms) Qty: 90 11RF tadalafil [Cialis] 20 mg tablet 20 mg PO DAILY PRN (Reason: sexual activity) Qty: 30 11RF Rx Instructions: administer approximately 30min before sexual activity; do not use more than 1 dose per 24hrs meclizine 25 mg tablet 25 mg PO BID PRN (Reason: dizziness) Qty: 20 0RF Referrals: Brock Joseph DO [Primary Care Provider] - Stand Alone Forms: Patient Portal/API/Survey
[2024-11-24] MEDS: KETOROLAC 30 MG/ML VIAL IM (07:35)
[2024-11-24 07:43] VITALS: BP 115/70; PULSE 70; RESP 20; TEMP 36.8; O2SAT 100
== END 2024-11-24 07:45 | disposition home or self-care (01) ==
PROVIDERS: Emergency Provider Emergency Medicine; PCP Family Medicine
DX: S39.012A Strain of muscle, fascia and tendon of lower back, initial encounter (principal); X50.9XXA Other and unspecified overexertion or strenuous movements or postures, initial encounter; Y93.F2 Activity, caregiving, lifting
CPT/HCPCS: 96372; 99283; J1885

== ENCOUNTER 2025-03-30 06:44 | Emergency (ER) | payer OTHER, SELFPAY ==
[2024-08-11 11:18] VITALS: BMI 26.1
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
--- NOTE | 2025-03-30 07:44 | PC.NURSE ---
Dr. Alvarez was able to see patient in the waiting room, she examined the patient and provided discharge information to patient. I was not able to obtain triage or discharge vitals.
== END 2025-03-30 07:48 | disposition home or self-care (01) ==
PROVIDERS: Emergency Provider Emergency Medicine; PCP Family Medicine
DX: S13.4XXA Sprain of ligaments of cervical spine, initial encounter (principal); V43.52XA Car driver injured in collision with other type car in traffic accident, initial encounter; Y92.410 Unspecified street and highway as the place of occurrence of the external cause
CPT/HCPCS: 99281

== ENCOUNTER → 2025-04-05 16:00 | Outpatient (CLI) | payer OTHER, SELFPAY ==
[2024-08-11 11:18] VITALS: BMI 26.1
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
== END ==
PROVIDERS: PCP Family Medicine; Referring Provider Family Medicine; Visit Provider Family Medicine
DX: M54.2 Cervicalgia (principal); M54.9 Dorsalgia, unspecified; M25.551 Pain in right hip; V89.2XXA Person injured in unspecified motor-vehicle accident, traffic, initial encounter
CPT/HCPCS: 72040; 72070; 73502

== ENCOUNTER 2025-05-05 02:20 | Emergency (ER) | payer OTHER, SELFPAY ==
[2025-04-19 14:12] VITALS: BMI 26.1
[2025-05-05] VITALS (27 sets, daily range): BP systolic 130–179; BP diastolic 73–100; PULSE 74–103; RESP 16–20; TEMP 36.5–37.4; O2SAT 93–98; BMI 27.4
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
[2025-05-05] MEDS: ONDANSETRON 4 MG/2 ML INJ IV (02:41)
[2025-05-05] MEDS: SODIUM CHLORIDE 0.9% 1,000 ML 1000 ML IV ×2 (02:55→09:45)
[2025-05-05 05:31] LABS: Alanine Aminotransferase 115 IU/L (<50); Albumin 5.3 g/dL (3.5-5.0); Albumin Globulin Ratio 1.3 (1.0-2.8); Alkaline Phosphatase 138 U/L (38-126); Blood Urea Nitrogen 8 mg/dL (9-20); Calcium 9.5 mg/dL (8.4-10.2); Carbon Dioxide 19 mmol/L (22-32); Chloride 90 mmol/L (98-107); Estimated Glomerular Filt Rate > 60 mL/min (>60); Ethanol (ETOH) < 10 mg/dL (<10); Globulin 4.1 g/dL (1.7-4.1); Glucose 256 mg/dL (70-99); HEMOLYSIS 28 (0-50); Lipase 150 U/L (23-300); Potassium 3.9 mmol/L (3.4-5.1); Sodium 127 mmol/L (137-145); Total Protein 9.4 g/dL (6.3-8.2)
[2025-05-05 05:33] LABS: Add Manual Diff / Slide Review NO; Hematocrit 44.1 % (41-53); Hemoglobin 15.9 g/dL (13.5-17.5); Lymphocytes Absolute Auto 1300 /uL (1100-4500); Mean Corpuscular HGB Conc 36.0 % (30-36); Mean Corpuscular Hemoglobin 32.4 PG (26-34); Mean Corpuscular Volume 89.8 fL (80-100); Platelet Count 206 X10^3/uL (150-400)
[2025-05-05] MEDS: MECLIZINE HCL 12.5 MG TABLET 25 MG PO (05:58)
--- NOTE | 2025-05-05 07:42 | PC.NURSE ---
verbal order from Dr. Verdin for 130mg phenobarbital
--- NOTE | 2025-05-05 09:15 | DI.CT.S_ITS ---
PROCEDURE: CT ANGIO HEAD AND NECK INDICATIONS: Dizzy TECHNIQUE: After the administration of 80 milliliters Isovue-300 intravenous contrast, 1 mm thick sections acquired from the aortic arch through the [place]. 3- dimensional scmmrxv-ugnhxnsct-hafwznhvgi (MIP) and/or volume rendering reformats were acquired of the central intracranial vasculature and neck separately. For radiation dose reduction, the following was used: automated exposure control, adjustment of mA and/or kV according to patient size. COMPARISON: None. FINDINGS: Image quality: Image quality degraded by patient motion artifact. Cerebral CT Angiogram: Internal carotid arteries: No acute findings. Intracranial ICA are patent with no significant stenosis. No occlusion. No aneurysm. Anterior cerebral arteries: Unremarkable. No significant stenosis. No occlusion. No aneurysm. Middle cerebral arteries: Unremarkable. No significant stenosis. No occlusion. No aneurysm. Posterior cerebral arteries: Unremarkable. No significant stenosis. No occlusion. No aneurysm. Basilar artery: Unremarkable. No significant stenosis. No occlusion. No aneurysm. Vertebral arteries: Unremarkable as visualized. Dural venous sinuses: Unremarkable given phase of enhancement. Other: Arterial phase appearance of the brain parenchyma is unremarkable. Neck CT Angiogram: Internal carotid arteries: Unremarkable. Atherosclerotic calcifications in the origins of the internal carotid arteries which causes mild, less than 50% stenosis of the vessels. No dissection or occlusion. Common carotid arteries: Unremarkable. No significant stenosis. No dissection or occlusion. External carotid arteries: Unremarkable. No occlusion. Vertebral arteries: Unremarkable. No significant stenosis. No dissection or occlusion. Aortic Arch and Mediastinum: Partially visualized aortic arch unremarkable without evidence of aneurysm. Bovine variant origin of the great vessels. Other: Arterial phase soft tissues of the neck and chest are unremarkable. Spine degenerative disc disease and facet arthropathy. IMPRESSION: Image quality degraded by patient motion artifact. No large vessel occlusion, significant vascular stenosis, vascular dissection or aneurysm within limitations of the study. Any quantitative measurements of stenosis were performed using NASCET criteria. Dictated by: Chica Fuentes MD, PhD on 05/05/2025 at 9:45 Approved by: Chica Fuentes MD, PhD on 05/05/2025 at 9:53
--- NOTE | 2025-05-05 09:15 | DI.CT.S_ITS ---
PROCEDURE: CT HEAD/BRAIN WO CON INDICATIONS: Dizzy TECHNIQUE: Noncontrast 4.5 mm thick angled axial sections acquired from the foramen magnum to the vertex, with coronal and sagittal reformats. For radiation dose reduction, the following was used: automated exposure control, adjustment of mA and/or kV according to patient size. COMPARISON: [facility], CT, CT HEAD/BRAIN WO CON, 03/15/2023, 6:45. FINDINGS: Image quality: Diagnostic. CSF spaces: Basal cisterns are patent. No extra-axial fluid collections. The ventricles are symmetric in size and shape. Brain: No intracranial bleeds or mass effect. There is cerebral volume loss, with resultant ventricular and sulcal prominence. There are periventricular and deep white matter chronic small vessel ischemic changes. There is intracranial internal carotid artery atherosclerosis. Skull and face: Calvarium and visualized facial bones appear intact, without suspicious lesions. Incidental left paramedian frontal bone osteoma. Sinuses: Visualized sinuses and mastoids are clear. IMPRESSION: No acute intracranial pathology. Dictated by: Chica Fuentes MD, PhD on 05/05/2025 at 9:41 Approved by: Chica Fuentes MD, PhD on 05/05/2025 at 9:43
--- NOTE | 2025-05-05 10:12 | DI.MRI.S_ITS ---
PROCEDURE: MR HEAD/BRAIN WO CON INDICATIONS: Dizziness/ataxia TECHNIQUE: Noncontrast axial T1 spin echo, axial T2 fast spin echo, sagittal and axial FLAIR, coronal T2 fast spin echo, axial gradient echo, axial diffusion and ADC through the brain. COMPARISON: [facility], CT, CT HEAD/BRAIN WO CON, 05/05/2025, 9:31. FINDINGS: Image quality: Excellent. CSF Spaces: Basal cisterns are patent. No extra-axial fluid collections. Ventricles are normal in size and shape. Brain: No intracranial masses or hemorrhage. Mild periventricular and subcortical white matter chronic microvascular ischemic change. Lara/white matter interface is normal. Brainstem appears normal. Diffusion-weighted images demonstrate no acute infarct. No chronic ischemic insults. Normal intravascular flow voids are present. Skull and face: Calvarium has normal marrow signal. Orbits appear normal. Sinuses: Sinuses and mastoids are clear. IMPRESSION: No acute intracranial disease process. No acute or chronic infarcts. No intracranial hemorrhage. No abnormal intracranial mass. Dictated by: Chica Fuentes MD, PhD on 05/05/2025 at 11:25 Approved by: Chica Fuentes MD, PhD on 05/05/2025 at 11:29
--- NOTE | 2025-05-05 10:57 | PC.NURSE ---
Dizziness; worse upon standing and ambulating. pt able to track objects/finger appropriately. no change in vision.
== END 2025-05-05 12:53 | disposition home or self-care (01) ==
PROVIDERS: Emergency Medicine; Emergency Provider Emergency Medicine; PCP Family Medicine
DX: F10.939 Alcohol use, unspecified with withdrawal, unspecified (principal); E11.65 Type 2 diabetes mellitus with hyperglycemia; R42 Dizziness and giddiness; M54.2 Cervicalgia; M79.601 Pain in right arm
CPT/HCPCS: 36415; 70450; 70496; 70498; 70551; 80053; 80320; 83690; 85025; 96361; 96374; 96375; 99284; J2405; J2560; J3360; Q9967

== ENCOUNTER → 2025-08-06 10:15 | Outpatient (CLI) | payer OTHER, SELFPAY ==
[2025-04-19 14:12] VITALS: BMI 26.1
[2025-08-06 11:24] LABS: Hemoglobin A1C% w Est Avg Glu 6.5 % (4.0-6.0)
[2025-08-06 11:43] LABS: Alanine Aminotransferase 162 IU/L (<50); Albumin 5.2 g/dL (3.5-5.0); Albumin Globulin Ratio 1.4 (1.0-2.8); Alkaline Phosphatase 104 U/L (38-126); Blood Urea Nitrogen 17 mg/dL (9-20); Calcium 9.7 mg/dL (8.4-10.2); Carbon Dioxide 23 mmol/L (22-32); Chloride 101 mmol/L (98-107); Cholesterol 203 mg/dL (140-199); Estimated Glomerular Filt Rate > 60 mL/min (>60); Globulin 3.7 g/dL (1.7-4.1); Glucose 133 mg/dL (70-99); HDL Cholesterol 63 mg/dL (40-60); HEMOLYSIS 21 (0-50); Potassium 4.3 mmol/L (3.4-5.1); Sodium 137 mmol/L (137-145); Total Protein 8.9 g/dL (6.3-8.2); Triglycerides 284 mg/dL (35-150)
== END ==
PROVIDERS: PCP Family Medicine; Referring Provider Family Medicine; Visit Provider Family Medicine
DX: K74.60 Unspecified cirrhosis of liver (principal); E87.1 Hypo-osmolality and hyponatremia; E11.9 Type 2 diabetes mellitus without complications; Z12.5 Encounter for screening for malignant neoplasm of prostate
CPT/HCPCS: 36415; 80053; 80061; 83036; G0103